=== PATIENT | male | born 1980 | race Caucasian/White ===

== ENCOUNTER 2017-07-03 22:23 | Emergency (ER) | payer MEDICAID ==
--- NOTE | 2017-07-03 22:47 | EDM.PDOC ---
ED HPI GENERAL MEDICAL PROBLEM - General Chief Complaint: Upper Extremity Injury/Pain Stated Complaint: LT SHOULDER POPPED OUT Time Seen by Provider: 07/03/17 22:46 Source of Information: Reports: Patient - History of Present Illness INITIAL COMMENTS - FREE TEXT/NARRATIVE: HISTORY AND PHYSICAL: History of present illness: []Patient presents with complaint of a left shoulder dislocation after falling from a however board although he has range of motion of the shoulder is tender along the clavicle 4 out of 10 pain better at rest no fever nausea vomiting chills sweats no chest pain or shortness of breath Review of systems: As per history of present illness and below otherwise all systems reviewed and negative. Past medical history: As per history of present illness and as reviewed below otherwise noncontributory. Surgical history: As per history of present illness and as reviewed below otherwise noncontributory. Social history: No reported history of drug or alcohol abuse. Family history: As per history of present illness and as reviewed below otherwise noncontributory. Physical exam: HEENT: Atraumatic, normocephalic, pupils reactive, negative for conjunctival pallor or scleral icterus, mucous membranes moist, throat clear, neck supple, nontender, trachea midline. Lungs: Clear to auscultation, breath sounds equal bilaterally, chest nontender. Heart: S1S2, regular, negative for clicks, rubs, or JVD. Abdomen: Soft, nondistended, nontender. Negative for masses or hepatosplenomegaly. Negative for costovertebral tenderness. Pelvis: Stable nontender. Genitourinary: Deferred. Rectal: Deferred. Extremities: Atraumatic, negative for cords or calf pain. Neurovascular unremarkable. Neuro: Awake, alert, oriented. Cranial nerves II through XII unremarkable. Cerebellum unremarkable. Motor and sensory unremarkable throughout. Exam nonfocal. Diagnostics: [Left shoulder complete ] Therapeutics: [] sling [place] No heavy equipment operation with narcotic pain medicine Impression: [Left shoulder injury] Clavicle fracture Definitive disposition and diagnosis as appropriate pending reevaluation and review of above. Left Shoulder Pain Score (Numeric/FACES): 6 - Related Data Allergies Allergy/AdvReac Type Severity Reaction Status Date / Time No Known Allergies Allergy Verified 07/03/17 22:43 Home Meds: Home Meds . [Unable to Verify Home Med List] 07/03/17 [History] Past Medical History - Past Health History Medical/Surgical History: Denies Medical/Surgical History Cardiovascular History: Reports: Hypertension Psychiatric History: Reports: Addiction Other Psychiatric History: alcohol abuse Social & Family History - Tobacco Use Smoking Status *Q: Current Every Day Smoker Years of Tobacco use: 25 Packs/Tins Daily: 0.7 - Caffeine Use Caffeine Use: Reports: None - Alcohol Use Days Per Week of Alcohol Use: 7 Number of Drinks Per Day: 10 Total Drinks Per Week: 70 - Recreational Drug Use Recreational Drug Use: No Review of Systems - Review of Systems Review Of Systems: ROS reveals no pertinent complaints other than HPI. ED EXAM, GENERAL - Physical Exam Exam: See Below Course - Vital Signs Last Recorded V/S: Last Vital Signs Temp 99.1 F 07/03/17 22:41 Pulse 99 07/03/17 22:41 Resp 12 07/03/17 22:41 BP 131/82 07/03/17 22:41 Pulse Ox 94 L 07/03/17 22:41 - Orders/Labs/Meds Orders: Active Orders 24 hr Category Date Time Status Shoulder Comp Lt [CR] Stat Exams 07/03/17 22:46 Taken Departure - Departure Time of Disposition: 23:49 Disposition: Home, Self-Care 01 Condition: Good Clinical Impression: Clavicle fracture - Discharge Information Referrals: PCP,None [Primary Care Provider] - Forms: ED Department Discharge Additional Instructions: Medication as prescribed Sling for comfort No heavy equipment operation or driving with pain medication Return if symptoms persist or worsen Follow-up with orthopedist, call phone number below to schedule appropriate appointment follow-up [facility] [address], [address] [place] [address] my orthopedic The following information is given to patients seen in the emergency department who are being discharged to home. This information is to outline your options for follow-up care. We provide all patients seen in our emergency department with a follow-up referral. The need for follow-up, as well as the timing and circumstances, are variable depending upon the specifics of your emergency department visit. If you don't have a primary care physician on staff, we will provide you with a referral. We always advise you to contact your personal physician following an emergency department visit to inform them of the circumstance of the visit and for follow-up with them and/or the need for any referrals to a consulting specialist. The emergency department will also refer you to a specialist when appropriate. This referral assures that you have the opportunity for follow-up care with a specialist. All of these measure are taken in an effort to provide you with optimal care, which includes your follow-up. Under all circumstances we always encourage you to contact your private physician who remains a resource for coordinating your care. When calling for follow-up care, please make the office aware that this follow-up is from your recent emergency room visit. If for any reason you are refused follow-up, please contact the [facility] emergency department at and asked to speak to the emergency department charge nurse. - My Orders Last 24 Hours: My Active Orders 07/03/17 22:46 Shoulder Comp Lt [CR] Stat - Assessment/Plan Last 24 Hours: My Active Orders 07/03/17 22:46 Shoulder Comp Lt [CR] Stat
[2017-07-04 00:20] VITALS: BP 127/81
--- NOTE | 2017-07-04 15:36 | CR ---
EXAM DATE: 07/03/17 PATIENT'S AGE: 36 Patient: VICKI MADRID Facility: [place], [place] Site . Site : 1980 Study: XRay Shoulder Left [id number]/22/2018 11:24:19 PM Ordering Physician: Doctor Lopez Final Report: INDICATION: Trauma TECHNIQUE: Three views left shoulder COMPARISON: None FINDINGS: Bones: Multipart displaced fracture distal left clavicle. Joint spaces: Unremarkable. Soft tissues: Unremarkable. IMPRESSION: Multipart displaced fracture distal left clavicle. The AC joint is intact. Dictated by Bob Richardson MD @ 07/03/2017 11:34:56 PM Dictated by: Bob Richardson MD @ 07/03/2017 23:35:03 (Electronic Signature) Report Signed by Proxy. MELA
== END 2017-07-04 00:08 | disposition home or self-care (01) ==
LOC: MW.ED 22:23
DX: S42.032A Displaced fracture of lateral end of left clavicle, initial encounter for closed fracture (principal); I10 Essential (primary) hypertension; F17.210 Nicotine dependence, cigarettes, uncomplicated; W17.89XA Other fall from one level to another, initial encounter
CPT/HCPCS: 73030; 99283; A4566

== ENCOUNTER 2020-04-03 00:11 | Inpatient (IN) | payer BC, MEDICAID ==
[2020-04-03] MEDS ORDERED: Sodium Chloride 0.9% 10 ML Syringe FLUSH PRN (00:42)
[2020-04-03] MEDS ORDERED: Sodium Chloride 0.9% 2.5 ML Syringe FLUSH PRN (00:42)
[2020-04-03] MEDS ORDERED: Folic Acid 1 MG Tab PO ONE (00:44)
[2020-04-03] MEDS ORDERED: MVI, Adult with Vitamin K 10 ML, Thiamine 200 MG, Chromium/Copper/Mang/Selen/Zn 1 ML in... IV SCH ×4 (00:45)
--- NOTE | 2020-04-03 00:46 | EDM.PDOC ---
ED HPI GENERAL MEDICAL PROBLEM - General Chief Complaint: Drug or Alcohol Abuse Stated Complaint: ALCOHOL DETOX Time Seen by Provider: 04/03/20 00:25 - History of Present Illness INITIAL COMMENTS - FREE TEXT/NARRATIVE: History of present illness: [] The patient is intoxicated and admits it. He says he drinks every day. He never gets sober. He gets shaky and sick if he stops drinking. He is depressed. His father of cirrhosis. His mother is 20 years sober but was an alcoholic. He does not have any specific complaints. He does hallucinate and hears voices but he is tearful about the fact and the same that he does had for some reason. The voices are not self-deprecating and do not tell him to do any harm to anyone. He does not recognize the identity of the voices. The patient is not suicidal and wants help. Review of systems: As per history of present illness and below otherwise all systems reviewed and negative. Past medical history: As per history of present illness and as reviewed below otherwise noncontributory. Surgical history: As per history of present illness and as reviewed below otherwise noncontributory. Social history: No reported history of drug or alcohol abuse. Family history: As per history of present illness and as reviewed below otherwise noncontributory. Physical exam: Constitutional - well developed, well-nourished and in no acute distress HEENT - normocephalic, no evidence of trauma - external nose and mouth normal - no mass in neck and no JVD - mucosae moist EYES - full EOM, PERRL, no icterus - no evidence of inflammation, injection, or drainage Respiratory - no respiratory distress, equal bilateral expansion, lungs clear to auscultation and no abnormal lung sounds Cardiovascular - Regular Rhythm with S1 and S2 appreciated and no murmur, gallop or rub. GI - abdomen normally distended- normal bowel sounds - no guard or rebound Musculoskeletal no gross deformity of long bones or joints - no tenderness, swelling or edema Neurologic - Alert and oriented times four - CN II-XII grossly intact - motor sensory and coordination symmetrically normal Psychiatric - appropriate mood and affect with normal thought content Hematologic - No petechiae or purpura - mucosa appropriate color and sclera not pale - normal nail bed color and refill Integument - no rash or evidence of trauma - normal turgor Diagnostics: [] Therapeutics: [] Impression: [] Plan: [] Definitive disposition and diagnosis as appropriate pending reevaluation and review of above. - Related Data Allergies Allergy/AdvReac Type Severity Reaction Status Date / Time No Known Allergies Allergy Verified 04/03/20 00:19 Home Meds: Home Meds Escitalopram [Lexapro] 20 mg PO DAILY 04/03/20 [History] Folic Acid 1 mg PO DAILY 04/03/20 [History] Labetalol [Normodyne] 200 mg PO DAILY 04/03/20 [History] Lacosamide [Vimpat] 150 mg PO BID 04/03/20 [History] Naltrexone 50 mg PO DAILY 04/03/20 [History] Venlafaxine [Effexor] 75 mg PO BID 04/03/20 [History] amLODIPine [Norvasc] 10 mg PO DAILY 04/03/20 [History] chlordiazePOXIDE [Librium] 25 mg PO ASDIRECTED 04/03/20 [History] hydrALAZINE [Apresoline] 50 mg PO DAILY 04/03/20 [History] Past Medical History - Past Health History Medical/Surgical History: Denies Medical/Surgical History HEENT History: Reports: None Cardiovascular History: Reports: Hypertension Respiratory History: Reports: None Gastrointestinal History: Reports: None Genitourinary History: Reports: None Musculoskeletal History: Reports: None Neurological History: Reports: None Psychiatric History: Reports: Addiction Other Psychiatric History: alcohol abuse Endocrine/Metabolic History: Reports: None Dermatologic History: Reports: None - Infectious Disease History Infectious Disease History: Reports: Chicken Pox Social & Family History - Tobacco Use Tobacco Use Status *Q: Current Every Day Tobacco User Years of Tobacco use: 20 Packs/Tins Daily: 1 - Caffeine Use Caffeine Use: Reports: None - Recreational Drug Use Recreational Drug Use: No ED ROS GENERAL - Review of Systems Review Of Systems: Comprehensive ROS is negative, except as noted in HPI. ED EXAM, GENERAL - Physical Exam Exam: See Below Free Text/Narrative:: My physical exam is in the HPI #1 Interpretation EKG Interpretation Comments: EKG done at 12:43 AM normal sinus rhythm heart rate 96 UT 172 QT 468 [place] [address] and T segments and QRS. Impression normal EKG Course - Vital Signs Text/Narrative:: 2:19 AM. The patient has elevated lipase over 2500. He still is hungry. The patient has alcohol over 400. Discussed with our hospitalist and she said if there is no significant abnormality on CT that would require transfer she would admit the patient for alcohol poisoning and pancreatitis. That if he is hungry would be okay to give a trial of p.o. intake here but make him n.p.o. after that. Want to CT report before we tried that. 06 03 the patient is eating and hungry. The CT does not show any need for surgery. The patient will be placed in observation status and then will try to make arrangements for detox are supervised abstinence. Dr. Arriaga most graciously admitted to place the patient on observation status in the hospital. Last Recorded V/S: Last Vital Signs Temp 36.1 C 04/03/20 00:19 Pulse 86 04/03/20 01:45 Resp 18 04/03/20 01:45 BP 113/65 04/03/20 01:45 Pulse Ox 95 04/03/20 01:45 - Orders/Labs/Meds Orders: Active Orders 24 hr Category Date Time Status Admission Status [Patient Status] [ADT] Stat ADT 04/03/20 03:16 Ordered EKG Documentation Completion [RC] AM Care 04/03/20 00:42 Active COVID-19/FLU A+B [MOLEC] Stat Lab 04/03/20 02:14 Ordered MVI, Adult with Vitamin K [Infuvite Adult] 10 ml Med 04/03/20 01:11 Active Thiamine [Vitamin B-1] 100 mg Folic Acid 1 mg Sodium Chloride 0.9% [Normal Saline] 1,000 ml IV ONETIME Sodium Chloride 0.9% [Saline Flush] Med 04/03/20 00:42 Active 10 ml FLUSH ASDIRECTED PRN Sodium Chloride 0.9% [Saline Flush] Med 04/03/20 00:42 Active 2.5 ml FLUSH ASDIRECTED PRN Saline Lock Insert [OM.PC] Stat Oth 04/03/20 00:42 Ordered Medication Orders Multivitamins/Minerals 10 ml/Thiamine HCl 100 mg/ Folic Acid 1 mg/ Sodium Chloride 1,011.2 mls @ 150 mls/hr IV ONETIME ONE Stop: 04/03/20 07:55 Last Admin: 04/03/20 01:12 Dose: 150 mls/hr Documented by: MANSRUF Sodium Chloride (Saline Flush) 10 ml FLUSH ASDIRECTED PRN PRN Reason: Keep Vein Open Sodium Chloride (Saline Flush) 2.5 ml FLUSH ASDIRECTED PRN PRN Reason: Keep Vein Open Labs: Laboratory Tests 04/03/20 04/03/20 04/03/20 Range/Units 00:34 00:34 00:34 WBC 7.59 (4.0-11.0) K/uL RBC 3.93 L (4.50-5.90) M/uL Hgb 13.5 (13.0-17.0) g/dL Hct 38.4 (38.0-50.0) % MCV 97.7 (80.0-98.0) fL MCH 34.4 H (27.0-32.0) pg MCHC 35.2 (31.0-37.0) g/dL RDW Std Deviation 45.2 (28.0-62.0) fl RDW Coeff of [place] 13 (11.0-15.0) % Plt Count 178 (150-400) K/uL MPV 9.80 (7.40-12.00) fL Neut % (Auto) 28.6 L (48.0-80.0) % Lymph % (Auto) 53.6 H (16.0-40.0) % [place] % (Auto) 12.9 (0.0-15.0) % Eos % (Auto) 2.8 (0.0-7.0) % Baso % (Auto) 2.1 H (0.0-1.5) % Neut # (Auto) 2.2 (1.4-5.7) K/uL Lymph # (Auto) 4.1 H (0.6-2.4) K/uL [place] # (Auto) 1.0 H (0.0-0.8) K/uL Eos # (Auto) 0.2 (0.0-0.7) K/uL Baso # (Auto) 0.2 H (0.0-0.1) K/uL Sodium 144 (136-148) mmol/L Potassium 3.6 (3.5-5.1) mmol/L Chloride 105 (98-107) mmol/L Carbon Dioxide 26.7 (21.0-32.0) mmol/L BUN 8 (7.0-18.0) mg/dL Creatinine 0.9 (0.8-1.3) mg/dL Est Cr Clr Drug Dosing 111.53 mL/min Estimated GFR (MDRD) > 60.0 ml/min Glucose 100 (74-106) mg/dL Calcium 8.5 (8.5-10.1) mg/dL Magnesium 1.9 (1.8-2.4) mg/dL Total Bilirubin 0.4 (0.2-1.0) mg/dL AST 150 H (15-37) IU/L ALT 98 H (14-63) IU/L Alkaline Phosphatase 118 H (46-116) U/L Troponin I < 0.050 (0.000-0.056) ng/mL Total Protein 7.5 (6.4-8.2) g/dL Albumin 3.9 (3.4-5.0) g/dL Globulin 3.6 (2.6-4.0) g/dL Albumin/Globulin Ratio 1.1 (0.9-1.6) Lipase 2582 H (73-393) U/L Urine Color Urine Appearance Urine pH (5.0-8.0) Ur Specific [place] (1.001-1.035) Urine Protein (NEGATIVE) mg/dL Urine Glucose (UA) (NEGATIVE) mg/dL Urine Ketones (NEGATIVE) mg/dL Urine Occult Blood (NEGATIVE) Urine Nitrite (NEGATIVE) Urine Bilirubin (NEGATIVE) Urine Urobilinogen (<2.0) EU/dL Ur Leukocyte Esterase (NEGATIVE) Urine RBC (0-2/HPF) Urine WBC (0-5/HPF) Ur Epithelial Cells (NONE-FEW) Urine Bacteria (NEGATIVE) Urine Mucus (NONE-MOD) Urine Opiates Screen (NEGATIVE) Ur Oxycodone Screen (NEGATIVE) Urine Methadone Screen (NEGATIVE) Ur Barbiturates Screen (NEGATIVE) Ur Phencyclidine Scrn (NEGATIVE) Ur Amphetamine Screen (NEGATIVE) U Methamphetamines Scrn (NEGATIVE) U Benzodiazepines Scrn (NEGATIVE) U Cocaine Metab Screen (NEGATIVE) U Marijuana (THC) Screen (NEGATIVE) Ethyl Alcohol 436 mg/dL 04/03/20 04/03/20 Range/Units 00:50 00:50 WBC (4.0-11.0) K/uL RBC (4.50-5.90) M/uL Hgb (13.0-17.0) g/dL Hct (38.0-50.0) % MCV (80.0-98.0) fL MCH (27.0-32.0) pg MCHC (31.0-37.0) g/dL RDW Std Deviation (28.0-62.0) fl RDW Coeff of [place] (11.0-15.0) % Plt Count (150-400) K/uL MPV (7.40-12.00) fL Neut % (Auto) (48.0-80.0) % Lymph % (Auto) (16.0-40.0) % [place] % (Auto) (0.0-15.0) % Eos % (Auto) (0.0-7.0) % Baso % (Auto) (0.0-1.5) % Neut # (Auto) (1.4-5.7) K/uL Lymph # (Auto) (0.6-2.4) K/uL [place] # (Auto) (0.0-0.8) K/uL Eos # (Auto) (0.0-0.7) K/uL Baso # (Auto) (0.0-0.1) K/uL Sodium (136-148) mmol/L Potassium (3.5-5.1) mmol/L Chloride (98-107) mmol/L Carbon Dioxide (21.0-32.0) mmol/L BUN (7.0-18.0) mg/dL Creatinine (0.8-1.3) mg/dL Est Cr Clr Drug Dosing mL/min Estimated GFR (MDRD) ml/min Glucose (74-106) mg/dL Calcium (8.5-10.1) mg/dL Magnesium (1.8-2.4) mg/dL Total Bilirubin (0.2-1.0) mg/dL AST (15-37) IU/L ALT (14-63) IU/L Alkaline Phosphatase (46-116) U/L Troponin I (0.000-0.056) ng/mL Total Protein (6.4-8.2) g/dL Albumin (3.4-5.0) g/dL Globulin (2.6-4.0) g/dL Albumin/Globulin Ratio (0.9-1.6) Lipase (73-393) U/L Urine Color YELLOW Urine Appearance CLEAR Urine pH 6.5 (5.0-8.0) Ur Specific [place] 1.015 (1.001-1.035) Urine Protein 30 H (NEGATIVE) mg/dL Urine Glucose (UA) NEGATIVE (NEGATIVE) mg/dL Urine Ketones NEGATIVE (NEGATIVE) mg/dL Urine Occult Blood NEGATIVE (NEGATIVE) Urine Nitrite NEGATIVE (NEGATIVE) Urine Bilirubin NEGATIVE (NEGATIVE) Urine Urobilinogen 0.2 (<2.0) EU/dL Ur Leukocyte Esterase NEGATIVE (NEGATIVE) Urine RBC NONE SEEN (0-2/HPF) Urine WBC 0-1 (0-5/HPF) Ur Epithelial Cells RARE (NONE-FEW) Urine Bacteria RARE (NEGATIVE) Urine Mucus LIGHT (NONE-MOD) Urine Opiates Screen NEGATIVE (NEGATIVE) Ur Oxycodone Screen NEGATIVE (NEGATIVE) Urine Methadone Screen NEGATIVE (NEGATIVE) Ur Barbiturates Screen NEGATIVE (NEGATIVE) Ur Phencyclidine Scrn NEGATIVE (NEGATIVE) Ur Amphetamine Screen NEGATIVE (NEGATIVE) U Methamphetamines Scrn NEGATIVE (NEGATIVE) U Benzodiazepines Scrn POSITIVE (NEGATIVE) U Cocaine Metab Screen NEGATIVE (NEGATIVE) U Marijuana (THC) Screen NEGATIVE (NEGATIVE) Ethyl Alcohol mg/dL Meds: Medications Generic Name Dose Route Start Last Admin Trade Name Freq PRN Reason Stop Dose Admin Multivitamins/Minerals 10 ml/ 1,011.2 mls @ 150 mls/hr 04/03/20 01:11 04/03/20 01:12 Thiamine HCl 100 mg/ Folic IV 04/03/20 07:55 150 mls/hr Acid 1 mg/ Sodium Chloride ONETIME ONE Administration Sodium Chloride 10 ml 04/03/20 00:42 Saline Flush FLUSH ASDIRECTED PRN Keep Vein Open Sodium Chloride 2.5 ml 04/03/20 00:42 Saline Flush FLUSH ASDIRECTED PRN Keep Vein Open Discontinued Medications Generic Name Dose Route Start Last Admin Trade Name Freq PRN Reason Stop Dose Admin Folic Acid 1 mg 04/03/20 00:44 04/03/20 01:17 Folic Acid PO 04/03/20 00:45 Not Given ONETIME ONE Multivitamins/Minerals 10 ml/ 1,013 mls @ 150 mls/hr 04/03/20 00:45 Thiamine HCl 200 mg/ Chromium/ IV Copper/Manganese/Seleni/Zn 1 ASDIRECTED ML ml/ Dextrose/Lactated Ringer's Iopamidol 100 ml 04/03/20 02:31 04/03/20 02:33 Isovue Multipack-370 (76%) IVPUSH 04/03/20 02:32 100 ml ONETIME STA Administration Departure - Departure Time of Disposition: 03:24 Disposition: Refer to Observation Condition: Fair Clinical Impression: Alcohol poisoning, Acute pancreatitis, Elevated LFTs - Discharge Information Referrals: Stanton Shultz MD [Primary Care Provider] - Forms: ED Department Discharge Sepsis Event Note (ED) - Evaluation Sepsis Screening Result: No Definite Risk - Focused Exam Vital Signs: Vital Signs Temp Pulse Resp BP Pulse Ox 04/03/20 01:45 86 18 113/65 95 04/03/20 01:17 89 18 139/96 H 94 L 04/03/20 00:19 36.1 C 110 H 16 147/106 H 95 - My Orders Last 24 Hours: My Active Orders 04/03/20 00:42 EKG Documentation Completion [RC] AM Sodium Chloride 0.9% [Saline Flush] 10 ml FLUSH ASDIRECTED PRN Sodium Chloride 0.9% [Saline Flush] 2.5 ml FLUSH ASDIRECTED PRN Saline Lock Insert [OM.PC] Stat 04/03/20 01:11 MVI, Adult with Vitamin K [Infuvite Adult] 10 ml Thiamine [Vitamin B-1] 100 mg Folic Acid 1 mg Sodium Chloride 0.9% [Normal Saline] 1,000 ml IV ONETIME 04/03/20 02:14 COVID-19/FLU A+B [MOLEC] Stat 04/03/20 03:16 Admission Status [Patient Status] [ADT] Stat - Assessment/Plan Last 24 Hours: My Active Orders 04/03/20 00:42 EKG Documentation Completion [RC] AM Sodium Chloride 0.9% [Saline Flush] 10 ml FLUSH ASDIRECTED PRN Sodium Chloride 0.9% [Saline Flush] 2.5 ml FLUSH ASDIRECTED PRN Saline Lock Insert [OM.PC] Stat 04/03/20 01:11 MVI, Adult with Vitamin K [Infuvite Adult] 10 ml Thiamine [Vitamin B-1] 100 mg Folic Acid 1 mg Sodium Chloride 0.9% [Normal Saline] 1,000 ml IV ONETIME 04/03/20 02:14 COVID-19/FLU A+B [MOLEC] Stat 04/03/20 03:16 Admission Status [Patient Status] [ADT] Stat
[2020-04-03] MEDS ORDERED: MVI, Adult with Vitamin K 10 ML, Thiamine 100 MG, Folic Acid 1 MG in Sodium Chloride 0.... IV ONE ×4 (01:11)
[2020-04-03 01:16] LABS: BLOOD UREA NITROGEN,BUN 8 mg/dL (7.0-18.0); CARBON DIOXIDE,CO2 26.7 mmol/L (21.0-32.0); CHLORIDE,CL 105 mmol/L (98-107); GLUCOSE RANDOM 100 mg/dL (74-106); POTASSIUM,K 3.6 mmol/L (3.5-5.1); SODIUM,NA 144 mmol/L (136-148)
[2020-04-03 01:34] LABS: LIPASE 2582 U/L (73-393)
[2020-04-03] MEDS ORDERED: Iopamidol 755 MG/ML 500 ML Multipack Bottle IVPUSH STA (02:31)
--- NOTE | 2020-04-03 03:11 | CT ---
INDICATION: Distended abdomen. Elevated lipase TECHNIQUE: CT abdomen and pelvis acquired with IV contrast. 100 mL of Isovue 370 administered. COMPARISON: None available FINDINGS: Lower chest: Unremarkable. Liver: Hepatomegaly measuring 23 cm craniocaudally. Hepatic steatosis. A 1.9 x 1.4 cm enhancing anterior right hepatic lesion on image 67, and a subcentimeter inferior right hepatic enhancing lesion on image 93. Spleen: Unremarkable. Pancreas: Small focal edema and trace stranding adjacent to the proximal pancreatic body. Gallbladder and bile ducts: A moderately distended gallbladder. A dilated proximal extrahepatic duct measuring up to 1.2 cm. Adrenal glands: Unremarkable. Kidneys: Unremarkable. GI tract: No high-grade mechanical bowel obstruction. Some non dilated fluid and gas-filled small bowel segments are nonspecific. A normal appendix. No significant pericolonic changes. Vascular structures: Unremarkable. Lymph nodes: Unremarkable. Miscellaneous: No significant free fluid or free air. A small fat containing umbilical hernia and tiny fat containing inguinal hernias. Pelvic Organs: Unremarkable. Bones: A transitional lumbosacral anatomy. 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 A mild anterior L2 compression deformity. A chronic posterior right 9th rib deformity. IMPRESSION: A small focus of edema and trace stranding adjacent to the proximal pancreatic body. Correlate for pancreatitis. Hepatomegaly and hepatic steatosis. Enhancing right hepatic lesions. Recommend follow-up evaluation with contrast MRI. A distended gallbladder and dilated proximal extrahepatic duct. Consider sonographic evaluation. No evidence of appendicitis, diverticulitis or mechanical bowel obstruction. Some fluid and gas-filled small bowel segments are nonspecific. Correlate clinically to exclude enteritis. Dictated by Aayush Gaxiola MD @ 04/03/2020 3:08:52 AM Please note that all CT scans at this facility use dose modulation, iterative reconstruction, and/or weight-based dosing when appropriate to reduce radiation dose to as low as reasonably achievable. Dictated by: Aayush Gaxiola MD @ 04/03/2020 03:08:56 (Electronically Signed)
[2020-04-03 03:35] LABS: CORONAVIRUS COVID-19 NAA NEGATIVE (NEGATIVE); INFLUENZA A NAA NEGATIVE (NEGATIVE); INFLUENZA B NAA NEGATIVE (NEGATIVE)
[2020-04-03] MEDS ORDERED: Morphine 2 MG/ML SYRINGE IVPUSH PRN (05:00)
[2020-04-03] MEDS: Ondansetron 4 MG/2 ML SDV IVPUSH PRN ×2 (05:35→14:17)
[2020-04-03] MEDS ORDERED: LORazepam 2 MG/ML SDV IVPUSH PRN (06:00)
[2020-04-03 06:46] LABS: BLOOD UREA NITROGEN,BUN 7 mg/dL (7.0-18.0); CARBON DIOXIDE,CO2 29.1 mmol/L (21.0-32.0); CHLORIDE,CL 107 mmol/L (98-107); GLUCOSE RANDOM 75 mg/dL (74-106); LIPASE 1022 U/L (73-393); POTASSIUM,K 3.4 mmol/L (3.5-5.1); SODIUM,NA 146 mmol/L (136-148)
[2020-04-03] MEDS ORDERED: Potassium Chloride 20 MEQ Tab.ER PO ONE (08:15)
[2020-04-03] MEDS ORDERED: Magnesium Sulfate/Water 2 GM/50 ML BAG IV SCH (08:15)
--- NOTE | 2020-04-03 08:43 | PCM.HP.2 ---
H&P History of Present Illness - General Date of Service: 04/03/20 Admit Problem/Dx: Admission Diagnosis/Problem Admission Diagnosis/Problem Pancreatitis Source of Information: Patient History Limitations: Reports: Intoxication - History of Present Illness Initial Comments - Free Text/Narative: Patient is a 39-year-old male with a significant past medical history of alcohol use disorder x20 years with a history of alcohol withdrawal seizures and hallucinations, hypertension, depression; presenting to the ED with a significant level of intoxication. Patient can with concerns of repeat hallucinations/seizures as he was in the recent past seen under similar circumstances requiring intubation and transfer to a larger facility. Endorses drinking more than 1 pint of vodka daily for a couple of weeks now; admits drinking more secondary to having lost his job. ED course: CT abdomen pelvis: Small focus of edema and trace stranding adjacent to the proximal pancreatic body correlate for pancreatitis. Hepatomegaly with hepatic steatosis. Enhancing right hepatic lesions. Distended gallbladder and dilated proximal extrahepatic duct. EtOH level: 436 Bedside: Patient endorses similar story as above. Denies any nausea and vomiting currently. Denies any hallucinations as of this time. Actively slurring words. Patient is a poor historian. - Related Data Allergies/Adverse Reactions: Allergies Allergy/AdvReac Type Severity Reaction Status Date / Time No Known Allergies Allergy Verified 04/03/20 04:20 Home Medications: Home Meds Escitalopram [Lexapro] 20 mg PO DAILY 04/03/20 [History] Folic Acid 1 mg PO DAILY 04/03/20 [History] Labetalol [Normodyne] 200 mg PO DAILY 04/03/20 [History] Lacosamide [Vimpat] 150 mg PO DAILY 04/03/20 [History] Naltrexone 50 mg PO DAILY 04/03/20 [History] Venlafaxine [Effexor] 75 mg PO DAILY 04/03/20 [History] amLODIPine [Norvasc] 10 mg PO DAILY 04/03/20 [History] chlordiazePOXIDE [Librium] 100 mg PO BEDTIME 04/03/20 [History] hydrALAZINE [Apresoline] 50 mg PO DAILY 04/03/20 [History] Past Medical History - Past Health History Medical/Surgical History: Denies Medical/Surgical History HEENT History: Reports: None Cardiovascular History: Reports: Hypertension Respiratory History: Reports: None Gastrointestinal History: Reports: None Genitourinary History: Reports: None Musculoskeletal History: Reports: None Neurological History: Reports: None Psychiatric History: Reports: Addiction, Anxiety Other Psychiatric History: alcohol abuse Endocrine/Metabolic History: Reports: None Dermatologic History: Reports: None - Infectious Disease History Infectious Disease History: Reports: Chicken Pox Social & Family History - Tobacco Use Tobacco Use Status *Q: Current Every Day Tobacco User Years of Tobacco use: 25 Packs/Tins Daily: 0.5 - Caffeine Use Caffeine Use: Reports: None - Alcohol Use Days Per Week of Alcohol Use: 7 Number of Drinks Per Day: 8 Total Drinks Per Week: 56 Date of Last Drink: 04/02/20 Time of Last Drink: 13:00 - Recreational Drug Use Recreational Drug Use: No H&P Review of Systems - Review of Systems: Review Of Systems: See Below General: Reports: Decreased Appetite HEENT: Reports: No Symptoms Pulmonary: Reports: No Symptoms Cardiovascular: Reports: No Symptoms Gastrointestinal: Reports: Decreased Appetite, Nausea. Denies: Abdominal Pain, Constipation, Diarrhea Genitourinary: Reports: No Symptoms Musculoskeletal: Reports: No Symptoms Skin: Reports: No Symptoms Psychiatric: Reports: Mood Lability, Anxiety. Denies: Hallucinations, Hallucinations (Auditory), Hallucinations (Visual) Neurological: Denies: Confusion, Dizziness, Headache Exam - Exam Exam: See Below - Vital Signs Vital Signs: Last Vital Signs Temp 98.2 F 04/03/20 07:23 Pulse 96 04/03/20 07:23 Resp 19 04/03/20 07:23 BP 124/84 04/03/20 07:23 Pulse Ox 92 L 04/03/20 07:56 Weight: 90.2 kg - Exam Quality Assessment: No: Supplemental Oxygen General: Alert, Oriented HEENT: Other (Horizontal nystagmus noted ) Neck: Supple, Trachea Midline Lungs: Clear to Auscultation, Normal Respiratory Effort Cardiovascular: Regular Rate, Regular Rhythm GI/Abdominal Exam: Other (RUQ/LUQ tenderness. no fluid wave noted. no rebound tenderness ) Back Exam: Full Range of Motion Extremities: Normal Inspection Neuro Extensive - Mental Status: Alert, Oriented x3 Psychiatric: Alert, Anxious - Patient Data Lab Results Last 24 hrs: Laboratory Results - last 24 hr 04/03/20 04/03/20 04/03/20 Range/Units 00:34 00:34 00:34 WBC 7.59 (4.0-11.0) K/uL RBC 3.93 L (4.50-5.90) M/uL Hgb 13.5 (13.0-17.0) g/dL Hct 38.4 (38.0-50.0) % MCV 97.7 (80.0-98.0) fL MCH 34.4 H (27.0-32.0) pg MCHC 35.2 (31.0-37.0) g/dL RDW Std Deviation 45.2 (28.0-62.0) fl RDW Coeff of [place] 13 (11.0-15.0) % Plt Count 178 (150-400) K/uL MPV 9.80 (7.40-12.00) fL Neut % (Auto) 28.6 L (48.0-80.0) % Lymph % (Auto) 53.6 H (16.0-40.0) % [place] % (Auto) 12.9 (0.0-15.0) % Eos % (Auto) 2.8 (0.0-7.0) % Baso % (Auto) 2.1 H (0.0-1.5) % Neut # (Auto) 2.2 (1.4-5.7) K/uL Lymph # (Auto) 4.1 H (0.6-2.4) K/uL [place] # (Auto) 1.0 H (0.0-0.8) K/uL Eos # (Auto) 0.2 (0.0-0.7) K/uL Baso # (Auto) 0.2 H (0.0-0.1) K/uL Nucleated RBC % /100WBC Nucleated RBCs # K/uL Sodium 144 (136-148) mmol/L Potassium 3.6 (3.5-5.1) mmol/L Chloride 105 (98-107) mmol/L Carbon Dioxide 26.7 (21.0-32.0) mmol/L BUN 8 (7.0-18.0) mg/dL Creatinine 0.9 (0.8-1.3) mg/dL Est Cr Clr Drug Dosing 111.53 mL/min Estimated GFR (MDRD) > 60.0 ml/min Glucose 100 (74-106) mg/dL Calcium 8.5 (8.5-10.1) mg/dL Phosphorus (2.6-4.7) mg/dL Magnesium 1.9 (1.8-2.4) mg/dL Total Bilirubin 0.4 (0.2-1.0) mg/dL AST 150 H (15-37) IU/L ALT 98 H (14-63) IU/L Alkaline Phosphatase 118 H (46-116) U/L Troponin I < 0.050 (0.000-0.056) ng/mL Total Protein 7.5 (6.4-8.2) g/dL Albumin 3.9 (3.4-5.0) g/dL Globulin 3.6 (2.6-4.0) g/dL Albumin/Globulin Ratio 1.1 (0.9-1.6) Lipase 2582 H (73-393) U/L Urine Color Urine Appearance Urine pH (5.0-8.0) Ur Specific [place] (1.001-1.035) Urine Protein (NEGATIVE) mg/dL Urine Glucose (UA) (NEGATIVE) mg/dL Urine Ketones (NEGATIVE) mg/dL Urine Occult Blood (NEGATIVE) Urine Nitrite (NEGATIVE) Urine Bilirubin (NEGATIVE) Urine Urobilinogen (<2.0) EU/dL Ur Leukocyte Esterase (NEGATIVE) Urine RBC (0-2/HPF) Urine WBC (0-5/HPF) Ur Epithelial Cells (NONE-FEW) Urine Bacteria (NEGATIVE) Urine Mucus (NONE-MOD) Urine Opiates Screen (NEGATIVE) Ur Oxycodone Screen (NEGATIVE) Urine Methadone Screen (NEGATIVE) Ur Barbiturates Screen (NEGATIVE) Ur Phencyclidine Scrn (NEGATIVE) Ur Amphetamine Screen (NEGATIVE) U Methamphetamines Scrn (NEGATIVE) U Benzodiazepines Scrn (NEGATIVE) U Cocaine Metab Screen (NEGATIVE) U Marijuana (THC) Screen (NEGATIVE) Ethyl Alcohol 436 mg/dL Influenza Type A RNA (NEGATIVE) Influenza Type B RNA (NEGATIVE) SARS-CoV-2 RNA (PEMA) (NEGATIVE) 04/03/20 04/03/20 04/03/20 Range/Units 00:50 00:50 02:45 WBC (4.0-11.0) K/uL RBC (4.50-5.90) M/uL Hgb (13.0-17.0) g/dL Hct (38.0-50.0) % MCV (80.0-98.0) fL MCH (27.0-32.0) pg MCHC (31.0-37.0) g/dL RDW Std Deviation (28.0-62.0) fl RDW Coeff of [place] (11.0-15.0) % Plt Count (150-400) K/uL MPV (7.40-12.00) fL Neut % (Auto) (48.0-80.0) % Lymph % (Auto) (16.0-40.0) % [place] % (Auto) (0.0-15.0) % Eos % (Auto) (0.0-7.0) % Baso % (Auto) (0.0-1.5) % Neut # (Auto) (1.4-5.7) K/uL Lymph # (Auto) (0.6-2.4) K/uL [place] # (Auto) (0.0-0.8) K/uL Eos # (Auto) (0.0-0.7) K/uL Baso # (Auto) (0.0-0.1) K/uL Nucleated RBC % /100WBC Nucleated RBCs # K/uL Sodium (136-148) mmol/L Potassium (3.5-5.1) mmol/L Chloride (98-107) mmol/L Carbon Dioxide (21.0-32.0) mmol/L BUN (7.0-18.0) mg/dL Creatinine (0.8-1.3) mg/dL Est Cr Clr Drug Dosing mL/min Estimated GFR (MDRD) ml/min Glucose (74-106) mg/dL Calcium (8.5-10.1) mg/dL Phosphorus (2.6-4.7) mg/dL Magnesium (1.8-2.4) mg/dL Total Bilirubin (0.2-1.0) mg/dL AST (15-37) IU/L ALT (14-63) IU/L Alkaline Phosphatase (46-116) U/L Troponin I (0.000-0.056) ng/mL Total Protein (6.4-8.2) g/dL Albumin (3.4-5.0) g/dL Globulin (2.6-4.0) g/dL Albumin/Globulin Ratio (0.9-1.6) Lipase (73-393) U/L Urine Color YELLOW Urine Appearance CLEAR Urine pH 6.5 (5.0-8.0) Ur Specific [place] 1.015 (1.001-1.035) Urine Protein 30 H (NEGATIVE) mg/dL Urine Glucose (UA) NEGATIVE (NEGATIVE) mg/dL Urine Ketones NEGATIVE (NEGATIVE) mg/dL Urine Occult Blood NEGATIVE (NEGATIVE) Urine Nitrite NEGATIVE (NEGATIVE) Urine Bilirubin NEGATIVE (NEGATIVE) Urine Urobilinogen 0.2 (<2.0) EU/dL Ur Leukocyte Esterase NEGATIVE (NEGATIVE) Urine RBC NONE SEEN (0-2/HPF) Urine WBC 0-1 (0-5/HPF) Ur Epithelial Cells RARE (NONE-FEW) Urine Bacteria RARE (NEGATIVE) Urine Mucus LIGHT (NONE-MOD) Urine Opiates Screen NEGATIVE (NEGATIVE) Ur Oxycodone Screen NEGATIVE (NEGATIVE) Urine Methadone Screen NEGATIVE (NEGATIVE) Ur Barbiturates Screen NEGATIVE (NEGATIVE) Ur Phencyclidine Scrn NEGATIVE (NEGATIVE) Ur Amphetamine Screen NEGATIVE (NEGATIVE) U Methamphetamines Scrn NEGATIVE (NEGATIVE) U Benzodiazepines Scrn POSITIVE (NEGATIVE) U Cocaine Metab Screen NEGATIVE (NEGATIVE) U Marijuana (THC) Screen NEGATIVE (NEGATIVE) Ethyl Alcohol mg/dL Influenza Type A RNA NEGATIVE (NEGATIVE) Influenza Type B RNA NEGATIVE (NEGATIVE) SARS-CoV-2 RNA (PEMA) NEGATIVE (NEGATIVE) 04/03/20 04/03/20 Range/Units 06:15 06:15 WBC 4.28 (4.0-11.0) K/uL RBC 3.39 L (4.50-5.90) M/uL Hgb 11.4 L (13.0-17.0) g/dL Hct 34.1 L (38.0-50.0) % MCV 100.6 H (80.0-98.0) fL MCH 33.6 H (27.0-32.0) pg MCHC 33.4 (31.0-37.0) g/dL RDW Std Deviation 50.9 (28.0-62.0) fl RDW Coeff of [place] 14 (11.0-15.0) % Plt Count 127 L (150-400) K/uL MPV 9.60 (7.40-12.00) fL Neut % (Auto) 28.5 L (48.0-80.0) % Lymph % (Auto) 52.3 H (16.0-40.0) % [place] % (Auto) 12.9 (0.0-15.0) % Eos % (Auto) 3.3 (0.0-7.0) % Baso % (Auto) 3.0 H (0.0-1.5) % Neut # (Auto) 1.2 L (1.4-5.7) K/uL Lymph # (Auto) 2.2 (0.6-2.4) K/uL [place] # (Auto) 0.6 (0.0-0.8) K/uL Eos # (Auto) 0.1 (0.0-0.7) K/uL Baso # (Auto) 0.1 (0.0-0.1) K/uL Nucleated RBC % 0.0 /100WBC Nucleated RBCs # 0 K/uL Sodium 146 (136-148) mmol/L Potassium 3.4 L (3.5-5.1) mmol/L Chloride 107 (98-107) mmol/L Carbon Dioxide 29.1 (21.0-32.0) mmol/L BUN 7 (7.0-18.0) mg/dL Creatinine 0.8 (0.8-1.3) mg/dL Est Cr Clr Drug Dosing 125.47 mL/min Estimated GFR (MDRD) > 60.0 ml/min Glucose 75 (74-106) mg/dL Calcium 7.8 L (8.5-10.1) mg/dL Phosphorus 3.8 (2.6-4.7) mg/dL Magnesium 1.7 L (1.8-2.4) mg/dL Total Bilirubin 0.2 (0.2-1.0) mg/dL AST 109 H (15-37) IU/L ALT 82 H (14-63) IU/L Alkaline Phosphatase 93 (46-116) U/L Troponin I (0.000-0.056) ng/mL Total Protein 6.1 L (6.4-8.2) g/dL Albumin 3.1 L (3.4-5.0) g/dL Globulin 3.0 (2.6-4.0) g/dL Albumin/Globulin Ratio 1.0 (0.9-1.6) Lipase 1022 H (73-393) U/L Urine Color Urine Appearance Urine pH (5.0-8.0) Ur Specific [place] (1.001-1.035) Urine Protein (NEGATIVE) mg/dL Urine Glucose (UA) (NEGATIVE) mg/dL Urine Ketones (NEGATIVE) mg/dL Urine Occult Blood (NEGATIVE) Urine Nitrite (NEGATIVE) Urine Bilirubin (NEGATIVE) Urine Urobilinogen (<2.0) EU/dL Ur Leukocyte Esterase (NEGATIVE) Urine RBC (0-2/HPF) Urine WBC (0-5/HPF) Ur Epithelial Cells (NONE-FEW) Urine Bacteria (NEGATIVE) Urine Mucus (NONE-MOD) Urine Opiates Screen (NEGATIVE) Ur Oxycodone Screen (NEGATIVE) Urine Methadone Screen (NEGATIVE) Ur Barbiturates Screen (NEGATIVE) Ur Phencyclidine Scrn (NEGATIVE) Ur Amphetamine Screen (NEGATIVE) U Methamphetamines Scrn (NEGATIVE) U Benzodiazepines Scrn (NEGATIVE) U Cocaine Metab Screen (NEGATIVE) U Marijuana (THC) Screen (NEGATIVE) Ethyl Alcohol mg/dL Influenza Type A RNA (NEGATIVE) Influenza Type B RNA (NEGATIVE) SARS-CoV-2 RNA (PEMA) (NEGATIVE) Result Diagrams: 04/03/20 06:15 04/03/20 06:15 Sepsis Event Note - Evaluation Sepsis Screening Result: No Definite Risk - Focused Exam Vital Signs: Vital Signs Temp Pulse Resp BP Pulse Ox Pulse Ox 04/03/20 07:56 92 L 04/03/20 07:23 98.2 F 96 19 124/84 96 04/03/20 04:37 98.2 F 90 18 125/81 98 04/03/20 03:56 90 18 124/89 04/03/20 03:35 98.1 F 90 18 155/107 H 95 04/03/20 01:45 86 18 113/65 95 04/03/20 01:17 89 18 139/96 H 94 L 04/03/20 00:19 97 F 110 H 16 147/106 H 95 Problem List Initiated/Reviewed/Updated: Yes Orders Last 24hrs: Active Orders 24 hr Category Date Time Status Admission Status [Patient Status] [ADT] Stat ADT 04/03/20 03:16 Active CIWAA Assessment [RC] Q4H Care 04/03/20 06:00 Active Oxygen Therapy [RC] ASDIRECTED Care 04/03/20 04:58 Active Vital Signs [RC] Q4H Care 04/03/20 08:00 Active NPO Now [Nothing per Oral Now Diet] [DIET] Diet 04/03/20 Breakfast Active Art Duplex Portal Hepatic [US] Routine Exams 04/03/20 09:00 Ordered HEPATITIS PANEL (4) [REF] Routine Lab 04/03/20 07:58 Received Escitalopram Med 04/03/20 09:00 Ordered 20 mg PO DAILY LORazepam [Ativan] Med 04/03/20 06:00 Active See Protocol IVPUSH Q4H PRN Lacosamide [Vimpat] Med 04/03/20 09:00 Ordered 150 mg PO DAILY Lactated Ringers [Ringers, Lactated] 1,000 ml Med 04/03/20 07:00 Active IV ASDIRECTED MVI, Adult with Vitamin K [Infuvite Adult] Med 04/03/20 09:00 Ordered 10 ml IV DAILY Magnesium Sulfate/Water [Magnesium Sulfate in Water Med 04/03/20 08:15 Active Premix] 2 gm in 50 ml IV ONETIME Morphine Med 04/03/20 05:00 Active 1 mg IVPUSH Q4H PRN Ondansetron [Zofran] Med 04/03/20 05:00 Active 4 mg IVPUSH Q4H PRN Pantoprazole [ProTONIX IV] 40 mg Med 04/03/20 09:00 Active Sodium Chloride 0.9% [Normal Saline] 10 ml IV DAILY Sodium Chloride 0.9% [Saline Flush] Med 04/03/20 00:42 Active 10 ml FLUSH ASDIRECTED PRN Sodium Chloride 0.9% [Saline Flush] Med 04/03/20 00:42 Active 2.5 ml FLUSH ASDIRECTED PRN Venlafaxine Med 04/04/20 09:00 Ordered 75 mg PO DAILY amLODIPine [Norvasc] Med 04/03/20 09:00 Ordered 10 mg PO DAILY Saline Lock Insert [OM.PC] Stat Oth 04/03/20 00:42 Ordered Seizure Precautions [OM.PC] Routine Oth 04/03/20 08:04 Ordered Medication Orders Amlodipine Besylate (Norvasc) 10 mg PO DAILY ML Pantoprazole Sodium 40 mg/ (Sodium Chloride) 10 mls @ 300 mls/hr IV DAILY ML Lactated Ringer's (Ringers, Lactated) 1,000 mls @ 200 mls/hr IV ASDIRECTED ML Magnesium Sulfate (Magnesium Sulfate In Water Premix) 2 gm in 50 mls @ 50 mls/hr IV ONETIME ML Lorazepam (Ativan) 0 mg IVPUSH Q4H PRN; Protocol PRN Reason: CIWAA score Morphine Sulfate (Morphine) 1 mg IVPUSH Q4H PRN PRN Reason: Pain (severe 7-10) Multivitamins/Minerals (Infuvite Adult) 10 ml IV DAILY ML Non-Formulary Medication (Escitalopram) 20 mg PO DAILY ML Non-Formulary Medication (Lacosamide [Vimpat]) 150 mg PO DAILY ML Non-Formulary Medication (Venlafaxine) 75 mg PO DAILY ML Ondansetron HCl (Zofran) 4 mg IVPUSH Q4H PRN PRN Reason: Nausea/Vomiting Last Admin: 04/03/20 05:35 Dose: 4 mg Documented by: FRASHEIDI Sodium Chloride (Saline Flush) 10 ml FLUSH ASDIRECTED PRN PRN Reason: Keep Vein Open Sodium Chloride (Saline Flush) 2.5 ml FLUSH ASDIRECTED PRN PRN Reason: Keep Vein Open Assessment/Plan Comment:: Assessment: 1. Severe alcohol abuse with impending withdrawal 2. Previous history of alcohol abuse with seizures and hallucinations. 3. Moderate pancreatitis 4. Hepatomegaly 5. Hypokalemia 6. Hypomagnesemia 7. Transaminitis 8. Hypoalbuminemia 9. Past medical history hypertension, severe alcohol use disorder with seizures, Plan Admit to inpatient. Full code. I/o per routine, vitals per routine. CIWAA/ativan protocol. Seizure precautions Telemetry. 1. Severe alcohol use disorder w. impending withdrawal:Extensive history of alcohol use with previous history of seizures with hallucinations. unable to quantify exact amount of alcohol ingested: Continue CIWA Ativan protocol, will also start Valium 5 mg TID daily and adjust accordingly. Thiamine and folate daily due to concerns for Wernicke's encephalopathy Start VAlium 5 mg TID secondary to hx of significant ETOH withdrawal + prolonged hospitalization (spoke to Mother of patient regarding pt.s previous hospitalization; mentions pt was intubated for at least 10 days and was in admitted for >40 days previously on under similar circumstances; mentions ETOH ingested is in the "gallons") Pancreatitis; continue fluids at [address] abdomen pelvis did not show any signs/need for surgical intervention at this time. However hepatomegaly was also noted; right upper quadrant ultrasound plus hepatitis panel ordered. UDS negative for any illicit substances (chronic at home use of Benzodiazepines); denies history of needle use or hepatitis. Hypokalemia: Replete with 40 mEq now, recheck in a.m. Hypomagnesemia: Replete with 2 g now; recheck in a.m. History of alcohol use disorder with seizures; continue home medication of Vimpat; CIWAA/Ativan protocol in place
[2020-04-03] MEDS ORDERED: Ondansetron 4 MG/2 ML SDV IVPUSH PRN (08:52)
[2020-04-03] MEDS ORDERED: LACOSAMIDE 150 MG PO SCH (09:00)
[2020-04-03] MEDS ORDERED: MVI, Adult with Vitamin K 10 ML SDV IV SCH (09:00)
[2020-04-03] MEDS: Lactated Ringers 1,000 ML IV SCH ×3 (09:06→20:06)
[2020-04-03] MEDS: Pantoprazole 40 MG in Sodium Chloride 0.9% 10 ML IV SCH (09:12)
[2020-04-03] MEDS: amLODIPine 5 MG Tab PO SCH (10:26)
[2020-04-03] MEDS: Escitalopram 10 MG Tab PO SCH (10:27)
[2020-04-03] MEDS: Venlafaxine 37.5 MG Tab PO SCH ×2 (10:41→20:21)
[2020-04-03] MEDS: Heparin Sodium 5,000 Units/ML Vial SUBCUT SCH ×2 (11:43→22:55)
--- NOTE | 2020-04-03 12:00 | US ---
INDICATION: Pancreatitis. TECHNIQUE: Ultrasound abdomen limited. Sonographic images of the right upper quadrant were obtained using aaron-scale and color Doppler images. COMPARISON: CT abdomen pelvis April 03, 2020. FINDINGS: Liver: Liver is echogenic consistent with fatty infiltration. There is a hypoechoic lesion measuring up to 1.9 cm which likely correlates with enhancing lesions seen on the accompanying CT exam. Gallbladder: There is a small amount of sludge and possible small stones. Normal wall thickness. No pericholecystic fluid. Common bile duct: 10 mm. Pancreas: Not well visualized secondary to bowel gas. Right kidney: Normal in size. Normal echotexture and cortex. No suspicious masses, stones, or hydronephrosis. Vasculature: Proximal abdominal aorta and IVC are normal. IMPRESSION: 1. Minimal gallbladder sludge and possible tiny stones. No other specific signs of cholecystitis. 2. Mild nonspecific common bile duct dilatation. 3. Pancreas not well visualized. 4. Nonspecific liver lesion which was described with recommendations on the accompanying CT abdomen pelvis report. Dictated by Abdullahi Johnson MD @ Apr 03 2020 11:47AM Signed by Dr. Abdullahi Johnson @ Apr 03 2020 11:59AM
[2020-04-03] MEDS: Diazepam 2 MG Tab PO SCH ×2 (14:39→22:55)
[2020-04-03] MEDS: LORazepam 2 MG/ML SDV IVPUSH PRN ×2 (16:39→19:56)
[2020-04-03] MEDS: LACOSAMIDE 150 MG PO SCH (20:09)
[2020-04-04] MEDS: Lactated Ringers 1,000 ML IV SCH ×5 (01:13→23:10)
[2020-04-04] MEDS: LORazepam 2 MG/ML SDV IVPUSH PRN (03:14)
[2020-04-04] MEDS: Diazepam 2 MG Tab PO SCH (06:15)
[2020-04-04] MEDS ORDERED: Potassium Chloride 20 MEQ Tab.ER PO ONE (08:02)
[2020-04-04] MEDS ORDERED: Magnesium Sulfate/Water 2 GM/50 ML BAG IV SCH (08:15)
[2020-04-04] MEDS ORDERED: Thiamine 100 MG in Sodium Chloride 0.9% 100 ML IV ONE (08:30)
--- NOTE | 2020-04-04 09:02 | PCM.PN ---
<Asim Smith - Last Filed: 04/04/20 12:13> - General Info Date of Service: 04/04/20 Subjective Update: Bedside: endorsing shakes but no hallucinations. no acute distress or pain - Review of Systems General: Reports: Fatigue HEENT: Reports: No Symptoms Pulmonary: Reports: No Symptoms Cardiovascular: Reports: No Symptoms Gastrointestinal: Reports: Decreased Appetite, Nausea. Denies: Vomiting Genitourinary: Reports: No Symptoms Musculoskeletal: Reports: No Symptoms Skin: Reports: No Symptoms Neurological: Reports: Dizziness, Tremors. Denies: Seizure, Syncope Psychiatric: Reports: No Symptoms - Patient Data Vitals - Most Recent: Last Vital Signs Temp 97.8 F 04/04/20 07:00 Pulse 95 04/04/20 07:00 Resp 18 04/04/20 07:00 BP 164/112 H 04/04/20 07:00 Pulse Ox 96 04/04/20 07:00 Weight - Most Recent: 90.2 kg I&O - Last 24 Hours: Intake & Output 04/03/20 04/04/20 04/04/20 22:59 06:59 14:59 Intake Total 1700 2657 Output Total 1150 2050 700 Balance 550 607 -700 Med Orders - Current: Current Medications Amlodipine Besylate (Norvasc) 10 mg PO DAILY [facility] Last Admin: 04/03/20 10:26 Dose: 10 mg Documented by: Diazepam (Valium.) 10 mg PO TID [facility] Escitalopram Oxalate (Lexapro) 20 mg PO DAILY [facility] Last Admin: 04/03/20 10:27 Dose: 20 mg Documented by: Heparin Sodium (Porcine) (Heparin Sodium) 5,000 units SUBCUT Q12H [facility] Last Admin: 04/03/20 22:55 Dose: 5,000 units Documented by: Pantoprazole Sodium 40 mg/ (Sodium Chloride) 10 mls @ 300 mls/hr IV DAILY [facility] Last Admin: 04/03/20 09:12 Dose: 300 mls/hr Documented by: Lactated Ringer's (Ringers, Lactated) 1,000 mls @ 200 mls/hr IV ASDIRECTED [facility] Last Admin: 04/04/20 06:13 Dose: 200 mls/hr Documented by: Magnesium Sulfate (Magnesium Sulfate In Water Premix) 2 gm in 50 mls @ 50 mls/hr IV ONETIME [facility] Last Admin: 04/03/20 09:30 Dose: 50 mls/hr Documented by: Thiamine HCl 100 mg/ Sodium (Chloride) 101 mls @ 202 mls/hr IV DAILY ONE Stop: 04/04/20 08:59 Magnesium Sulfate (Magnesium Sulfate In Water 2 Gm/50 Ml) 2 gm in 50 mls @ 50 mls/hr IV ONETIME [facility] Labetalol HCl (Normodyne) 200 mg PO BID [facility] Lorazepam (Ativan) 0 mg IVPUSH Q2H PRN; Protocol PRN Reason: CIWAA score Last Admin: 04/04/20 03:14 Dose: 1 mg Documented by: Morphine Sulfate (Morphine) 1 mg IVPUSH Q4H PRN PRN Reason: Pain (severe 7-10) Ondansetron HCl (Zofran) 4 mg IVPUSH Q4H PRN PRN Reason: Nausea/Vomiting Last Admin: 04/03/20 14:17 Dose: 4 mg Documented by: Ondansetron HCl (Zofran) 4 mg IVPUSH Q4H PRN PRN Reason: Nausea Lacosamide [Vimpat] (150 Mg) 1 each PO BID [facility] Last Admin: 04/03/20 20:09 Dose: 1 each Documented by: Sodium Chloride (Saline Flush) 10 ml FLUSH ASDIRECTED PRN PRN Reason: Keep Vein Open Sodium Chloride (Saline Flush) 2.5 ml FLUSH ASDIRECTED PRN PRN Reason: Keep Vein Open Venlafaxine HCl (Effexor) 75 mg PO BID [facility] Last Admin: 04/03/20 20:21 Dose: 75 mg Documented by: Discontinued Medications Diazepam (Valium) 5 mg IVPUSH Q8H [facility] Last Admin: 04/03/20 10:28 Dose: 5 mg Documented by: Diazepam (Valium) 10 mg PO TID [facility] Last Admin: 04/04/20 06:15 Dose: 10 mg Documented by: Folic Acid (Folic Acid) 1 mg PO ONETIME ONE Stop: 04/03/20 00:45 Last Admin: 04/03/20 01:17 Dose: Not Given Documented by: Multivitamins/Minerals 10 ml/Thiamine HCl 200 mg/ Chromium/Copper/Manganese/Seleni/Zn 1 ml/ Dextrose/Lactated Ringer's 1,013 mls @ 150 mls/hr IV ASDIRECTED [facility] Multivitamins/Minerals 10 ml/Thiamine HCl 100 mg/ Folic Acid 1 mg/ Sodium Chlori de 1,011.2 mls @ 150 mls/hr IV ONETIME ONE Stop: 04/03/20 07:55 Last Admin: 04/03/20 01:12 Dose: 150 mls/hr Documented by: Iopamidol (Isovue Multipack-370 (76%)) 100 ml IVPUSH ONETIME STA Stop: 04/03/20 02:32 Last Admin: 04/03/20 02:33 Dose: 100 ml Documented by: Lorazepam (Ativan) 0 mg IVPUSH Q4H PRN; Protocol PRN Reason: CIWAA score Last Admin: 04/03/20 14:17 Dose: 2 mg Documented by: Multivitamins/Minerals (Infuvite Adult) 10 ml IV DAILY [facility] Lacosamide [Vimpat] (150 Mg) 1 each PO DAILY [facility] Last Admin: 04/03/20 10:42 Dose: 1 each Documented by: Potassium Chloride (Klor-Con M20) 40 meq PO ONETIME ONE Stop: 04/03/20 08:16 Last Admin: 04/03/20 09:12 Dose: 40 meq Documented by: Potassium Chloride (Klor-Con M20) 40 meq PO ONETIME ONE Stop: 04/04/20 08:03 - Exam Quality Assessment: No: Supplemental Oxygen General: Alert, Oriented, Cooperative, No Acute Distress HEENT: EOMI Neck: Supple Lungs: Clear to Auscultation, Normal Respiratory Effort Cardiovascular: Regular Rate, Regular Rhythm GI/Abdominal Exam: Other (RUQ tenderness but mild overall abd.tenderness ; minimal interval improvement from yesterday ) Extremities: Normal Inspection Neurological: No New Focal Deficit. No: Normal Speech Psy/Mental Status: Alert Sepsis Event Note - Evaluation Sepsis Screening Result: No Definite Risk - Focused Exam Vital Signs: Vital Signs Temp Pulse Resp BP Pulse Ox 04/04/20 07:00 97.8 F 95 18 164/112 H 96 04/04/20 03:07 98.1 F 105 H 17 156/105 H 96 04/03/20 23:34 99.3 F 100 17 153/100 H 96 - Problem List & Annotations (1) Acute pancreatitis SNOMED Code(s): 570985992 Code(s): K85.90 - ACUTE PANCREATITIS WITHOUT NECROSIS OR INFECTION, UNSP Status: Acute Current Visit: Yes (2) Alcohol poisoning SNOMED Code(s): 00531624 Code(s): T51.91XA - TOXIC EFFECT OF UNSP ALCOHOL, ACCIDENTAL, INIT Status: Acute Current Visit: Yes (3) Elevated LFTs SNOMED Code(s): 785179997 Code(s): R79.89 - OTHER SPECIFIED ABNORMAL FINDINGS OF BLOOD CHEMISTRY Status: Acute Current Visit: Yes (4) Alcohol withdrawal syndrome SNOMED Code(s): 386941601 Code(s): F10.239 - ALCOHOL DEPENDENCE WITH WITHDRAWAL, UNSPECIFIED Status: Acute Current Visit: No - Problem List Review Problem List Initiated/Reviewed/Updated: Yes - My Orders Last 24 Hours: My Active Orders 04/03/20 07:58 HEPATITIS PANEL (4) [REF] Routine 04/03/20 08:04 Seizure Precautions [OM.PC] Routine 04/03/20 08:15 Magnesium Sulfate/Water [Magnesium Sulfate in Water 2 GM/50 ML] 2 gm in 50 ml IV ONETIME 04/03/20 08:51 Code Status [Resuscitation Status] Routine 04/03/20 08:52 Ondansetron [Zofran] 4 mg IVPUSH Q4H PRN 04/03/20 09:00 amLODIPine [Norvasc] 10 mg PO DAILY 04/03/20 10:00 Escitalopram [Lexapro] 20 mg PO DAILY Venlafaxine [Effexor] 75 mg PO BID 04/03/20 21:00 Patient's Own Medication [Ptom] 1 each PO BID 04/04/20 08:15 Magnesium Sulfate/Water [Magnesium Sulfate in Water 2 GM/50 ML] 2 gm in 50 ml IV ONETIME 04/04/20 08:30 Thiamine [Vitamin B-1] 100 mg Sodium Chloride 0.9% [Normal Saline] 100 ml IV DAILY 04/04/20 09:00 Labetalol [Normodyne] 200 mg PO BID - Plan Plan:: Assessment: 1. Severe alcohol abuse with impending withdrawal 2. Previous history of alcohol abuse with seizures and hallucinations. 3. Moderate pancreatitis 4. Hepatomegaly 5. Hypokalemia 6. Hypomagnesemia 7. Transaminitis 8. Hypoalbuminemia 9. Past medical history hypertension, severe alcohol use disorder with seizures, Plan 1. Severe alcohol use disorder w. impending withdrawal: Continue CIWA Ativan protocol, continue Valium 10 mg TID daily since pt .was moderately agitated yesterday PM Thiamine and folate daily due to concerns for Wernicke's encephalopathy Significant HTN: restart Labetalol this AM Pancreatitis; continue fluids at [address] abdomen pelvis did not show any signs/need for surgical intervention at this time. U/S : bile sludge w. non-specific extrahepatic dilatation; lesion in liver similar to one seen on CT abdomen/pelvis Hypokalemia: Replete with 40 mEq now, recheck in a.m. Hypomagnesemia: Replete with 2 g now; recheck in a.m. History of alcohol use disorder with seizures; continue home medication of Vimpat; CIWAA/Ativan protocol in place <Kacey Arriaga - Last Filed: 04/05/20 16:58> - Patient Data Vitals - Most Recent: Last Vital Signs Temp 36.5 C 04/05/20 16:29 Pulse 112 H 04/05/20 16:29 Resp 17 04/05/20 16:29 BP 137/96 H 04/05/20 16:29 Pulse Ox 98 04/05/20 16:29 I&O - Last 24 Hours: Intake & Output 04/05/20 04/05/20 04/05/20 06:59 14:59 22:59 Intake Total 3306 Output Total 2050 Balance 1256 Lab Results Last 24 Hours: Laboratory Results - last 24 hr 04/03/20 04/05/20 04/05/20 Range/Units 07:58 05:40 05:40 WBC 5.11 (4.0-11.0) K/uL RBC 3.54 L (4.50-5.90) M/uL Hgb 12.1 L (13.0-17.0) g/dL Hct 35.3 L (38.0-50.0) % MCV 99.7 H (80.0-98.0) fL MCH 34.2 H (27.0-32.0) pg MCHC 34.3 (31.0-37.0) g/dL RDW Std Deviation 46.6 (28.0-62.0) fl RDW Coeff of [place] 13 (11.0-15.0) % Plt Count 137 L (150-400) K/uL MPV 10.40 (7.40-12.00) fL Neut % (Auto) 61.4 (48.0-80.0) % Lymph % (Auto) 23.3 (16.0-40.0) % [place] % (Auto) 12.9 (0.0-15.0) % Eos % (Auto) 1.8 (0.0-7.0) % Baso % (Auto) 0.6 (0.0-1.5) % Neut # (Auto) 3.1 (1.4-5.7) K/uL Lymph # (Auto) 1.2 (0.6-2.4) K/uL [place] # (Auto) 0.7 (0.0-0.8) K/uL Eos # (Auto) 0.1 (0.0-0.7) K/uL Baso # (Auto) 0.0 (0.0-0.1) K/uL Nucleated RBC % 0.0 /100WBC Nucleated RBCs # 0 K/uL Sodium 138 (136-148) mmol/L Potassium 3.4 L (3.5-5.1) mmol/L Chloride 101 (98-107) mmol/L Carbon Dioxide 21.5 (21.0-32.0) mmol/L BUN 3 L (7.0-18.0) mg/dL Creatinine 0.6 L (0.8-1.3) mg/dL Est Cr Clr Drug Dosing 167.29 mL/min Estimated GFR (MDRD) > 60.0 ml/min Glucose 89 (74-106) mg/dL Calcium 9.1 (8.5-10.1) mg/dL Phosphorus 2.9 (2.6-4.7) mg/dL Magnesium (1.8-2.4) mg/dL Total Bilirubin 0.9 (0.2-1.0) mg/dL AST 70 H (15-37) IU/L ALT 73 H (14-63) IU/L Alkaline Phosphatase 108 (46-116) U/L Total Protein 6.8 (6.4-8.2) g/dL Albumin 3.4 (3.4-5.0) g/dL Globulin 3.4 (2.6-4.0) g/dL Albumin/Globulin Ratio 1.0 (0.9-1.6) Hepatitis A IgM Ab Negative (Negative) Hep Bs Antigen Negative (Negative) Hep B Core IgM Ab Negative (Negative) Hepatitis C Antibody <0.1 (0.0-0.9) s/co ratio 04/05/20 Range/Units 14:00 WBC (4.0-11.0) K/uL RBC (4.50-5.90) M/uL Hgb (13.0-17.0) g/dL Hct (38.0-50.0) % MCV (80.0-98.0) fL MCH (27.0-32.0) pg MCHC (31.0-37.0) g/dL RDW Std Deviation (28.0-62.0) fl RDW Coeff of [place] (11.0-15.0) % Plt Count (150-400) K/uL MPV (7.40-12.00) fL Neut % (Auto) (48.0-80.0) % Lymph % (Auto) (16.0-40.0) % [place] % (Auto) (0.0-15.0) % Eos % (Auto) (0.0-7.0) % Baso % (Auto) (0.0-1.5) % Neut # (Auto) (1.4-5.7) K/uL Lymph # (Auto) (0.6-2.4) K/uL [place] # (Auto) (0.0-0.8) K/uL Eos # (Auto) (0.0-0.7) K/uL Baso # (Auto) (0.0-0.1) K/uL Nucleated RBC % /100WBC Nucleated RBCs # K/uL Sodium (136-148) mmol/L Potassium (3.5-5.1) mmol/L Chloride (98-107) mmol/L Carbon Dioxide (21.0-32.0) mmol/L BUN (7.0-18.0) mg/dL Creatinine (0.8-1.3) mg/dL Est Cr Clr Drug Dosing mL/min Estimated GFR (MDRD) ml/min Glucose (74-106) mg/dL Calcium (8.5-10.1) mg/dL Phosphorus (2.6-4.7) mg/dL Magnesium 1.5 L (1.8-2.4) mg/dL Total Bilirubin (0.2-1.0) mg/dL AST (15-37) IU/L ALT (14-63) IU/L Alkaline Phosphatase (46-116) U/L Total Protein (6.4-8.2) g/dL Albumin (3.4-5.0) g/dL Globulin (2.6-4.0) g/dL Albumin/Globulin Ratio (0.9-1.6) Hepatitis A IgM Ab (Negative) Hep Bs Antigen (Negative) Hep B Core IgM Ab (Negative) Hepatitis C Antibody (0.0-0.9) s/co ratio Med Orders - Current: Current Medications Amlodipine Besylate (Norvasc) 10 mg PO DAILY [facility] Last Admin: 04/05/20 08:43 Dose: 10 mg Documented by: Diazepam (Valium.) 5 mg PO TID [facility] Last Admin: 04/05/20 13:52 Dose: 5 mg Documented by: Escitalopram Oxalate (Lexapro) 20 mg PO DAILY [facility] Last Admin: 04/05/20 08:41 Dose: 20 mg Documented by: Folic Acid (Folic Acid) 1 mg PO DAILY [facility] Last Admin: 04/05/20 08:43 Dose: 1 mg Documented by: Heparin Sodium (Porcine) (Heparin Sodium) 5,000 units SUBCUT Q12H [facility] Last Admin: 04/05/20 10:31 Dose: 5,000 units Documented by: Pantoprazole Sodium 40 mg/ (Sodium Chloride) 10 mls @ 300 mls/hr IV DAILY [facility] Last Admin: 04/05/20 08:49 Dose: 300 mls/hr Documented by: Lactated Ringer's (Ringers, Lactated) 1,000 mls @ 200 mls/hr IV ASDIRECTED [facility] Last Admin: 04/05/20 13:52 Dose: 200 mls/hr Documented by: Magnesium Sulfate (Magnesium Sulfate In Water Premix) 2 gm in 50 mls @ 50 mls /hr IV ONETIME [facility] Last Admin: 04/03/20 09:30 Dose: 50 mls/hr Documented by: Magnesium Sulfate (Magnesium Sulfate In Water 2 Gm/50 Ml) 2 gm in 50 mls @ 50 mls/hr IV ONETIME [facility] Last Admin: 04/04/20 11:37 Dose: 50 mls/hr Documented by: Labetalol HCl (Normodyne) 200 mg PO BID [facility] Last Admin: 04/05/20 08:41 Dose: 200 mg Documented by: Lorazepam (Ativan) 0 mg IVPUSH Q2H PRN; Protocol PRN Reason: CIWAA score Last Admin: 04/05/20 16:24 Dose: 1 mg Documented by: Morphine Sulfate (Morphine) 1 mg IVPUSH Q4H PRN PRN Reason: Pain (severe 7-10) Ondansetron HCl (Zofran) 4 mg IVPUSH Q4H PRN PRN Reason: Nausea/Vomiting Last Admin: 04/03/20 14:17 Dose: 4 mg Documented by: Ondansetron HCl (Zofran) 4 mg IVPUSH Q4H PRN PRN Reason: Nausea Lacosamide [Vimpat] (150 Mg) 1 each PO BID [facility] Last Admin: 04/05/20 08:43 Dose: 1 each Documented by: Sodium Chloride (Saline Flush) 10 ml FLUSH ASDIRECTED PRN PRN Reason: Keep Vein Open Sodium Chloride (Saline Flush) 2.5 ml FLUSH ASDIRECTED PRN PRN Reason: Keep Vein Open Venlafaxine HCl (Effexor) 75 mg PO BID [facility] Last Admin: 04/05/20 08:42 Dose: 75 mg Documented by: Discontinued Medications Diazepam (Valium) 5 mg IVPUSH Q8H [facility] Last Admin: 04/03/20 10:28 Dose: 5 mg Documented by: Diazepam (Valium) 10 mg PO TID [facility] Last Admin: 04/04/20 06:15 Dose: 10 mg Documented by: Diazepam (Valium.) 10 mg PO TID [facility] Last Admin: 04/05/20 05:16 Dose: 10 mg Documented by: Folic Acid (Folic Acid) 1 mg PO ONETIME ONE Stop: 04/03/20 00:45 Last Admin: 04/03/20 01:17 Dose: Not Given Documented by: Multivitamins/Minerals 10 ml/Thiamine HCl 200 mg/ Chromium/Copper/Manganese/Seleni/Zn 1 ml/ Dextrose/Lactated Ringer's 1,013 mls @ 150 mls/hr IV ASDIRECTED [facility] Multivitamins/Minerals 10 ml/Thiamine HCl 100 mg/ Folic Acid 1 mg/ Sodium Chloride 1,011.2 mls @ 150 mls/hr IV ONETIME ONE Stop: 04/03/20 07:55 Last Admin: 04/03/20 01:12 Dose: 150 mls/hr Documented by: Thiamine HCl 100 mg/ Sodium (Chloride) 101 mls @ 202 mls/hr IV DAILY ONE Stop: 04/04/20 08:59 Last Admin: 04/04/20 09:48 Dose: 202 mls/hr Documented by: Iopamidol (Isovue Multipack-370 (76%)) 100 ml IVPUSH ONETIME STA Stop: 04/03/20 02:32 Last Admin: 04/03/20 02:33 Dose: 100 ml Documented by: Lorazepam (Ativan) 0 mg IVPUSH Q4H PRN; Protocol PRN Reason: CIWAA score Last Admin: 04/03/20 14:17 Dose: 2 mg Documented by: Multivitamins/Minerals (Infuvite Adult) 10 ml IV DAILY [facility] Lacosamide [Vimpat] (150 Mg) 1 each PO DAILY [facility] Last Admin: 04/03/20 10:42 Dose: 1 each Documented by: Potassium Chloride (Klor-Con M20) 40 meq PO ONETIME ONE Stop: 04/03/20 08:16 Last Admin: 04/03/20 09:12 Dose: 40 meq Documented by: Potassium Chloride (Klor-Con M20) 40 meq PO ONETIME ONE Stop: 04/04/20 08:03 Last Admin: 04/04/20 09:40 Dose: 40 meq Documented by: Potassium Chloride (Potassium Chloride) 40 meq PO ONETIME ONE Stop: 04/05/20 07:53 Last Admin: 04/05/20 08:43 Dose: 40 meq Documented by: Sepsis Event Note - Focused Exam Vital Signs: Vital Signs Temp Pulse Pulse Resp BP BP Pulse Ox 04/05/20 16:29 36.5 C 112 H 17 137/96 H 98 04/05/20 11:15 36.8 C 86 17 135/65 97 04/05/20 08:43 139/90 04/05/20 08:41 75 139/90 04/05/20 08:09 36.6 C 77 17 139/90 97 - Plan Plan:: I have seen and evaluated the patient and agree with the residents note unless specified in my note
[2020-04-04] MEDS: Escitalopram 10 MG Tab PO SCH (09:43)
[2020-04-04] MEDS: Labetalol 100 MG Tab PO SCH ×2 (09:43→21:58)
[2020-04-04] MEDS: Pantoprazole 40 MG in Sodium Chloride 0.9% 10 ML IV SCH (09:44)
[2020-04-04] MEDS: amLODIPine 5 MG Tab PO SCH (09:44)
[2020-04-04] MEDS: Venlafaxine 37.5 MG Tab PO SCH ×2 (09:50→22:00)
[2020-04-04] MEDS: LACOSAMIDE 150 MG PO SCH ×2 (09:53→21:59)
[2020-04-04 10:51] LABS: BLOOD UREA NITROGEN,BUN 3 mg/dL (7.0-18.0); CHLORIDE,CL 101 mmol/L (98-107); GLUCOSE RANDOM 71 mg/dL (74-106); SODIUM,NA 137 mmol/L (136-148)
[2020-04-04] MEDS: Heparin Sodium 5,000 Units/ML Vial SUBCUT SCH ×2 (11:03→23:07)
[2020-04-04] MEDS: Diazepam 5 MG Tab PO SCH ×2 (15:05→21:58)
[2020-04-05] MEDS: Lactated Ringers 1,000 ML IV SCH ×4 (04:31→19:47)
[2020-04-05] MEDS: Diazepam 5 MG Tab PO SCH ×3 (05:16→22:14)
[2020-04-05 06:33] LABS: BLOOD UREA NITROGEN,BUN 3 mg/dL (7.0-18.0); CARBON DIOXIDE,CO2 21.5 mmol/L (21.0-32.0); CHLORIDE,CL 101 mmol/L (98-107); GLUCOSE RANDOM 89 mg/dL (74-106); POTASSIUM,K 3.4 mmol/L (3.5-5.1); SODIUM,NA 138 mmol/L (136-148)
[2020-04-05] MEDS ORDERED: Potassium Chloride 10% 20 MEQ/15 ML Soln 30 ML UD Cup PO ONE (07:52)
[2020-04-05] MEDS: Labetalol 100 MG Tab PO SCH ×2 (08:41→20:07)
[2020-04-05] MEDS: Escitalopram 10 MG Tab PO SCH (08:41)
[2020-04-05] MEDS: Venlafaxine 37.5 MG Tab PO SCH ×2 (08:42→20:07)
[2020-04-05] MEDS: LACOSAMIDE 150 MG PO SCH ×2 (08:43→20:08)
[2020-04-05] MEDS: Folic Acid 1 MG Tab PO SCH (08:43)
[2020-04-05] MEDS: amLODIPine 5 MG Tab PO SCH (08:43)
[2020-04-05] MEDS: Pantoprazole 40 MG in Sodium Chloride 0.9% 10 ML IV SCH (08:49)
--- NOTE | 2020-04-05 10:12 | PCM.PN ---
<Asim Smith - Last Filed: 04/05/20 11:50> - General Info Date of Service: 04/05/20 Subjective Update: Bedside: pt endorses feeling better than yesterday; still jittery and anxious w. shakes but no hallucinations/seizures reported. Feeling hungry Functional Status: Reports: Pain Controlled - Review of Systems General: Reports: Weakness, Fatigue HEENT: Reports: No Symptoms Pulmonary: Reports: No Symptoms Cardiovascular: Reports: No Symptoms Gastrointestinal: Reports: Abdominal Pain, Nausea Genitourinary: Reports: No Symptoms Musculoskeletal: Reports: No Symptoms Skin: Reports: No Symptoms Neurological: Reports: Headache, Tremors, Weakness Psychiatric: Reports: Anxiety - Patient Data Vitals - Most Recent: Last Vital Signs Temp 98 F 04/05/20 08:09 Pulse 75 04/05/20 08:41 Resp 17 04/05/20 08:09 BP 139/90 04/05/20 08:43 Pulse Ox 97 04/05/20 08:09 Weight - Most Recent: 90.2 kg I&O - Last 24 Hours: Intake & Output 04/04/20 04/05/20 04/05/20 22:59 06:59 14:59 Intake Total 3555 3306 Output Total 1975 2050 Balance 1580 1256 Lab Results Last 24 Hours: Laboratory Results - last 24 hr 04/03/20 04/04/20 04/04/20 Range/Units 07:58 10:12 10:12 WBC 5.13 (4.0-11.0) K/uL RBC 3.75 L (4.50-5.90) M/uL Hgb 12.8 L (13.0-17.0) g/dL Hct 37.5 L (38.0-50.0) % MCV 100.0 H (80.0-98.0) fL MCH 34.1 H (27.0-32.0) pg MCHC 34.1 (31.0-37.0) g/dL RDW Std Deviation 46.7 (28.0-62.0) fl RDW Coeff of [place] 13 (11.0-15.0) % Plt Count 140 L (150-400) K/uL MPV 10.00 (7.40-12.00) fL Neut % (Auto) 62.1 (48.0-80.0) % Lymph % (Auto) 21.1 (16.0-40.0) % [place] % (Auto) 14.0 (0.0-15.0) % Eos % (Auto) 1.8 (0.0-7.0) % Baso % (Auto) 1.0 (0.0-1.5) % Neut # (Auto) 3.2 (1.4-5.7) K/uL Lymph # (Auto) 1.1 (0.6-2.4) K/uL [place] # (Auto) 0.7 (0.0-0.8) K/uL Eos # (Auto) 0.1 (0.0-0.7) K/uL Baso # (Auto) 0.1 (0.0-0.1) K/uL Nucleated RBC % 0.0 /100WBC Nucleated RBCs # 0 K/uL Sodium 137 (136-148) mmol/L Potassium 4.0 (3.5-5.1) mmol/L Chloride 101 (98-107) mmol/L Carbon Dioxide 18.0 L (21.0-32.0) mmol/L BUN 3 L (7.0-18.0) mg/dL Creatinine 0.6 L (0.8-1.3) mg/dL Est Cr Clr Drug Dosing 167.29 mL/min Estimated GFR (MDRD) > 60.0 ml/min Glucose 71 L (74-106) mg/dL Calcium 8.8 (8.5-10.1) mg/dL Phosphorus (2.6-4.7) mg/dL Magnesium 1.6 L (1.8-2.4) mg/dL Total Bilirubin 1.0 (0.2-1.0) mg/dL AST 96 H (15-37) IU/L ALT 81 H (14-63) IU/L Alkaline Phosphatase 118 H (46-116) U/L Total Protein 6.8 (6.4-8.2) g/dL Albumin 3.4 (3.4-5.0) g/dL Globulin 3.4 (2.6-4.0) g/dL Albumin/Globulin Ratio 1.0 (0.9-1.6) Hepatitis A IgM Ab Negative (Negative) Hep Bs Antigen Negative (Negative) Hep B Core IgM Ab Negative (Negative) Hepatitis C Antibody <0.1 (0.0-0.9) s/co ratio 04/04/20 04/05/20 04/05/20 Range/Units 14:17 05:40 05:40 WBC 5.11 (4.0-11.0) K/uL RBC 3.54 L (4.50-5.90) M/uL Hgb 12.1 L (13.0-17.0) g/dL Hct 35.3 L (38.0-50.0) % MCV 99.7 H (80.0-98.0) fL MCH 34.2 H (27.0-32.0) pg MCHC 34.3 (31.0-37.0) g/dL RDW Std Deviation 46.6 (28.0-62.0) fl RDW Coeff of [place] 13 (11.0-15.0) % Plt Count 137 L (150-400) K/uL MPV 10.40 (7.40-12.00) fL Neut % (Auto) 61.4 (48.0-80.0) % Lymph % (Auto) 23.3 (16.0-40.0) % [place] % (Auto) 12.9 (0.0-15.0) % Eos % (Auto) 1.8 (0.0-7.0) % Baso % (Auto) 0.6 (0.0-1.5) % Neut # (Auto) 3.1 (1.4-5.7) K/uL Lymph # (Auto) 1.2 (0.6-2.4) K/uL [place] # (Auto) 0.7 (0.0-0.8) K/uL Eos # (Auto) 0.1 (0.0-0.7) K/uL Baso # (Auto) 0.0 (0.0-0.1) K/uL Nucleated RBC % 0.0 /100WBC Nucleated RBCs # 0 K/uL Sodium 138 (136-148) mmol/L Potassium 3.4 L (3.5-5.1) mmol/L Chloride 101 (98-107) mmol/L Carbon Dioxide 21.5 (21.0-32.0) mmol/L BUN 3 L (7.0-18.0) mg/dL Creatinine 0.6 L (0.8-1.3) mg/dL Est Cr Clr Drug Dosing 167.29 mL/min Estimated GFR (MDRD) > 60.0 ml/min Glucose 89 (74-106) mg/dL Calcium 9.1 (8.5-10.1) mg/dL Phosphorus 2.9 (2.6-4.7) mg/dL Magnesium 2.3 (1.8-2.4) mg/dL Total Bilirubin 0.9 (0.2-1.0) mg/dL AST 70 H (15-37) IU/L ALT 73 H (14-63) IU/L Alkaline Phosphatase 108 (46-116) U/L Total Protein 6.8 (6.4-8.2) g/dL Albumin 3.4 (3.4-5.0) g/dL Globulin 3.4 (2.6-4.0) g/dL Albumin/Globulin Ratio 1.0 (0.9-1.6) Hepatitis A IgM Ab (Negative) Hep Bs Antigen (Negative) Hep B Core IgM Ab (Negative) Hepatitis C Antibody (0.0-0.9) s/co ratio Med Orders - Current: Current Medications Amlodipine Besylate (Norvasc) 10 mg PO DAILY [facility] Last Admin: 04/05/20 08:43 Dose: 10 mg Documented by: Diazepam (Valium.) 5 mg PO TID [facility] Escitalopram Oxalate (Lexapro) 20 mg PO DAILY [facility] Last Admin: 04/05/20 08:41 Dose: 20 mg Documented by: Folic Acid (Folic Acid) 1 mg PO DAILY [facility] Last Admin: 04/05/20 08:43 Dose: 1 mg Documented by: Heparin Sodium (Porcine) (Heparin Sodium) 5,000 units SUBCUT Q12H [facility] Last Admin: 04/04/20 23:07 Dose: 5,000 units Documented by: Pantoprazole Sodium 40 mg/ (Sodium Chloride) 10 mls @ 300 mls/hr IV DAILY [facility] Last Admin: 04/05/20 08:49 Dose: 300 mls/hr Documented by: Lactated Ringer's (Ringers, Lactated) 1,000 mls @ 200 mls/hr IV ASDIRECTED [facility] Last Admin: 04/05/20 09:00 Dose: 200 mls/hr Documented by: Magnesium Sulfate (Magnesium Sulfate In Water Premix) 2 gm in 50 mls @ 50 mls/hr IV ONETIME [facility] Last Admin: 04/03/20 09:30 Dose: 50 mls/hr Documented by: Magnesium Sulfate (Magnesium Sulfate In Water 2 Gm/50 Ml) 2 gm in 50 mls @ 50 mls/hr IV ONETIME [facility] Last Admin: 04/04/20 11:37 Dose: 50 mls/hr Documented by: Labetalol HCl (Normodyne) 200 mg PO BID [facility] Last Admin: 04/05/20 08:41 Dose: 200 mg Documented by: Lorazepam (Ativan) 0 mg IVPUSH Q2H PRN; Protocol PRN Reason: CIWAA score Last Admin: 04/04/20 03:14 Dose: 1 mg Documented by: Morphine Sulfate (Morphine) 1 mg IVPUSH Q4H PRN PRN Reason: Pain (severe 7-10) Ondansetron HCl (Zofran) 4 mg IVPUSH Q4H PRN PRN Reason: Nausea/Vomiting Last Admin: 04/03/20 14:17 Dose: 4 mg Documented by: Ondansetron HCl (Zofran) 4 mg IVPUSH Q4H PRN PRN Reason: Nausea Lacosamide [Vimpat] (150 Mg) 1 each PO BID [facility] Last Admin: 04/05/20 08:43 Dose: 1 each Documented by: Sodium Chloride (Saline Flush) 10 ml FLUSH ASDIRECTED PRN PRN Reason: Keep Vein Open Sodium Chloride (Saline Flush) 2.5 ml FLUSH ASDIRECTED PRN PRN Reason: Keep Vein Open Venlafaxine HCl (Effexor) 75 mg PO BID [facility] Last Admin: 04/05/20 08:42 Dose: 75 mg Documented by: Discontinued Medications Diazepam (Valium) 5 mg IVPUSH Q8H [facility] Last Admin: 04/03/20 10:28 Dose: 5 mg Documented by: Diazepam (Valium) 10 mg PO TID [facility] Last Admin: 04/04/20 06:15 Dose: 10 mg Documented by: Diazepam (Valium.) 10 mg PO TID [facility] Last Admin: 04/05/20 05:16 Dose: 10 mg Documented by: Folic Acid (Folic Acid) 1 mg PO ONETIME ONE Stop: 04/03/20 00:45 Last Admin: 04/03/20 01:17 Dose: Not Given Documented by: Multivitamins/Minerals 10 ml/Thiamine HCl 200 mg/ Chromium/Copper/Manganese/Seleni/Zn 1 ml/ Dextrose/Lactated Ringer's 1,013 mls @ 150 mls/hr IV ASDIRECTED ML Multivitamins/Minerals 10 ml/Thiamine HCl 100 mg/ Folic Acid 1 mg/ Sodium Chloride 1,011.2 mls @ 150 mls/hr IV ONETIME ONE Stop: 04/03/20 07:55 Last Admin: 04/03/20 01:12 Dose: 150 mls/hr Documented by: Thiamine HCl 100 mg/ Sodium (Chloride) 101 mls @ 202 mls/hr IV DAILY ONE Stop: 04/04/20 08:59 Last Admin: 04/04/20 09:48 Dose: 202 mls/hr Documented by: Iopamidol (Isovue Multipack-370 (76%)) 100 ml IVPUSH ONETIME STA Stop: 04/03/20 02:32 Last Admin: 04/03/20 02:33 Dose: 100 ml Documented by: Lorazepam (Ativan) 0 mg IVPUSH Q4H PRN; Protocol PRN Reason: CIWAA score Last Admin: 04/03/20 14:17 Dose: 2 mg Documented by: Multivitamins/Minerals (Infuvite Adult) 10 ml IV DAILY [facility] Lacosamide [Vimpat] (150 Mg) 1 each PO DAILY [facility] Last Admin: 04/03/20 10:42 Dose: 1 each Documented by: Potassium Chloride (Klor-Con M20) 40 meq PO ONETIME ONE Stop: 04/03/20 08:16 Last Admin: 04/03/20 09:12 Dose: 40 meq Documented by: Potassium Chloride (Klor-Con M20) 40 meq PO ONETIME ONE Stop: 04/04/20 08:03 Last Admin: 04/04/20 09:40 Dose: 40 meq Documented by: Potassium Chloride (Potassium Chloride) 40 meq PO ONETIME ONE Stop: 04/05/20 07:53 Last Admin: 04/05/20 08:43 Dose: 40 meq Documented by: - Exam Quality Assessment: Supplemental Oxygen General: Alert, Oriented HEENT: EOMI Neck: Supple Lungs: Clear to Auscultation, Normal Respiratory Effort Cardiovascular: Regular Rate, Regular Rhythm GI/Abdominal Exam: Soft, Non-Tender (RUQ tenderness w. deep palpation ) Extremities: Normal Inspection Neurological: No New Focal Deficit Psy/Mental Status: Alert, Anxious Sepsis Event Note - Evaluation Sepsis Screening Result: No Definite Risk - Focused Exam Vital Signs: Vital Signs Temp Pulse Pulse Resp BP BP Pulse Ox 04/05/20 08:43 139/90 04/05/20 08:41 75 139/90 04/05/20 08:09 98 F 77 17 139/90 97 04/05/20 04:00 98.6 F 80 16 138/89 95 04/05/20 00:00 98.7 F 87 16 129/77 97 - Problem List & Annotations (1) Acute pancreatitis SNOMED Code(s): 352050438 Code(s): K85.90 - ACUTE PANCREATITIS WITHOUT NECROSIS OR INFECTION, UNSP Status: Acute Current Visit: Yes (2) Alcohol poisoning SNOMED Code(s): 52556680 Code(s): T51.91XA - TOXIC EFFECT OF UNSP ALCOHOL, ACCIDENTAL, INIT Status: Acute Current Visit: Yes (3) Elevated LFTs SNOMED Code(s): 310102657 Code(s): R79.89 - OTHER SPECIFIED ABNORMAL FINDINGS OF BLOOD CHEMISTRY Status: Acute Current Visit: Yes (4) Alcohol withdrawal syndrome SNOMED Code(s): 229732702 Code(s): F10.239 - ALCOHOL DEPENDENCE WITH WITHDRAWAL, UNSPECIFIED Status: Acute Current Visit: No - Problem List Review Problem List Initiated/Reviewed/Updated: Yes - My Orders Last 24 Hours: My Active Orders 04/05/20 09:00 Folic Acid 1 mg PO DAILY 04/05/20 13:56 MAGNESIUM [CHEM] DAILY 04/05/20 14:00 diazePAM [Valium.] 5 mg PO TID 04/06/20 05:11 CBC WITH AUTO DIFF [HEME] AM COMPREHENSIVE METABOLIC PN,CMP [CHEM] AM PHOSPHORUS [CHEM] AM 04/06/20 13:56 MAGNESIUM [CHEM] DAILY 04/07/20 05:11 CBC WITH AUTO DIFF [HEME] AM COMPREHENSIVE METABOLIC PN,CMP [CHEM] AM PHOSPHORUS [CHEM] AM - Plan Plan:: Assessment: 1. Severe alcohol abuse with impending withdrawal 2. Previous history of alcohol abuse with seizures and hallucinations. 3. Moderate pancreatitis 4. Hepatomegaly 5. Hypokalemia 6. Past medical history hypertension, severe alcohol use disorder with seizures, Plan 1. Severe alcohol use disorder w. impending withdrawal: Continue CIWA Ativan protocol, Valium 5 mg TID daily since pt .is improving Thiamine and folate daily due to concerns for Wernicke's encephalopathy Significant HTN: continue Labetalol Pancreatitis; continue fluids at [address] abdomen pelvis did not show any signs/need for surgical intervention at this time. U/S : bile sludge w. non-specific extrahepatic dilatation; lesion in liver similar to one seen on CT abdomen/pelvis Hypokalemia: Replete with 40 mEq now, recheck in a.m. History of alcohol use disorder with seizures; continue home medication of Vimpat; CIWAA/Ativan protocol in place <Kacey Arriaga - Last Filed: 04/05/20 16:42> - Patient Data Vitals - Most Recent: Last Vital Signs Temp 36.5 C 04/05/20 16:29 Pulse 112 H 04/05/20 16:29 Resp 17 04/05/20 16:29 BP 137/96 H 04/05/20 16:29 Pulse Ox 98 04/05/20 16:29 I&O - Last 24 Hours: Intake & Output 04/05/20 04/05/20 04/05/20 06:59 14:59 22:59 Intake Total 3306 Output Total 2050 Balance 1256 Lab Results Last 24 Hours: Laboratory Results - last 24 hr 04/03/20 04/05/20 04/05/20 Range/Units 07:58 05:40 05:40 WBC 5.11 (4.0-11.0) K/uL RBC 3.54 L (4.50-5.90) M/uL Hgb 12.1 L (13.0-17.0) g/dL Hct 35.3 L (38.0-50.0) % MCV 99.7 H (80.0-98.0) fL MCH 34.2 H (27.0-32.0) pg MCHC 34.3 (31.0-37.0) g/dL RDW Std Deviation 46.6 (28.0-62.0) fl RDW Coeff of [place] 13 (11.0-15.0) % Plt Count 137 L (150-400) K/uL MPV 10.40 (7.40-12.00) fL Neut % (Auto) 61.4 (48.0-80.0) % Lymph % (Auto) 23.3 (16.0-40.0) % [place] % (Auto) 12.9 (0.0-15.0) % Eos % (Auto) 1.8 (0.0-7.0) % Baso % (Auto) 0.6 (0.0-1.5) % Neut # (Auto) 3.1 (1.4-5.7) K/uL Lymph # (Auto) 1.2 (0.6-2.4) K/uL [place] # (Auto) 0.7 (0.0-0.8) K/uL Eos # (Auto) 0.1 (0.0-0.7) K/uL Baso # (Auto) 0.0 (0.0-0.1) K/uL Nucleated RBC % 0.0 /100WBC Nucleated RBCs # 0 K/uL Sodium 138 (136-148) mmol/L Potassium 3.4 L (3.5-5.1) mmol/L Chloride 101 (98-107) mmol/L Carbon Dioxide 21.5 (21.0-32.0) mmol/L BUN 3 L (7.0-18.0) mg/dL Creatinine 0.6 L (0.8-1.3) mg/dL Est Cr Clr Drug Dosing 167.29 mL/min Estimated GFR (MDRD) > 60.0 ml/min Glucose 89 (74-106) mg/dL Calcium 9.1 (8.5-10.1) mg/dL Phosphorus 2.9 (2.6-4.7) mg/dL Magnesium (1.8-2.4) mg/dL Total Bilirubin 0.9 (0.2-1.0) mg/dL AST 70 H (15-37) IU/L ALT 73 H (14-63) IU/L Alkaline Phosphatase 108 (46-116) U/L Total Protein 6.8 (6.4-8.2) g/dL Albumin 3.4 (3.4-5.0) g/dL Globulin 3.4 (2.6-4.0) g/dL Albumin/Globulin Ratio 1.0 (0.9-1.6) Hepatitis A IgM Ab Negative (Negative) Hep Bs Antigen Negative (Negative) Hep B Core IgM Ab Negative (Negative) Hepatitis C Antibody <0.1 (0.0-0.9) s/co ratio 04/05/20 Range/Units 14:00 WBC (4.0-11.0) K/uL RBC (4.50-5.90) M/uL Hgb (13.0-17.0) g/dL Hct (38.0-50.0) % MCV (80.0-98.0) fL MCH (27.0-32.0) pg MCHC (31.0-37.0) g/dL RDW Std Deviation (28.0-62.0) fl RDW Coeff of [place] (11.0-15.0) % Plt Count (150-400) K/uL MPV (7.40-12.00) fL Neut % (Auto) (48.0-80.0) % Lymph % (Auto) (16.0-40.0) % [place] % (Auto) (0.0-15.0) % Eos % (Auto) (0.0-7.0) % Baso % (Auto) (0.0-1.5) % Neut # (Auto) (1.4-5.7) K/uL Lymph # (Auto) (0.6-2.4) K/uL [place] # (Auto) (0.0-0.8) K/uL Eos # (Auto) (0.0-0.7) K/uL Baso # (Auto) (0.0-0.1) K/uL Nucleated RBC % /100WBC Nucleated RBCs # K/uL Sodium (136-148) mmol/L Potassium (3.5-5.1) mmol/L Chloride (98-107) mmol/L Carbon Dioxide (21.0-32.0) mmol/L BUN (7.0-18.0) mg/dL Creatinine (0.8-1.3) mg/dL Est Cr Clr Drug Dosing mL/min Estimated GFR (MDRD) ml/min Glucose (74-106) mg/dL Calcium (8.5-10.1) mg/dL Phosphorus (2.6-4.7) mg/dL Magnesium 1.5 L (1.8-2.4) mg/dL Total Bilirubin (0.2-1.0) mg/dL AST (15-37) IU/L ALT (14-63) IU/L Alkaline Phosphatase (46-116) U/L Total Protein (6.4-8.2) g/dL Albumin (3.4-5.0) g/dL Globulin (2.6-4.0) g/dL Albumin/Globulin Ratio (0.9-1.6) Hepatitis A IgM Ab (Negative) Hep Bs Antigen (Negative) Hep B Core IgM Ab (Negative) Hepatitis C Antibody (0.0-0.9) s/co ratio Med Orders - Current: Current Medications Amlodipine Besylate (Norvasc) 10 mg PO DAILY [facility] Last Admin: 04/05/20 08:43 Dose: 10 mg Documented by: Diazepam (Valium.) 5 mg PO TID [facility] Last Admin: 04/05/20 13:52 Dose: 5 mg Documented by: Escitalopram Oxalate (Lexapro) 20 mg PO DAILY [facility] Last Admin: 04/05/20 08:41 Dose: 20 mg Documented by: Folic Acid (Folic Acid) 1 mg PO DAILY [facility] Last Admin: 04/05/20 08:43 Dose: 1 mg Documented by: Heparin Sodium (Porcine) (Heparin Sodium) 5,000 units SUBCUT Q12H [facility] Last Admin: 04/05/20 10:31 Dose: 5,000 units Documented by: Pantoprazole Sodium 40 mg/ (Sodium Chloride) 10 mls @ 300 mls/hr IV DAILY [facility] Last Admin: 04/05/20 08:49 Dose: 300 mls/hr Documented by: Lactated Ringer's (Ringers, Lactated) 1,000 mls @ 200 mls/hr IV ASDIRECTED [facility] Last Admin: 04/05/20 13:52 Dose: 200 mls/hr Documented by: Magnesium Sulfate (Magnesium Sulfate In Water Premix) 2 gm in 50 mls @ 50 mls/hr IV ONETIME [facility] Last Admin: 04/03/20 09:30 Dose: 50 mls/hr Documented by: Magnesium Sulfate (Magnesium Sulfate In Water 2 Gm/50 Ml) 2 gm in 50 mls @ 50 mls/hr IV ONETIME [facility] Last Admin: 04/04/20 11:37 Dose: 50 mls/hr Documented by: Labetalol HCl (Normodyne) 200 mg PO BID [facility] Last Admin: 04/05/20 08:41 Dose: 200 mg Documented by: Lorazepam (Ativan) 0 mg IVPUSH Q2H PRN; Protocol PRN Reason: CIWAA score Last Admin: 04/05/20 16:24 Dose: 1 mg Documented by: Morphine Sulfate (Morphine) 1 mg IVPUSH Q4H PRN PRN Reason: Pain (severe 7-10) Ondansetron HCl (Zofran) 4 mg IVPUSH Q4H PRN PRN Reason: Nausea/Vomiting Last Admin: 04/03/20 14:17 Dose: 4 mg Documented by: Ondansetron HCl (Zofran) 4 mg IVPUSH Q4H PRN PRN Reason: Nausea Lacosamide [Vimpat] (150 Mg) 1 each PO BID [facility] Last Admin: 04/05/20 08:43 Dose: 1 each Documented by: Sodium Chloride (Saline Flush) 10 ml FLUSH ASDIRECTED PRN PRN Reason: Keep Vein Open Sodium Chloride (Saline Flush) 2.5 ml FLUSH ASDIRECTED PRN PRN Reason: Keep Vein Open Venlafaxine HCl (Effexor) 75 mg PO BID [facility] Last Admin: 04/05/20 08:42 Dose: 75 mg Documented by: Discontinued Medications Diazepam (Valium) 5 mg IVPUSH Q8H [facility] Last Admin: 04/03/20 10:28 Dose: 5 mg Documented by: Diazepam (Valium) 10 mg PO TID [facility] Last Admin: 04/04/20 06:15 Dose: 10 mg Documented by: Diazepam (Valium.) 10 mg PO TID [facility] Last Admin: 04/05/20 05:16 Dose: 10 mg Documented by: Folic Acid (Folic Acid) 1 mg PO ONETIME ONE Stop: 04/03/20 00:45 Last Admin: 04/03/20 01:17 Dose: Not Given Documented by: Multivitamins/Minerals 10 ml/Thiamine HCl 200 mg/ Chromium/Copper/Manganese/Seleni/Zn 1 ml/ Dextrose/Lactated Ringer's 1,013 mls @ 150 mls/hr IV ASDIRECTED [facility] Multivitamins/Minerals 10 ml/Thiamine HCl 100 mg/ Folic Acid 1 mg/ Sodium Chloride 1,011.2 mls @ 150 mls/hr IV ONETIME ONE Stop: 04/03/20 07:55 Last Admin: 04/03/20 01:12 Dose: 150 mls/hr Documented by: Thiamine HCl 100 mg/ Sodium (Chloride) 101 mls @ 202 mls/hr IV DAILY ONE Stop: 04/04/20 08:59 Last Admin: 04/04/20 09:48 Dose: 202 mls/hr Documented by: Iopamidol (Isovue Multipack-370 (76%)) 100 ml IVPUSH ONETIME STA Stop: 04/03/20 02:32 Last Admin: 04/03/20 02:33 Dose: 100 ml Documented by: Lorazepam (Ativan) 0 mg IVPUSH Q4H PRN; Protocol PRN Reason: CIWAA score Last Admin: 04/03/20 14:17 Dose: 2 mg Documented by: Multivitamins/Minerals (Infuvite Adult) 10 ml IV DAILY [facility] Lacosamide [Vimpat] (150 Mg) 1 each PO DAILY ML Last Admin: 04/03/20 10:42 Dose: 1 each Documented by: Potassium Chloride (Klor-Con M20) 40 meq PO ONETIME ONE Stop: 04/03/20 08:16 Last Admin: 04/03/20 09:12 Dose: 40 meq Documented by: Potassium Chloride (Klor-Con M20) 40 meq PO ONETIME ONE Stop: 04/04/20 08:03 Last Admin: 04/04/20 09:40 Dose: 40 meq Documented by: Potassium Chloride (Potassium Chloride) 40 meq PO ONETIME ONE Stop: 04/05/20 07:53 Last Admin: 04/05/20 08:43 Dose: 40 meq Documented by: Sepsis Event Note - Focused Exam Vital Signs: Vital Signs Temp Pulse Pulse Resp BP BP Pulse Ox 04/05/20 16:29 36.5 C 112 H 17 137/96 H 98 04/05/20 11:15 36.8 C 86 17 135/65 97 04/05/20 08:43 139/90 04/05/20 08:41 75 139/90 04/05/20 08:09 36.6 C 77 17 139/90 97 - Plan Plan:: I have seen and evaluated the patient and agree with the residents note unless specified in my note
[2020-04-05] MEDS: Heparin Sodium 5,000 Units/ML Vial SUBCUT SCH ×2 (10:31→22:15)
[2020-04-05] MEDS: LORazepam 2 MG/ML SDV IVPUSH PRN ×3 (10:37→20:10)
[2020-04-05] MEDS ORDERED: Magnesium Sulfate/Water 2 GM/50 ML BAG IV ONE (18:45)
[2020-04-06] MEDS: Lactated Ringers 1,000 ML IV SCH ×3 (01:08→11:11)
[2020-04-06] MEDS: Diazepam 5 MG Tab PO SCH ×2 (06:03→20:12)
[2020-04-06 06:29] LABS: BLOOD UREA NITROGEN,BUN 4 mg/dL (7.0-18.0); CARBON DIOXIDE,CO2 26.6 mmol/L (21.0-32.0); CHLORIDE,CL 102 mmol/L (98-107); GLUCOSE RANDOM 103 mg/dL (74-106); POTASSIUM,K 3.3 mmol/L (3.5-5.1); SODIUM,NA 137 mmol/L (136-148)
[2020-04-06] MEDS: amLODIPine 5 MG Tab PO SCH (09:33)
[2020-04-06] MEDS: Labetalol 100 MG Tab PO SCH ×2 (09:33→20:12)
[2020-04-06] MEDS: Pantoprazole 40 MG in Sodium Chloride 0.9% 10 ML IV SCH (09:33)
[2020-04-06] MEDS: Venlafaxine 37.5 MG Tab PO SCH ×2 (09:33→20:14)
[2020-04-06] MEDS: Escitalopram 10 MG Tab PO SCH (09:33)
[2020-04-06] MEDS: Folic Acid 1 MG Tab PO SCH (09:33)
[2020-04-06] MEDS: LACOSAMIDE 150 MG PO SCH ×2 (09:34→20:16)
[2020-04-06] MEDS: Heparin Sodium 5,000 Units/ML Vial SUBCUT SCH (11:11)
[2020-04-06] MEDS: Thiamine 100 MG in Sodium Chloride 0.9% 100 ML IV SCH (11:41)
--- NOTE | 2020-04-06 13:01 | PCM.PN ---
- General Info Date of Service: 04/06/20 - Review of Systems Systems Review Comment:: reports abdominal pain resolved, tremors improving - Patient Data Vitals - Most Recent: Last Vital Signs Temp 36.6 C 04/06/20 12:00 Pulse 89 04/06/20 12:00 Resp 18 04/06/20 12:00 BP 155/108 H 04/06/20 12:00 Pulse Ox 99 04/06/20 12:00 Weight - Most Recent: 90.2 kg I&O - Last 24 Hours: Intake & Output 04/05/20 04/06/20 04/06/20 22:59 06:59 14:59 Intake Total 1200 1100 Output Total 1800 2600 Balance -600 -1500 Lab Results Last 24 Hours: Laboratory Results - last 24 hr 04/05/20 04/06/20 04/06/20 Range/Units 14:00 05:45 05:45 WBC 5.35 (4.0-11.0) K/uL RBC 3.69 L (4.50-5.90) M/uL Hgb 12.4 L (13.0-17.0) g/dL Hct 36.9 L (38.0-50.0) % MCV 100.0 H (80.0-98.0) fL MCH 33.6 H (27.0-32.0) pg MCHC 33.6 (31.0-37.0) g/dL RDW Std Deviation 47.1 (28.0-62.0) fl RDW Coeff of [place] 13 (11.0-15.0) % Plt Count 141 L (150-400) K/uL MPV 10.60 (7.40-12.00) fL Neut % (Auto) 56.8 (48.0-80.0) % Lymph % (Auto) 27.3 (16.0-40.0) % [place] % (Auto) 13.1 (0.0-15.0) % Eos % (Auto) 2.2 (0.0-7.0) % Baso % (Auto) 0.6 (0.0-1.5) % Neut # (Auto) 3.0 (1.4-5.7) K/uL Lymph # (Auto) 1.5 (0.6-2.4) K/uL [place] # (Auto) 0.7 (0.0-0.8) K/uL Eos # (Auto) 0.1 (0.0-0.7) K/uL Baso # (Auto) 0.0 (0.0-0.1) K/uL Nucleated RBC % 0.0 /100WBC Nucleated RBCs # 0 K/uL Sodium 137 (136-148) mmol/L Potassium 3.3 L (3.5-5.1) mmol/L Chloride 102 (98-107) mmol/L Carbon Dioxide 26.6 (21.0-32.0) mmol/L BUN 4 L (7.0-18.0) mg/dL Creatinine 0.7 L (0.8-1.3) mg/dL Est Cr Clr Drug Dosing 143.39 mL/min Estimated GFR (MDRD) > 60.0 ml/min Glucose 103 (74-106) mg/dL Calcium 8.9 (8.5-10.1) mg/dL Phosphorus 3.2 (2.6-4.7) mg/dL Magnesium 1.5 L (1.8-2.4) mg/dL Total Bilirubin 0.6 (0.2-1.0) mg/dL AST 53 H (15-37) IU/L ALT 64 H (14-63) IU/L Alkaline Phosphatase 99 (46-116) U/L Total Protein 6.8 (6.4-8.2) g/dL Albumin 3.5 (3.4-5.0) g/dL Globulin 3.3 (2.6-4.0) g/dL Albumin/Globulin Ratio 1.1 (0.9-1.6) Med Orders - Current: Current Medications Amlodipine Besylate (Norvasc) 10 mg PO DAILY [facility] Last Admin: 04/06/20 09:33 Dose: 10 mg Documented by: Diazepam (Valium.) 5 mg PO BID [facility] Escitalopram Oxalate (Lexapro) 20 mg PO DAILY [facility] Last Admin: 04/06/20 09:33 Dose: 20 mg Documented by: Folic Acid (Folic Acid) 1 mg PO DAILY [facility] Last Admin: 04/06/20 09:33 Dose: 1 mg Documented by: Heparin Sodium (Porcine) (Heparin Sodium) 5,000 units SUBCUT Q12H [facility] Last Admin: 04/06/20 11:11 Dose: 5,000 units Documented by: Pantoprazole Sodium 40 mg/ (Sodium Chloride) 10 mls @ 300 mls/hr IV DAILY [facility] Last Admin: 04/06/20 09:33 Dose: 300 mls/hr Documented by: Magnesium Sulfate (Magnesium Sulfate In Water Premix) 2 gm in 50 mls @ 50 mls/hr IV ONETIME [facility] Last Admin: 04/03/20 09:30 Dose: 50 mls/hr Documented by: Magnesium Sulfate (Magnesium Sulfate In Water 2 Gm/50 Ml) 2 gm in 50 mls @ 50 mls/hr IV ONETIME [facility] Last Admin: 04/04/20 11:37 Dose: 50 mls/hr Documented by: Thiamine HCl 100 mg/ Sodium (Chloride) 101 mls @ 202 mls/hr IV DAILY [facility] Last Admin: 04/06/20 11:41 Dose: 202 mls/hr Documented by: Labetalol HCl (Normodyne) 200 mg PO BID [facility] Last Admin: 04/06/20 09:33 Dose: 200 mg Documented by: Lorazepam (Ativan) 0 mg IVPUSH Q2H PRN; Protocol PRN Reason: CIWAA score Last Admin: 04/05/20 20:10 Dose: 1 mg Documented by: Ondansetron HCl (Zofran) 4 mg IVPUSH Q4H PRN PRN Reason: Nausea/Vomiting Last Admin: 04/03/20 14:17 Dose: 4 mg Documented by: Ondansetron HCl (Zofran) 4 mg IVPUSH Q4H PRN PRN Reason: Nausea Lacosamide [Vimpat] (150 Mg) 1 each PO BID [facility] Last Admin: 04/06/20 09:34 Dose: 1 each Documented by: Sodium Chloride (Saline Flush) 10 ml FLUSH ASDIRECTED PRN PRN Reason: Keep Vein Open Sodium Chloride (Saline Flush) 2.5 ml FLUSH ASDIRECTED PRN PRN Reason: Keep Vein Open Venlafaxine HCl (Effexor) 75 mg PO BID [facility] Last Admin: 04/06/20 09:33 Dose: 75 mg Documented by: Discontinued Medications Diazepam (Valium) 5 mg IVPUSH Q8H [facility] Last Admin: 04/03/20 10:28 Dose: 5 mg Documented by: Diazepam (Valium) 10 mg PO TID [facility] Last Admin: 04/04/20 06:15 Dose: 10 mg Documented by: Diazepam (Valium.) 10 mg PO TID [facility] Last Admin: 04/05/20 05:16 Dose: 10 mg Documented by: Diazepam (Valium.) 5 mg PO TID [facility] Last Admin: 04/06/20 06:03 Dose: 5 mg Documented by: Folic Acid (Folic Acid) 1 mg PO ONETIME ONE Stop: 04/03/20 00:45 Last Admin: 04/03/20 01:17 Dose: Not Given Documented by: Multivitamins/Minerals 10 ml/Thiamine HCl 200 mg/ Chromium/Copper/Manganese/Seleni/Zn 1 ml/ Dextrose/Lactated Ringer's 1,013 mls @ 150 mls/hr IV ASDIRECTED [facility] Multivitamins/Minerals 10 ml/Thiamine HCl 100 mg/ Folic Acid 1 mg/ Sodium Chloride 1,011.2 mls @ 150 mls/hr IV ONETIME ONE Stop: 04/03/20 07:55 Last Admin: 04/03/20 01:12 Dose: 150 mls/hr Documented by: Lactated Ringer's (Ringers, Lactated) 1,000 mls @ 150 mls/hr IV ASDIRECTED [facility] Last Admin: 04/06/20 11:11 Dose: 200 mls/hr Documented by: Thiamine HCl 100 mg/ Sodium (Chloride) 101 mls @ 202 mls/hr IV DAILY ONE Stop: 04/04/20 08:59 Last Admin: 04/04/20 09:48 Dose: 202 mls/hr Documented by: Magnesium Sulfate (Magnesium Sulfate In Water 2 Gm/50 Ml) 2 gm in 50 mls @ 50 mls/hr IV ONETIME ONE Stop: 04/05/20 19:44 Last Admin: 04/05/20 19:48 Dose: 50 mls/hr Documented by: Iopamidol (Isovue Multipack-370 (76%)) 100 ml IVPUSH ONETIME STA Stop: 04/03/20 02:32 Last Admin: 04/03/20 02:33 Dose: 100 ml Documented by: Lorazepam (Ativan) 0 mg IVPUSH Q4H PRN; Protocol PRN Reason: CIWAA score Last Admin: 04/03/20 14:17 Dose: 2 mg Documented by: Morphine Sulfate (Morphine) 1 mg IVPUSH Q4H PRN PRN Reason: Pain (severe 7-10) Multivitamins/Minerals (Infuvite Adult) 10 ml IV DAILY [facility] Lacosamide [Vimpat] (150 Mg) 1 each PO DAILY [facility] Last Admin: 04/03/20 10:42 Dose: 1 each Documented by: Potassium Chloride (Klor-Con M20) 40 meq PO ONETIME ONE Stop: 04/03/20 08:16 Last Admin: 04/03/20 09:12 Dose: 40 meq Documented by: Potassium Chloride (Klor-Con M20) 40 meq PO ONETIME ONE Stop: 04/04/20 08:03 Last Admin: 04/04/20 09:40 Dose: 40 meq Documented by: Potassium Chloride (Potassium Chloride) 40 meq PO ONETIME ONE Stop: 04/05/20 07:53 Last Admin: 04/05/20 08:43 Dose: 40 meq Documented by: - Exam General: Alert, Oriented Neck: Supple Lungs: Clear to Auscultation, Normal Respiratory Effort Cardiovascular: Regular Rate, Regular Rhythm GI/Abdominal Exam: Normal Bowel Sounds, Soft, Non-Tender Extremities: Non-Tender, No Pedal Edema Skin: Warm, Dry, Intact Neurological: No New Focal Deficit Sepsis Event Note - Evaluation Sepsis Screening Result: No Definite Risk - Focused Exam Vital Signs: Vital Signs Temp Pulse Pulse Resp BP BP Pulse Ox 04/06/20 12:00 36.6 C 89 18 155/108 H 99 04/06/20 09:33 87 150/112 H 04/06/20 07:59 36.2 C 92 17 144/113 H 98 04/06/20 04:00 36.3 C 72 16 139/67 98 - Problem List Review Problem List Initiated/Reviewed/Updated: Yes - My Orders Last 24 Hours: My Active Orders 04/06/20 11:30 Thiamine [Vitamin B-1] 100 mg Sodium Chloride 0.9% [Normal Saline] 100 ml IV DAILY 04/06/20 21:00 diazePAM [Valium.] 5 mg PO BID - Plan Plan:: 39 yo male admitted for ETOH pancreatitis and ETOH withdrawal. Pancreatitis: resolving, will continue soft diet ETOH withdrawal: continue ciwa protocol, will decrease valium to 5mg BID, continue thiamine and folic acid.
[2020-04-06] MEDS ORDERED: Potassium Chloride 20 MEQ Tab.ER PO ONE (13:02)
[2020-04-06] MEDS ORDERED: Magnesium Sulfate/Water 2 GM/50 ML BAG IV ONE (18:30)
[2020-04-07] MEDS: Heparin Sodium 5,000 Units/ML Vial SUBCUT SCH ×3 (02:36→22:59)
[2020-04-07 06:35] LABS: BLOOD UREA NITROGEN,BUN 5 mg/dL (7.0-18.0); CARBON DIOXIDE,CO2 27.8 mmol/L (21.0-32.0); CHLORIDE,CL 103 mmol/L (98-107); GLUCOSE RANDOM 103 mg/dL (74-106); POTASSIUM,K 4.3 mmol/L (3.5-5.1); SODIUM,NA 141 mmol/L (136-148)
[2020-04-07] MEDS: amLODIPine 5 MG Tab PO SCH (10:13)
[2020-04-07] MEDS: Folic Acid 1 MG Tab PO SCH (10:14)
[2020-04-07] MEDS: Venlafaxine 37.5 MG Tab PO SCH ×2 (10:14→22:56)
[2020-04-07] MEDS: Labetalol 100 MG Tab PO SCH ×2 (10:14→22:55)
[2020-04-07] MEDS: Escitalopram 10 MG Tab PO SCH (10:15)
[2020-04-07] MEDS: Thiamine 100 MG in Sodium Chloride 0.9% 100 ML IV SCH (10:15)
[2020-04-07] MEDS: Pantoprazole 40 MG in Sodium Chloride 0.9% 10 ML IV SCH (10:15)
[2020-04-07] MEDS: LACOSAMIDE 150 MG PO SCH ×2 (10:17→22:58)
[2020-04-07] MEDS: Diazepam 5 MG Tab PO SCH (10:33)
--- NOTE | 2020-04-07 11:48 | PCM.PN ---
- General Info Date of Service: 04/07/20 Subjective Update: Bedside: feeling better comapred to admission date. Denies any hallucinations/seizures. Mentions appetite is almost full back. Denies pain Functional Status: Reports: Pain Controlled - Review of Systems General: Reports: Fatigue HEENT: Reports: No Symptoms Pulmonary: Reports: No Symptoms Cardiovascular: Reports: No Symptoms Gastrointestinal: Reports: No Symptoms. Denies: Abdominal Pain, Nausea, Vomiting Genitourinary: Reports: No Symptoms Neurological: Reports: Headache, Tremors Psychiatric: Reports: No Symptoms - Patient Data Vitals - Most Recent: Last Vital Signs Temp 98.1 F 04/07/20 07:31 Pulse 85 04/07/20 10:14 Resp 16 04/07/20 07:31 BP 156/110 H 04/07/20 10:14 Pulse Ox 96 04/07/20 07:31 Weight - Most Recent: 90.2 kg I&O - Last 24 Hours: Intake & Output 04/06/20 04/07/20 04/07/20 22:59 06:59 14:59 Intake Total 800 1000 Output Total 1350 Balance -550 1000 Lab Results Last 24 Hours: Laboratory Results - last 24 hr 04/06/20 04/07/20 04/07/20 Range/Units 14:02 06:00 06:00 WBC 6.02 (4.0-11.0) K/uL RBC 3.76 L (4.50-5.90) M/uL Hgb 12.7 L (13.0-17.0) g/dL Hct 38.0 (38.0-50.0) % MCV 101.1 H (80.0-98.0) fL MCH 33.8 H (27.0-32.0) pg MCHC 33.4 (31.0-37.0) g/dL RDW Std Deviation 48.6 (28.0-62.0) fl RDW Coeff of [place] 13 (11.0-15.0) % Plt Count 168 (150-400) K/uL MPV 10.70 (7.40-12.00) fL Neut % (Auto) 57.1 (48.0-80.0) % Lymph % (Auto) 26.6 (16.0-40.0) % [place] % (Auto) 13.1 (0.0-15.0) % Eos % (Auto) 2.0 (0.0-7.0) % Baso % (Auto) 1.2 (0.0-1.5) % Neut # (Auto) 3.4 (1.4-5.7) K/uL Lymph # (Auto) 1.6 (0.6-2.4) K/uL [place] # (Auto) 0.8 (0.0-0.8) K/uL Eos # (Auto) 0.1 (0.0-0.7) K/uL Baso # (Auto) 0.1 (0.0-0.1) K/uL Nucleated RBC % 0.0 /100WBC Nucleated RBCs # 0 K/uL Sodium 141 (136-148) mmol/L Potassium 4.3 (3.5-5.1) mmol/L Chloride 103 (98-107) mmol/L Carbon Dioxide 27.8 (21.0-32.0) mmol/L BUN 5 L (7.0-18.0) mg/dL Creatinine 0.7 L (0.8-1.3) mg/dL Est Cr Clr Drug Dosing 143.39 mL/min Estimated GFR (MDRD) > 60.0 ml/min Glucose 103 (74-106) mg/dL Calcium 9.1 (8.5-10.1) mg/dL Phosphorus 4.2 (2.6-4.7) mg/dL Magnesium 1.6 L (1.8-2.4) mg/dL Total Bilirubin 0.4 (0.2-1.0) mg/dL AST 66 H (15-37) IU/L ALT 72 H (14-63) IU/L Alkaline Phosphatase 95 (46-116) U/L Total Protein 7.1 (6.4-8.2) g/dL Albumin 3.6 (3.4-5.0) g/dL Globulin 3.5 (2.6-4.0) g/dL Albumin/Globulin Ratio 1.0 (0.9-1.6) Med Orders - Current: Current Medications Amlodipine Besylate (Norvasc) 10 mg PO DAILY [facility] Last Admin: 04/07/20 10:13 Dose: 10 mg Documented by: Diazepam (Valium.) 5 mg PO DAILY [facility] Escitalopram Oxalate (Lexapro) 20 mg PO DAILY [facility] Last Admin: 04/07/20 10:15 Dose: 20 mg Documented by: Folic Acid (Folic Acid) 1 mg PO DAILY [facility] Last Admin: 04/07/20 10:14 Dose: 1 mg Documented by: Heparin Sodium (Porcine) (Heparin Sodium) 5,000 units SUBCUT Q12H [facility] Last Admin: 04/07/20 10:15 Dose: 5,000 units Documented by: Pantoprazole Sodium 40 mg/ (Sodium Chloride) 10 mls @ 300 mls/hr IV DAILY [facility] Last Admin: 04/07/20 10:15 Dose: 300 mls/hr Documented by: Thiamine HCl 100 mg/ Sodium (Chloride) 101 mls @ 202 mls/hr IV DAILY [facility] Last Admin: 04/07/20 10:15 Dose: 202 mls/hr Documented by: Labetalol HCl (Normodyne) 200 mg PO BID [facility] Last Admin: 04/07/20 10:14 Dose: 200 mg Documented by: Lorazepam (Ativan) 0 mg IVPUSH Q2H PRN; Protocol PRN Reason: CIWAA score Last Admin: 04/05/20 20:10 Dose: 1 mg Documented by: Ondansetron HCl (Zofran) 4 mg IVPUSH Q4H PRN PRN Reason: Nausea/Vomiting Last Admin: 04/03/20 14:17 Dose: 4 mg Documented by: Ondansetron HCl (Zofran) 4 mg IVPUSH Q4H PRN PRN Reason: Nausea Lacosamide [Vimpat] (150 Mg) 1 each PO BID [facility] Last Admin: 04/07/20 10:17 Dose: 1 each Documented by: Sodium Chloride (Saline Flush) 10 ml FLUSH ASDIRECTED PRN PRN Reason: Keep Vein Open Sodium Chloride (Saline Flush) 2.5 ml FLUSH ASDIRECTED PRN PRN Reason: Keep Vein Open Venlafaxine HCl (Effexor) 75 mg PO BID [facility] Last Admin: 04/07/20 10:14 Dose: 75 mg Documented by: Discontinued Medications Diazepam (Valium) 5 mg IVPUSH Q8H [facility] Last Admin: 04/03/20 10:28 Dose: 5 mg Documented by: Diazepam (Valium) 10 mg PO TID [facility] Last Admin: 04/04/20 06:15 Dose: 10 mg Documented by: Diazepam (Valium.) 10 mg PO TID [facility] Last Admin: 04/05/20 05:16 Dose: 10 mg Documented by: Diazepam (Valium.) 5 mg PO TID [facility] Last Admin: 04/06/20 06:03 Dose: 5 mg Documented by: Diazepam (Valium.) 5 mg PO BID [facility] Last Admin: 04/07/20 10:33 Dose: Not Given Documented by: Folic Acid (Folic Acid) 1 mg PO ONETIME ONE Stop: 04/03/20 00:45 Last Admin: 04/03/20 01:17 Dose: Not Given Documented by: Multivitamins/Minerals 10 ml/Thiamine HCl 200 mg/ Chromium/Copper/Manganese/Seleni/Zn 1 ml/ Dextrose/Lactated Ringer's 1,013 mls @ 150 mls/hr IV ASDIRECTED [facility] Multivitamins/Minerals 10 ml/Thiamine HCl 100 mg/ Folic Acid 1 mg/ Sodium Chloride 1,011.2 mls @ 150 mls/hr IV ONETIME ONE Stop: 04/03/20 07:55 Last Admin: 04/03/20 01:12 Dose: 150 mls/hr Documented by: Lactated Ringer's (Ringers, Lactated) 1,000 mls @ 150 mls/hr IV ASDIRECTED [facility] Last Admin: 04/06/20 11:11 Dose: 200 mls/hr Documented by: Magnesium Sulfate (Magnesium Sulfate In Water 2 Gm/50 Ml) 2 gm in 50 mls @ 50 mls/hr IV ONETIME [facility] Last Admin: 04/03/20 09:30 Dose: 50 mls/hr Documented by: Thiamine HCl 100 mg/ Sodium (Chloride) 101 mls @ 202 mls/hr IV DAILY ONE Stop: 04/04/20 08:59 Last Admin: 04/04/20 09:48 Dose: 202 mls/hr Documented by: Magnesium Sulfate (Magnesium Sulfate In Water 2 Gm/50 Ml) 2 gm in 50 mls @ 50 mls/hr IV ONETIME [facility] Last Admin: 04/04/20 11:37 Dose: 50 mls/hr Documented by: Magnesium Sulfate (Magnesium Sulfate In Water 2 Gm/50 Ml) 2 gm in 50 mls @ 50 mls/hr IV ONETIME ONE Stop: 04/05/20 19:44 Last Admin: 04/05/20 19:48 Dose: 50 mls/hr Documented by: Magnesium Sulfate (Magnesium Sulfate In Water 2 Gm/50 Ml) 2 gm in 50 mls @ 50 mls/hr IV ONETIME ONE Stop: 04/06/20 19:29 Last Admin: 04/06/20 18:46 Dose: 50 mls/hr Documented by: Iopamidol (Isovue Multipack-370 (76%)) 100 ml IVPUSH ONETIME STA Stop: 04/03/20 02:32 Last Admin: 04/03/20 02:33 Dose: 100 ml Documented by: Lorazepam (Ativan) 0 mg IVPUSH Q4H PRN; Protocol PRN Reason: CIWAA score Last Admin: 04/03/20 14:17 Dose: 2 mg Documented by: Morphine Sulfate (Morphine) 1 mg IVPUSH Q4H PRN PRN Reason: Pain (severe 7-10) Multivitamins/Minerals (Infuvite Adult) 10 ml IV DAILY [facility] Lacosamide [Vimpat] (150 Mg) 1 each PO DAILY [facility] Last Admin: 04/03/20 10:42 Dose: 1 each Documented by: Potassium Chloride (Klor-Con M20) 40 meq PO ONETIME ONE Stop: 04/03/20 08:16 Last Admin: 04/03/20 09:12 Dose: 40 meq Documented by: Potassium Chloride (Klor-Con M20) 40 meq PO ONETIME ONE Stop: 04/04/20 08:03 Last Admin: 04/04/20 09:40 Dose: 40 meq Documented by: Potassium Chloride (Potassium Chloride) 40 meq PO ONETIME ONE Stop: 04/05/20 07:53 Last Admin: 04/05/20 08:43 Dose: 40 meq Documented by: Potassium Chloride (Klor-Con M20) 40 meq PO ONETIME ONE Stop: 04/06/20 13:03 Last Admin: 04/06/20 13:22 Dose: 40 meq Documented by: - Exam Quality Assessment: No: Supplemental Oxygen General: Alert, Oriented, Cooperative, No Acute Distress HEENT: EOMI, Mucous Membr. Moist/[place] Neck: Supple Lungs: Clear to Auscultation, Normal Respiratory Effort Cardiovascular: Regular Rate, Regular Rhythm GI/Abdominal Exam: Soft, Non-Tender Extremities: Normal Inspection Neurological: Other (Axo x 3 ; + tremors ) Psy/Mental Status: Alert, Normal Mood Sepsis Event Note - Evaluation Sepsis Screening Result: No Definite Risk - Focused Exam Vital Signs: Vital Signs Temp Pulse Pulse Resp BP BP Pulse Ox 04/07/20 10:14 85 156/110 H 04/07/20 10:13 156/110 H 04/07/20 07:31 98.1 F 87 16 156/110 H 96 04/07/20 04:00 97.9 F 87 18 143/98 H 98 04/07/20 00:00 98.9 F 81 16 147/98 H 98 - Problem List & Annotations (1) Acute pancreatitis SNOMED Code(s): 769108752 Code(s): K85.90 - ACUTE PANCREATITIS WITHOUT NECROSIS OR INFECTION, UNSP Status: Acute Current Visit: Yes (2) Alcohol poisoning SNOMED Code(s): 60031350 Code(s): T51.91XA - TOXIC EFFECT OF UNSP ALCOHOL, ACCIDENTAL, INIT Status: Acute Current Visit: Yes (3) Elevated LFTs SNOMED Code(s): 304062256 Code(s): R79.89 - OTHER SPECIFIED ABNORMAL FINDINGS OF BLOOD CHEMISTRY Status: Acute Current Visit: Yes (4) Alcohol withdrawal syndrome SNOMED Code(s): 342308251 Code(s): F10.239 - ALCOHOL DEPENDENCE WITH WITHDRAWAL, UNSPECIFIED Status: Acute Current Visit: No - Problem List Review Problem List Initiated/Reviewed/Updated: Yes - Plan Plan:: 39 yo male admitted for ETOH pancreatitis and ETOH withdrawal. Pancreatitis: resolving, will continue soft diet ETOH withdrawal: continue ciwa protocol, received 1 dose of Valium this AM; will receive 1 more dose in AM and decide to continue based off clinical response. Continue labetalol and amlodipine PT/OT to evaluate for balance/gait prior to discharge
[2020-04-07] MEDS ORDERED: Magnesium Sulfate/Water 2 GM/50 ML BAG IV SCH (12:45)
[2020-04-08] MEDS: Pantoprazole 40 MG in Sodium Chloride 0.9% 10 ML IV SCH (08:27)
[2020-04-08] MEDS: Escitalopram 10 MG Tab PO SCH (08:28)
[2020-04-08] MEDS: Venlafaxine 37.5 MG Tab PO SCH ×2 (08:28→20:44)
[2020-04-08] MEDS: amLODIPine 5 MG Tab PO SCH (08:28)
[2020-04-08] MEDS: Folic Acid 1 MG Tab PO SCH (08:28)
[2020-04-08] MEDS: Labetalol 100 MG Tab PO SCH ×2 (08:28→20:44)
[2020-04-08 08:47] LABS: BLOOD UREA NITROGEN,BUN 6 mg/dL (7.0-18.0); CHLORIDE,CL 106 mmol/L (98-107); GLUCOSE RANDOM 90 mg/dL (74-106); POTASSIUM,K 3.9 mmol/L (3.5-5.1); SODIUM,NA 142 mmol/L (136-148)
[2020-04-08] MEDS ORDERED: Diazepam 5 MG Tab PO SCH (09:00)
[2020-04-08] MEDS: LACOSAMIDE 150 MG PO SCH ×2 (09:48→20:44)
--- NOTE | 2020-04-08 09:54 | PCM.PN ---
- General Info Date of Service: 04/08/20 Admission Dx/Problem (Free Text): Admission Diagnosis/Problem Admission Diagnosis/Problem Pancreatitis Subjective Update: Reports he is feeling much better today. Continues to have mild tremors was given diazepam 5 mg scheduled this morning. Denies any chest pain shortness of breath no abdominal pain he is tolerating diet well. He is eager be discharged home but agrees to stay 1 more night to monitor without any benzodiazepines. Plans on going to a center in [place] for possible inpatient/outpatient treatment for alcohol abuse he is motivated to remain sober. Functional Status: Reports: Pain Controlled, Tolerating Diet, Ambulating, Urinating - Review of Systems General: Reports: No Symptoms. Denies: Fatigue, Malaise HEENT: Reports: No Symptoms. Denies: Headaches, Sore Throat, Visual Changes Pulmonary: Reports: No Symptoms. Denies: Shortness of Breath Cardiovascular: Reports: No Symptoms. Denies: Chest Pain Gastrointestinal: Reports: No Symptoms. Denies: Abdominal Pain, Nausea, Vomiting Genitourinary: Reports: No Symptoms. Denies: Dysuria, Frequency Musculoskeletal: Reports: No Symptoms. Denies: Shoulder Pain, Back Pain Skin: Reports: No Symptoms Neurological: Reports: Tremors Psychiatric: Reports: No Symptoms - Patient Data Vitals - Most Recent: Last Vital Signs Temp 97.5 F 04/08/20 07:27 Pulse 69 04/08/20 08:28 Resp 22 H 04/08/20 07:27 BP 131/91 H 04/08/20 08:28 Pulse Ox 95 04/08/20 07:27 Weight - Most Recent: 90.2 kg I&O - Last 24 Hours: Intake & Output 04/07/20 04/08/20 04/08/20 22:59 06:59 14:59 Intake Total 540 1000 Output Total 400 750 Balance 140 250 Lab Results Last 24 Hours: Laboratory Results - last 24 hr 04/08/20 04/08/20 Range/Units 06:41 06:41 WBC 6.42 (4.0-11.0) K/uL RBC 3.67 L (4.50-5.90) M/uL Hgb 12.4 L (13.0-17.0) g/dL Hct 37.6 L (38.0-50.0) % MCV 102.5 H (80.0-98.0) fL MCH 33.8 H (27.0-32.0) pg MCHC 33.0 (31.0-37.0) g/dL RDW Std Deviation 49.1 (28.0-62.0) fl RDW Coeff of [place] 13 (11.0-15.0) % Plt Count 177 (150-400) K/uL MPV 11.20 (7.40-12.00) fL Neut % (Auto) 54.6 (48.0-80.0) % Lymph % (Auto) 27.6 (16.0-40.0) % [place] % (Auto) 15.0 (0.0-15.0) % Eos % (Auto) 1.9 (0.0-7.0) % Baso % (Auto) 0.9 (0.0-1.5) % Neut # (Auto) 3.5 (1.4-5.7) K/uL Lymph # (Auto) 1.8 (0.6-2.4) K/uL [place] # (Auto) 1.0 H (0.0-0.8) K/uL Eos # (Auto) 0.1 (0.0-0.7) K/uL Baso # (Auto) 0.1 (0.0-0.1) K/uL Nucleated RBC % 0.0 /100WBC Nucleated RBCs # 0 K/uL Sodium 142 (136-148) mmol/L Potassium 3.9 (3.5-5.1) mmol/L Chloride 106 (98-107) mmol/L Carbon Dioxide 25.0 (21.0-32.0) mmol/L BUN 6 L (7.0-18.0) mg/dL Creatinine 0.8 (0.8-1.3) mg/dL Est Cr Clr Drug Dosing 125.47 mL/min Estimated GFR (MDRD) > 60.0 ml/min Glucose 90 (74-106) mg/dL Calcium 9.4 (8.5-10.1) mg/dL Magnesium 2.7 H (1.8-2.4) mg/dL Total Bilirubin 0.3 (0.2-1.0) mg/dL AST 59 H (15-37) IU/L ALT 77 H (14-63) IU/L Alkaline Phosphatase 91 (46-116) U/L Total Protein 7.2 (6.4-8.2) g/dL Albumin 3.6 (3.4-5.0) g/dL Globulin 3.6 (2.6-4.0) g/dL Albumin/Globulin Ratio 1.0 (0.9-1.6) Med Orders - Current: Current Medications Amlodipine Besylate (Norvasc) 10 mg PO DAILY [facility] Last Admin: 04/08/20 08:28 Dose: 10 mg Documented by: Diazepam (Valium.) 5 mg PO DAILY [facility] Last Admin: 04/08/20 08:28 Dose: 5 mg Documented by: Escitalopram Oxalate (Lexapro) 20 mg PO DAILY [facility] Last Admin: 04/08/20 08:28 Dose: 20 mg Documented by: Folic Acid (Folic Acid) 1 mg PO DAILY [facility] Last Admin: 04/08/20 08:28 Dose: 1 mg Documented by: Heparin Sodium (Porcine) (Heparin Sodium) 5,000 units SUBCUT Q12H [facility] Last Admin: 04/07/20 22:59 Dose: 5,000 units Documented by: Pantoprazole Sodium 40 mg/ (Sodium Chloride) 10 mls @ 300 mls/hr IV DAILY [facility] Last Admin: 04/08/20 08:27 Dose: 300 mls/hr Documented by: Thiamine HCl 100 mg/ Sodium (Chloride) 101 mls @ 202 mls/hr IV DAILY [facility] Last Admin: 04/07/20 10:15 Dose: 202 mls/hr Documented by: Labetalol HCl (Normodyne) 200 mg PO BID [facility] Last Admin: 04/08/20 08:28 Dose: 200 mg Documented by: Lorazepam (Ativan) 0 mg IVPUSH Q2H PRN; Protocol PRN Reason: CIWAA score Last Admin: 04/05/20 20:10 Dose: 1 mg Documented by: Ondansetron HCl (Zofran) 4 mg IVPUSH Q4H PRN PRN Reason: Nausea/Vomiting Last Admin: 04/03/20 14:17 Dose: 4 mg Documented by: Ondansetron HCl (Zofran) 4 mg IVPUSH Q4H PRN PRN Reason: Nausea Lacosamide [Vimpat] (150 Mg) 1 each PO BID [facility] Last Admin: 04/08/20 09:48 Dose: 1 each Documented by: Sodium Chloride (Saline Flush) 10 ml FLUSH ASDIRECTED PRN PRN Reason: Keep Vein Open Sodium Chloride (Saline Flush) 2.5 ml FLUSH ASDIRECTED PRN PRN Reason: Keep Vein Open Venlafaxine HCl (Effexor) 75 mg PO BID [facility] Last Admin: 04/08/20 08:28 Dose: 75 mg Documented by: Discontinued Medications Diazepam (Valium) 5 mg IVPUSH Q8H [facility] Last Admin: 04/03/20 10:28 Dose: 5 mg Documented by: Diazepam (Valium) 10 mg PO TID [facility] Last Admin: 04/04/20 06:15 Dose: 10 mg Documented by: Diazepam (Valium.) 10 mg PO TID [facility] Last Admin: 04/05/20 05:16 Dose: 10 mg Documented by: Diazepam (Valium.) 5 mg PO TID [facility] Last Admin: 04/06/20 06:03 Dose: 5 mg Documented by: Diazepam (Valium.) 5 mg PO BID [facility] Last Admin: 04/07/20 10:33 Dose: Not Given Documented by: Folic Acid (Folic Acid) 1 mg PO ONETIME ONE Stop: 04/03/20 00:45 Last Admin: 04/03/20 01:17 Dose: Not Given Documented by: Multivitamins/Minerals 10 ml/Thiamine HCl 200 mg/ Chromium/Copper/Manganese/Seleni/Zn 1 ml/ Dextrose/Lactated Ringer's 1,013 mls @ 150 [facility]ls[facility]iv[facility]amins/Minerals 10 ml/Thiamine HCl 100 mg/ Folic Acid 1 mg/ Sodium Chloride 1,011.2 mls @ 150 mls/hr IV ONETIME ONE Stop: 04/03/20 07:55 Last Admin: 04/03/20 01:12 Dose: 150 mls/hr Documented by: Lactated Ringer's (Ringers, Lactated) 1,000 mls @ 150 mls/hr IV ASDIRECTED [facility] Last Admin: 04/06/20 11:11 Dose: 200 mls/hr Documented by: Magnesium Sulfate (Magnesium Sulfate In Water 2 Gm/50 Ml) 2 gm in 50 mls @ 50 m ls/hr IV ONETIME [facility] Last Admin: 04/03/20 09:30 Dose: 50 mls/hr Documented by: Thiamine HCl 100 mg/ Sodium (Chloride) 101 mls @ 202 mls/hr IV DAILY ONE Stop: 04/04/20 08:59 Last Admin: 04/04/20 09:48 Dose: 202 mls/hr Documented by: Magnesium Sulfate (Magnesium Sulfate In Water 2 Gm/50 Ml) 2 gm in 50 mls @ 50 mls/hr IV ONETIME [facility] Last Admin: 04/04/20 11:37 Dose: 50 mls/hr Documented by: Magnesium Sulfate (Magnesium Sulfate In Water 2 Gm/50 Ml) 2 gm in 50 mls @ 50 mls/hr IV ONETIME ONE Stop: 04/05/20 19:44 Last Admin: 04/05/20 19:48 Dose: 50 mls/hr Documented by: Magnesium Sulfate (Magnesium Sulfate In Water 2 Gm/50 Ml) 2 gm in 50 mls @ 50 mls/hr IV ONETIME ONE Stop: 04/06/20 19:29 Last Admin: 04/06/20 18:46 Dose: 50 mls/hr Documented by: Magnesium Sulfate (Magnesium Sulfate In Water 2 Gm/50 Ml) 2 gm in 50 mls @ 50 mls/hr IV ONETIME [facility] Last Admin: 04/08/20 05:53 Dose: 50 mls/hr Documented by: Iopamidol (Isovue Multipack-370 (76%)) 100 ml IVPUSH ONETIME STA Stop: 04/03/20 02:32 Last Admin: 04/03/20 02:33 Dose: 100 ml Documented by: Lorazepam (Ativan) 0 mg IVPUSH Q4H PRN; Protocol PRN Reason: CIWAA score Last Admin: 04/03/20 14:17 Dose: 2 mg Documented by: Morphine Sulfate (Morphine) 1 mg IVPUSH Q4H PRN PRN Reason: Pain (severe 7-10) Multivitamins/Minerals (Infuvite Adult) 10 ml IV DAILY [facility] Lacosamide [Vimpat] (150 Mg) 1 each PO DAILY [facility] Last Admin: 04/03/20 10:42 Dose: 1 each Documented by: Potassium Chloride (Klor-Con M20) 40 meq PO ONETIME ONE Stop: 04/03/20 08:16 Last Admin: 04/03/20 09:12 Dose: 40 meq Documented by: Potassium Chloride (Klor-Con M20) 40 meq PO ONETIME ONE Stop: 04/04/20 08:03 Last Admin: 04/04/20 09:40 Dose: 40 meq Documented by: Potassium Chloride (Potassium Chloride) 40 meq PO ONETIME ONE Stop: 04/05/20 07:53 Last Admin: 04/05/20 08:43 Dose: 40 meq Documented by: Potassium Chloride (Klor-Con M20) 40 meq PO ONETIME ONE Stop: 04/06/20 13:03 Last Admin: 04/06/20 13:22 Dose: 40 meq Documented by: - Exam General: Alert, Oriented, Cooperative, No Acute Distress Lungs: Clear to Auscultation, Normal Respiratory Effort Cardiovascular: Regular Rate, Regular Rhythm GI/Abdominal Exam: Normal Bowel Sounds, Soft, Non-Tender Extremities: Normal Inspection, Normal Range of Motion, Non-Tender, No Pedal Edema Neurological: No New Focal Deficit, Other (Mild tremors noted but improved) Psy/Mental Status: Alert, Normal Affect, Normal Mood, Withdrawal Symptoms Sepsis Event Note - Evaluation Sepsis Screening Result: No Definite Risk - Focused Exam Vital Signs: Vital Signs Temp Pulse Pulse Resp BP BP Pulse Ox 04/08/20 08:28 69 131/91 H 04/08/20 07:27 97.5 F 82 22 H 148/100 H 95 04/08/20 04:00 98.2 F 95 18 133/84 98 04/08/20 00:00 98.3 F 82 18 157/109 H 97 04/07/20 22:55 72 157/50 H 04/07/20 22:49 98 F 72 18 157/105 H 95 - Problem List & Annotations (1) Acute pancreatitis SNOMED Code(s): 924584823 Code(s): K85.90 - ACUTE PANCREATITIS WITHOUT NECROSIS OR INFECTION, UNSP Status: Acute Current Visit: Yes (2) Alcohol poisoning SNOMED Code(s): 01950680 Code(s): T51.91XA - TOXIC EFFECT OF UNSP ALCOHOL, ACCIDENTAL, INIT Status: Resolved Current Visit: Yes (3) Alcohol abuse SNOMED Code(s): 08559145 Code(s): F10.10 - ALCOHOL ABUSE, UNCOMPLICATED Status: Acute Current Visit: No (4) Alcohol withdrawal syndrome SNOMED Code(s): 847843276 Code(s): F10.239 - ALCOHOL DEPENDENCE WITH WITHDRAWAL, UNSPECIFIED Status: Acute Current Visit: No - Problem List Review Problem List Initiated/Reviewed/Updated: Yes - My Orders Last 24 Hours: My Active Orders 04/08/20 09:00 diazePAM [Valium.] 5 mg PO DAILY - Plan Plan:: 39 yo male admitted for ETOH pancreatitis and ETOH withdrawal. 1. Pancreatitis: -Tolerating soft diet well will increase to regular 2. ETOH withdrawal: -Continue CIWA protocol with as needed Ativan -Discontinue diazepam today monitor overnight -Thiamine and folic acid supplementation - PT/OT to evaluate for balance/gait prior to discharge -Plans for inpatient/outpatient rehab for alcohol abuse in [place]. 3. Hypertension - Continue labetalol and amlodipine VTE prophylaxis; heparin CODE STATUS: Full code Dispo: Likely in a.m.
[2020-04-08] MEDS: Thiamine 100 MG in Sodium Chloride 0.9% 100 ML IV SCH (10:14)
[2020-04-08] MEDS: Heparin Sodium 5,000 Units/ML Vial SUBCUT SCH (11:30)
[2020-04-09] MEDS: Heparin Sodium 5,000 Units/ML Vial SUBCUT SCH (00:14)
[2020-04-09 06:17] LABS: BLOOD UREA NITROGEN,BUN 11 mg/dL (7.0-18.0); CARBON DIOXIDE,CO2 27.2 mmol/L (21.0-32.0); CHLORIDE,CL 105 mmol/L (98-107); GLUCOSE RANDOM 109 mg/dL (74-106); POTASSIUM,K 3.8 mmol/L (3.5-5.1); SODIUM,NA 141 mmol/L (136-148)
[2020-04-09 07:44] VITALS: BP 158/114; PULSE 72
[2020-04-09] MEDS: Venlafaxine 37.5 MG Tab PO SCH (08:35)
[2020-04-09] MEDS: Labetalol 100 MG Tab PO SCH (08:35)
[2020-04-09] MEDS: Folic Acid 1 MG Tab PO SCH (08:35)
[2020-04-09] MEDS: amLODIPine 5 MG Tab PO SCH (08:35)
[2020-04-09] MEDS: Escitalopram 10 MG Tab PO SCH (08:36)
[2020-04-09] MEDS: Pantoprazole 40 MG in Sodium Chloride 0.9% 10 ML IV SCH (08:36)
[2020-04-09] MEDS: LACOSAMIDE 150 MG PO SCH (08:43)
[2020-04-09] MEDS: Thiamine 100 MG in Sodium Chloride 0.9% 100 ML IV SCH (08:48)
--- NOTE | 2020-04-09 11:33 | PCM.DCSUM1 ---
Discharge Summary - Hospital Course Diagnosis: Stroke: No - Discharge Data Discharge Date: 04/09/20 Discharge Disposition: Home, Self-Care 01 Condition: Stable - Referral to Home Health Primary Care Physician: Stanton Shultz MD - Discharge Diagnosis/Problem(s) (1) Acute pancreatitis SNOMED Code(s): 113901898 ICD Code: K85.90 - ACUTE PANCREATITIS WITHOUT NECROSIS OR INFECTION, UNSP Status: Acute (2) Alcohol poisoning SNOMED Code(s): 94222464 ICD Code: T51.91XA - TOXIC EFFECT OF UNSP ALCOHOL, ACCIDENTAL, INIT Status: Resolved (3) Alcohol abuse SNOMED Code(s): 32660960 ICD Code: F10.10 - ALCOHOL ABUSE, UNCOMPLICATED Status: Acute (4) Alcohol withdrawal syndrome SNOMED Code(s): 599120733 ICD Code: F10.239 - ALCOHOL DEPENDENCE WITH WITHDRAWAL, UNSPECIFIED Status: Acute - Patient Summary/Data Consults: Consultations 04/07/20 12:32 PT Evaluation and Treatment [CONS] Routine Hospital Course: Admission diagnoses: Acute alcohol intoxication/poisoning Alcohol withdrawal Acute alcoholic pancreatitis Discharge diagnoses: Acute alcohol intoxication resolved Alcohol withdrawal Acute alcoholic pancreatitis resolved Other PMH: Alcohol abuse seizures Hypertension Depression Reynold was admitted secondary to acute alcohol intoxication and abdominal pain. He was found to have pancreatitis on CT. He was placed on bowel rest along with pain management. He started withdrawing significantly approximately 12 hours after last. He was given Ativan along was started on Valium taper 10 mg 3 times daily. He was well maintained on this during his stay. And then slowly tapered off and has been off benzodiazepines for over 24 hours. Regarding his pancreatitis he was kept n.p.o. and then slowly advanced as pain improved. Right upper quadrant ultrasound revealed small amount of sludge and possible small stones in the gallbladder. Normal wall thickness no signs of cholecystitis. Nonspecific common bile duct dilation. Liver enzymes mildly elevated during stay no significant elevation noted. Pancreatitis resolved and today he is very eager to be discharged. He is tolerating diet well he is up ambulating and cares for himself in the room. He reports he is going to try stay sober by going to AA meetings and to stay away from alcohol. He reports he is attempting to get a sponsor and looking into possible outpatient rehab in [facility]. He will have follow-up set up with PCP in 1 week he is to return to the ER or clinic sooner if concerns should arise. - Patient Instructions Diet: Regular Diet as Tolerated Activity: No Strenuous Activities Driving: Do Not Drive Showering/Bathing: May Shower Notify Provider of: Fever, Increased Pain, Swelling and Redness, Drainage, Nausea and/or Vomiting Other/Special Instructions: provide AA meeting list and Human Services numbers - Discharge Plan *PRESCRIPTION DRUG MONITORING PROGRAM REVIEWED*: Not Applicable *COPY OF PRESCRIPTION DRUG MONITORING REPORT IN PATIENT MARJORIE: Not Applicable Prescriptions/Med Rec: Thiamine [Vitamin B-1] 100 mg PO BEDTIME #30 tab Home Medications: Home Meds Escitalopram [Lexapro] 20 mg PO DAILY 04/03/20 [History] Folic Acid 1 mg PO DAILY 04/03/20 [History] Labetalol [Normodyne] 200 mg PO BID 04/03/20 [History] Lacosamide [Vimpat] 150 mg PO BID 04/03/20 [History] Naltrexone 50 mg PO DAILY 04/03/20 [History] Venlafaxine [Effexor] 75 mg PO BID 04/03/20 [History] amLODIPine [Norvasc] 10 mg PO DAILY 04/03/20 [History] chlordiazePOXIDE [Librium] 100 mg PO BEDTIME 04/03/20 [History] hydrALAZINE [Apresoline] 50 mg PO BID 04/03/20 [History] Thiamine [Vitamin B-1] 100 mg PO BEDTIME #30 tab 04/09/20 [Rx] Oxygen Therapy Mode: Room Air Patient Handouts: Alcohol Use Disorder, Alcoholic Liver Disease, Binge-Drinking Information, Adult, Thiamine, Vitamin B1 tablets Referrals: Stanton Shultz MD [Primary Care Provider] - 04/21/20 10:00 am - Discharge Summary/Plan Comment DC Time >30 min.: No - Patient Data Vitals - Most Recent: Last Vital Signs Temp 97.4 F 04/09/20 07:43 Pulse 72 04/09/20 08:35 Resp 16 04/09/20 07:43 BP 158/114 H 04/09/20 08:35 Pulse Ox 96 04/09/20 07:43 Weight - Most Recent: 90.2 kg I&O - Last 24 hours: Intake & Output 04/08/20 04/09/20 04/09/20 22:59 06:59 14:59 Intake Total 1400 700 Output Total 300 Balance 1400 400 Lab Results - Last 24 hrs: Laboratory Results - last 24 hr 04/09/20 04/09/20 Range/Units 04:50 04:50 WBC 6.54 (4.0-11.0) K/uL RBC 3.69 L (4.50-5.90) M/uL Hgb 12.5 L (13.0-17.0) g/dL Hct 37.8 L (38.0-50.0) % MCV 102.4 H (80.0-98.0) fL MCH 33.9 H (27.0-32.0) pg MCHC 33.1 (31.0-37.0) g/dL RDW Std Deviation 49.9 (28.0-62.0) fl RDW Coeff of [place] 13 (11.0-15.0) % Plt Count 211 (150-400) K/uL MPV 11.00 (7.40-12.00) fL Neut % (Auto) 55.3 (48.0-80.0) % Lymph % (Auto) 24.8 (16.0-40.0) % [place] % (Auto) 16.1 H (0.0-15.0) % Eos % (Auto) 2.0 (0.0-7.0) % Baso % (Auto) 1.8 H (0.0-1.5) % Neut # (Auto) 3.6 (1.4-5.7) K/uL Lymph # (Auto) 1.6 (0.6-2.4) K/uL [place] # (Auto) 1.1 H (0.0-0.8) K/uL Eos # (Auto) 0.1 (0.0-0.7) K/uL Baso # (Auto) 0.1 (0.0-0.1) K/uL Nucleated RBC % 0.0 /100WBC Nucleated RBCs # 0 K/uL Sodium 141 (136-148) mmol/L Potassium 3.8 (3.5-5.1) mmol/L Chloride 105 (98-107) mmol/L Carbon Dioxide 27.2 (21.0-32.0) mmol/L BUN 11 (7.0-18.0) mg/dL Creatinine 0.8 (0.8-1.3) mg/dL Est Cr Clr Drug Dosing 125.47 mL/min Estimated GFR (MDRD) > 60.0 ml/min Glucose 109 H (74-106) mg/dL Calcium 9.6 (8.5-10.1) mg/dL Magnesium 2.2 (1.8-2.4) mg/dL Total Bilirubin 0.2 (0.2-1.0) mg/dL AST 40 H (15-37) IU/L ALT 75 H (14-63) IU/L Alkaline Phosphatase 91 (46-116) U/L Total Protein 7.3 (6.4-8.2) g/dL Albumin 3.7 (3.4-5.0) g/dL Globulin 3.6 (2.6-4.0) g/dL Albumin/Globulin Ratio 1.0 (0.9-1.6) Med Orders - Current: Current Medications Discontinued Medications Amlodipine Besylate (Norvasc) 10 mg PO DAILY [facility] Last Admin: 04/09/20 08:35 Dose: 10 mg Documented by: Diazepam (Valium) 5 mg IVPUSH Q8H [facility] Last Admin: 04/03/20 10:28 Dose: 5 mg Documented by: Diazepam (Valium) 10 mg PO TID [facility] Last Admin: 04/04/20 06:15 Dose: 10 mg Documented by: Diazepam (Valium.) 10 mg PO TID [facility] Last Admin: 04/05/20 05:16 Dose: 10 mg Documented by: Diazepam (Valium.) 5 mg PO TID [facility] Last Admin: 04/06/20 06:03 Dose: 5 mg Documented by: Diazepam (Valium.) 5 mg PO BID [facility] Last Admin: 04/07/20 10:33 Dose: Not Given Documented by: Diazepam (Valium.) 5 mg PO DAILY [facility] Last Admin: 04/08/20 08:28 Dose: 5 mg Documented by: Escitalopram Oxalate (Lexapro) 20 mg PO DAILY [facility] Last Admin: 04/09/20 08:36 Dose: 20 mg Documented by: Folic Acid (Folic Acid) 1 mg PO ONETIME ONE Stop: 04/03/20 00:45 Last Admin: 04/03/20 01:17 Dose: Not Given Documented by: Folic Acid (Folic Acid) 1 mg PO DAILY [facility] Last Admin: 04/09/20 08:35 Dose: 1 mg Documented by: Heparin Sodium (Porcine) (Heparin Sodium) 5,000 units SUBCUT Q12H [facility] Last Admin: 04/09/20 00:14 Dose: 5,000 units Documented by: Multivitamins/Minerals 10 ml/Thiamine HCl 200 mg/ Chromium/Copper/Manganese/Seleni/Zn 1 ml/ Dextrose/Lactated Ringer's 1,013 mls @ 150 mls/hr IV ASDIRECTED [facility] Multivitamins/Minerals 10 ml/Thiamine HCl 100 mg/ Folic Acid 1 mg/ Sodium Chloride 1,011.2 mls @ 150 mls/hr IV ONETIME ONE Stop: 04/03/20 07:55 Last Admin: 04/03/20 01:12 Dose: 150 mls/hr Documented by: Pantoprazole Sodium 40 mg/ (Sodium Chloride) 10 mls @ 300 mls/hr IV DAILY [facility] Last Admin: 04/09/20 08:36 Dose: 300 mls/hr Documented by: Lactated Ringer's (Ringers, Lactated) 1,000 mls @ 150 mls/hr IV ASDIRECTED [facility] Last Admin: 04/06/20 11:11 Dose: 200 mls/hr Documented by: Magnesium Sulfate (Magnesium Sulfate In Water 2 Gm/50 Ml) 2 gm in 50 mls @ 50 mls/hr IV ONETIME [facility] Last Admin: 04/03/20 09:30 Dose: 50 mls/hr Documented by: Thiamine HCl 100 mg/ Sodium (Chloride) 101 mls @ 202 mls/hr IV DAILY ONE Stop: 04/04/20 08:59 Last Admin: 04/04/20 09:48 Dose: 202 mls/hr Documented by: Magnesium Sulfate (Magnesium Sulfate In Water 2 Gm/50 Ml) 2 gm in 50 mls @ 50 mls/hr IV ONETIME [facility] Last Admin: 04/04/20 11:37 Dose: 50 mls/hr Documented by: Magnesium Sulfate (Magnesium Sulfate In Water 2 Gm/50 Ml) 2 gm in 50 mls @ 50 mls/hr IV ONETIME ONE Stop: 04/05/20 19:44 Last Admin: 04/05/20 19:48 Dose: 50 mls/hr Documented by: Thiamine HCl 100 mg/ Sodium (Chloride) 101 mls @ 202 mls/hr IV DAILY [facility] Last Admin: 04/09/20 08:48 Dose: 202 mls/hr Documented by: Magnesium Sulfate (Magnesium Sulfate In Water 2 Gm/50 Ml) 2 gm in 50 mls @ 50 mls/hr IV ONETIME ONE Stop: 04/06/20 19:29 Last Admin: 04/06/20 18:46 Dose: 50 mls/hr Documented by: Magnesium Sulfate (Magnesium Sulfate In Water 2 Gm/50 Ml) 2 gm in 50 mls @ 50 mls/hr IV ONETIME [facility] Last Admin: 04/08/20 05:53 Dose: 50 mls/hr Documented by: Iopamidol (Isovue Multipack-370 (76%)) 100 ml IVPUSH ONETIME STA Stop: 04/03/20 02:32 Last Admin: 04/03/20 02:33 Dose: 100 ml Documented by: Labetalol HCl (Normodyne) 200 mg PO BID [facility] Last Admin: 04/09/20 08:35 Dose: 200 mg Documented by: Lorazepam (Ativan) 0 mg IVPUSH Q4H PRN; Protocol PRN Reason: CIWAA score Last Admin: 04/03/20 14:17 Dose: 2 mg Documented by: Lorazepam (Ativan) 0 mg IVPUSH Q2H PRN; Protocol PRN Reason: CIWAA score Last Admin: 04/05/20 20:10 Dose: 1 mg Documented by: Morphine Sulfate (Morphine) 1 mg IVPUSH Q4H PRN PRN Reason: Pain (severe 7-10) Multivitamins/Minerals (Infuvite Adult) 10 ml IV DAILY [facility] Ondansetron HCl (Zofran) 4 mg IVPUSH Q4H PRN PRN Reason: Nausea/Vomiting Last Admin: 04/03/20 14:17 Dose: 4 mg Documented by: Ondansetron HCl (Zofran) 4 mg IVPUSH Q4H PRN PRN Reason: Nausea Lacosamide [Vimpat] (150 Mg) 1 each PO DAILY [facility] Last Admin: 04/03/20 10:42 Dose: 1 each Documented by: Lacosamide [Vimpat] (150 Mg) 1 each PO BID [facility] Last Admin: 04/09/20 08:43 Dose: 1 each Documented by: Potassium Chloride (Klor-Con M20) 40 meq PO ONETIME ONE Stop: 04/03/20 08:16 Last Admin: 04/03/20 09:12 Dose: 40 meq Documented by: Potassium Chloride (Klor-Con M20) 40 meq PO ONETIME ONE Stop: 04/04/20 08:03 Last Admin: 04/04/20 09:40 Dose: 40 meq Documented by: Potassium Chloride (Potassium Chloride) 40 meq PO ONETIME ONE Stop: 04/05/20 07:53 Last Admin: 04/05/20 08:43 Dose: 40 meq Documented by: Potassium Chloride (Klor-Con M20) 40 meq PO ONETIME ONE Stop: 04/06/20 13:03 Last Admin: 04/06/20 13:22 Dose: 40 meq Documented by: Sodium Chloride (Saline Flush) 10 ml FLUSH ASDIRECTED PRN PRN Reason: Keep Vein Open Sodium Chloride (Saline Flush) 2.5 ml FLUSH ASDIRECTED PRN PRN Reason: Keep Vein Open Venlafaxine HCl (Effexor) 75 mg PO BID [facility] Last Admin: 04/09/20 08:35 Dose: 75 mg Documented by:
== END 2020-04-09 09:50 | disposition home or self-care (01) | DRG 896 ==
LOC: MW.ED 00:11 → MW.MS 03:16 → OBSVTOIN 10:42 → MW.MS 11:19
PROVIDERS: ADMIT Student in an Organized Health Care Education/Training Program; ATTEND Student in an Organized Health Care Education/Training Program
DX: F10.129 Alcohol abuse with intoxication, unspecified (principal); K85.20 Alcohol induced acute pancreatitis without necrosis or infection; F32.9 Major depressive disorder, single episode, unspecified; I10 Essential (primary) hypertension; R56.9 Unspecified convulsions; R16.0 Hepatomegaly, not elsewhere classified; E87.6 Hypokalemia; E83.42 Hypomagnesemia; Z20.822 Contact with and (suspected) exposure to COVID-19; F41.9 Anxiety disorder, unspecified
CPT/HCPCS: 0240U; 36415; 74177; 74177-26; 76705; 76705-26; 80053; 80074; 80179; 80305-QW; 81001; 83690; 83735; 84100; 84484; 85025; 93005; 93010; 96365; 96366; 97161-GP; 97802; 99284; 99285-25; A9270-GY; C9113; J1644; J2060; J2405; J3360; J3411; J3475; J7030; J7120; Q9967

== ENCOUNTER 2020-05-06 16:09 | Emergency (ER) | payer MEDICAID ==
--- NOTE | 2020-05-06 16:49 | EDM.PDOC ---
ED HPI GENERAL MEDICAL PROBLEM - General Chief Complaint: General Stated Complaint: intoxication Time Seen by Provider: 05/06/20 16:11 Source of Information: Reports: Patient History Limitations: Reports: No Limitations - History of Present Illness INITIAL COMMENTS - FREE TEXT/NARRATIVE: 39-year-old patient who was brought in by EMS after his mom called the ambulance. His mom came in earlier asking for detox for her son. Apparently, he declined to come in so she called EMS. Patient states that after drinking today he laid down on the floor and his mom could not get him up so she called the ambulance. Now, he denies any problems and just wants to go home. He states that he has drank daily for many years. He also smokes cigarettes. He is recreational drug use. He states that he has hypertension but sees Dr. Shultz on a regular basis. He denies falling today or recently. - Related Data Allergies Allergy/AdvReac Type Severity Reaction Status Date / Time No Known Allergies Allergy Verified 05/06/20 16:14 Home Meds: Home Meds Escitalopram [Lexapro] 20 mg PO DAILY 04/03/20 [History] Folic Acid 1 mg PO DAILY 04/03/20 [History] Labetalol [Normodyne] 200 mg PO BID 04/03/20 [History] Lacosamide [Vimpat] 150 mg PO BID 04/03/20 [History] Naltrexone 50 mg PO DAILY 04/03/20 [History] Venlafaxine [Effexor] 75 mg PO BID 04/03/20 [History] amLODIPine [Norvasc] 10 mg PO DAILY 04/03/20 [History] chlordiazePOXIDE [Librium] 100 mg PO BEDTIME 04/03/20 [History] hydrALAZINE [Apresoline] 50 mg PO BID 04/03/20 [History] Thiamine [Vitamin B-1] 100 mg PO BEDTIME #30 tab 04/09/20 [Rx] Past Medical History - Past Health History Medical/Surgical History: Denies Medical/Surgical History HEENT History: Reports: None Cardiovascular History: Reports: Hypertension Respiratory History: Reports: None Gastrointestinal History: Reports: None, Other (See Below) Other Gastrointestinal History: Liver Problem Genitourinary History: Reports: None Musculoskeletal History: Reports: None Neurological History: Reports: None Psychiatric History: Reports: Addiction, Anxiety Other Psychiatric History: alcohol abuse Endocrine/Metabolic History: Reports: None Dermatologic History: Reports: None - Infectious Disease History Infectious Disease History: Reports: Chicken Pox Social & Family History - Tobacco Use Tobacco Use Status *Q: Current Every Day Tobacco User Years of Tobacco use: 30 Packs/Tins Daily: 0.7 - Caffeine Use Caffeine Use: Reports: None - Alcohol Use Days Per Week of Alcohol Use: 7 Number of Drinks Per Day: 10 Total Drinks Per Week: 70 - Recreational Drug Use Recreational Drug Use: No ED ROS GENERAL - Review of Systems Review Of Systems: Comprehensive ROS is negative, except as noted in HPI. ED EXAM, GENERAL - Physical Exam Exam: See Below Exam Limited By: No Limitations General Appearance: Alert, No Apparent Distress Ears: Normal External Exam Nose: Normal Inspection Throat/Mouth: Normal Inspection Head: Atraumatic, Normocephalic Neck: Normal Inspection Respiratory/Chest: No Respiratory Distress, Lungs Clear, Normal Breath Sounds Cardiovascular: Normal Peripheral Pulses, Regular Rate, Rhythm, No Murmur GI/Abdominal: Soft, Non-Tender, No Distention Back Exam: Normal Inspection Extremities: Normal Inspection Neurological: Alert, Oriented, Normal Cognition Psychiatric: Normal Affect, Normal Mood Skin Exam: Warm, Dry, Intact, Normal Color, No Rash Lymphatic: No Adenopathy Course - Vital Signs Last Recorded V/S: Last Vital Signs Temp 36.2 C 05/06/20 16:10 Pulse 89 05/06/20 16:10 Resp 18 05/06/20 16:10 BP 93/67 05/06/20 16:10 Pulse Ox 96 05/06/20 16:10 Departure - Departure Time of Disposition: 16:49 Disposition: Home, Self-Care 01 Condition: Good Clinical Impression: Alcohol abuse - Discharge Information Instructions: Alcohol Abuse and Dependence Information, Adult Referrals: [facility] [Outside] Additional Instructions: The following information is given to patients seen in the emergency department who are being discharged to home. This information is to outline your options for follow-up care. We provide all patients seen in our emergency department with a follow-up referral. The need for follow-up, as well as the timing and circumstances, are variable depending upon the specifics of your emergency department visit. If you don't have a primary care physician on staff, we will provide you with a referral. We always advise you to contact your personal physician following an emergency department visit to inform them of the circumstance of the visit and for follow-up with them and/or the need for any referrals to a consulting specialist. The emergency department will also refer you to a specialist when appropriate. This referral assures that you have the opportunity for follow-up care with a specialist. All of these measure are taken in an effort to provide you with optimal care, which includes your follow-up. Under all circumstances we always encourage you to contact your private physician who remains a resource for coordinating your care. When calling for follow-up care, please make the office aware that this follow-up is from your recent emergency room visit. If for any reason you are refused follow-up, please contact the [facility] Emergency Department at and asked to speak to the emergency department charge nurse. 1. [facility] takes open appointments every day starting at 8 AM. Please present there to get treatment for your alcohol abuse disorder. Sepsis Event Note (ED) - Evaluation Sepsis Screening Result: No Definite Risk - Focused Exam Vital Signs: Vital Signs Temp Pulse Resp BP Pulse Ox 05/06/20 16:10 36.2 C 89 18 93/67 96
[2020-05-06 17:03] VITALS: BP 127/80; PULSE 71
== END 2020-05-06 17:01 | disposition home or self-care (01) ==
LOC: MW.ED 16:09
DX: F10.10 Alcohol abuse, uncomplicated (principal); I10 Essential (primary) hypertension; Z72.0 Tobacco use; Z79.899 Other long term (current) drug therapy
CPT/HCPCS: 99282; 99284

== ENCOUNTER 2020-05-12 13:49 | Emergency (ER) | payer MEDICAID ==
--- NOTE | 2020-05-12 13:55 | EDM.PDOC ---
ED HPI GENERAL MEDICAL PROBLEM - General Stated Complaint: DETOX Time Seen by Provider: 05/12/20 13:55 Source of Information: Reports: Patient History Limitations: Reports: No Limitations - History of Present Illness INITIAL COMMENTS - FREE TEXT/NARRATIVE: HISTORY AND PHYSICAL: History of present illness: Patient is a 39-year-old male who presents to the emergency room requesting inpatient alcohol treatment program. Patient states he is a chronic alcohol user, drinks approximately 10 mixed drinks daily. He came to our emergency room today as he was hoping we would drive him to [employer] and "get someone to take me over there". States his last drink was 30 minutes. Patient denies injury, trauma or falls. Denies any fever, chills, headache, change in vision, syncope or near syncope. Denies any chest pain, back pain, shortness of breath or cough. Denies any abdominal pain, nausea, vomiting, diarrhea, constipation or dysuria. Has not noted any blood in urine or stool. Patient has been eating and drinking appropriately. Review of systems: As per history of present illness and below otherwise all systems reviewed and negative. Past medical history: As per history of present illness and as reviewed below otherwise noncontributory. Surgical history: As per history of present illness and as reviewed below otherwise noncontributory. Social history: See social history for further information Family history: As per history of present illness and as reviewed below otherwise noncontributory. Physical exam: General: Well developed and well nourished 39-year-old male. Alert and tamara entated x 3. Nontoxic in appearance and in no acute distress. Vital signs are stable and have been reviewed by me. Nursing notes were reviewed. HEENT: Atraumatic, normocephalic, pupils equal and reactive bilaterally, negative for conjunctival pallor or scleral icterus, mucous membranes moist, TMs normal bilaterally, throat clear, neck supple, nontender, trachea midline. No drooling or trismus noted. No meningeal signs. No hot potato voice noted. Lungs: Clear to auscultation bilaterally. No wheezes, rales, or rhonchi. Chest nontender. Normal work of breathing, no accessory muscles used. Heart: S1S2, regular rate and rhythm without overt murmur, gallops, or rubs. No JVD. No peripheral edema Abdomen: Soft, nondistended, nontender. Normoactive bowel sounds. Negative for masses or costovertebral tenderness. Skin: Intact, warm, dry. No lesions or rashes noted. Hematologic: No petechiae or purpra. Mucosa appropriate color and normal nail bed color and refill. Extremities: Atraumatic, moves all extremities per self without difficulty or deficits, negative for cords or calf pain. Neurovascular unremarkable. Neuro: Awake, alert, oriented. Cranial nerves II through XII unremarkable. Cereb ellum unremarkable. Motor and sensory unremarkable throughout. Exam nonfocal. Psychiatric: Mood and affect are appropriate. Normal thought process. Answering questions appropriately. Notes: *This patient was seen and evaluated during the 2019 SARS-CoV-2 novel coronavirus pandemic period. Community viral transmission is ongoing at time of this encounter and the emergency department is operating under pandemic response procedures. Patient's physical exam is within normal limits. We did discuss doing lab work which he declines. He states he was hoping we would be able to facilitate getting him to [place]. After discussing that we would need to do basic labs in order to talk with any other facility, he is agreeable. Patient was admitted about a month ago for pancreatitis and alcohol abuse. He states he doesn't have any abdominal pain and he is asymptomatic today. 1530: Spoke with Dr Cadet about inpatient alcohol treatment; he is agreeable to accepting this patient for further care. Reassessment at the time of disposition demonstrates that the patient is in no acute distress. The patient is stable for transfer to [facility]. 1600: Patient is aware of [facility] excepting him for further care and management. He states he does feel restless and anxious and is requesting something for this during the EMS trip. His vital signs have improved. He is alert, oriented and answering questions appropriately. He offers no other concerns or complaints and will be leaving within the next 30 minutes Diagnostics: CBC, CMP, Lipase, UA, Drug Screen, ETOH Therapeutics: Banana [employer] Impression: Acute alcohol intoxication Hypokalemia Plan: Transfer to [facility] via EMS Definitive disposition and diagnosis as appropriate pending reevaluation and review of above. Duration: Chronic - Related Data Allergies Allergy/AdvReac Type Severity Reaction Status Date / Time No Known Allergies Allergy Verified 05/12/20 14:08 Home Meds: Home Meds Escitalopram [Lexapro] 20 mg PO DAILY 04/03/20 [History] Folic Acid 1 mg PO DAILY 04/03/20 [History] Labetalol [Normodyne] 200 mg PO BID 04/03/20 [History] Lacosamide [Vimpat] 150 mg PO BID 04/03/20 [History] Naltrexone 50 mg PO DAILY 04/03/20 [History] Venlafaxine [Effexor] 75 mg PO BID 04/03/20 [History] amLODIPine [Norvasc] 10 mg PO DAILY 04/03/20 [History] chlordiazePOXIDE [Librium] 100 mg PO BEDTIME 04/03/20 [History] hydrALAZINE [Apresoline] 50 mg PO BID 04/03/20 [History] Thiamine [Vitamin B-1] 100 mg PO BEDTIME #30 tab 04/09/20 [Rx] Past Medical History - Past Health History Medical/Surgical History: Denies Medical/Surgical History HEENT History: Reports: None Cardiovascular History: Reports: Hypertension Respiratory History: Reports: None Gastrointestinal History: Reports: None, Other (See Below) Other Gastrointestinal History: Liver Problem Genitourinary History: Reports: None Musculoskeletal History: Reports: None Neurological History: Reports: None Psychiatric History: Reports: Addiction, Anxiety Other Psychiatric History: alcohol abuse Endocrine/Metabolic History: Reports: None Dermatologic History: Reports: None - Infectious Disease History Infectious Disease History: Reports: Chicken Pox Social & Family History - Caffeine Use Caffeine Use: Reports: None ED ROS GENERAL - Review of Systems Review Of Systems: Comprehensive ROS is negative, except as noted in HPI. ED EXAM, GENERAL - Physical Exam Exam: See Below (See dictation) Course - Vital Signs Last Recorded V/S: Last Vital Signs Temp 98.5 F 05/12/20 14:08 Pulse 117 H 05/12/20 14:08 Resp 16 05/12/20 14:08 BP 158/122 H 05/12/20 14:08 Pulse Ox 96 05/12/20 14:08 - Orders/Labs/Meds Orders: Active Orders 24 hr Category Date Time Status Sodium Chloride 0.9% [Saline Flush] Med 05/12/20 14:18 Active 10 ml FLUSH ASDIRECTED PRN Sodium Chloride 0.9% [Saline Flush] Med 05/12/20 14:18 Active 2.5 ml FLUSH ASDIRECTED PRN Saline Lock Insert [OM.PC] Stat Oth 05/12/20 14:18 Ordered Medication Orders Sodium Chloride (Saline Flush) 10 ml FLUSH ASDIRECTED PRN PRN Reason: Keep Vein Open Last Admin: 05/12/20 15:07 Dose: 10 ml Documented by: YASMINE Sodium Chloride (Saline Flush) 2.5 ml FLUSH ASDIRECTED PRN PRN Reason: Keep Vein Open Last Admin: 05/12/20 15:07 Dose: 2.5 ml Documented by: YASMINE Labs: Laboratory Tests 05/12/20 05/12/20 05/12/20 Range/Units 14:42 14:42 15:25 WBC 6.06 (4.0-11.0) K/uL RBC 4.22 L (4.50-5.90) M/uL Hgb 14.2 (13.0-17.0) g/dL Hct 41.3 (38.0-50.0) % MCV 97.9 (80.0-98.0) fL MCH 33.6 H (27.0-32.0) pg MCHC 34.4 (31.0-37.0) g/dL RDW Std Deviation 46.7 (28.0-62.0) fl RDW Coeff of [place] 13 (11.0-15.0) % Plt Count 104 L (150-400) K/uL MPV 10.70 (7.40-12.00) fL Neut % (Auto) 69.1 (48.0-80.0) % Lymph % (Auto) 19.6 (16.0-40.0) % Evangeline % (Auto) 8.4 (0.0-15.0) % Eos % (Auto) 2.1 (0.0-7.0) % Baso % (Auto) 0.8 (0.0-1.5) % Neut # (Auto) 4.2 (1.4-5.7) K/uL Lymph # (Auto) 1.2 (0.6-2.4) K/uL [place]eline # (Auto) 0.5 (0.0-0.8) K/uL Eos # (Auto) 0.1 (0.0-0.7) K/uL Baso # (Auto) 0.1 (0.0-0.1) K/uL Nucleated RBC % 0.0 /100WBC Nucleated RBCs # 0 K/uL Sodium 141 (136-148) mmol/L Potassium 3.1 L (3.5-5.1) mmol/L Chloride 102 (98-107) mmol/L Carbon Dioxide 25.4 (21.0-32.0) mmol/L BUN 8 (7.0-18.0) mg/dL Creatinine 0.8 (0.8-1.3) mg/dL Est Cr Clr Drug Dosing 125.47 mL/min Estimated GFR (MDRD) > 60.0 ml/min Glucose 125 H (74-106) mg/dL Calcium 8.3 L (8.5-10.1) mg/dL Magnesium 1.8 (1.8-2.4) mg/dL Total Bilirubin 0.3 (0.2-1.0) mg/dL AST 200 H (15-37) IU/L ALT 100 H (14-63) IU/L Alkaline Phosphatase 119 H (46-116) U/L Total Protein 7.9 (6.4-8.2) g/dL Albumin 3.8 (3.4-5.0) g/dL Globulin 4.1 H (2.6-4.0) g/dL Albumin/Globulin Ratio 0.9 (0.9-1.6) Lipase 533 H (73-393) U/L Urine Color YELLOW Urine Appearance CLEAR Urine pH 6.0 (5.0-8.0) Ur Specific [place] <= 1.005 (1.001-1.035) Urine Protein NEGATIVE (NEGATIVE) mg/dL Urine Glucose (UA) NEGATIVE (NEGATIVE) mg/dL Urine Ketones NEGATIVE (NEGATIVE) mg/dL Urine Occult Blood NEGATIVE (NEGATIVE) Urine Nitrite NEGATIVE (NEGATIVE) Urine Bilirubin NEGATIVE (NEGATIVE) Urine Urobilinogen 0.2 (<2.0) EU/dL Ur Leukocyte Esterase NEGATIVE (NEGATIVE) Urine Opiates Screen (NEGATIVE) Ur Oxycodone Screen (NEGATIVE) Urine Methadone Screen (NEGATIVE) Ur Barbiturates Screen (NEGATIVE) Ur Phencyclidine Scrn (NEGATIVE) Ur Amphetamine Screen (NEGATIVE) U Methamphetamines Scrn (NEGATIVE) U Benzodiazepines Scrn (NEGATIVE) U Cocaine Metab Screen (NEGATIVE) U Marijuana (THC) Screen (NEGATIVE) Ethyl Alcohol 431 mg/dL 05/12/20 Range/Units 15:25 WBC (4.0-11.0) K/uL RBC (4.50-5.90) M/uL Hgb (13.0-17.0) g/dL Hct (38.0-50.0) % MCV (80.0-98.0) fL MCH (27.0-32.0) pg MCHC (31.0-37.0) g/dL RDW Std Deviation (28.0-62.0) fl RDW Coeff of [place] (11.0-15.0) % Plt Count (150-400) K/uL MPV (7.40-12.00) fL Neut % (Auto) (48.0-80.0) % Lymph % (Auto) (16.0-40.0) % Ev[place]eline % (Auto) (0.0-15.0) % Eos % (Auto) (0.0-7.0) % Baso % (Auto) (0.0-1.5) % Neut # (Auto) (1.4-5.7) K/uL Lymph # (Auto) (0.6-2.4) K/uL [place] # (Auto) (0.0-0.8) K/uL Eos # (Auto) (0.0-0.7) K/uL Baso # (Auto) (0.0-0.1) K/uL Nucleated RBC % /100WBC Nucleated RBCs # K/uL Sodium (136-148) mmol/L Potassium (3.5-5.1) mmol/L Chloride (98-107) mmol/L Carbon Dioxide (21.0-32.0) mmol/L BUN (7.0-18.0) mg/dL Creatinine (0.8-1.3) mg/dL Est Cr Clr Drug Dosing mL/min Estimated GFR (MDRD) ml/min Glucose (74-106) mg/dL Calcium (8.5-10.1) mg/dL Magnesium (1.8-2.4) mg/dL Total Bilirubin (0.2-1.0) mg/dL AST (15-37) IU/L ALT (14-63) IU/L Alkaline Phosphatase (46-116) U/L Total Protein (6.4-8.2) g/dL Albumin (3.4-5.0) g/dL Globulin (2.6-4.0) g/dL Albumin/Globulin Ratio (0.9-1.6) Lipase (73-393) U/L Urine Color Urine Appearance Urine pH (5.0-8.0) Ur Specific [place] (1.001-1.035) Urine Protein (NEGATIVE) mg/dL Urine Glucose (UA) (NEGATIVE) mg/dL Urine Ketones (NEGATIVE) mg/dL Urine Occult Blood (NEGATIVE) Urine Nitrite (NEGATIVE) Urine Bilirubin (NEGATIVE) Urine Urobilinogen (<2.0) EU/dL Ur Leukocyte Esterase (NEGATIVE) Urine Opiates Screen NEGATIVE (NEGATIVE) Ur Oxycodone Screen NEGATIVE (NEGATIVE) Urine Methadone Screen NEGATIVE (NEGATIVE) Ur Barbiturates Screen NEGATIVE (NEGATIVE) Ur Phencyclidine Scrn NEGATIVE (NEGATIVE) Ur Amphetamine Screen NEGATIVE (NEGATIVE) U Methamphetamines Scrn NEGATIVE (NEGATIVE) U Benzodiazepines Scrn NEGATIVE (NEGATIVE) U Cocaine Metab Screen NEGATIVE (NEGATIVE) U Marijuana (THC) Screen NEGATIVE (NEGATIVE) Ethyl Alcohol mg/dL Meds: Medications Generic Name Dose Route Start Last Admin Trade Name Freq PRN Reason Stop Dose Admin Sodium Chloride 10 ml 05/12/20 14:18 05/12/20 15:07 Saline Flush FLUSH 10 ml ASDIRECTED PRN Administration Keep Vein Open Sodium Chloride 2.5 ml 05/12/20 14:18 05/12/20 15:07 Saline Flush FLUSH 2.5 ml ASDIRECTED PRN Administration Keep Vein Open Discontinued Medications Generic Name Dose Route Start Last Admin Trade Name Freq PRN Reason Stop Dose Admin Multivitamins/Minerals 10 ml/ 1,011.2 mls @ 999 mls/hr 05/12/20 14:22 05/12/20 15:07 Thiamine HCl 100 mg/ Folic IV 05/12/20 15:22 999 mls/hr Acid 1 mg/ Sodium Chloride ONETIME ONE Administration Lorazepam 1 mg 05/12/20 15:42 05/12/20 16:03 Ativan IVPUSH 05/12/20 15:43 1 mg ONETIME ONE Administration Departure - Departure Time of Disposition: 16:22 Disposition: DC/Tfer to [facility] 02 Clinical Impression: Hypokalemia Acute alcohol intoxication Qualifiers: Complication of substance-induced condition: uncomplicated Qualified Code(s): F10.920 - Alcohol use, unspecified with intoxication, uncomplicated - Discharge Information Referrals: Stanton Shultz MD [Primary Care Provider] - Sepsis Event Note (ED) - Focused Exam Vital Signs: Vital Signs Temp Pulse Resp BP Pulse Ox 05/12/20 14:08 98.5 F 117 H 16 158/122 H 96 - My Orders Last 24 Hours: My Active Orders 05/12/20 14:18 Sodium Chloride 0.9% [Saline Flush] 10 ml FLUSH ASDIRECTED PRN Sodium Chloride 0.9% [Saline Flush] 2.5 ml FLUSH ASDIRECTED PRN Saline Lock Insert [OM.PC] Stat - Assessment/Plan Last 24 Hours: My Active Orders 05/12/20 14:18 Sodium Chloride 0.9% [Saline Flush] 10 ml FLUSH ASDIRECTED PRN Sodium Chloride 0.9% [Saline Flush] 2.5 ml FLUSH ASDIRECTED PRN Saline Lock Insert [OM.PC] Stat
[2020-05-12] MEDS ORDERED: Sodium Chloride 0.9% 2.5 ML Syringe FLUSH PRN (14:18)
[2020-05-12] MEDS ORDERED: Sodium Chloride 0.9% 10 ML Syringe FLUSH PRN (14:18)
[2020-05-12] MEDS ORDERED: MVI, Adult with Vitamin K 10 ML, Thiamine 100 MG, Folic Acid 1 MG in Sodium Chloride 0.... IV ONE ×4 (14:22)
[2020-05-12 15:18] LABS: BLOOD UREA NITROGEN,BUN 8 mg/dL (7.0-18.0); CARBON DIOXIDE,CO2 25.4 mmol/L (21.0-32.0); CHLORIDE,CL 102 mmol/L (98-107); GLUCOSE RANDOM 125 mg/dL (74-106); LIPASE 533 U/L (73-393); POTASSIUM,K 3.1 mmol/L (3.5-5.1); SODIUM,NA 141 mmol/L (136-148)
[2020-05-12] MEDS ORDERED: LORazepam 2 MG/ML SDV IVPUSH ONE (15:42)
[2020-05-12] MEDS ORDERED: Ondansetron 4 MG/2 ML SDV IVPUSH ONE (16:23)
[2020-05-12] MEDS ORDERED: Ondansetron 4 MG/2 ML SDV ONE (16:26)
[2020-05-12 17:04] VITALS: BP 106/81; PULSE 86
== END 2020-05-12 16:35 ==
LOC: MW.ED 13:49
DX: F10.120 Alcohol abuse with intoxication, uncomplicated (principal); E87.6 Hypokalemia; I10 Essential (primary) hypertension; Y90.8 Blood alcohol level of 240 mg/100 ml or more; Z79.899 Other long term (current) drug therapy
CPT/HCPCS: 36415; 80053; 80179; 80305; 81003; 83690; 83735; 85025; 96365; 96375; 99285; J2060; J2405; J3411; J7030; 99284

== ENCOUNTER 2020-08-03 14:11 | Inpatient (IN) | payer MEDICAID ==
--- NOTE | 2020-08-03 14:40 | EDM.PDOC ---
ED HPI GENERAL MEDICAL PROBLEM - General Chief Complaint: Drug or Alcohol Abuse Stated Complaint: alcohol Time Seen by Provider: 08/03/20 14:22 - History of Present Illness INITIAL COMMENTS - FREE TEXT/NARRATIVE: History of present illness: [] The patient is vomiting everything for 10 hours. He is unable to keep anything down and feels weak. He says urine is really dark. He has had 2 stools in 1 week and its been liquid. The patient was in for 5 nights in March when I admitted him for alcohol poisoning and pancreatitis. Subsequently he has had 2 visits because he was drinking but then when he got into rehab he went to a 28-day program and says he did well he had a counselor got along with and he was feeling good about himself. When he was discharged he was bored, did not have work, did not have sober friends, and began to drink again. Denies vomiting everything sick and remorseful. He does not really have belly pain this time. He had a few drinks a day to get up the nerve to come to the hospital. Review of systems: As per history of present illness and below otherwise all systems reviewed and negative. Past medical history: As per history of present illness and as reviewed below otherwise noncont ributory. Surgical history: As per history of present illness and as reviewed below otherwise noncontributory. Social history: No reported history of drug or alcohol abuse. Family history: As per history of present illness and as reviewed below otherwise noncontributory. Physical exam: Constitutional - well developed, well-nourished and in no acute distress HEENT - normocephalic, no evidence of trauma - external nose and mouth normal - no mass in neck and no JVD - mucosae moist EYES - full EOM, PERRL, no icterus - no evidence of inflammation, injection, or drainage Respiratory - no respiratory distress, equal bilateral expansion, lungs clear to auscultation and no abnormal lung sounds Cardiovascular - Regular Rhythm with S1 and S2 appreciated and no murmur, gallop or rub. GI - abdomen soft without distension or organomegaly - normal bowel sounds - no guard or rebound Musculoskeletal no gross deformity of long bones or joints - no tenderness, swelling or edema Neurologic - Alert and oriented times four - CN II-XII grossly intact - motor sensory and coordination symmetrically normal Psychiatric - appropriate mood and affect with normal thought content Hematologic - No petechiae or purpura - mucosa appropriate color and sclera not pale - normal nail bed color and refill Integument - no rash or evidence of trauma - normal turgor Diagnostics: [] Therapeutics: [] Impression: [] Plan: [] Definitive disposition and diagnosis as appropriate pending reevaluation and review of above. - Related Data Allergies Allergy/AdvReac Type Severity Reaction Status Date / Time No Known Allergies Allergy Verified 08/03/20 14:27 Home Meds: Home Meds Escitalopram [Lexapro] 20 mg PO DAILY 04/03/20 [History] Folic Acid 1 mg PO DAILY 04/03/20 [History] Labetalol [Normodyne] 200 mg PO BID 04/03/20 [History] Lacosamide [Vimpat] 150 mg PO BID 04/03/20 [History] Naltrexone 50 mg PO DAILY 04/03/20 [History] Venlafaxine [Effexor] 75 mg PO BID 04/03/20 [History] amLODIPine [Norvasc] 10 mg PO DAILY 04/03/20 [History] chlordiazePOXIDE [Librium] 100 mg PO BEDTIME 04/03/20 [History] hydrALAZINE [Apresoline] 50 mg PO BID 04/03/20 [History] Thiamine [Vitamin B-1] 100 mg PO BEDTIME #30 tab 04/09/20 [Rx] Ondansetron [Zofran ODT] 4 mg PO Q6H PRN #10 tab.dis 08/03/20 [Rx] Past Medical History - Past Health History Medical/Surgical History: Denies Medical/Surgical History HEENT History: Reports: None Cardiovascular History: Reports: Hypertension Respiratory History: Reports: None Gastrointestinal History: Reports: None, Other (See Below) Other Gastrointestinal History: Liver Problem Genitourinary History: Reports: None Musculoskeletal History: Reports: None Neurological History: Reports: None Psychiatric History: Reports: Addiction, Anxiety Other Psychiatric History: alcohol abuse Endocrine/Metabolic History: Reports: None Dermatologic History: Reports: None - Infectious Disease History Infectious Disease History: Reports: Chicken Pox Social & Family History - Caffeine Use Caffeine Use: Reports: None ED ROS GENERAL - Review of Systems Review Of Systems: Comprehensive ROS is negative, except as noted in HPI. ED EXAM, GENERAL - Physical Exam Exam: See Below Free Text/Narrative:: My physical exam is in the HPI #1 Interpretation EKG Interpretation Comments: EKG was done at 1429 hrs. it is a sinus tachycardia with a heart rate of 120 the WI interval is 138 and QT duration is 482 the axis is 58 the patient has borderline repolarization abnormality and a prolonged QT interval. Compared to 04/03/2020 and there is no significant change impression this EKG does not show any acute ischemia Course - Vital Signs Text/Narrative:: 1737 hrs. the patient is able to tolerate p.o. potassium we will try p.o. meal. If he tolerates that we will going to send him home with a prescription for Zofran. He will be advised to follow-up with [facility]. [facility] Address: [address] [place], [place] [address] [place] [address] Hours: walk in 9 AM M-F The following information is given to patients seen in the emergency department who are being discharged to home. This information is to outline your options for follow-up care. We provide all patients seen in our emergency department with a follow-up referral. The need for follow-up, as well as the timing and circumstances, are variable depending upon the specifics of your emergency department visit. If you don't have a primary care physician on staff, we will provide you with a referral. We always advise you to contact your personal physician following an emergency department visit to inform them of the circumstance of the visit and for follow-up with them and/or the need for any referrals to a consulting specialist. The emergency department will also refer you to a specialist when appropriate. This referral assures that you have the opportunity for follow-up care with a specialist. All of these measure are taken in an effort to provide you with optimal care, which includes your follow-up. Under all circumstances we always encourage you to contact your private physician who remains a resource for coordinating your care. When calling for follow-up care, please make the office aware that this follow-up is from your recent emergency room visit. If for any reason you are refused follow-up, please contact the [facility] Emergency Department at and asked to speak to the emergency department charge nurse. 1751 hrs. patient tried to eat a sandwich really fast and it caused indigestion. See orders. I will try Protonix and will try again. If he can eat with a lipase as high as it is we will put him in observation overnight. 1832 hrs. the patient was unable to tolerate p.o. Pancreas enzymes elevated li pase 467. Discussed with Dr. Burger and placed in observation status and will try again tomorrow Last Recorded V/S: Last Vital Signs Temp 36.1 C 08/03/20 14:18 Pulse 106 H 08/03/20 17:15 Resp 17 08/03/20 17:15 BP 143/98 H 08/03/20 17:15 Pulse Ox 96 08/03/20 17:15 - Orders/Labs/Meds Orders: Active Orders 24 hr Category Date Time Status Dextrose 5%-Lactated Ringers 1,000 ml Med 08/03/20 18:30 Active IV ASDIRECTED Sodium Chloride 0.9% [Saline Flush] Med 08/03/20 14:52 Active 10 ml FLUSH ASDIRECTED PRN Sodium Chloride 0.9% [Saline Flush] Med 08/03/20 14:52 Active 2.5 ml FLUSH ASDIRECTED PRN Saline Lock Insert [OM.PC] Stat Oth 08/03/20 14:52 Ordered Medication Orders Dextrose/Lactated Ringer's (Dextrose 5%-Lactated Ringers) 1,000 mls @ 125 mls/hr IV ASDIRECTED ML Sodium Chloride (Sodium Chloride 0.9% 10 Ml Syringe) 10 ml FLUSH ASDIRECTED PRN PRN Reason: Keep Vein Open Sodium Chloride (Sodium Chloride 0.9% 2.5 Ml Syringe) 2.5 ml FLUSH ASDIRECTED PRN PRN Reason: Keep Vein Open Labs: Laboratory Tests 08/03/20 08/03/20 Range/Units 14:30 14:30 WBC 10.34 (4.0-11.0) K/uL RBC 4.02 L (4.50-5.90) M/uL Hgb 13.3 (13.0-17.0) g/dL Hct 37.0 L (38.0-50.0) % MCV 92.0 (80.0-98.0) fL MCH 33.1 H (27.0-32.0) pg MCHC 35.9 (31.0-37.0) g/dL RDW Std Deviation 45.7 (28.0-62.0) fl RDW Coeff of [place] 14 (11.0-15.0) % Plt Count 84 L (150-400) K/uL MPV 11.20 (7.40-12.00) fL Neut % (Auto) 73.9 (48.0-80.0) % Lymph % (Auto) 17.5 (16.0-40.0) % [place] % (Auto) 8.3 (0.0-15.0) % Eos % (Auto) 0.0 (0.0-7.0) % Baso % (Auto) 0.3 (0.0-1.5) % Neut # (Auto) 7.6 H (1.4-5.7) K/uL Lymph # (Auto) 1.8 (0.6-2.4) K/uL [place] # (Auto) 0.9 H (0.0-0.8) K/uL Eos # (Auto) 0.0 (0.0-0.7) K/uL Baso # (Auto) 0.0 (0.0-0.1) K/uL Nucleated RBC % 0.0 /100WBC Nucleated RBCs # 0 K/uL Sodium 137 (136-148) mmol/L Potassium 2.8 L (3.5-5.1) mmol/L Chloride 95 L (98-107) mmol/L Carbon Dioxide 21.3 (21.0-32.0) mmol/L BUN 19 H (7.0-18.0) mg/dL Creatinine 1.7 H (0.8-1.3) mg/dL Est Cr Clr Drug Dosing 59.04 mL/min Estimated GFR (MDRD) 44.6 ml/min Glucose 150 H (74-106) mg/dL Calcium 8.3 L (8.5-10.1) mg/dL Magnesium 1.3 L (1.8-2.4) mg/dL Total Bilirubin 0.8 (0.2-1.0) mg/dL AST 59 H (15-37) IU/L ALT 45 (14-63) IU/L Alkaline Phosphatase 112 (46-116) U/L Total Protein 7.9 (6.4-8.2) g/dL Albumin 4.1 (3.4-5.0) g/dL Globulin 3.8 (2.6-4.0) g/dL Albumin/Globulin Ratio 1.1 (0.9-1.6) Lipase 467 H (73-393) U/L Meds: Medications Generic Name Dose Route Start Last Admin Trade Name Freq PRN Reason Stop Dose Admin Dextrose/Lactated Ringer's 1,000 mls @ 125 mls/hr 08/03/20 18:30 Dextrose 5%-Lactated Ringers IV ASDIRECTED ML Sodium Chloride 10 ml 08/03/20 14:52 Sodium Chloride 0.9% 10 Ml Syringe FLUSH ASDIRECTED PRN Keep Vein Open Sodium Chloride 2.5 ml 08/03/20 14:52 Sodium Chloride 0.9% 2.5 Ml Syringe FLUSH ASDIRECTED PRN Keep Vein Open Discontinued Medications Generic Name Dose Route Start Last Admin Trade Name Freq PRN Reason Stop Dose Admin Multivitamins/Minerals 10 ml/ 1,011.2 mls @ 1,000 mls/hr 08/03/20 14:52 08/03/20 16:08 Thiamine HCl 100 mg/ Folic IV 08/03/20 15:52 1,000 mls/hr Acid 1 mg/ Sodium Chloride ONETIME ONE Administration Potassium Chloride 20 meq/ 50 mls @ 25 mls/hr 08/03/20 15:23 08/03/20 16:12 Premix IV 08/03/20 17:22 25 mls/hr ONETIME ONE Administration Pantoprazole Sodium 80 mg/ 20 mls @ 420 mls/hr 08/03/20 17:51 08/03/20 18:03 Sodium Chloride IVPUSH 08/03/20 17:53 420 mls/hr ONETIME ONE Administration Ondansetron HCl 4 mg 08/03/20 14:52 08/03/20 16:08 Ondansetron 4 Mg/2 Ml Sdv IVPUSH 08/03/20 14:53 4 mg ONETIME ONE Administration Potassium Chloride 40 meq 08/03/20 15:30 08/03/20 16:08 Potassium Chloride 20 Meq Tab.Er PO 08/03/20 15:31 40 meq ONETIME ONE Administration Departure - Departure Time of Disposition: 18:33 Disposition: Refer to Observation Condition: Good Clinical Impression: Alcohol abuse, Gastritis, Hypokalemia - Discharge Information Prescriptions: Ondansetron [Zofran ODT] 4 mg PO Q6H PRN #10 tab.dis PRN Reason: Nausea Instructions: Alcohol Use Disorder, Gastritis, Adult, Hypokalemia Referrals: Stanton Shultz MD [Primary Care Provider] - Forms: ED Department Discharge Additional Instructions: Stop drinking and contact the AA or get in touch with the people from the rehab facility from when she was just recently released. [facility] Address: [address] [place] [id number] Hours: walk in 9 AM M-F [facility] [address], [place] [address] [facility] [address] [place] [id number] The following information is given to patients seen in the emergency department who are being discharged to home. This information is to outline your options for follow-up care. We provide all patients seen in our emergency department with a follow-up referral. The need for follow-up, as well as the timing and circumstances, are variable depending upon the specifics of your emergency department visit. If you don't have a primary care physician on staff, we will provide you with a referral. We always advise you to contact your personal physician following an emergency department visit to inform them of the circumstance of the visit and for follow-up with them and/or the need for any referrals to a consulting specialist. The emergency department will also refer you to a specialist when appropriate. This referral assures that you have the opportunity for follow-up care with a specialist. All of these measure are taken in an effort to provide you with optimal care, which includes your follow-up. Under all circumstances we always encourage you to contact your private physician who remains a resource for coordinating your care. When calling for follow-up care, please make the office aware that this follow-up is from your recent emergency room visit. If for any reason you are refused follow-up, please contact the [facility] Emergency Department at and asked to speak to the emergency department charge nurse. Sepsis Event Note (ED) - Evaluation Sepsis Screening Result: No Definite Risk - Focused Exam Vital Signs: Vital Signs Temp Pulse Resp BP Pulse Ox 08/03/20 17:15 106 H 17 143/98 H 96 08/03/20 16:15 96 17 143/98 H 98 08/03/20 15:45 79 17 107/67 97 08/03/20 14:18 36.1 C 127 H 19 143/98 H 98 - My Orders Last 24 Hours: My Active Orders 08/03/20 14:52 Sodium Chloride 0.9% [Saline Flush] 10 ml FLUSH ASDIRECTED PRN Sodium Chloride 0.9% [Saline Flush] 2.5 ml FLUSH ASDIRECTED PRN Saline Lock Insert [OM.PC] Stat 08/03/20 18:30 Dextrose 5%-Lactated Ringers 1,000 ml IV ASDIRECTED - Assessment/Plan Last 24 Hours: My Active Orders 08/03/20 14:52 Sodium Chloride 0.9% [Saline Flush] 10 ml FLUSH ASDIRECTED PRN Sodium Chloride 0.9% [Saline Flush] 2.5 ml FLUSH ASDIRECTED PRN Saline Lock Insert [OM.PC] Stat 08/03/20 18:30 Dextrose 5%-Lactated Ringers 1,000 ml IV ASDIRECTED
[2020-08-03] MEDS ORDERED: Ondansetron 4 MG/2 ML SDV IVPUSH ONE (14:52)
[2020-08-03] MEDS ORDERED: Sodium Chloride 0.9% 2.5 ML Syringe FLUSH PRN (14:52)
[2020-08-03] MEDS ORDERED: Sodium Chloride 0.9% 10 ML Syringe FLUSH PRN (14:52)
[2020-08-03] MEDS ORDERED: MVI, Adult with Vitamin K 10 ML, Thiamine 100 MG, Folic Acid 1 MG in Sodium Chloride 0.... IV ONE ×4 (14:52)
[2020-08-03 15:09] LABS: CARBON DIOXIDE,CO2 21.3 mmol/L (21.0-32.0); POTASSIUM,K 2.8 mmol/L (3.5-5.1)
[2020-08-03] MEDS ORDERED: Potassium Chloride Riders 20 MEQ in Premix Bag 1 BAG IV ONE (15:23)
[2020-08-03] MEDS ORDERED: Potassium Chloride 20 MEQ Tab.ER PO ONE (15:30)
[2020-08-03] MEDS ORDERED: Pantoprazole 80 MG in Sodium Chloride 0.9% 20 ML IVPUSH ONE (17:51)
[2020-08-03] MEDS ORDERED: Dextrose 5%-Lactated Ringers 1,000 ML IV SCH (18:30)
[2020-08-03] MEDS ORDERED: Magnesium Sulfate (4.06 MEQ/ML) 5 GM/10 ML SDV IV ONE (19:24)
[2020-08-03] MEDS ORDERED: Sodium Chloride 0.9% 1,000 ML IV ONE (19:26)
--- NOTE | 2020-08-03 20:12 | PCM.HP.2 ---
H&P History of Present Illness - General Date of Service: 08/03/20 Admit Problem/Dx: Admission Diagnosis/Problem Admission Diagnosis/Problem Pancreatitis - History of Present Illness Initial Comments - Free Text/Narative: 39 yo male with pmh of HTN and ETOH abuse who presents to the ED with request for detox. Patient was admitted for ETOH withdrawal in March. He went to [place] for inpatient rehab. He was sober for several months but the past few weeks went on a binder. Reports drinking 1/2 gallon of wiskey a day. He has been trying to cut back but has been having tremors and nausea. Patient denies any abdominal pain. - Related Data Allergies/Adverse Reactions: Allergies Allergy/AdvReac Type Severity Reaction Status Date / Time No Known Allergies Allergy Verified 08/03/20 14:27 Home Medications: Home Meds Escitalopram [Lexapro] 20 mg PO DAILY 04/03/20 [History] Folic Acid 1 mg PO DAILY 04/03/20 [History] Labetalol [Normodyne] 200 mg PO BID 04/03/20 [History] Lacosamide [Vimpat] 150 mg PO BID 04/03/20 [History] Naltrexone 50 mg PO DAILY 04/03/20 [History] Venlafaxine [Effexor] 75 mg PO BID 04/03/20 [History] amLODIPine [Norvasc] 10 mg PO DAILY 04/03/20 [History] chlordiazePOXIDE [Librium] 100 mg PO BEDTIME 04/03/20 [History] hydrALAZINE [Apresoline] 50 mg PO BID 04/03/20 [History] Thiamine [Vitamin B-1] 100 mg PO BEDTIME #30 tab 04/09/20 [Rx] Ondansetron [Zofran ODT] 4 mg PO Q6H PRN #10 tab.dis 08/03/20 [Rx] Past Medical History - Past Health History Medical/Surgical History: Denies Medical/Surgical History HEENT History: Reports: None Cardiovascular History: Reports: Hypertension Respiratory History: Reports: None Gastrointestinal History: Reports: Pancreatitis, Other (See Below) Other Gastrointestinal History: Liver Problem Genitourinary History: Reports: None Musculoskeletal History: Reports: None Neurological History: Reports: None Psychiatric History: Reports: Addiction, Anxiety Other Psychiatric History: alcohol abuse Endocrine/Metabolic History: Reports: None Dermatologic History: Reports: None - Infectious Disease History Infectious Disease History: Reports: Chicken Pox - Past Surgical History Cardiovascular Surgical History: Reports: None Social & Family History - Family History Family Medical History: No Pertinent Family History - Tobacco Use Tobacco Use Status *Q: Current Every Day Tobacco User Years of Tobacco use: 10 Packs/Tins Daily: 0.5 - Caffeine Use Caffeine Use: Reports: Coffee - Alcohol Use Days Per Week of Alcohol Use: 7 Number of Drinks Per Day: 10 Total Drinks Per Week: 70 - Recreational Drug Use Recreational Drug Use: No H&P Review of Systems - Review of Systems: Review Of Systems: Comprehensive ROS is negative, except as noted in HPI. Exam - Exam Exam: See Below - Vital Signs Vital Signs: Last Vital Signs Temp 36.1 C 08/03/20 14:18 Pulse 106 H 08/03/20 17:15 Resp 17 08/03/20 17:15 BP 143/98 H 08/03/20 17:15 Pulse Ox 96 08/03/20 17:15 Weight: 81.647 kg - Exam General: Alert, Oriented HEENT: Mucosa Moist & [place] Neck: Supple Lungs: Clear to Auscultation, Normal Respiratory Effort Cardiovascular: Regular Rate, Regular Rhythm GI/Abdominal Exam: Soft, Non-Tender Extremities: Non-Tender, No Pedal Edema Skin: Warm, Dry, Intact Neurological: Cranial Nerves Intact. No: Focal Deficit - Patient Data Lab Results Last 24 hrs: Laboratory Results - last 24 hr 08/03/20 08/03/20 08/03/20 Range/Units 14:30 14:30 18:35 WBC 10.34 (4.0-11.0) K/uL RBC 4.02 L (4.50-5.90) M/uL Hgb 13.3 (13.0-17.0) g/dL Hct 37.0 L (38.0-50.0) % MCV 92.0 (80.0-98.0) fL MCH 33.1 H (27.0-32.0) pg MCHC 35.9 (31.0-37.0) g/dL RDW Std Deviation 45.7 (28.0-62.0) fl RDW Coeff of [place] 14 (11.0-15.0) % Plt Count 84 L (150-400) K/uL MPV 11.20 (7.40-12.00) fL Neut % (Auto) 73.9 (48.0-80.0) % Lymph % (Auto) 17.5 (16.0-40.0) % [place] % (Auto) 8.3 (0.0-15.0) % Eos % (Auto) 0.0 (0.0-7.0) % Baso % (Auto) 0.3 (0.0-1.5) % Neut # (Auto) 7.6 H (1.4-5.7) K/uL Lymph # (Auto) 1.8 (0.6-2.4) K/uL [place] # (Auto) 0.9 H (0.0-0.8) K/uL Eos # (Auto) 0.0 (0.0-0.7) K/uL Baso # (Auto) 0.0 (0.0-0.1) K/uL Nucleated RBC % 0.0 /100WBC Nucleated RBCs # 0 K/uL Sodium 137 (136-148) mmol/L Potassium 2.8 L (3.5-5.1) mmol/L Chloride 95 L (98-107) mmol/L Carbon Dioxide 21.3 (21.0-32.0) mmol/L BUN 19 H (7.0-18.0) mg/dL Creatinine 1.7 H (0.8-1.3) mg/dL Est Cr Clr Drug Dosing 59.04 mL/min Estimated GFR (MDRD) 44.6 ml/min Glucose 150 H (74-106) mg/dL Calcium 8.3 L (8.5-10.1) mg/dL Magnesium 1.3 L (1.8-2.4) mg/dL Total Bilirubin 0.8 (0.2-1.0) mg/dL AST 59 H (15-37) IU/L ALT 45 (14-63) IU/L Alkaline Phosphatase 112 (46-116) U/L Total Protein 7.9 (6.4-8.2) g/dL Albumin 4.1 (3.4-5.0) g/dL Globulin 3.8 (2.6-4.0) g/dL Albumin/Globulin Ratio 1.1 (0.9-1.6) Lipase 467 H (73-393) U/L SARS-CoV-2 RNA (PEMA) NEGATIVE (NEGATIVE) Result Diagrams: 08/03/20 14:30 08/03/20 14:30 Sepsis Event Note - Evaluation Sepsis Screening Result: No Definite Risk - Focused Exam Vital Signs: Vital Signs Temp Pulse Resp BP Pulse Ox 08/03/20 17:15 106 H 17 143/98 H 96 08/03/20 16:15 96 17 143/98 H 98 08/03/20 15:45 79 17 107/67 97 08/03/20 14:18 36.1 C 127 H 19 143/98 H 98 Problem List Initiated/Reviewed/Updated: Yes Orders Last 24hrs: Active Orders 24 hr Category Date Time Status Admission Status [Patient Status] [ADT] Stat ADT 08/03/20 18:33 Active Antiembolic Devices [RC] PER UNIT ROUTINE Care 08/03/20 19:39 Active EKG 12 Lead [EKG Documentation Completion] [RC] STAT Care 08/03/20 18:42 Active Oxygen Therapy [RC] PRN Care 08/03/20 19:38 Active [employer] [RC] ASDIRECTED Care 08/03/20 19:38 Active VTE/DVT Education [RC] PER UNIT ROUTINE Care 08/03/20 19:38 Active Vital Signs [RC] Q4H Care 08/03/20 19:38 Active Nothing per Oral Now Diet [DIET] Diet 08/03/20 Breakfast Active Regular Diet [DIET] Diet 08/04/20 Breakfast Ordered BASIC METABOLIC PANEL,BMP [CHEM] Routine Lab 08/03/20 22:00 Ordered CBC WITH AUTO DIFF [HEME] AM Lab 08/04/20 05:11 Ordered COMPREHENSIVE METABOLIC PN,CMP [CHEM] AM Lab 08/04/20 05:11 Ordered LIPASE [CHEM] AM Lab 08/04/20 05:11 Ordered MAGNESIUM [CHEM] AM Lab 08/04/20 05:11 Ordered MAGNESIUM [CHEM] Routine Lab 08/03/20 22:00 Ordered PHOSPHORUS [CHEM] AM Lab 08/04/20 05:11 Ordered Folic Acid Med 08/04/20 09:00 Active 1 mg SUBCUT DAILY LORazepam [Ativan] Med 08/03/20 19:39 Active See Protocol IVPUSH Q4H PRN Magnesium Sulfate [Magnesium Sulfate 50%] 1 gm Med 08/03/20 20:00 Active Sodium Chloride 0.9% [Normal Saline] 50 ml IV NOW Ondansetron [Zofran] Med 08/03/20 19:38 Active 4 mg IVPUSH Q4H PRN Pantoprazole [ProTONIX IV] Med 08/04/20 09:00 Active 40 mg IV DAILY Sodium Chloride 0.9% @ 150 MLS/HR (1,000ml) Med 08/03/20 20:15 Ordered Sodium Chloride 0.9% [Normal Saline] 1,000 ml IV ASDIRECTED Sodium Chloride 0.9% [Normal Saline] 1,000 ml Med 08/03/20 19:26 Active IV .Bolus Sodium Chloride 0.9% [Saline Flush] Med 08/03/20 14:52 Active 10 ml FLUSH ASDIRECTED PRN Sodium Chloride 0.9% [Saline Flush] Med 08/03/20 14:52 Active 2.5 ml FLUSH ASDIRECTED PRN Thiamine [Vitamin B-1] 100 mg Med 08/04/20 09:00 Active Sodium Chloride 0.9% [Normal Saline] 100 ml IV DAILY Saline Lock Insert [OM.PC] Stat Oth 08/03/20 14:52 Ordered Sequential Compression Device [OM.PC] Per Unit Routine Oth 08/03/20 19:38 Ordered Resuscitation Status Routine Resus Stat 08/03/20 19:38 Ordered Medication Orders Folic Acid (Folic Acid 50 Mg/10 Ml Mdv) 1 mg SUBCUT DAILY ML Sodium Chloride (Normal Saline) 1,000 mls @ 999 mls/hr IV .Bolus ONE Stop: 08/03/20 20:26 Thiamine HCl 100 mg/ Sodium (Chloride) 101 mls @ 202 mls/hr IV DAILY ML Magnesium Sulfate 1 gm/ Sodium (Chloride) 52 mls @ 52 mls/hr IV NOW ONE Stop: 08/03/20 20:59 Sodium Chloride (Normal Saline) 1,000 mls @ 150 mls/hr IV ASDIRECTED ML Lorazepam (Lorazepam 2 Mg/Ml Sdv) 0 mg IVPUSH Q4H PRN; Protocol PRN Reason: CIWAA Ondansetron HCl (Ondansetron 4 Mg/2 Ml Sdv) 4 mg IVPUSH Q4H PRN PRN Reason: Nausea Pantoprazole Sodium (Pantoprazole 40 Mg Vial) 40 mg IV DAILY ML Sodium Chloride (Sodium Chloride 0.9% 10 Ml Syringe) 10 ml FLUSH ASDIRECTED PRN PRN Reason: Keep Vein Open Sodium Chloride (Sodium Chloride 0.9% 2.5 Ml Syringe) 2.5 ml FLUSH ASDIRECTED PRN PRN Reason: Keep Vein Open Assessment/Plan Comment:: 39 yo male admitted for ETOH withdrawal. ETOH withdrawal: valium 5mg TID, ativan prn CIWAA, thiamin and folic acid Acute kidney injury/hypokalemia/hypmagensia: IV fluids, will replace electrolytes as needed.
[2020-08-03] MEDS: Ondansetron 4 MG/2 ML SDV IVPUSH PRN (20:30)
[2020-08-03] MEDS: Diazepam 2 MG Tab PO SCH (22:00)
[2020-08-03] MEDS: Sodium Chloride 0.9% 1,000 ML IV SCH (22:00)
[2020-08-03] MEDS: Nicotine 7 MG/24 Hr Patch TRDERM SCH (22:30)
[2020-08-03 22:40] LABS: BLOOD UREA NITROGEN,BUN 16 mg/dL (7.0-18.0); CARBON DIOXIDE,CO2 26.1 mmol/L (21.0-32.0); CHLORIDE,CL 102 mmol/L (98-107); GLUCOSE RANDOM 88 mg/dL (74-106); POTASSIUM,K 3.3 mmol/L (3.5-5.1); SODIUM,NA 140 mmol/L (136-148)
[2020-08-03] MEDS ORDERED: Magnesium Sulfate/Water 2 GM in Premix Bag 1 BAG IV ONE (23:30)
[2020-08-04] MEDS: LORazepam 2 MG/ML SDV IVPUSH PRN ×3 (01:16→15:07)
[2020-08-04] MEDS: Ondansetron 4 MG/2 ML SDV IVPUSH PRN ×4 (01:16→15:08)
[2020-08-04] MEDS: Diazepam 2 MG Tab PO SCH ×2 (05:11→15:05)
[2020-08-04 06:01] LABS: BLOOD UREA NITROGEN,BUN 15 mg/dL (7.0-18.0); CARBON DIOXIDE,CO2 26.3 mmol/L (21.0-32.0); CHLORIDE,CL 102 mmol/L (98-107); GLUCOSE RANDOM 84 mg/dL (74-106); LIPASE 618 U/L (73-393); POTASSIUM,K 3.4 mmol/L (3.5-5.1); SODIUM,NA 139 mmol/L (136-148)
[2020-08-04] MEDS ORDERED: Potassium Chloride 20 MEQ Tab.ER PO ONE (07:54)
--- NOTE | 2020-08-04 07:54 | PCM.PN ---
- General Info Date of Service: 08/04/20 Admission Dx/Problem (Free Text): Admission Diagnosis/Problem Admission Diagnosis/Problem Pancreatitis/alcohol withdrawal Subjective Update: Reports feeling anxious with possible auditory hallucinations and tremors this morning. Reports nausea intermittent dry heaving. Tolerating clear liquid diet still. Reports mild epigastric pain. No chest pain or palpitations. Functional Status: Reports: Pain Controlled, Tolerating Diet, Ambulating, Urinating - Review of Systems General: Reports: Malaise HEENT: Reports: Sore Throat (From throwing up at home.). Denies: Headaches Pulmonary: Denies: Shortness of Breath Cardiovascular: Denies: Chest Pain Gastrointestinal: Reports: Abdominal Pain (Epigastric), Nausea, Vomiting (Intermittent dry heaving) Genitourinary: Reports: No Symptoms. Denies: Dysuria, Frequency Musculoskeletal: Reports: No Symptoms Skin: Reports: No Symptoms Neurological: Reports: Tremors Psychiatric: Reports: No Symptoms, Hallucinations (Auditory) - Patient Data Vitals - Most Recent: Last Vital Signs Temp 98.5 F 08/04/20 04:42 Pulse 85 08/04/20 04:42 Resp 18 08/04/20 04:42 BP 152/92 H 08/04/20 04:42 Pulse Ox 94 L 08/04/20 04:42 Weight - Most Recent: 87.997 kg I&O - Last 24 Hours: Intake & Output 08/03/20 08/04/20 08/04/20 22:59 06:59 14:59 Intake Total 2102 Balance 2102 Lab Results Last 24 Hours: Laboratory Results - last 24 hr 08/03/20 08/03/20 08/03/20 Range/Units 14:30 14:30 18:35 WBC 10.34 (4.0-11.0) K/uL RBC 4.02 L (4.50-5.90) M/uL Hgb 13.3 (13.0-17.0) g/dL Hct 37.0 L (38.0-50.0) % MCV 92.0 (80.0-98.0) fL MCH 33.1 H (27.0-32.0) pg MCHC 35.9 (31.0-37.0) g/dL RDW Std Deviation 45.7 (28.0-62.0) fl RDW Coeff of Frederick 14 (11.0-15.0) % Plt Count 84 L (150-400) K/uL MPV 11.20 (7.40-12.00) fL Neut % (Auto) 73.9 (48.0-80.0) % Lymph % (Auto) 17.5 (16.0-40.0) % Ramsey % (Auto) 8.3 (0.0-15.0) % Eos % (Auto) 0.0 (0.0-7.0) % Baso % (Auto) 0.3 (0.0-1.5) % Neut # (Auto) 7.6 H (1.4-5.7) K/uL Lymph # (Auto) 1.8 (0.6-2.4) K/uL Ramsey # (Auto) 0.9 H (0.0-0.8) K/uL Eos # (Auto) 0.0 (0.0-0.7) K/uL Baso # (Auto) 0.0 (0.0-0.1) K/uL Nucleated RBC % 0.0 /100WBC Nucleated RBCs # 0 K/uL Sodium 137 (136-148) mmol/L Potassium 2.8 L (3.5-5.1) mmol/L Chloride 95 L (98-107) mmol/L Carbon Dioxide 21.3 (21.0-32.0) mmol/L BUN 19 H (7.0-18.0) mg/dL Creatinine 1.7 H (0.8-1.3) mg/dL Est Cr Clr Drug Dosing 59.04 mL/min Estimated GFR (MDRD) 44.6 ml/min Glucose 150 H (74-106) mg/dL Calcium 8.3 L (8.5-10.1) mg/dL Phosphorus (2.6-4.7) mg/dL Magnesium 1.3 L (1.8-2.4) mg/dL Total Bilirubin 0.8 (0.2-1.0) mg/dL AST 59 H (15-37) IU/L ALT 45 (14-63) IU/L Alkaline Phosphatase 112 (46-116) U/L Total Protein 7.9 (6.4-8.2) g/dL Albumin 4.1 (3.4-5.0) g/dL Globulin 3.8 (2.6-4.0) g/dL Albumin/Globulin Ratio 1.1 (0.9-1.6) Lipase 467 H (73-393) U/L SARS-CoV-2 RNA (PEMA) NEGATIVE (NEGATIVE) 08/03/20 08/04/20 08/04/20 Range/Units 22:07 05:27 05:50 WBC 4.41 (4.0-11.0) K/uL RBC 3.31 L (4.50-5.90) M/uL Hgb 10.9 L (13.0-17.0) g/dL Hct 30.6 L (38.0-50.0) % MCV 92.4 (80.0-98.0) fL MCH 32.9 H (27.0-32.0) pg MCHC 35.6 (31.0-37.0) g/dL RDW Std Deviation 46.1 (28.0-62.0) fl RDW Coeff of Frederick 14 (11.0-15.0) % Plt Count 50 L (150-400) K/uL MPV 11.50 (7.40-12.00) fL Neut % (Auto) 63.4 (48.0-80.0) % Lymph % (Auto) 23.8 (16.0-40.0) % Ramsey % (Auto) 11.8 (0.0-15.0) % Eos % (Auto) 0.5 (0.0-7.0) % Baso % (Auto) 0.5 (0.0-1.5) % Neut # (Auto) 2.8 (1.4-5.7) K/uL Lymph # (Auto) 1.1 (0.6-2.4) K/uL Ramsey # (Auto) 0.5 (0.0-0.8) K/uL Eos # (Auto) 0.0 (0.0-0.7) K/uL Baso # (Auto) 0.0 (0.0-0.1) K/uL Nucleated RBC % 0.0 /100WBC Nucleated RBCs # 0 K/uL Sodium 140 139 (136-148) mmol/L Potassium 3.3 L 3.4 L (3.5-5.1) mmol/L Chloride 102 102 (98-107) mmol/L Carbon Dioxide 26.1 26.3 (21.0-32.0) mmol/L BUN 16 15 (7.0-18.0) mg/dL Creatinine 1.1 0.9 (0.8-1.3) mg/dL Est Cr Clr Drug Dosing 91.25 111.53 mL/min Estimated GFR (MDRD) > 60.0 > 60.0 ml/min Glucose 88 84 (74-106) mg/dL Calcium 7.7 L 7.6 L (8.5-10.1) mg/dL Phosphorus 3.1 (2.6-4.7) mg/dL Magnesium 1.2 L 1.9 (1.8-2.4) mg/dL Total Bilirubin 1.5 H (0.2-1.0) mg/dL AST 59 H (15-37) IU/L ALT 42 (14-63) IU/L Alkaline Phosphatase 86 (46-116) U/L Total Protein 6.0 L (6.4-8.2) g/dL Albumin 3.2 L (3.4-5.0) g/dL Globulin 2.8 (2.6-4.0) g/dL Albumin/Globulin Ratio 1.1 (0.9-1.6) Lipase 618 H (73-393) U/L SARS-CoV-2 RNA (PEMA) (NEGATIVE) Med Orders - Current: Current Medications Diazepam (Diazepam 2 Mg Tab) 5 mg PO TID [facility] Last Admin: 08/04/20 05:11 Dose: 5 mg Documented by: Folic Acid (Folic Acid 50 Mg/10 Ml Mdv) 1 mg SUBCUT DAILY [facility] Thiamine HCl 100 mg/ Sodium (Chloride) 101 mls @ 202 mls/hr IV DAILY [facility] Sodium Chloride (Normal Saline) 1,000 mls @ 150 mls/hr IV ASDIRECTED [facility] Last Admin: 08/03/20 22:00 Dose: 150 mls/hr Documented by: Lorazepam (Lorazepam 2 Mg/Ml Sdv) 0 mg IVPUSH Q4H PRN; Protocol PRN Reason: CIWAA Last Admin: 08/04/20 01:16 Dose: 2 mg Documented by: Nicotine (Nicotine 7 Mg/24 Hr Patch) 7 mg TRDERM DAILY [facility] Last Admin: 08/03/20 22:30 Dose: 7 mg Documented by: Ondansetron HCl (Ondansetron 4 Mg/2 Ml Sdv) 4 mg IVPUSH Q4H PRN PRN Reason: Nausea Last Admin: 08/04/20 05:16 Dose: 4 mg Documented by: Pantoprazole Sodium (Pantoprazole 40 Mg Vial) 40 mg IV DAILY [facility] Sodium Chloride (Sodium Chloride 0.9% 10 Ml Syringe) 10 ml FLUSH ASDIRECTED PRN PRN Reason: Keep Vein Open Sodium Chloride (Sodium Chloride 0.9% 2.5 Ml Syringe) 2.5 ml FLUSH ASDIRECTED PRN PRN Reason: Keep Vein Open Discontinued Medications Multivitamins/Minerals 10 ml/Thiamine HCl 100 mg/ Folic Acid 1 mg/ Sodium Chloride 1,011.2 mls @ 1,000 mls/hr IV ONETIME ONE Stop: 08/03/20 15:52 Last Admin: 08/03/20 16:08 Dose: 1,000 mls/hr Documented by: Potassium Chloride 20 meq/ (Premix) 50 mls @ 25 mls/hr IV ONETIME ONE Stop: 08/03/20 17:22 Last Admin: 08/03/20 16:12 Dose: 25 mls/hr Documented by: Pantoprazole Sodium 80 mg/ (Sodium Chloride) 20 mls @ 420 mls/hr IVPUSH ONETIME ONE Stop: 08/03/20 17:53 Last Admin: 08/03/20 18:03 Dose: 420 mls/hr Documented by: Dextrose/Lactated Ringer's (Dextrose 5%-Lactated Ringers) 1,000 mls @ 125 mls/hr IV ASDIRECTED [facility] Last Admin: 08/03/20 18:33 Dose: 125 mls/hr Documented by: Sodium Chloride (Normal Saline) 1,000 mls @ 999 mls/hr IV .Bolus ONE Stop: 08/03/20 20:26 Last Admin: 08/03/20 20:31 Dose: 999 mls/hr Documented by: Magnesium Sulfate 1 gm/ Sodium (Chloride) 52 mls @ 52 mls/hr IV NOW ONE Stop: 08/03/20 20:59 Last Admin: 08/03/20 22:26 Dose: 52 mls/hr Documented by: Magnesium Sulfate 2 gm/ Premix 50 mls @ 12.5 mls/hr IV ONETIME ONE Stop: 08/04/20 03:29 Last Admin: 08/03/20 23:30 Dose: 12.5 mls/hr Documented by: Magnesium Sulfate (Magnesium Sulfate (4.06 Meq/Ml) 5 Gm/10 Ml Sdv) 1 gm IV ONETIME ONE Stop: 08/03/20 19:25 Ondansetron HCl (Ondansetron 4 Mg/2 Ml Sdv) 4 mg IVPUSH ONETIME ONE Stop: 08/03/20 14:53 Last Admin: 08/03/20 16:08 Dose: 4 mg Documented by: Potassium Chloride (Potassium Chloride 20 Meq Tab.Er) 40 meq PO ONETIME ONE Stop: 08/03/20 15:31 Last Admin: 08/03/20 16:08 Dose: 40 meq Documented by: - Exam Quality Assessment: DVT Prophylaxis. No: Supplemental Oxygen General: Alert, Oriented, Cooperative, Mild Distress (Tremors and anxiety noted) Lungs: Clear to Auscultation, Normal Respiratory Effort Cardiovascular: Regular Rate, Regular Rhythm GI/Abdominal Exam: Normal Bowel Sounds, Soft, Tender Extremities: Normal Inspection, Normal Range of Motion, Non-Tender, No Pedal Edema Neurological: No New Focal Deficit Psy/Mental Status: Alert, Normal Affect, Anxious, Hallucinations, Withdrawal S ymptoms - Patient Data Lab Results Last 24 hrs: Laboratory Results - last 24 hr 08/03/20 08/03/20 08/03/20 Range/Units 14:30 14:30 18:35 WBC 10.34 (4.0-11.0) K/uL RBC 4.02 L (4.50-5.90) M/uL Hgb 13.3 (13.0-17.0) g/dL Hct 37.0 L (38.0-50.0) % MCV 92.0 (80.0-98.0) fL MCH 33.1 H (27.0-32.0) pg MCHC 35.9 (31.0-37.0) g/dL RDW Std Deviation 45.7 (28.0-62.0) fl RDW Coeff of Frederick 14 (11.0-15.0) % Plt Count 84 L (150-400) K/uL MPV 11.20 (7.40-12.00) fL Neut % (Auto) 73.9 (48.0-80.0) % Lymph % (Auto) 17.5 (16.0-40.0) % Ramsey % (Auto) 8.3 (0.0-15.0) % Eos % (Auto) 0.0 (0.0-7.0) % Baso % (Auto) 0.3 (0.0-1.5) % Neut # (Auto) 7.6 H (1.4-5.7) K/uL Lymph # (Auto) 1.8 (0.6-2.4) K/uL Ramsey # (Auto) 0.9 H (0.0-0.8) K/uL Eos # (Auto) 0.0 (0.0-0.7) K/uL Baso # (Auto) 0.0 (0.0-0.1) K/uL Nucleated RBC % 0.0 /100WBC Nucleated RBCs # 0 K/uL Sodium 137 (136-148) mmol/L Potassium 2.8 L (3.5-5.1) mmol/L Chloride 95 L (98-107) mmol/L Carbon Dioxide 21.3 (21.0-32.0) mmol/L BUN 19 H (7.0-18.0) mg/dL Creatinine 1.7 H (0.8-1.3) mg/dL Est Cr Clr Drug Dosing 59.04 mL/min Estimated GFR (MDRD) 44.6 ml/min Glucose 150 H (74-106) mg/dL Calcium 8.3 L (8.5-10.1) mg/dL Phosphorus (2.6-4.7) mg/dL Magnesium 1.3 L (1.8-2.4) mg/dL Total Bilirubin 0.8 (0.2-1.0) mg/dL AST 59 H (15-37) IU/L ALT 45 (14-63) IU/L Alkaline Phosphatase 112 (46-116) U/L Total Protein 7.9 (6.4-8.2) g/dL Albumin 4.1 (3.4-5.0) g/dL Globulin 3.8 (2.6-4.0) g/dL Albumin/Globulin Ratio 1.1 (0.9-1.6) Lipase 467 H (73-393) U/L SARS-CoV-2 RNA (PEMA) NEGATIVE (NEGATIVE) 08/03/20 08/04/20 08/04/20 Range/Units 22:07 05:27 05:50 WBC 4.41 (4.0-11.0) K/uL RBC 3.31 L (4.50-5.90) M/uL Hgb 10.9 L (13.0-17.0) g/dL Hct 30.6 L (38.0-50.0) % MCV 92.4 (80.0-98.0) fL MCH 32.9 H (27.0-32.0) pg MCHC 35.6 (31.0-37.0) g/dL RDW Std Deviation 46.1 (28.0-62.0) fl RDW Coeff of Frederick 14 (11.0-15.0) % Plt Count 50 L (150-400) K/uL MPV 11.50 (7.40-12.00) fL Neut % (Auto) 63.4 (48.0-80.0) % Lymph % (Auto) 23.8 (16.0-40.0) % Ramsey % (Auto) 11.8 (0.0-15.0) % Eos % (Auto) 0.5 (0.0-7.0) % Baso % (Auto) 0.5 (0.0-1.5) % Neut # (Auto) 2.8 (1.4-5.7) K/uL Lymph # (Auto) 1.1 (0.6-2.4) K/uL Ramsey # (Auto) 0.5 (0.0-0.8) K/uL Eos # (Auto) 0.0 (0.0-0.7) K/uL Baso # (Auto) 0.0 (0.0-0.1) K/uL Nucleated RBC % 0.0 /100WBC Nucleated RBCs # 0 K/uL Sodium 140 139 (136-148) mmol/L Potassium 3.3 L 3.4 L (3.5-5.1) mmol/L Chloride 102 102 (98-107) mmol/L Carbon Dioxide 26.1 26.3 (21.0-32.0) mmol/L BUN 16 15 (7.0-18.0) mg/dL Creatinine 1.1 0.9 (0.8-1.3) mg/dL Est Cr Clr Drug Dosing 91.25 111.53 mL/min Estimated GFR (MDRD) > 60.0 > 60.0 ml/min Glucose 88 84 (74-106) mg/dL Calcium 7.7 L 7.6 L (8.5-10.1) mg/dL Phosphorus 3.1 (2.6-4.7) mg/dL Magnesium 1.2 L 1.9 (1.8-2.4) mg/dL Total Bilirubin 1.5 H (0.2-1.0) mg/dL AST 59 H (15-37) IU/L ALT 42 (14-63) IU/L Alkaline Phosphatase 86 (46-116) U/L Total Protein 6.0 L (6.4-8.2) g/dL Albumin 3.2 L (3.4-5.0) g/dL Globulin 2.8 (2.6-4.0) g/dL Albumin/Globulin Ratio 1.1 (0.9-1.6) Lipase 618 H (73-393) U/L SARS-CoV-2 RNA (PEMA) (NEGATIVE) Result Diagrams: 08/04/20 05:50 08/04/20 05:27 Sepsis Event Note - Evaluation Sepsis Screening Result: No Definite Risk - Focused Exam Vital Signs: Vital Signs Temp Pulse Resp BP Pulse Ox 08/04/20 04:42 98.5 F 85 18 152/92 H 94 L 08/04/20 00:00 99.0 F 102 H 18 139/88 97 - Problem List & Annotations (1) Alcohol abuse SNOMED Code(s): 39379654 Code(s): F10.10 - ALCOHOL ABUSE, UNCOMPLICATED Status: Acute Current Visit: Yes (2) Gastritis SNOMED Code(s): 7975123 Code(s): K29.70 - GASTRITIS, UNSPECIFIED, WITHOUT BLEEDING Status: Acute Current Visit: Yes (3) Hypokalemia SNOMED Code(s): 70102597 Code(s): E87.6 - HYPOKALEMIA Status: Acute Current Visit: Yes (4) Abnormal LFTs SNOMED Code(s): 979917410 Code(s): R94.5 - ABNORMAL RESULTS OF LIVER FUNCTION STUDIES Status: Acute Current Visit: No (5) Acute alcohol intoxication SNOMED Code(s): 56236248, 33238602 Code(s): F10.929 - ALCOHOL USE, UNSPECIFIED WITH INTOXICATION, UNSPECIFIED Status: Acute Current Visit: No Qualifiers: Complication of substance-induced condition: uncomplicated Qualified Code(s): F10.920 - Alcohol use, unspecified with intoxication, uncomplicated (6) Acute pancreatitis SNOMED Code(s): 649714751 Code(s): K85.90 - ACUTE PANCREATITIS WITHOUT NECROSIS OR INFECTION, UNSP Status: Acute Current Visit: No (7) Alcohol withdrawal seizure SNOMED Code(s): 429031304 Code(s): F10.239 - ALCOHOL DEPENDENCE WITH WITHDRAWAL, UNSPECIFIED; R56.9 - UNSPECIFIED CONVULSIONS Status: Chronic Current Visit: No Qualifiers: Complication of substance-induced condition: uncomplicated Qualified Code(s): F10.230 - Alcohol dependence with withdrawal, uncomplicated; R56.9 - Unspecified convulsions (8) Alcohol withdrawal syndrome SNOMED Code(s): 362314600 Code(s): F10.239 - ALCOHOL DEPENDENCE WITH WITHDRAWAL, UNSPECIFIED Status: Acute Current Visit: No - Problem List Review Problem List Initiated/Reviewed/Updated: Yes - Plan Plan:: 39 yo male admitted for ETOH withdrawal. 1. ETOH withdrawal: -Continue valium 5mg TID -Continue ativan prn CIWAA -Continue thiamine and folic acid -Seizure precautions patient has history of alcohol trial significant seizures. 2. Acute pancreatitis -Lipase elevated -Likely secondary to alcohol intake -Pain control as needed narcotics -Clear liquid diet for now -Right upper quadrant ultrasound completed in March 2020 shows possible sludge and small gallstones. If bilirubin continues to elevate consider repeat right upper quadrant ultrasound. 3. Acute kidney injury -Continue IV fluids -Avoid nephrotoxic medications 4. hypokalemia/hypomagnesemia: - replace electrolytes as needed. VTE prophylaxis: SCDs GI prophylaxis: Protonix CODE STATUS: Full code Dispo: We will make inpatient as he will likely need greater than 2 midnight stay due to significant history of complicated alcohol withdrawal.
[2020-08-04] MEDS: Nicotine 7 MG/24 Hr Patch TRDERM SCH (08:20)
[2020-08-04] MEDS ORDERED: Folic Acid 50 MG/10 ML MDV SUBCUT SCH (09:00)
[2020-08-04] MEDS ORDERED: Thiamine 200 MG/2 ML MDV IVPUSH SCH (09:00)
[2020-08-04] MEDS ORDERED: Pantoprazole 40 MG Vial IV SCH (09:00)
[2020-08-04] MEDS ORDERED: Thiamine 100 MG in Sodium Chloride 0.9% 100 ML IV SCH (09:00)
[2020-08-04] MEDS: Sodium Chloride 0.9% 1,000 ML IV SCH (10:21)
[2020-08-04] MEDS ORDERED: Benzonatate 100 MG Cap PO PRN (10:34)
--- NOTE | 2020-08-04 11:34 | CR ---
INDICATION: Cough TECHNIQUE: Chest 1 view COMPARISON: None FINDINGS: Cardiovascular and mediastinum: Heart size and vasculature are normal in caliber and appearance. Lungs and pleural spaces: Lungs are clear. No sign of infiltrate or mass. No sign of pleural effusion. No pneumothorax. Bones and soft tissues: No significant findings. IMPRESSION: Negative chest. Lungs are clear. Dictated by Abdullahi Johnson MD @ 08/04/2020 11:33:[address] Abdullahi Johnson @ Aug 04 2020 11:33AM
[2020-08-04 11:39] VITALS: BP 124/93; PULSE 101
[2020-08-04] MEDS ORDERED: Sodium Chloride 0.9% 2.5 ML Syringe FLUSH PRN (13:08)
--- NOTE | 2020-08-04 16:56 | PCM.DCSUM1 ---
Discharge Summary - Hospital Course Brief History: 39 yo male with pmh of HTN and ETOH abuse who presents to the ED with request for detox. Patient was admitted for ETOH withdrawal in March. He went to [facility] for inpatient rehab. He was sober for several months but the past few weeks went on a binder. Reports drinking 1/2 gallon of wiskey a day. He has been trying to cut back but has been having tremors and nausea. Patient denies any abdominal pain. - Discharge Data Discharge Date: 08/04/20 Discharge Disposition: Against Medical Advice 07 Condition: Fair - Referral to Home Health Primary Care Physician: Stanton Shultz MD - Discharge Diagnosis/Problem(s) (1) Alcohol abuse SNOMED Code(s): 90917334 ICD Code: F10.10 - ALCOHOL ABUSE, UNCOMPLICATED Status: Acute Current Visit: Yes (2) Gastritis SNOMED Code(s): 5542652 ICD Code: K29.70 - GASTRITIS, UNSPECIFIED, WITHOUT BLEEDING Status: Acute Current Visit: Yes (3) Hypokalemia SNOMED Code(s): 64904952 ICD Code: E87.6 - HYPOKALEMIA Status: Acute Current Visit: Yes (4) Abnormal LFTs SNOMED Code(s): 107821356 ICD Code: R94.5 - ABNORMAL RESULTS OF LIVER FUNCTION STUDIES Status: Acute Current Visit: No (5) Acute alcohol intoxication SNOMED Code(s): 46857190, 88853313 ICD Code: F10.929 - ALCOHOL USE, UNSPECIFIED WITH INTOXICATION, UNSPECIFIED Status: Acute Current Visit: No Qualifiers: Complication of substance-induced condition: uncomplicated Qualified Code(s): F10.920 - Alcohol use, unspecified with intoxication, uncomplicated (6) Acute pancreatitis SNOMED Code(s): 125592650 ICD Code: K85.90 - ACUTE PANCREATITIS WITHOUT NECROSIS OR INFECTION, UNSP Status: Acute Current Visit: No (7) Alcohol withdrawal seizure SNOMED Code(s): 650257533 ICD Code: F10.239 - ALCOHOL DEPENDENCE WITH WITHDRAWAL, UNSPECIFIED; R56.9 - UNSPECIFIED CONVULSIONS Status: Chronic Current Visit: No Qualifiers: Complication of substance-induced condition: uncomplicated Qualified Code(s): F10.230 - Alcohol dependence with withdrawal, uncomplicated; R56.9 - Unspecified convulsions (8) Alcohol withdrawal syndrome SNOMED Code(s): 914977383 ICD Code: F10.239 - ALCOHOL DEPENDENCE WITH WITHDRAWAL, UNSPECIFIED Status: Acute Current Visit: No - Patient Summary/Data Hospital Course: Admission diagnoses Acute pancreatitis Alcohol intoxication Alcohol withdrawal Discharge diagnoses Alcohol withdrawal Acute pancreatitis Fredrick was admitted secondary to the need for alcohol detox per his wishes. He was noted to have elevated lipase and treated for acute pancreatitis. He was started on Valium 5 mg 3 times daily as he has significant history of alcohol withdrawal and seizures. Today patient noted to be very anxious he was treated with Valium and Ativan doing well. Around 1645 patient was noted to be getting dressed and removed IV and telemetry. Nursing staff attempted to have patient stay but patient unwilling reporting he had family issues and needed to leave he had called himself a cab. He was instructed not to drive per nursing as he recently received Valium and Ativan. Patient left AGAINST MEDICAL ADVICE prior to being seen by provider. - Discharge Plan Prescriptions/Med Rec: Ondansetron [Zofran ODT] 4 mg PO Q6H PRN #10 tab.dis PRN Reason: Nausea Home Medications: Home Meds Escitalopram [Lexapro] 20 mg PO DAILY 04/03/20 [History] Folic Acid 1 mg PO DAILY 04/03/20 [History] Labetalol [Normodyne] 200 mg PO BID 04/03/20 [History] Lacosamide [Vimpat] 150 mg PO BID 04/03/20 [History] Naltrexone 50 mg PO DAILY 04/03/20 [History] Venlafaxine [Effexor] 75 mg PO BID 04/03/20 [History] amLODIPine [Norvasc] 10 mg PO DAILY 04/03/20 [History] chlordiazePOXIDE [Librium] 100 mg PO BEDTIME 04/03/20 [History] hydrALAZINE [Apresoline] 50 mg PO BID 04/03/20 [History] Thiamine [Vitamin B-1] 100 mg PO BEDTIME #30 tab 04/09/20 [Rx] Ondansetron [Zofran ODT] 4 mg PO Q6H PRN #10 tab.dis 08/03/20 [Rx] Patient Handouts: Alcohol Use Disorder, Gastritis, Adult, Hypokalemia Forms: ED Department Discharge Referrals: Stanton Shultz MD [Primary Care Provider] - - Discharge Summary/Plan Comment DC Time >30 min.: No - Patient Data Vitals - Most Recent: Last Vital Signs Temp 98 F 08/04/20 11:39 Pulse 101 H 08/04/20 11:39 Resp 18 08/04/20 11:39 BP 124/93 H 08/04/20 11:39 Pulse Ox 95 08/04/20 11:39 Weight - Most Recent: 87.997 kg I&O - Last 24 hours: Intake & Output 08/04/20 08/04/20 08/04/20 06:59 14:59 22:59 Intake Total 210 Balance 210 Lab Results - Last 24 hrs: Laboratory Results - last 24 hr 08/03/20 08/03/20 08/04/20 Range/Units 18:35 22:07 05:27 WBC (4.0-11.0) K/uL RBC (4.50-5.90) M/uL Hgb (13.0-17.0) g/dL Hct (38.0-50.0) % MCV (80.0-98.0) fL MCH (27.0-32.0) pg MCHC (31.0-37.0) g/dL RDW Std Deviation (28.0-62.0) fl RDW Coeff of [place] (11.0-15.0) % Plt Count (150-400) K/uL MPV (7.40-12.00) fL Neut % (Auto) (48.0-80.0) % Lymph % (Auto) (16.0-40.0) % [place] % (Auto) (0.0-15.0) % Eos % (Auto) (0.0-7.0) % Baso % (Auto) (0.0-1.5) % Neut # (Auto) (1.4-5.7) K/uL Lymph # (Auto) (0.6-2.4) K/uL [place] # (Auto) (0.0-0.8) K/uL Eos # (Auto) (0.0-0.7) K/uL Baso # (Auto) (0.0-0.1) K/uL Nucleated RBC % /100WBC Nucleated RBCs # K/uL Sodium 140 139 (136-148) mmol/L Potassium 3.3 L 3.4 L (3.5-5.1) mmol/L Chloride 102 102 (98-107) mmol/L Carbon Dioxide 26.1 26.3 (21.0-32.0) mmol/L BUN 16 15 (7.0-18.0) mg/dL Creatinine 1.1 0.9 (0.8-1.3) mg/dL Est Cr Clr Drug Dosing 91.25 111.53 mL/min Estimated GFR (MDRD) > 60.0 > 60.0 ml/min Glucose 88 84 (74-106) mg/dL Calcium 7.7 L 7.6 L (8.5-10.1) mg/dL Phosphorus 3.1 (2.6-4.7) mg/dL Magnesium 1.2 L 1.9 (1.8-2.4) mg/dL Total Bilirubin 1.5 H (0.2-1.0) mg/dL AST 59 H (15-37) IU/L ALT 42 (14-63) IU/L Alkaline Phosphatase 86 (46-116) U/L Total Protein 6.0 L (6.4-8.2) g/dL Albumin 3.2 L (3.4-5.0) g/dL Globulin 2.8 (2.6-4.0) g/dL Albumin/Globulin Ratio 1.1 (0.9-1.6) Lipase 618 H (73-393) U/L SARS-CoV-2 RNA (PEMA) NEGATIVE (NEGATIVE) 08/04/20 Range/Units 05:50 WBC 4.41 (4.0-11.0) K/uL RBC 3.31 L (4.50-5.90) M/uL Hgb 10.9 L (13.0-17.0) g/dL Hct 30.6 L (38.0-50.0) % MCV 92.4 (80.0-98.0) fL MCH 32.9 H (27.0-32.0) pg MCHC 35.6 (31.0-37.0) g/dL RDW Std Deviation 46.1 (28.0-62.0) fl RDW Coeff of [place] 14 (11.0-15.0) % Plt Count 50 L (150-400) K/uL MPV 11.50 (7.40-12.00) fL Neut % (Auto) 63.4 (48.0-80.0) % Lymph % (Auto) 23.8 (16.0-40.0) % [place] % (Auto) 11.8 (0.0-15.0) % Eos % (Auto) 0.5 (0.0-7.0) % Baso % (Auto) 0.5 (0.0-1.5) % Neut # (Auto) 2.8 (1.4-5.7) K/uL Lymph # (Auto) 1.1 (0.6-2.4) K/uL [place] # (Auto) 0.5 (0.0-0.8) K/uL Eos # (Auto) 0.0 (0.0-0.7) K/uL Baso # (Auto) 0.0 (0.0-0.1) K/uL Nucleated RBC % 0.0 /100WBC Nucleated RBCs # 0 K/uL Sodium (136-148) mmol/L Potassium (3.5-5.1) mmol/L Chloride (98-107) mmol/L Carbon Dioxide (21.0-32.0) mmol/L BUN (7.0-18.0) mg/dL Creatinine (0.8-1.3) mg/dL Est Cr Clr Drug Dosing mL/min Estimated GFR (MDRD) ml/min Glucose (74-106) mg/dL Calcium (8.5-10.1) mg/dL Phosphorus (2.6-4.7) mg/dL Magnesium (1.8-2.4) mg/dL Total Bilirubin (0.2-1.0) mg/dL AST (15-37) IU/L ALT (14-63) IU/L Alkaline Phosphatase (46-116) U/L Total Protein (6.4-8.2) g/dL Albumin (3.4-5.0) g/dL Globulin (2.6-4.0) g/dL Albumin/Globulin Ratio (0.9-1.6) Lipase (73-393) U/L SARS-CoV-2 RNA (PEMA) (NEGATIVE) Med Orders - Current: Current Medications Benzonatate (Benzonatate 100 Mg Cap) 100 mg PO TID PRN PRN Reason: Cough Last Admin: 08/04/20 11:40 Dose: 100 mg Documented by: Diazepam (Diazepam 2 Mg Tab) 5 mg PO TID [facility] Last Admin: 08/04/20 15:05 Dose: 5 mg Documented by: Folic Acid (Folic Acid 50 Mg/10 Ml Mdv) 1 mg SUBCUT DAILY [facility] Last Admin: 08/04/20 08:20 Dose: 1 mg Documented by: Sodium Chloride (Normal Saline) 1,000 mls @ 150 mls/hr IV ASDIRECTED [facility] Last Admin: 08/04/20 10:21 Dose: 150 mls/hr Documented by: Lorazepam (Lorazepam 2 Mg/Ml Sdv) 0 mg IVPUSH Q4H PRN; Protocol PRN Reason: CIWAA Last Admin: 08/04/20 15:07 Dose: 1 mg Documented by: Nicotine (Nicotine 7 Mg/24 Hr Patch) 7 mg TRDERM DAILY [facility] Last Admin: 08/04/20 08:20 Dose: 7 mg Documented by: Ondansetron HCl (Ondansetron 4 Mg/2 Ml Sdv) 4 mg IVPUSH Q4H PRN PRN Reason: Nausea Last Admin: 08/04/20 15:08 Dose: 4 mg Documented by: Pantoprazole Sodium (Pantoprazole 40 Mg Vial) 40 mg IV DAILY [facility] Last Admin: 08/04/20 08:20 Dose: 40 mg Documented by: Sodium Chloride (Sodium Chloride 0.9% 2.5 Ml Syringe) 2.5 ml FLUSH ASDIRECTED PRN PRN Reason: Keep Vein Open Thiamine HCl (Thiamine 200 Mg/2 Ml Mdv) 100 mg IVPUSH DAILY [facility] Last Admin: 08/04/20 09:25 Dose: 100 mg Documented by: Discontinued Medications Multivitamins/Minerals 10 ml/Thiamine HCl 100 mg/ Folic Acid 1 mg/ Sodium Chloride 1,011.2 mls @ 1,000 mls/hr IV ONETIME ONE Stop: 08/03/20 15:52 Last Admin: 08/03/20 16:08 Dose: 1,000 mls/hr Documented by: Potassium Chloride 20 meq/ (Premix) 50 mls @ 25 mls/hr IV ONETIME ONE Stop: 08/03/20 17:22 Last Admin: 08/03/20 16:12 Dose: 25 mls/hr Documented by: Pantoprazole Sodium 80 mg/ (Sodium Chloride) 20 mls @ 420 mls/hr IVPUSH ONETIME ONE Stop: 08/03/20 17:53 Last Admin: 08/03/20 18:03 Dose: 420 mls/hr Documented by: Dextrose/Lactated Ringer's (Dextrose 5%-Lactated Ringers) 1,000 mls @ 125 mls/hr IV ASDIRECTED ML Last Admin: 08/03/20 18:33 Dose: 125 mls/hr Documented by: Sodium Chloride (Normal Saline) 1,000 mls @ 999 mls/hr IV .Bolus ONE Stop: 08/03/20 20:26 Last Admin: 08/03/20 20:31 Dose: 999 mls/hr Documented by: Magnesium Sulfate 1 gm/ Sodium (Chloride) 52 mls @ 52 mls/hr IV NOW ONE Stop: 08/03/20 20:59 Last Admin: 08/03/20 22:26 Dose: 52 mls/hr Documented by: Magnesium Sulfate 2 gm/ Premix 50 mls @ 12.5 mls/hr IV ONETIME ONE Stop: 08/04/20 03:29 Last Admin: 08/03/20 23:30 Dose: 12.5 mls/hr Documented by: Magnesium Sulfate (Magnesium Sulfate (4.06 Meq/Ml) 5 Gm/10 Ml Sdv) 1 gm IV ONETIME ONE Stop: 08/03/20 19:25 Ondansetron HCl (Ondansetron 4 Mg/2 Ml Sdv) 4 mg IVPUSH ONETIME ONE Stop: 08/03/20 14:53 Last Admin: 08/03/20 16:08 Dose: 4 mg Documented by: Potassium Chloride (Potassium Chloride 20 Meq Tab.Er) 40 meq PO ONETIME ONE Stop: 08/03/20 15:31 Last Admin: 08/03/20 16:08 Dose: 40 meq Documented by: Potassium Chloride (Potassium Chloride 20 Meq Tab.Er) 40 meq PO ONETIME ONE Stop: 08/04/20 07:55 Last Admin: 08/04/20 08:19 Dose: 40 meq Documented by: Sodium Chloride (Sodium Chloride 0.9% 10 Ml Syringe) 10 ml FLUSH ASDIRECTED PRN PRN Reason: Keep Vein Open Sodium Chloride (Sodium Chloride 0.9% 2.5 Ml Syringe) 2.5 ml FLUSH ASDIRECTED PRN PRN Reason: Keep Vein Open
== END 2020-08-04 16:50 | disposition left against medical advice (07) | DRG 894 ==
LOC: MW.ED 14:11 → MW.MS 18:33 → OBSVTOIN 08-04 10:27 → MW.MS 08-04 10:28
PROVIDERS: ADMIT Internal Medicine; ATTEND Internal Medicine
DX: F10.239 Alcohol dependence with withdrawal, unspecified (principal); K85.20 Alcohol induced acute pancreatitis without necrosis or infection; N17.9 Acute kidney failure, unspecified; E87.6 Hypokalemia; R56.9 Unspecified convulsions; K29.70 Gastritis, unspecified, without bleeding; F10.229 Alcohol dependence with intoxication, unspecified; Z20.822 Contact with and (suspected) exposure to COVID-19; R94.5 Abnormal results of liver function studies; F17.200 Nicotine dependence, unspecified, uncomplicated; I10 Essential (primary) hypertension; F41.9 Anxiety disorder, unspecified; E83.42 Hypomagnesemia; Z79.899 Other long term (current) drug therapy
CPT/HCPCS: 36415; 71045; 71045-26; 80048; 80053; 83690; 83735; 84100; 85025; 93005; 93010; 96361; 96365; 96366; 96367; 96372; 96375; 96376; 99284; 99285-25; A9270-GY; C9113; G0378; J2060; J2405; J3411; J3475; J3480; J7030; J7121; U0002

== ENCOUNTER 2020-08-18 19:27 | Observation (INO) | payer MEDICAID ==
[2020-08-18] MEDS ORDERED: Sodium Chloride 0.9% 10 ML Syringe FLUSH PRN (19:41)
[2020-08-18] MEDS ORDERED: Sodium Chloride 0.9% 2.5 ML Syringe FLUSH PRN (19:41)
[2020-08-18] MEDS ORDERED: MVI, Adult with Vitamin K 10 ML, Thiamine 100 MG, Folic Acid 1 MG in Sodium Chloride 0.... IV ONE ×4 (19:43)
--- NOTE | 2020-08-18 19:46 | EDM.PDOC ---
ED HPI GENERAL MEDICAL PROBLEM - General Chief Complaint: General Stated Complaint: FALL Time Seen by Provider: 08/18/20 19:36 - History of Present Illness INITIAL COMMENTS - FREE TEXT/NARRATIVE: History of present illness: [] The family called 911 and told EMS they did not want this patient to come back. He has been in the hospital several times recently while intoxicated. Last time I had him admitted for withdrawal symptoms that were too severe to go home went to check on him 2 days later and he had signed AMA. When I called him he was drunk again. Apparently he has been drinking since. Just prior to that admission had been in an inpatient rehab program and done well for about 2 days afterwards. He is remorseful and not suicidal and not harmful to himself or anyone else. He got drunk enough he fell and injured his left ribs a day or 2 ago. He is oriented x4 but he does not remember exactly when he fell or why. He has bruising over his left ribs. He has no other physical complaint at this time. EMS said he was unresponsive when they first got there but he awakened is a prepared him for transport. Review of systems: As per history of present illness and below otherwise all systems reviewed and negative. Past medical history: As per history of present illness and as reviewed below otherwise noncontributory. Surgical history: As per history of present illness and as reviewed below otherwise n oncontributory. Social history: No reported history of drug or alcohol abuse. Family history: As per history of present illness and as reviewed below otherwise noncontributory. Physical exam: Constitutional - well developed, well-nourished and in no acute distress HEENT - normocephalic, no evidence of trauma - external nose and mouth normal - no mass in neck and no JVD - mucosae moist EYES - full EOM, PERRL, no icterus - no evidence of inflammation, injection, or drainage Respiratory -tenderness and ecchymosis in the anterior axillary line in the lower ribs and in the anterior axillary line bit higher. No obvious crepitation. No respiratory distress, equal bilateral expansion, lungs clear to auscultation and no abnormal lung sounds Cardiovascular - Regular Rhythm with S1 and S2 appreciated and no murmur, gallop or rub. GI - abdomen soft without distension or organomegaly - normal bowel sounds - no guard or rebound Musculoskeletal no gross deformity of long bones or joints - no tenderness, swelling or edema Neurologic -slurred speech. Alert and oriented times four - CN II-XII grossly intact - motor sensory and coordination symmetrically normal Psychiatric -depressed mood mood and normal affect with normal thought content extremely apologetic. Not suicidal. Not intending harm. Says he wants help. Hematologic - No petechiae or purpura except the ecchymosis as above described in the chest exam- mucosa appropriate color and sclera not pale - normal nail bed color and refill Integument - no rash or evidence of trauma other than that examined above.- normal turgor Diagnostics: [] Therapeutics: [] Impression: [] Plan: [] Definitive disposition and diagnosis as appropriate pending reevaluation and review of above. Treatments TAR ROOFER: Reports: IV/IO left rib/abdominal area Pain Score (Numeric/FACES): 10 - Related Data Allergies Allergy/AdvReac Type Severity Reaction Status Date / Time No Known Allergies Allergy Verified 08/03/20 14:27 Home Meds: Home Meds Escitalopram [Lexapro] 20 mg PO DAILY 04/03/20 [History] Folic Acid 1 mg PO DAILY 04/03/20 [History] Labetalol [Normodyne] 200 mg PO BID 04/03/20 [History] Lacosamide [Vimpat] 150 mg PO BID 04/03/20 [History] Naltrexone 50 mg PO DAILY 04/03/20 [History] Venlafaxine [Effexor] 75 mg PO BID 04/03/20 [History] amLODIPine [Norvasc] 10 mg PO DAILY 04/03/20 [History] chlordiazePOXIDE [Librium] 100 mg PO BEDTIME 04/03/20 [History] hydrALAZINE [Apresoline] 50 mg PO BID 04/03/20 [History] Thiamine [Vitamin B-1] 100 mg PO BEDTIME #30 tab 04/09/20 [Rx] Ondansetron [Zofran ODT] 4 mg PO Q6H PRN #10 tab.dis 08/03/20 [Rx] Past Medical History - Past Health History Medical/Surgical History: Denies Medical/Surgical History HEENT History: Reports: None Cardiovascular History: Reports: Hypertension Respiratory History: Reports: None Gastrointestinal History: Reports: None Other Gastrointestinal History: Liver Problem Genitourinary History: Reports: None Musculoskeletal History: Reports: None Neurological History: Reports: None Psychiatric History: Reports: Addiction, Anxiety Other Psychiatric History: Alcohol Addiction Endocrine/Metabolic History: Reports: None Insulin Pump Model and Floriculturist: None Hematologic History: Reports: None Immunologic History: Reports: None Oncologic (Cancer) History: Reports: None Dermatologic History: Reports: None - Infectious Disease History Infectious Disease History: Reports: Chicken Pox - Past Surgical History Head Surgeries/Procedures: Reports: None Cardiovascular Surgical History: Reports: None Social & Family History - Family History Family Medical History: No Pertinent Family History - Caffeine Use Caffeine Use: Reports: None - Recreational Drug Use Recreational Drug Use: No ED ROS GENERAL - Review of Systems Review Of Systems: Comprehensive ROS is negative, except as noted in HPI. ED EXAM, GENERAL - Physical Exam Exam: See Below Free Text/Narrative:: My physical exam is in the HPI Course - Vital Signs Text/Narrative:: 2013 hrs. the patient is talking to people that are not there. He admits he is hallucinating. The x-ray tech said he was starting to pick 5 with the patient in the next cubicle. See orders 2104 hrs. patient too tremulous to open his sandwich but he is hungry and not vomiting. I helped him up with a sandwich and I discussed the case with the hospitalist on-call Dr. Arriaga who agreed that we should reassess him as he progresses a little bit. He is no longer hallucinating. He might be a candidate for admission to the regular floor. 2221 the patient is docile. He ate. He is not hallucinating. Discussed with Dr. Simon and admitted to observation status. Last Recorded V/S: Last Vital Signs Temp 36.7 C 08/18/20 21:22 Pulse 72 08/18/20 22:11 Resp 20 08/18/20 22:11 BP 148/72 H 08/18/20 22:11 Pulse Ox 98 08/18/20 22:11 - Orders/Labs/Meds Orders: Active Orders 24 hr Category Date Time Status Sodium Chloride 0.9% [Saline Flush] Med 08/18/20 19:41 Active 10 ml FLUSH ASDIRECTED PRN Sodium Chloride 0.9% [Saline Flush] Med 08/18/20 19:41 Active 2.5 ml FLUSH ASDIRECTED PRN Saline Lock Insert [OM.PC] Stat Oth 08/18/20 19:41 Ordered Medication Orders Sodium Chloride (Sodium Chloride 0.9% 10 Ml Syringe) 10 ml FLUSH ASDIRECTED PRN PRN Reason: Keep Vein Open Last Admin: 08/18/20 20:27 Dose: 10 ml Documented by: NIRMALA Sodium Chloride (Sodium Chloride 0.9% 2.5 Ml Syringe) 2.5 ml FLUSH ASDIRECTED PRN PRN Reason: Keep Vein Open Last Admin: 08/18/20 20:27 Dose: 2.5 ml Documented by: NIRMALA Labs: Laboratory Tests 08/18/20 08/18/20 08/18/20 Range/Units 19:57 19:57 19:57 WBC 4.86 (4.0-11.0) K/uL RBC 3.87 L (4.50-5.90) M/uL Hgb 13.1 (13.0-17.0) g/dL Hct 36.9 L (38.0-50.0) % MCV 95.3 (80.0-98.0) fL MCH 33.9 H (27.0-32.0) pg MCHC 35.5 (31.0-37.0) g/dL RDW Std Deviation 54.0 (28.0-62.0) fl RDW Coeff of [place] 16 H (11.0-15.0) % Plt Count 80 L (150-400) K/uL MPV 10.20 (7.40-12.00) fL Neut % (Auto) 61.8 (48.0-80.0) % Lymph % (Auto) 28.0 (16.0-40.0) % [place] % (Auto) 8.4 (0.0-15.0) % Eos % (Auto) 0.4 (0.0-7.0) % Baso % (Auto) 1.4 (0.0-1.5) % Neut # (Auto) 3.0 (1.4-5.7) K/uL Lymph # (Auto) 1.4 (0.6-2.4) K/uL [place] # (Auto) 0.4 (0.0-0.8) K/uL Eos # (Auto) 0.0 (0.0-0.7) K/uL Baso # (Auto) 0.1 (0.0-0.1) K/uL Nucleated RBC % 0.0 /100WBC Nucleated RBCs # 0 K/uL INR 1.03 APTT 22.4 (18.6-31.3) SEC Sodium 149 H (136-148) mmol/L Potassium 3.6 (3.5-5.1) mmol/L Chloride 110 H (98-107) mmol/L Carbon Dioxide 25.3 (21.0-32.0) mmol/L BUN 7 (7.0-18.0) mg/dL Creatinine 0.8 (0.8-1.3) mg/dL Est Cr Clr Drug Dosing TNP Estimated GFR (MDRD) > 60.0 ml/min Glucose 104 (74-106) mg/dL Calcium 7.7 L (8.5-10.1) mg/dL Magnesium 1.5 L (1.8-2.4) mg/dL Total Bilirubin 0.4 (0.2-1.0) mg/dL AST 178 H (15-37) IU/L ALT 150 H (14-63) IU/L Alkaline Phosphatase 105 (46-116) U/L Total Protein 6.7 (6.4-8.2) g/dL Albumin 3.4 (3.4-5.0) g/dL Globulin 3.3 (2.6-4.0) g/dL Albumin/Globulin Ratio 1.0 (0.9-1.6) Lipase 1070 H (73-393) U/L Ethyl Alcohol 541 mg/dL SARS-CoV-2 RNA (PEMA) (NEGATIVE) 08/18/20 Range/Units 21:11 WBC (4.0-11.0) K/uL RBC (4.50-5.90) M/uL Hgb (13.0-17.0) g/dL Hct (38.0-50.0) % MCV (80.0-98.0) fL MCH (27.0-32.0) pg MCHC (31.0-37.0) g/dL RDW Std Deviation (28.0-62.0) fl RDW Coeff of [place] (11.0-15.0) % Plt Count (150-400) K/uL MPV (7.40-12.00) fL Neut % (Auto) (48.0-80.0) % Lymph % (Auto) (16.0-40.0) % [place] % (Auto) (0.0-15.0) % Eos % (Auto) (0.0-7.0) % Baso % (Auto) (0.0-1.5) % Neut # (Auto) (1.4-5.7) K/uL Lymph # (Auto) (0.6-2.4) K/uL [place] # (Auto) (0.0-0.8) K/uL Eos # (Auto) (0.0-0.7) K/uL Baso # (Auto) (0.0-0.1) K/uL Nucleated RBC % /100WBC Nucleated RBCs # K/uL INR APTT (18.6-31.3) SEC Sodium (136-148) mmol/L Potassium (3.5-5.1) mmol/L Chloride (98-107) mmol/L Carbon Dioxide (21.0-32.0) mmol/L BUN (7.0-18.0) mg/dL Creatinine (0.8-1.3) mg/dL Est Cr Clr Drug Dosing Estimated GFR (MDRD) ml/min Glucose (74-106) mg/dL Calcium (8.5-10.1) mg/dL Magnesium (1.8-2.4) mg/dL Total Bilirubin (0.2-1.0) mg/dL AST (15-37) IU/L ALT (14-63) IU/L Alkaline Phosphatase (46-116) U/L Total Protein (6.4-8.2) g/dL Albumin (3.4-5.0) g/dL Globulin (2.6-4.0) g/dL Albumin/Globulin Ratio (0.9-1.6) Lipase (73-393) U/L Ethyl Alcohol mg/dL SARS-CoV-2 RNA (PEMA) NEGATIVE (NEGATIVE) Meds: Medications Generic Name Dose Route Start Last Admin Trade Name Freq PRN Reason Stop Dose Admin Sodium Chloride 10 ml 08/18/20 19:41 08/18/20 20:27 Sodium Chloride 0.9% 10 Ml Syringe FLUSH 10 ml ASDIRECTED PRN Administration Keep Vein Open Sodium Chloride 2.5 ml 08/18/20 19:41 08/18/20 20:27 Sodium Chloride 0.9% 2.5 Ml Syringe FLUSH 2.5 ml ASDIRECTED PRN Administration Keep Vein Open Discontinued Medications Generic Name Dose Route Start Last Admin Trade Name Freq PRN Reason Stop Dose Admin Chlordiazepoxide HCl 25 mg 08/18/20 20:13 08/18/20 20:27 Chlordiazepoxide 25 Mg Cap PO 08/18/20 20:14 25 mg ONETIME ONE Administration Multivitamins/Minerals 10 ml/ 1,011.2 mls @ 1,000 mls/hr 08/18/20 19:43 08/18/20 20:27 Thiamine HCl 100 mg/ Folic IV 08/18/20 20:43 1,000 mls/hr Acid 1 mg/ Sodium Chloride ONETIME ONE Administration Lorazepam 2 mg 08/18/20 20:13 08/18/20 20:23 Lorazepam 2 Mg/Ml Sdv IVPUSH 08/18/20 20:14 2 mg ONETIME ONE Administration Departure - Departure Time of Disposition: 22:25 Disposition: Home, Self-Care 01 Condition: Good Clinical Impression: Alcohol intoxication, Alcohol hallucinosis - Discharge Information Referrals: PCP,None [Primary Care Provider] - Forms: ED Department Discharge Sepsis Event Note (ED) - Evaluation Sepsis Screening Result: No Definite Risk - Focused Exam Vital Signs: Vital Signs Temp Pulse Resp BP Pulse Ox 08/18/20 22:11 72 20 148/72 H 98 08/18/20 21:22 36.7 C 92 18 137/68 98 08/18/20 20:33 36.7 C 78 20 144/99 H 98 08/18/20 19:30 37.1 C 102 H 18 144/112 H 97 - My Orders Last 24 Hours: My Active Orders 08/18/20 19:41 Sodium Chloride 0.9% [Saline Flush] 10 ml FLUSH ASDIRECTED PRN Sodium Chloride 0.9% [Saline Flush] 2.5 ml FLUSH ASDIRECTED PRN Saline Lock Insert [OM.PC] Stat - Assessment/Plan Last 24 Hours: My Active Orders 08/18/20 19:41 Sodium Chloride 0.9% [Saline Flush] 10 ml FLUSH ASDIRECTED PRN Sodium Chloride 0.9% [Saline Flush] 2.5 ml FLUSH ASDIRECTED PRN Saline Lock Insert [OM.PC] Stat
[2020-08-18] MEDS ORDERED: chlordiazePOXIDE 25 MG Cap PO ONE (20:13)
[2020-08-18] MEDS ORDERED: LORazepam 2 MG/ML SDV IVPUSH ONE (20:13)
[2020-08-18 20:33] LABS: BLOOD UREA NITROGEN,BUN 7 mg/dL (7.0-18.0); CARBON DIOXIDE,CO2 25.3 mmol/L (21.0-32.0); CHLORIDE,CL 110 mmol/L (98-107); GLUCOSE RANDOM 104 mg/dL (74-106); LIPASE 1070 U/L (73-393); POTASSIUM,K 3.6 mmol/L (3.5-5.1); SODIUM,NA 149 mmol/L (136-148)
--- NOTE | 2020-08-18 20:53 | CR ---
INDICATION: Possible left rib fracture. COMPARISON: 08/04/2020 chest radiograph. FINDINGS/IMPRESSION: There is a questionable nondisplaced fracture of the posterolateral left 9th rib. Clinical correlation for point tenderness here is suggested. No other fractures noted. Lungs are clear. No pleural effusions or pneumothorax. Normal heart size. Dictated by Greg Cary MD @ 08/18/2020 8:51:39 PM Dictated by: Greg Cary MD @ 08/18/2020 20:51:56 (Electronically Signed)
[2020-08-18] MEDS ORDERED: Dextrose 5%-Lactated Ringers 1,000 ML IV SCH (22:45)
[2020-08-18] MEDS ORDERED: Ondansetron 4 MG/2 ML SDV IVPUSH PRN (22:49)
[2020-08-18] MEDS ORDERED: Albuterol/Ipratropium 3.0-0.5 MG/3 ML Neb Soln NEB PRN (22:49)
[2020-08-18] MEDS ORDERED: LORazepam 2 MG/ML SDV IVPUSH PRN (22:52)
[2020-08-18] MEDS ORDERED: Magnesium Sulfate/Water 2 GM in Premix Bag 1 BAG IV ONE (22:53)
[2020-08-18] MEDS ORDERED: Lactated Ringers 1,000 ML IV SCH (23:00)
--- NOTE | 2020-08-18 23:16 | PCM.SN.2 ---
- Free Text/Narrative Note: Supplemental instructions because he decided to leave before he was transferred to the floor. I plan to admit. He will be given the following. [facility] - Primary Care [address] [place] [address] [facility] [address] [place] [address] [facility] Address: [address] [place] [id number] Hours: walk in 9 AM M-F The following information is given to patients seen in the emergency department who are being discharged to home. This information is to outline your options for follow-up care. We provide all patients seen in our emergency department with a follow-up referral. The need for follow-up, as well as the timing and circumstances, are variable depending upon the specifics of your emergency department visit. If you don't have a primary care physician on staff, we will provide you with a referral. We always advise you to contact your personal physician following an emergency department visit to inform them of the circumstance of the visit and for follow-up with them and/or the need for any referrals to a consulting specialist. The emergency department will also refer you to a specialist when appropriate. This referral assures that you have the opportunity for follow-up care with a specialist. All of these measure are taken in an effort to provide you with optimal care, which includes your follow-up. Under all circumstances we always encourage you to contact your private physician who remains a resource for coordinating your care. When calling for follow-up care, please make the office aware that this follow-up is from your recent emergency room visit. If for any reason you are refused follow-up, please contact the [facility] Emergency Department at and asked to speak to the emergency department charge nurse.
[2020-08-18 23:45] VITALS: BP 120/73; PULSE 78
[2020-08-19] MEDS ORDERED: Folic Acid 50 MG/10 ML MDV IV SCH (09:00)
[2020-08-19] MEDS ORDERED: Thiamine 100 MG in Sodium Chloride 0.9% 100 ML IV SCH (09:00)
== END 2020-08-18 23:41 | disposition left against medical advice (07) ==
LOC: MW.ED 19:27 → MW.ICU 22:23
PROVIDERS: ADMIT Student in an Organized Health Care Education/Training Program; ATTEND Student in an Organized Health Care Education/Training Program
DX: S22.32XA Fracture of one rib, left side, initial encounter for closed fracture (principal); F10.129 Alcohol abuse with intoxication, unspecified; I10 Essential (primary) hypertension; Z79.899 Other long term (current) drug therapy; W19.XXXA Unspecified fall, initial encounter
CPT/HCPCS: 36415; 71045; 71045-26; 80053; 80307; 83690; 83735; 85025; 85610; 85730; 96365; 96366; 96375; 99284; 99284-25; A9270-GY; J2060; J3411; J7030; J7121; U0002

== ENCOUNTER 2020-08-27 12:09 | Emergency (ER) | payer MEDICAID ==
[2020-08-27 12:34] VITALS: BP 134/84; PULSE 112
--- NOTE | 2020-08-27 13:26 | EDM.PDOC ---
ED HPI GENERAL MEDICAL PROBLEM - General Chief Complaint: Drug or Alcohol Abuse Stated Complaint: LEFT SIDE RIB PAIN Time Seen by Provider: 08/27/20 12:31 - History of Present Illness INITIAL COMMENTS - FREE TEXT/NARRATIVE: CHIEF COMPLAINT(S): "I would like to go into alcohol detox." HISTORY OF PRESENT ILLNESS: This is a 39-year-old man with a past medical history of alcohol use disorder and prior history of alcohol withdraw and multiple admissions for alcohol detox who comes to the emergency department with a chief complaint of "I would like to go into alcohol detox." The patient was brought in by police as there was a welfare call for the patient. Upon arrival the patient was with his mother and they were concerned because of his continued alcohol abuse. He is currently requesting to go into alcohol detox. He denies any headache, nausea, vomiting, chest pain, shortness of breath, abdominal pain. He denies any numbness, tingling, weakness. He states that his last drink was this morning and was a whole cup of wine. He states that he normally drinks half a gallon of hard liquor. He denies any other symptoms. REVIEW OF SYSTEMS: Constitutional: Denies fever, chills. Eyes: Denies eye pain Ears, Nose, Mouth, & Throat: Denies earache Cardiovascular: Denies chest pain Respiratory: Denies shortness of breath Gastrointestinal: Denies Nausea, vomiting, diarrhea, hematochezia. Genitourinary: Denies hematuria Skin:Denies a rash MSK: Denies joint pain Neurological: Denies blurred vision Psychiatric: Denies depression PAST MEDICAL HISTORY: As per history of present illness and as reviewed below otherwise noncontributory. SURGICAL HISTORY: As per history of present illness and as reviewed below otherwise noncontributory. SOCIAL HISTORY: As per history of present illness and as reviewed below ot erwise noncontributory. FAMILY HISTORY: As per history of present illness and as reviewed below otherwise noncontributory. EXAMINATION OF ORGAN SYSTEMS/BODY AREAS: Constitutional: Blood pressure is 134/84, heart rate 112, respiratory rate 18 with an oxygen saturation 95% on room air. Temperature 36.8 General: Overall well-appearing man who is in no acute distress. Patient does smell of alcohol. Psychiatric: Appropriate mood and affect. Eyes: No scleral icterus or conjunctival erythema horizontal nystagmus which is fatigable. ENMT: Moist mucous membranes. No pharyngeal erythema no tongue fasciculations. Cardiovascular: Tachycardic but regular no gallops, murmurs, or rubs. Bilateral upper extremity pulses symmetric and intact. No peripheral edema. No JVD. Respiratory: Lungs clear to auscultation bilaterally. No wheezes, rales, or rhonchi. Gastrointestinal: Soft, non-tender, non-distended. Normoactive bowel sounds Genitourinary: No suprapubic tenderness Musculoskeletal: Normal range of motion. Mild hand tremors with hands extended. Skin: No lesions or abrasions. Neurological: Alert, GCS 15 MEDICAL DECISION MAKING AND COURSE IN THE ED WITH INTERPRETATION/REVIEW OF DI AGNOSTIC STUDIES: This is a 39-year-old man with a past medical history of alcohol use disorder who comes to the emergency department with request for alcohol detox program at [facility] at the chemical dependency unit. At this time the patient is mildly tachycardic however has no other signs of alcohol withdrawal. His last drink was this morning therefore I do feel that alcohol withdrawal at this time is unlikely. At this time I did contact [facility] in [place] and spoke with Dr. Craig and the CDU as they do have available beds. They did accept the transfer. Patient will be transferred via ambulance. I do not believe any further work-up is indicated. DISPOSITION: Patient was transferred to [facility] in stable condition CONDITION: Fair PROCEDURES: None FINAL IMPRESSION(S)/DIAGNOSES: 1. Acute alcohol intoxication 2. Request for alcohol detox Meng Sam M.D. left ribs Pain Score (Numeric/FACES): 9 - Related Data Allergies Allergy/AdvReac Type Severity Reaction Status Date / Time No Known Allergies Allergy Verified 08/27/20 12:31 Home Meds: Home Meds Escitalopram [Lexapro] 20 mg PO DAILY 04/03/20 [History] Folic Acid 1 mg PO DAILY 04/03/20 [History] Labetalol [Normodyne] 200 mg PO BID 04/03/20 [History] Lacosamide [Vimpat] 150 mg PO BID 04/03/20 [History] Naltrexone 50 mg PO DAILY 04/03/20 [History] Venlafaxine [Effexor] 75 mg PO BID 04/03/20 [History] amLODIPine [Norvasc] 10 mg PO DAILY 04/03/20 [History] chlordiazePOXIDE [Librium] 100 mg PO BEDTIME 04/03/20 [History] hydrALAZINE [Apresoline] 50 mg PO BID 04/03/20 [History] Thiamine [Vitamin B-1] 100 mg PO BEDTIME #30 tab 04/09/20 [Rx] Ondansetron [Zofran ODT] 4 mg PO Q6H PRN #10 tab.dis 08/03/20 [Rx] Past Medical History - Past Health History Medical/Surgical History: Denies Medical/Surgical History HEENT History: Reports: None Cardiovascular History: Reports: Hypertension Respiratory History: Reports: None Gastrointestinal History: Reports: None Other Gastrointestinal History: Liver Problem Genitourinary History: Reports: None Musculoskeletal History: Reports: None Neurological History: Reports: None Psychiatric History: Reports: Addiction, Anxiety Other Psychiatric History: Alcohol Addiction Endocrine/Metabolic History: Reports: None Insulin Pump Model and Urology Physician: None Hematologic History: Reports: None Immunologic History: Reports: None Oncologic (Cancer) History: Reports: None Dermatologic History: Reports: None - Infectious Disease History Infectious Disease History: Reports: Chicken Pox - Past Surgical History Head Surgeries/Procedures: Reports: None Cardiovascular Surgical History: Reports: None Social & Family History - Family History Family Medical History: No Pertinent Family History - Caffeine Use Caffeine Use: Reports: None - Recreational Drug Use Recreational Drug Use: No ED ROS GENERAL - Review of Systems Review Of Systems: See Below ED EXAM, GENERAL - Physical Exam Exam: See Below Course - Vital Signs Last Recorded V/S: Last Vital Signs Temp 36.8 C 08/27/20 12:31 Pulse 112 H 08/27/20 12:31 Resp BP 134/84 08/27/20 12:31 Pulse Ox 95 08/27/20 12:31 Departure - Departure Time of Disposition: 13:25 Disposition: DC/Tfer to Acute Hospital 02 Condition: Fair Clinical Impression: Alcohol abuse - Discharge Information Instructions: Alcohol Use Disorder Referrals: Stanton Shultz MD [Primary Care Provider] - Sepsis Event Note (ED) - Evaluation Sepsis Screening Result: No Definite Risk - Focused Exam Vital Signs: Vital Signs Temp Pulse BP Pulse Ox 08/27/20 12:31 36.8 C 112 H 134/84 95
== END 2020-08-27 15:00 ==
LOC: MW.ED 12:09
DX: F10.129 Alcohol abuse with intoxication, unspecified (principal); I10 Essential (primary) hypertension
CPT/HCPCS: 99284

== ENCOUNTER 2020-10-23 15:43 | Emergency (ER) | payer MEDICAID ==
--- NOTE | 2020-10-23 17:08 | EDM.PDOC ---
ED HPI GENERAL MEDICAL PROBLEM - General Chief Complaint: Drug or Alcohol Abuse Stated Complaint: THROWING UP/ALCOHOL Time Seen by Provider: 10/23/20 16:00 Source of Information: Reports: Patient History Limitations: Reports: No Limitations - History of Present Illness INITIAL COMMENTS - FREE TEXT/NARRATIVE: HISTORY AND PHYSICAL: History of present illness: Patient is a 40-year-old male who presents emergency room today with concern for desire for alcohol detox. Patient does have a history of alcohol use disorder and states he has had alcohol withdrawal and has been admitted for alcohol detox in the past. Patient states he has no chief complaints other than "I would like to go into alcohol detox ". Patient states that his alcohol of choice is vodka and states that he drinks about half a gallon of vodka daily. Patient states his last drink was just before coming to the emergency room. Patient does state that he does rely heavily on alcohol and states that when he goes to bed at night and wakes up in the morning, he typically wakes up in withdrawal and does have episodes of nausea and vomiting and shaking until he begins to drink again. Patient denies fever, chills, chest pain, shortness of breath, or cough. Denies headache, neck stiff ness, change in vision, syncope, or near syncope. Denies nausea, vomiting, abdominal pain, diarrhea, constipation, or dysuria. Has not noted any blood in urine or stool. Patient has been eating and drinking appropriately. Review of systems: As per history of present illness and below otherwise all systems reviewed and negative. Past medical history: As per history of present illness and as reviewed below otherwise noncontributory. Surgical history: As per history of present illness and as reviewed below otherwise noncontributory. Social history: See social history for further information Family history: As per history of present illness and as reviewed below otherwise noncontributory. Physical exam: General: Patient is alert, oriented, and in no acute distress. Patient sitting comfortably on exam table. Vitals stable and reviewed by me HEENT: Atraumatic, normocephalic, pupils equal and reactive bilaterally, negative for conjunctival pallor or scleral icterus, mucous membranes moist, TMs normal bilaterally, throat clear, neck supple, nontender, trachea midline. No drooling or trismus noted. No meningeal signs. No hot potato voice noted. Lungs: Clear to auscultation, breath sounds equal bilaterally, chest nontender. Heart: S1S2, regular rate and rhythm without overt murmur Abdomen: Soft, nondistended, nontender. Negative for masses or hepatosplenomegaly. Negative for costovertebral tenderness. Pelvis: Stable nontender. Genitourinary: Deferred. Rectal: Deferred. Skin: Intact, warm, dry. No lesions or rashes noted. Extremities: Atraumatic, negative for cords or calf pain. Neurovascular unremarkable. Neuro: Awake, alert, oriented. Cranial nerves II through XII unremarkable. Cerebellum unremarkable. Motor and sensory unremarkable throughout. Exam nonfocal. Notes: I did call and speak to [facility] in [place] and spoke to the ER provider, Dr. Dumont, and thoroughly discussed patient's case. Due to status of their beds, they do not have any availability for medical detox for patient. I did discuss this with patient and he does not desire to go any further for detox centers requesting to discharge to home. Strict return precautions thoroughly discussed with patient. Discussed importance for follow-up with a primary care provider and patient provided with multiple outpatient addiction program resources. Voices understanding and is agreeable to plan of care. Denies any further questions or concerns at this time. Diagnostics: None Therapeutics: None Prescription: None Impression: Desire/Request for alcohol detox Plan: 1. I encourage you to call one of the above addiction centers to seek treatment as discussed. 2. Follow-up with a primary care provider as discussed. Return to the ED as needed and as discussed. Definitive disposition and diagnosis as appropriate pending reevaluation and review of above. - Related Data Allergies Allergy/AdvReac Type Severity Reaction Status Date / Time No Known Allergies Allergy Verified 10/23/20 16:18 Home Meds: Home Meds Escitalopram [Lexapro] 20 mg PO DAILY 04/03/20 [History] Folic Acid 1 mg PO DAILY 04/03/20 [History] Labetalol [Normodyne] 200 mg PO BID 04/03/20 [History] Lacosamide [Vimpat] 150 mg PO BID 04/03/20 [History] Naltrexone 50 mg PO DAILY 04/03/20 [History] Venlafaxine [Effexor] 75 mg PO BID 04/03/20 [History] amLODIPine [Norvasc] 10 mg PO DAILY 04/03/20 [History] chlordiazePOXIDE [Librium] 100 mg PO BEDTIME 04/03/20 [History] hydrALAZINE [Apresoline] 50 mg PO BID 04/03/20 [History] Thiamine [Vitamin B-1] 100 mg PO BEDTIME #30 tab 04/09/20 [Rx] Ondansetron [Zofran ODT] 4 mg PO Q6H PRN #10 tab.dis 08/03/20 [Rx] Past Medical History - Past Health History Medical/Surgical History: Denies Medical/Surgical History HEENT History: Reports: None Cardiovascular History: Reports: Hypertension Respiratory History: Reports: None Gastrointestinal History: Reports: None Other Gastrointestinal History: Liver Problem Genitourinary History: Reports: None Musculoskeletal History: Reports: None Neurological History: Reports: None Psychiatric History: Reports: Addiction, Anxiety Other Psychiatric History: Alcohol Addiction Endocrine/Metabolic History: Reports: None Insulin Pump Model and Print Producer: None Hematologic History: Reports: None Immunologic History: Reports: None Oncologic (Cancer) History: Reports: None Dermatologic History: Reports: None - Infectious Disease History Infectious Disease History: Reports: Chicken Pox - Past Surgical History Head Surgeries/Procedures: Reports: None Cardiovascular Surgical History: Reports: None Social & Family History - Family History Family Medical History: No Pertinent Family History - Caffeine Use Caffeine Use: Reports: None - Recreational Drug Use Recreational Drug Use: No ED ROS GENERAL - Review of Systems Review Of Systems: Comprehensive ROS is negative, except as noted in HPI. ED EXAM, GENERAL - Physical Exam Exam: See Below (see dictation) Course - Vital Signs Last Recorded V/S: Last Vital Signs Temp 97 F 10/23/20 16:18 Pulse 92 10/23/20 18:37 Resp 20 10/23/20 18:37 BP 151/111 H 10/23/20 18:37 Pulse Ox 97 10/23/20 18:37 Departure - Departure Time of Disposition: 17:07 Disposition: Home, Self-Care 01 Clinical Impression: Desire for detoxification - Discharge Information Instructions: Alcohol Use Disorder Referrals: Stanton Shultz MD [Primary Care Provider] - Forms: ED Department Discharge Additional Instructions: The following information is given to patients seen in the emergency department who are being discharged to home. This information is to outline your options for follow-up care. We provide all patients seen in our emergency department with a follow-up referral. The need for follow-up, as well as the timing and circumstances, are variable depending upon the specifics of your emergency department visit. If you don't have a primary care physician on staff, we will provide you with a referral. We always advise you to contact your personal physician following an emergency department visit to inform them of the circumstance of the visit and for follow-up with them and/or the need for any referrals to a consulting specialist. The emergency department will also refer you to a specialist when appropriate. This referral assures that you have the opportunity for follow-up care with a specialist. All of these measure are taken in an effort to provide you with optimal care, which includes your follow-up. Under all circumstances we always encourage you to contact your private physician who remains a resource for coordinating your care. When calling for follow-up care, please make the office aware that this follow-up is from your recent emergency room visit. If for any reason you are refused follow-up, please contact the [facility] Emergency Department at and asked to speak to the emergency department charge nurse. [facility] Primary [facility] [address] [place] [id number] [facility] [address] [place] [id number] [facility] [address], [place] [facility] [place] [address] [place], [place] [facility] [place] [address] [place] [address] [facility] Partial Hospitalization Program [address] [address] [facility] [address] [facility] [address] 1. I encourage you to call one of the above addiction centers to seek treatment as discussed. 2. Follow-up with a primary care provider as discussed. Return to the ED as needed and as discussed. Sepsis Event Note (ED) - Focused Exam Vital Signs: Vital Signs Temp Pulse Resp BP Pulse Ox 10/23/20 18:37 92 20 151/111 H 97 10/23/20 17:41 82 18 145/108 H 97 10/23/20 16:18 97 F 100 20 176/138 H 97
[2020-10-23 18:38] VITALS: BP 151/111; PULSE 92
== END 2020-10-23 18:50 | disposition home or self-care (01) ==
LOC: MW.ED 15:43
DX: F10.239 Alcohol dependence with withdrawal, unspecified (principal); I10 Essential (primary) hypertension; Z79.899 Other long term (current) drug therapy
CPT/HCPCS: 99284

== ENCOUNTER 2020-10-24 11:36 | Inpatient (IN) | payer MEDICAID ==
[2020-10-24] MEDS ORDERED: MVI, Adult with Vitamin K 10 ML, Thiamine 100 MG, Folic Acid 1 MG in Sodium Chloride 0.... IV ONE ×4 (11:50)
[2020-10-24] MEDS ORDERED: Sodium Chloride 0.9% 1,000 ML IV ONE ×2 (11:52→13:34)
--- NOTE | 2020-10-24 11:53 | EDM.PDOCBH ---
ED HPI GENERAL MEDICAL PROBLEM - General Chief Complaint: Drug or Alcohol Abuse Stated Complaint: ALCOHOL WITHDRAWL Time Seen by Provider: 10/24/20 11:40 Source of Information: Reports: Patient History Limitations: Reports: No Limitations - History of Present Illness INITIAL COMMENTS - FREE TEXT/NARRATIVE: HISTORY AND PHYSICAL: History of present illness: Patient is a 40-year-old male who presents to the emergency room requesting alcohol detox treatment. Patient has a longstanding history of alcohol abuse and has attended multiple in and outpatient alcohol treatment programs. He typically drinks a half a gallon of vodka per day. Patient was seen in our emergency room yesterday, was intoxicated at the time, requesting placement for treatment. The provider had called multiple facilities, all were at capacity. Patient was discharged to home with the instruction to abstain from alcohol and return if he started to have any withdrawal symptoms. He states his last al coholic drink was yesterday afternoon. He currently feels tremulous, nauseated and having "dry heaves but nothing comes up". States he has not ate or drank anything other than alcohol in the past 1 week. Patient denies any fever, chills, headache, change in vision, syncope or near syncope. Denies any chest pain, back pain, shortness of breath or cough. Denies any abdominal pain, diarrhea, constipation or dysuria. Has not noted any blood in urine or stool. Denies any recent falls, injury or trauma. Review of systems: As per history of present illness and below otherwise all systems reviewed and negative. Past medical history: As per history of present illness and as reviewed below otherwise noncontributory. Surgical history: As per history of present illness and as reviewed below otherwise noncontributory. Social history: See social history for further information Family history: As per history of present illness and as reviewed below otherwise noncontributory. Physical exam: General: Well developed and well nourished 40-year-old male. Alert and orientated x 3. Nontoxic in appearance and in no acute distress. Vital signs are stable and have been reviewed by me. Nursing notes were reviewed. HEENT: Atraumatic, normocephalic, pupils equal and reactive bilaterally, negative for conjunctival pallor or scleral icterus, mucous membranes moist, trachea midline. No drooling or trismus noted. No meningeal signs. No hot potato voice noted. Lungs: Clear to auscultation bilaterally. No wheezes, rales, or rhonchi. Chest nontender. Normal work of breathing, no accessory muscles used. Heart: S1S2, regular rate and rhythm without overt murmur, gallops, or rubs. No JVD. No peripheral edema Abdomen: Soft, nondistended, nontender. Normoactive bowel sounds. Negative for masses or costovertebral tenderness. Pelvis: Stable nontender. Skin: Intact, warm, dry. No lesions or rashes noted. Hematologic: No petechiae or purpra. Mucosa appropriate color and normal nail bed color and refill. Extremities: Atraumatic, moves all extremities per self without difficulty or deficits, negative for cords or calf pain. SEE CIWA (tremors noted with extending arms out). Neurovascular unremarkable. Neuro: Awake, alert, oriented. Cranial nerves II through XII unremarkable. Cerebellum unremarkable. Motor and sensory unremarkable throughout. Exam nonfocal. Psychiatric: Mood and affect are appropriate. Normal thought process. Answering questions appropriately. Notes: *This patient was seen and evaluated during the 2019 SARS-CoV-2 novel coronavirus pandemic period. Community viral transmission is ongoing at time of this encounter and the emergency department is operating under pandemic response procedures. After reviewing the patient's previous admissions and talking with the patient himself, it appears he has been admitted several times to our facility, [facility] for alcohol treatment program/detox. Patient is aware of the limitations of our facility and due to bed capacity at other facilities he may not get "full alcohol treatment" if he is admitted here. His initial CIWA is 15, will give him some Ativan to help with his symptoms. EKG shows sinus rhythm with rate of 98, no ST concerns. Patient's potassium is 3.1, lipase is elevated at 3192, ETOH is 19. Patient states he does feel somewhat improved after the fluids and medication although he does appear slightly tremulous at this time. I spoke with Dr. Arriaga, hospitalist on-call, about this patient who recommends we perform a CT of the abdomen and pelvis to rule out any further concerns regarding his elevated lipase. CT abd/pelvis shows a few mild distended small bowel loops without discrete transition point. Mild scattered small-bowel wall thickening suggesting nonspecific enteritis. No CT findings of acute pancreatitis. Incidental 2 x 1 cm hyperattenuating focus in the right hepatic lobe. Nonemergent follow-up contrast enhanced MRI is recommended for characterization. Advanced hepatic steatosis. Dr Arriaga was notified of CT results, will admit inpatient with telemetry. I have talked with the patient about today's findings, in addition to providing specific details for plan of care. Reassessment at the time of disposition demonstrates that the patient is in no acute distress. Diagnostics: CBC, CMP, Lipase, UA, Drug Screen, COVID-19, Mag, ETOH Therapeutics: Iv fluids, Ativan Impression: Hypokalemia Pancreatitis Alcohol withdrawal Leukopenia Plan: Inpatient admission with telemetry to Med/Surg Definitive disposition and diagnosis as appropriate pending reevaluation and review of above. Bilateral Leg Pain Score (Numeric/FACES): 5 - Related Data Allergies Allergy/AdvReac Type Severity Reaction Status Date / Time No Known Allergies Allergy Verified 10/23/20 16:18 Home Meds: Home Meds Escitalopram [Lexapro] 20 mg PO DAILY 04/03/20 [History] Folic Acid 1 mg PO DAILY 04/03/20 [History] Labetalol [Normodyne] 200 mg PO BID 04/03/20 [History] Lacosamide [Vimpat] 150 mg PO BID 04/03/20 [History] Naltrexone 50 mg PO DAILY 04/03/20 [History] Venlafaxine [Effexor] 75 mg PO BID 04/03/20 [History] amLODIPine [Norvasc] 10 mg PO DAILY 04/03/20 [History] chlordiazePOXIDE [Librium] 100 mg PO BEDTIME 04/03/20 [History] hydrALAZINE [Apresoline] 50 mg PO BID 04/03/20 [History] Thiamine [Vitamin B-1] 100 mg PO BEDTIME #30 tab 04/09/20 [Rx] Ondansetron [Zofran ODT] 4 mg PO Q6H PRN #10 tab.dis 08/03/20 [Rx] Past Medical History - Past Health History Medical/Surgical History: Denies Medical/Surgical History HEENT History: Reports: None Cardiovascular History: Reports: Hypertension Respiratory History: Reports: None Gastrointestinal History: Reports: None Other Gastrointestinal History: Liver Problem Genitourinary History: Reports: None Musculoskeletal History: Reports: None Neurological History: Reports: None Psychiatric History: Reports: Addiction, Anxiety Other Psychiatric History: Alcohol Addiction Endocrine/Metabolic History: Reports: None Insulin Pump Model and Entry Clerk: None Hematologic History: Reports: None Immunologic History: Reports: None Oncologic (Cancer) History: Reports: None Dermatologic History: Reports: None - Infectious Disease History Infectious Disease History: Reports: Chicken Pox - Past Surgical History Head Surgeries/Procedures: Reports: None Cardiovascular Surgical History: Reports: None Social & Family History - Family History Family Medical History: No Pertinent Family History - Caffeine Use Caffeine Use: Reports: None ED ROS GENERAL - Review of Systems Review Of Systems: Comprehensive ROS is negative, except as noted in HPI. ED EXAM, BEHAVIORAL HEALTH - Physical Exam Exam: See Below (See dictation) COURSE, BEHAVIORAL HEALTH COMP - Course Vital Signs: Last Vital Signs Temp 97.8 F 10/24/20 11:53 Pulse 102 H 10/24/20 15:39 Resp 18 10/24/20 15:39 BP 146/92 H 10/24/20 15:39 Pulse Ox 96 10/24/20 15:39 Orders, Labs, Meds: Active Orders 24 hr Category Date Time Status Admission Status [Patient Status] [ADT] Stat ADT 10/24/20 16:14 Ordered EKG Documentation Completion [RC] STAT Care 10/24/20 11:50 Active Abdomen Pelvis w Cont [CT] Stat Exams 10/24/20 13:29 Taken DRUG SCREEN, URINE [URCHEM] Stat Lab 10/24/20 15:21 Received Laboratory Tests 10/24/20 10/24/20 10/24/20 Range/Units 12:10 12:10 12:42 WBC 3.00 L (4.0-11.0) K/uL RBC 4.21 L (4.50-5.90) M/uL Hgb 14.3 (13.0-17.0) g/dL Hct 39.0 (38.0-50.0) % MCV 92.6 (80.0-98.0) fL MCH 34.0 H (27.0-32.0) pg MCHC 36.7 (31.0-37.0) g/dL RDW Std Deviation 48.0 (28.0-62.0) fl RDW Coeff of Frederick 14 (11.0-15.0) % Plt Count 77 L (150-400) K/uL MPV 10.30 (7.40-12.00) fL Neut % (Auto) 66.4 (48.0-80.0) % Lymph % (Auto) 17.3 (16.0-40.0) % Anson % (Auto) 15.3 H (0.0-15.0) % Eos % (Auto) 0.3 (0.0-7.0) % Baso % (Auto) 0.7 (0.0-1.5) % Neut # (Auto) 2.0 (1.4-5.7) K/uL Lymph # (Auto) 0.5 L (0.6-2.4) K/uL Anson # (Auto) 0.5 (0.0-0.8) K/uL Eos # (Auto) 0.0 (0.0-0.7) K/uL Baso # (Auto) 0.0 (0.0-0.1) K/uL Nucleated RBC % 0.0 /100WBC Nucleated RBCs # 0 K/uL Sodium 138 (136-148) mmol/L Potassium 3.1 L (3.5-5.1) mmol/L Chloride 97 L (98-107) mmol/L Carbon Dioxide 23.4 (21.0-32.0) mmol/L BUN 10 (7.0-18.0) mg/dL Creatinine 0.8 (0.8-1.3) mg/dL Est Cr Clr Drug Dosing 124.20 mL/min Estimated GFR (MDRD) > 60.0 ml/min Glucose 100 (74-106) mg/dL Calcium 8.7 (8.5-10.1) mg/dL Magnesium 1.0 L (1.8-2.4) mg/dL Total Bilirubin 1.1 H (0.2-1.0) mg/dL AST 64 H (15-37) IU/L ALT 52 (14-63) IU/L Alkaline Phosphatase 132 H (46-116) U/L Total Protein 7.3 (6.4-8.2) g/dL Albumin 3.7 (3.4-5.0) g/dL Globulin 3.6 (2.6-4.0) g/dL Albumin/Globulin Ratio 1.0 (0.9-1.6) Lipase 3192 H (73-393) U/L Urine Color Urine Appearance Urine pH (5.0-8.0) Ur Specific [place] (1.001-1.035) Urine Protein (NEGATIVE) mg/dL Urine Glucose (UA) (NEGATIVE) mg/dL Urine Ketones (NEGATIVE) mg/dL Urine Occult Blood (NEGATIVE) Urine Nitrite (NEGATIVE) Urine Bilirubin (NEGATIVE) Urine Ictotest Urine Urobilinogen (<2.0) EU/dL Ur Leukocyte Esterase (NEGATIVE) Urine RBC (0-2/HPF) Urine WBC (0-5/HPF) Ur Epithelial Cells (NONE-FEW) Urine Bacteria (NEGATIVE) Ethyl Alcohol 19 mg/dL SARS-CoV-2 RNA (PEMA) NEGATIVE (NEGATIVE) 10/24/20 Range/Units 15:21 WBC (4.0-11.0) K/uL RBC (4.50-5.90) M/uL Hgb (13.0-17.0) g/dL Hct (38.0-50.0) % MCV (80.0-98.0) fL MCH (27.0-32.0) pg MCHC (31.0-37.0) g/dL RDW Std Deviation (28.0-62.0) fl RDW Coeff of Frederick (11.0-15.0) % Plt Count (150-400) K/uL MPV (7.40-12.00) fL Neut % (Auto) (48.0-80.0) % Lymph % (Auto) (16.0-40.0) % Anson % (Auto) (0.0-15.0) % Eos % (Auto) (0.0-7.0) % Baso % (Auto) (0.0-1.5) % Neut # (Auto) (1.4-5.7) K/uL Lymph # (Auto) (0.6-2.4) K/uL Anson # (Auto) (0.0-0.8) K/uL Eos # (Auto) (0.0-0.7) K/uL Baso # (Auto) (0.0-0.1) K/uL Nucleated RBC % /100WBC Nucleated RBCs # K/uL Sodium (136-148) mmol/L Potassium (3.5-5.1) mmol/L Chloride (98-107) mmol/L Carbon Dioxide (21.0-32.0) mmol/L BUN (7.0-18.0) mg/dL Creatinine (0.8-1.3) mg/dL Est Cr Clr Drug Dosing mL/min Estimated GFR (MDRD) ml/min Glucose (74-106) mg/dL Calcium (8.5-10.1) mg/dL Magnesium (1.8-2.4) mg/dL Total Bilirubin (0.2-1.0) mg/dL AST (15-37) IU/L ALT (14-63) IU/L Alkaline Phosphatase (46-116) U/L Total Protein (6.4-8.2) g/dL Albumin (3.4-5.0) g/dL Globulin (2.6-4.0) g/dL Albumin/Globulin Ratio (0.9-1.6) Lipase (73-393) U/L Urine Color YELLOW Urine Appearance CLEAR Urine pH 7.5 (5.0-8.0) Ur Specific [place] 1.010 (1.001-1.035) Urine Protein 100 H (NEGATIVE) mg/dL Urine Glucose (UA) NEGATIVE (NEGATIVE) mg/dL Urine Ketones 15 H (NEGATIVE) mg/dL Urine Occult Blood NEGATIVE (NEGATIVE) Urine Nitrite NEGATIVE (NEGATIVE) Urine Bilirubin MODERATE H (NEGATIVE) Urine Ictotest NEGATIVE Urine Urobilinogen 1.0 (<2.0) EU/dL Ur Leukocyte Esterase NEGATIVE (NEGATIVE) Urine RBC 0-2 (0-2/HPF) Urine WBC 0-1 (0-5/HPF) Ur Epithelial Cells RARE (NONE-FEW) Urine Bacteria FEW (NEGATIVE) Ethyl Alcohol mg/dL SARS-CoV-2 RNA (PEMA) (NEGATIVE) Medications Discontinued Medications Generic Name Dose Route Start Last Admin Trade Name Freq PRN Reason Stop Dose Admin Diazepam 10 mg 10/24/20 15:40 10/24/20 15:55 Diazepam 10 Mg/2 Ml Syringe IVPUSH 10/24/20 15:41 10 mg ONETIME ONE Administration Multivitamins/Minerals 10 ml/ 1,011.2 mls @ 999 mls/hr 10/24/20 11:50 10/24/20 12:05 Thiamine HCl 100 mg/ Folic IV 10/24/20 12:50 Not Given Acid 1 mg/ Sodium Chloride ONETIME ONE Sodium Chloride 1,000 mls @ 999 mls/hr 10/24/20 11:52 10/24/20 12:29 Normal Saline IV 10/24/20 12:52 999 mls/hr STAT ONE Administration Sodium Chloride 1,000 mls @ 999 mls/hr 10/24/20 13:34 10/24/20 13:50 Normal Saline IV 10/24/20 14:34 999 mls/hr STAT ONE Administration Iopamidol 100 ml 10/24/20 15:13 10/24/20 15:13 Iopamidol 755 Mg/Ml 500 Ml Multipack Bottle IVPUSH 10/24/20 15:14 100 ml ONETIME ONE Administration Lorazepam 1 mg 10/24/20 12:12 10/24/20 12:28 Lorazepam 2 Mg/Ml Sdv IVPUSH 10/24/20 12:13 1 mg ONETIME ONE Administration Lorazepam 1 mg 10/24/20 13:29 10/24/20 13:58 Lorazepam 2 Mg/Ml Sdv IVPUSH 10/24/20 13:30 1 mg ONETIME ONE Administration Lorazepam 1 mg 10/24/20 15:29 10/24/20 15:36 Lorazepam 2 Mg/Ml Sdv IVPUSH 10/24/20 15:30 1 mg ONETIME ONE Administration Ondansetron HCl 4 mg 10/24/20 15:41 10/24/20 15:47 Ondansetron 4 Mg/2 Ml Sdv IVPUSH 10/24/20 15:42 4 mg ONETIME ONE Administration Potassium Chloride 40 meq 10/24/20 13:07 10/24/20 13:50 Potassium Chloride 20 Meq Tab.Er PO 10/24/20 13:08 40 meq ONETIME ONE Administration Departure - Departure Time of Disposition: 16:17 Disposition: Admitted As Inpatient 64 Clinical Impression: Hypokalemia Leukopenia Qualifiers: Leukopenia type: unspecified Qualified Code(s): D72.819 - Decreased white blood cell count, unspecified Alcohol withdrawal Qualifiers: Complication of substance-induced condition: with unspecified complication Qualified Code(s): F10.239 - Alcohol dependence with withdrawal, unspecified Pancreatitis Qualifiers: Chronicity: acute Pancreatitis type: alcohol induced Acute pancreatitis complication: no infection or necrosis Qualified Code(s): K85.20 - Alcohol induced acute pancreatitis without necrosis or infection - Discharge Information Referrals: Stanton Shultz MD [Primary Care Provider] - Forms: ED Department Discharge Sepsis Event Note (ED) - Focused Exam Vital Signs: Vital Signs Temp Pulse Resp BP Pulse Ox 10/24/20 15:39 102 H 18 146/92 H 96 10/24/20 14:58 116 H 19 157/114 H 98 10/24/20 13:57 93 18 145/87 H 95 10/24/20 12:28 97 18 143/99 H 91 L 10/24/20 11:57 120 H 19 152/120 H 99 10/24/20 11:53 97.8 F 126 H 19 152/120 H 99 - My Orders Last 24 Hours: My Active Orders 10/24/20 11:50 EKG Documentation Completion [RC] STAT 10/24/20 13:29 Abdomen Pelvis w Cont [CT] Stat 10/24/20 15:21 DRUG SCREEN, URINE [URCHEM] Stat 10/24/20 16:14 Admission Status [Patient Status] [ADT] Stat - Assessment/Plan Last 24 Hours: My Active Orders 10/24/20 11:50 EKG Documentation Completion [RC] STAT 10/24/20 13:29 Abdomen Pelvis w Cont [CT] Stat 10/24/20 15:21 DRUG SCREEN, URINE [URCHEM] Stat 10/24/20 16:14 Admission Status [Patient Status] [ADT] Stat
[2020-10-24] MEDS ORDERED: LORazepam 2 MG/ML SDV IVPUSH ONE ×3 (12:12→15:29)
[2020-10-24 12:51] LABS: BLOOD UREA NITROGEN,BUN 10 mg/dL (7.0-18.0); CARBON DIOXIDE,CO2 23.4 mmol/L (21.0-32.0); CHLORIDE,CL 97 mmol/L (98-107); GLUCOSE RANDOM 100 mg/dL (74-106); POTASSIUM,K 3.1 mmol/L (3.5-5.1); SODIUM,NA 138 mmol/L (136-148)
[2020-10-24 13:07] LABS: LIPASE 3192 U/L (73-393)
[2020-10-24] MEDS ORDERED: Potassium Chloride 20 MEQ Tab.ER PO ONE (13:07)
[2020-10-24] MEDS ORDERED: Iopamidol 755 MG/ML 500 ML Multipack Bottle IVPUSH ONE (15:13)
[2020-10-24] MEDS ORDERED: Ondansetron 4 MG/2 ML SDV IVPUSH ONE (15:41)
--- NOTE | 2020-10-24 16:13 | PCM.EKG ---
#1 Interpretation EKG Interpretation Comments: EKG date October 24 1:22 PM EKG: As interpreted by ER physician: Mariza: Nonspecific ST-T wave abnormalities Normal axis No evidence of ST elevation AL Normal sinus rhythm heart rate of 98
--- NOTE | 2020-10-24 16:15 | CT ---
Indication: Pancreatitis, alcohol withdrawals, bilateral lower abdominal pain Technique: Contrast enhanced axial CT imaging through the abdomen and pelvis. 100 mL Isovue 370 contrast agent was administered intravenously. Sagittal and coronal reconstructions are provided. Comparison: None Findings: There is severely decreased attenuation of the liver parenchyma, consistent with advanced steatosis. A 2 x 1 cm hyper attenuating focus is noted in the anterior hepatic lobe. The gallbladder is distended, but without appreciable wall thickening. The pancreas demonstrates normal volume and attenuation without edema. The spleen, adrenal glands, and kidneys are unremarkable. The portal vein, hepatic veins, IVC, and renal veins are patent. The abdominal aorta is normal in caliber. There is no abdominal or pelvic lymphadenopathy. The urinary bladder is unremarkable. The stomach and duodenum are unremarkable. There are a few mildly distended distal small bowel loops, measuring up to 3.5 cm diameter, without discrete transition point. Mild scattered small-bowel wall thickening is also noted involving distal small bowel. The appendix is noninflamed. There is no significant colonic wall thickening. The bones are demineralized. There is chronic wedge compression deformity of L2. Mild anterolisthesis is present at L5-S1, secondary to mass chronic L5 pars interarticularis defects. Impression: 1. A few mild distended small bowel loops without discrete transition point. Mild scattered small-bowel wall thickening suggesting nonspecific enteritis. Correlate clinically. 2. No CT findings of acute pancreatitis. Correlate with pancreatic enzyme levels. 3. Incidental 2 x 1 cm hyperattenuating focus in the right hepatic lobe. Nonemergent follow-up contrast enhanced MRI is recommended for characterization. 4. Advanced hepatic steatosis. Please note that all CT scans at this facility use dose modulation, iterative reconstruction, and/or weight-based dosing when appropriate to reduce radiation dose to as low as reasonably achievable. Dictated by Maged Nguyen MD @ 10/24/2020 4:13:[address] Maged Nguyen @ Oct 24 2020 4:13PM
--- NOTE | 2020-10-24 16:37 | PCM.HP.2 ---
H&P History of Present Illness - General Date of Service: 10/24/20 Admit Problem/Dx: Admission Diagnosis/Problem Admission Diagnosis/Problem Pancreatitis Source of Information: Patient, Old Records History Limitations: Reports: No Limitations - History of Present Illness Initial Comments - Free Text/Narative: This 40-year-old male with past medical history of alcohol abuse multiple admissions for alcohol withdrawal that is complicated by seizure activity presented to the ER today with all of her body shaking and reports he has not drank any alcohol since yesterday. He was previously in the ER yesterday intoxicated requesting placement for treatment but multiple facilities were called and were all at capacity. He was discharged and instructed to abstain from alcohol and return if he has any concerns. Today he returns reporting being significantly tremulous and nauseated with the inability to keep anything down. Reports he has not eaten or drank anything other than alcohol in the past week. He denies any fevers chills headache. He denies any chest pain back pain or shortness of breath. He reports mild lower abdominal pain with black diarrhea black denies any bloody emesis or viviane blood per rectum. No concerns with urination. Denies any recent falls or trauma. Denies any tobacco use and no recreational drug use. In the ER leukopenia noted 3.00 hemoglobin 14.3 hematocrit 39.0.a cytopenia noted at 77,000. Which is around baseline. Sodium 138 potassium low at 3.1 chloride 97. BUN and creatinine 10 and 0.8 respectively. Magnesium significant ly low at 1.0. Bilirubin 1.1 AST 64 ALT 52 alk phos 132. Lipase significantly elevated at 3192. Alcohol level [address] of the abdomen pelvis was obtained secondary to elevated lipase. This revealed few mild distended small bowel loops without discrete transition point. Mild scattered bowel small bowel wall thickening suggesting nonspecific enteritis, no CT findings of acute pancreatitis incidental 2 x 1 cm hyperattenuating focus in the right hepatic lobe patient is aware of this would recommend follow-up imaging with MRI as outpatient. Advanced hepatic steatosis noted. In ER patient treated with 2 L fluid IV bolus. Patient also treated with Ativan 3 mg total along with p.o. potassium. Patient also received 10 mg Valium. Patient will be admitted inpatient secondary to alcohol withdrawal syndrome, hypokalemia and hypomagnesemia. Bilateral Leg Pain Score (Numeric/FACES): 5 - Related Data Allergies/Adverse Reactions: Allergies Allergy/AdvReac Type Severity Reaction Status Date / Time No Known Allergies Allergy Verified 10/23/20 16:18 Home Medications: Home Meds Escitalopram [Lexapro] 20 mg PO DAILY 04/03/20 [History] Folic Acid 1 mg PO DAILY 04/03/20 [History] Labetalol [Normodyne] 200 mg PO BID 04/03/20 [History] Lacosamide [Vimpat] 150 mg PO BID 04/03/20 [History] Naltrexone 50 mg PO DAILY 04/03/20 [History] Venlafaxine [Effexor] 75 mg PO BID 04/03/20 [History] amLODIPine [Norvasc] 10 mg PO DAILY 04/03/20 [History] chlordiazePOXIDE [Librium] 100 mg PO BEDTIME 04/03/20 [History] hydrALAZINE [Apresoline] 50 mg PO BID 04/03/20 [History] Thiamine [Vitamin B-1] 100 mg PO BEDTIME #30 tab 04/09/20 [Rx] Ondansetron [Zofran ODT] 4 mg PO Q6H PRN #10 tab.dis 08/03/20 [Rx] Past Medical History - Past Health History Medical/Surgical History: Denies Medical/Surgical History HEENT History: Reports: None Cardiovascular History: Reports: Hypertension Respiratory History: Reports: None Gastrointestinal History: Reports: None Other Gastrointestinal History: Liver Problem Genitourinary History: Reports: None Musculoskeletal History: Reports: None Neurological History: Reports: None Psychiatric History: Reports: Addiction, Anxiety Other Psychiatric History: Alcohol Addiction Endocrine/Metabolic History: Reports: None Insulin Pump Model and Information Security Director: None Hematologic History: Reports: None Immunologic History: Reports: None Oncologic (Cancer) History: Reports: None Dermatologic History: Reports: None - Infectious Disease History Infectious Disease History: Reports: Chicken Pox - Past Surgical History Head Surgeries/Procedures: Reports: None Cardiovascular Surgical History: Reports: None Social & Family History - Family History Family Medical History: No Pertinent Family History - Caffeine Use Caffeine Use: Reports: None - Recreational Drug Use Recreational Drug Use: No H&P Review of Systems - Review of Systems: Review Of Systems: See Below General: Reports: Malaise, Fatigue, Decreased Appetite HEENT: Reports: No Symptoms. Denies: Headaches, Sore Throat Pulmonary: Reports: No Symptoms. Denies: Shortness of Breath Cardiovascular: Reports: No Symptoms. Denies: Chest Pain Gastrointestinal: Reports: Abdominal Pain (lower abdomen), Black Stool, Diarrhea, Decreased Appetite, Nausea, Vomiting Musculoskeletal: Reports: No Symptoms. Denies: Neck Pain Skin: Reports: No Symptoms Psychiatric: Denies: Hallucinations (Auditory) Neurological: Reports: Tremors, Other (withdrawal symptoms) Hematologic/Lymphatic: Reports: No Symptoms Immunologic: Reports: No Symptoms Exam - Exam Exam: See Below - Vital Signs Vital Signs: Last Vital Signs Temp 97.8 F 10/24/20 11:53 Pulse 102 H 10/24/20 15:39 Resp 18 10/24/20 15:39 BP 146/92 H 10/24/20 15:39 Pulse Ox 96 10/24/20 15:39 Weight: 81.647 kg - Exam Quality Assessment: DVT Prophylaxis (SCDs) General: Alert, Oriented, Cooperative HEENT: Conjunctiva Clear, Mucosa Moist & [place], Pupils Equal, Pupils Reactive Neck: Supple, Trachea Midline Lungs: Clear to Auscultation, Normal Respiratory Effort Cardiovascular: Regular Rhythm, Tachycardia. No: Systolic Murmur GI/Abdominal Exam: Normal Bowel Sounds, Soft, Tender (mild tenderness to lower abdomen), Hepatomegaly. No: No Mass, Rebound Back Exam: Normal Inspection, Full Range of Motion Extremities: Normal Inspection, Non-Tender, No Pedal Edema Skin: Warm, Dry Neurological: Cranial Nerves Intact Neuro Extensive - Motor, Sensory, Reflexes: Ataxia, Other (horizontal nystagmus bilaterally) Psychiatric: Alert, Normal Affect, Normal Mood - Patient Data Lab Results Last 24 hrs: Laboratory Results - last 24 hr 10/24/20 10/24/20 10/24/20 Range/Units 12:10 12:10 12:42 WBC 3.00 L (4.0-11.0) K/uL RBC 4.21 L (4.50-5.90) M/uL Hgb 14.3 (13.0-17.0) g/dL Hct 39.0 (38.0-50.0) % MCV 92.6 (80.0-98.0) fL MCH 34.0 H (27.0-32.0) pg MCHC 36.7 (31.0-37.0) g/dL RDW Std Deviation 48.0 (28.0-62.0) fl RDW Coeff of [place] 14 (11.0-15.0) % Plt Count 77 L (150-400) K/uL MPV 10.30 (7.40-12.00) fL Neut % (Auto) 66.4 (48.0-80.0) % Lymph % (Auto) 17.3 (16.0-40.0) % [place] % (Auto) 15.3 H (0.0-15.0) % Eos % (Auto) 0.3 (0.0-7.0) % Baso % (Auto) 0.7 (0.0-1.5) % Neut # (Auto) 2.0 (1.4-5.7) K/uL Lymph # (Auto) 0.5 L (0.6-2.4) K/uL [place] # (Auto) 0.5 (0.0-0.8) K/uL Eos # (Auto) 0.0 (0.0-0.7) K/uL Baso # (Auto) 0.0 (0.0-0.1) K/uL Nucleated RBC % 0.0 /100WBC Nucleated RBCs # 0 K/uL Sodium 138 (136-148) mmol/L Potassium 3.1 L (3.5-5.1) mmol/L Chloride 97 L (98-107) mmol/L Carbon Dioxide 23.4 (21.0-32.0) mmol/L BUN 10 (7.0-18.0) mg/dL Creatinine 0.8 (0.8-1.3) mg/dL Est Cr Clr Drug Dosing 124.20 mL/min Estimated GFR (MDRD) > 60.0 ml/min Glucose 100 (74-106) mg/dL Calcium 8.7 (8.5-10.1) mg/dL Magnesium 1.0 L (1.8-2.4) mg/dL Total Bilirubin 1.1 H (0.2-1.0) mg/dL AST 64 H (15-37) IU/L ALT 52 (14-63) IU/L Alkaline Phosphatase 132 H (46-116) U/L Total Protein 7.3 (6.4-8.2) g/dL Albumin 3.7 (3.4-5.0) g/dL Globulin 3.6 (2.6-4.0) g/dL Albumin/Globulin Ratio 1.0 (0.9-1.6) Lipase 3192 H (73-393) U/L Urine Color Urine Appearance Urine pH (5.0-8.0) Ur Specific [place] (1.001-1.035) Urine Protein (NEGATIVE) mg/dL Urine Glucose (UA) (NEGATIVE) mg/dL Urine Ketones (NEGATIVE) mg/dL Urine Occult Blood (NEGATIVE) Urine Nitrite (NEGATIVE) Urine Bilirubin (NEGATIVE) Urine Ictotest Urine Urobilinogen (<2.0) EU/dL Ur Leukocyte Esterase (NEGATIVE) Urine RBC (0-2/HPF) Urine WBC (0-5/HPF) Ur Epithelial Cells (NONE-FEW) Urine Bacteria (NEGATIVE) Urine Opiates Screen (NEGATIVE) Ur Oxycodone Screen (NEGATIVE) Urine Methadone Screen (NEGATIVE) Ur Barbiturates Screen (NEGATIVE) Ur Phencyclidine Scrn (NEGATIVE) Ur Amphetamine Screen (NEGATIVE) U Methamphetamines Scrn (NEGATIVE) U Benzodiazepines Scrn (NEGATIVE) U Cocaine Metab Screen (NEGATIVE) U Marijuana (THC) Screen (NEGATIVE) Ethyl Alcohol 19 mg/dL SARS-CoV-2 RNA (PEMA) NEGATIVE (NEGATIVE) 10/24/20 10/24/20 Range/Units 15:21 15:21 WBC (4.0-11.0) K/uL RBC (4.50-5.90) M/uL Hgb (13.0-17.0) g/dL Hct (38.0-50.0) % MCV (80.0-98.0) fL MCH (27.0-32.0) pg MCHC (31.0-37.0) g/dL RDW Std Deviation (28.0-62.0) fl RDW Coeff of [place] (11.0-15.0) % Plt Count (150-400) K/uL MPV (7.40-12.00) fL Neut % (Auto) (48.0-80.0) % Lymph % (Auto) (16.0-40.0) % [place] % (Auto) (0.0-15.0) % Eos % (Auto) (0.0-7.0) % Baso % (Auto) (0.0-1.5) % Neut # (Auto) (1.4-5.7) K/uL Lymph # (Auto) (0.6-2.4) K/uL [place] # (Auto) (0.0-0.8) K/uL Eos # (Auto) (0.0-0.7) K/uL Baso # (Auto) (0.0-0.1) K/uL Nucleated RBC % /100WBC Nucleated RBCs # K/uL Sodium (136-148) mmol/L Potassium (3.5-5.1) mmol/L Chloride (98-107) mmol/L Carbon Dioxide (21.0-32.0) mmol/L BUN (7.0-18.0) mg/dL Creatinine (0.8-1.3) mg/dL Est Cr Clr Drug Dosing mL/min Estimated GFR (MDRD) ml/min Glucose (74-106) mg/dL Calcium (8.5-10.1) mg/dL Magnesium (1.8-2.4) mg/dL Total Bilirubin (0.2-1.0) mg/dL AST (15-37) IU/L ALT (14-63) IU/L Alkaline Phosphatase (46-116) U/L Total Protein (6.4-8.2) g/dL Albumin (3.4-5.0) g/dL Globulin (2.6-4.0) g/dL Albumin/Globulin Ratio (0.9-1.6) Lipase (73-393) U/L Urine Color YELLOW Urine Appearance CLEAR Urine pH 7.5 (5.0-8.0) Ur Specific [place] 1.010 (1.001-1.035) Urine Protein 100 H (NEGATIVE) mg/dL Urine Glucose (UA) NEGATIVE (NEGATIVE) mg/dL Urine Ketones 15 H (NEGATIVE) mg/dL Urine Occult Blood NEGATIVE (NEGATIVE) Urine Nitrite NEGATIVE (NEGATIVE) Urine Bilirubin MODERATE H (NEGATIVE) Urine Ictotest NEGATIVE Urine Urobilinogen 1.0 (<2.0) EU/dL Ur Leukocyte Esterase NEGATIVE (NEGATIVE) Urine RBC 0-2 (0-2/HPF) Urine WBC 0-1 (0-5/HPF) Ur Epithelial Cells RARE (NONE-FEW) Urine Bacteria FEW (NEGATIVE) Urine Opiates Screen NEGATIVE (NEGATIVE) Ur Oxycodone Screen NEGATIVE (NEGATIVE) Urine Methadone Screen NEGATIVE (NEGATIVE) Ur Barbiturates Screen NEGATIVE (NEGATIVE) Ur Phencyclidine Scrn NEGATIVE (NEGATIVE) Ur Amphetamine Screen NEGATIVE (NEGATIVE) U Methamphetamines Scrn NEGATIVE (NEGATIVE) U Benzodiazepines Scrn NEGATIVE (NEGATIVE) U Cocaine Metab Screen NEGATIVE (NEGATIVE) U Marijuana (THC) Screen NEGATIVE (NEGATIVE) Ethyl Alcohol mg/dL SARS-CoV-2 RNA (PEMA) (NEGATIVE) Result Diagrams: 10/24/20 12:10 10/24/20 12:10 Sepsis Event Note - Focused Exam Vital Signs: Vital Signs Temp Pulse Resp BP Pulse Ox 10/24/20 15:39 102 H 18 146/92 H 96 10/24/20 14:58 116 H 19 157/114 H 98 10/24/20 13:57 93 18 145/87 H 95 10/24/20 12:28 97 18 143/99 H 91 L 10/24/20 11:57 120 H 19 152/120 H 99 10/24/20 11:53 97.8 F 126 H 19 152/120 H 99 - Problem List (1) Alcohol withdrawal syndrome SNOMED Code(s): 750328252 ICD Code: F10.239 - ALCOHOL DEPENDENCE WITH WITHDRAWAL, UNSPECIFIED Status: Acute Current Visit: Yes Qualifiers: Complication of substance-induced condition: with unspecified complication Qualified Code(s): F10.239 - Alcohol dependence with withdrawal, unspecified (2) Enteritis SNOMED Code(s): 37205901 ICD Code: K52.9 - NONINFECTIVE GASTROENTERITIS AND COLITIS, UNSPECIFIED Status: Acute Current Visit: Yes (3) Alcohol abuse SNOMED Code(s): 32816268 ICD Code: F10.10 - ALCOHOL ABUSE, UNCOMPLICATED Status: Chronic Current Visit: No (4) Thrombocytopenia SNOMED Code(s): 533236908 ICD Code: D69.6 - THROMBOCYTOPENIA, UNSPECIFIED Status: Chronic Current Visit: No (5) Abnormal LFTs SNOMED Code(s): 466866115 ICD Code: R94.5 - ABNORMAL RESULTS OF LIVER FUNCTION STUDIES Status: Chronic Current Visit: No (6) Uncontrolled hypertension SNOMED Code(s): 11540872, 00823810 ICD Code: I10 - ESSENTIAL (PRIMARY) HYPERTENSION Status: Chronic Current Visit: No (7) Hypomagnesemia SNOMED Code(s): 066347908 ICD Code: E83.42 - HYPOMAGNESEMIA Status: Acute Current Visit: No (8) Leukopenia SNOMED Code(s): 76107429, 131157632 ICD Code: D72.819 - DECREASED WHITE BLOOD CELL COUNT, UNSPECIFIED Status: Chronic Current Visit: Yes Qualifiers: Leukopenia type: unspecified Qualified Code(s): D72.819 - Decreased white blood cell count, unspecified (9) Pancreatitis SNOMED Code(s): 88200430 ICD Code: K85.90 - ACUTE PANCREATITIS WITHOUT NECROSIS OR INFECTION, UNSP Status: Acute Current Visit: Yes Qualifiers: Chronicity: acute Pancreatitis type: alcohol induced Acute pancreatitis complication: no infection or necrosis Qualified Code(s): K85.20 - Alcohol induced acute pancreatitis without necrosis or infection Problem List Initiated/Reviewed/Updated: Yes Orders Last 24hrs: Active Orders 24 hr Category Date Time Status Admission Status [Patient Status] [ADT] Stat ADT 10/24/20 16:14 Active EKG Documentation Completion [RC] STAT Care 10/24/20 11:50 Active Assessment/Plan Comment:: This 40-year-old male admitted with alcohol withdrawal syndrome along with hypokalemia and hypomagnesemia and enteritis 1. Alcohol withdrawal syndrome We will start Valium p.o. 10 mg 3 times daily due to history of severe alcohol withdrawal with seizure activity CIWA protocol with Ativan as needed Seizure precautions Supplement with thiamine and folic acid 2. Hypokalemia/hypomagnesemia We will give another 40 mEq via IV along with 4 g of magnesium IV Recheck in a.m. Monitor on telemetry 3. Pancreatitis/enteritis Start Cipro Flagyl -Obtain stool studies or diarrhea including Hemoccult Continue IV fluids Clear liquids for now 4. Hypertension -Monitor closely due to alcohol withdrawal -Continue home medications VTE prophylaxis: SCDs and ambulation for now due to high risk of GI bleeding and black stools GI prophylaxis: Protonix twice daily CODE STATUS: Full code Dispo 2 to 3 days pending improvement in withdrawal symptoms.
[2020-10-24] MEDS ORDERED: Sodium Chloride 0.9% 2.5 ML Syringe FLUSH PRN (16:41)
[2020-10-24] MEDS ORDERED: LORazepam 2 MG/ML SDV IVPUSH PRN (16:57)
[2020-10-24] MEDS ORDERED: WATER IV ONE (17:00)
[2020-10-24] MEDS ORDERED: SODIUM CHLORIDE 0.9% IV ONE (17:00)
[2020-10-24] MEDS ORDERED: Pantoprazole 40 MG Vial IV SCH (17:00)
[2020-10-24] MEDS ORDERED: POTASSIUM CHLORIDE IV ONE (17:00)
[2020-10-24] MEDS ORDERED: MAGNESIUM SULFATE IV ONE (17:00)
[2020-10-24] MEDS: metroNIDAZOLE/Normal Saline 500 MG in Premix Bag 1 BAG IV SCH (17:58)
[2020-10-24] MEDS: Ciprofloxacin in D5W 400 MG in Premix Bag 1 BAG IV SCH ×2 (17:58)
[2020-10-24] MEDS: Lactated Ringers 1,000 ML IV SCH (17:58)
[2020-10-24] MEDS: Pantoprazole 40 MG in Sodium Chloride 0.9% 10 ML IV SCH (17:59)
[2020-10-24] MEDS: Folic Acid 50 MG/10 ML MDV IV SCH (18:00)
[2020-10-24] MEDS ORDERED: Albuterol/Ipratropium 3.0-0.5 MG/3 ML Neb Soln NEB PRN (18:00)
[2020-10-24] MEDS: Thiamine 200 MG/2 ML MDV IVPUSH SCH (18:01)
[2020-10-24] MEDS: LORazepam 2 MG/ML SDV IV PRN ×2 (18:22→20:23)
[2020-10-24] MEDS: Diazepam 5 MG Tab PO SCH (22:33)
[2020-10-25] MEDS: LORazepam 2 MG/ML SDV IV PRN ×8 (00:38→21:53)
[2020-10-25] MEDS: metroNIDAZOLE/Normal Saline 500 MG in Premix Bag 1 BAG IV SCH ×5 (00:55→23:34)
[2020-10-25] MEDS: Lactated Ringers 1,000 ML IV SCH ×5 (01:56→21:50)
[2020-10-25] MEDS: Diazepam 5 MG Tab PO SCH ×3 (05:21→21:08)
[2020-10-25] MEDS: Ciprofloxacin in D5W 400 MG in Premix Bag 1 BAG IV SCH ×4 (05:23→17:24)
[2020-10-25 07:33] LABS: BLOOD UREA NITROGEN,BUN 4 mg/dL (7.0-18.0); CARBON DIOXIDE,CO2 29.8 mmol/L (21.0-32.0); CHLORIDE,CL 100 mmol/L (98-107); GLUCOSE RANDOM 87 mg/dL (74-106); SODIUM,NA 137 mmol/L (136-148)
[2020-10-25 08:05] LABS: LIPASE 2207 U/L (73-393)
[2020-10-25] MEDS: Pantoprazole 40 MG in Sodium Chloride 0.9% 10 ML IV SCH ×2 (08:39→20:05)
[2020-10-25] MEDS: Folic Acid 50 MG/10 ML MDV IV SCH (08:39)
[2020-10-25] MEDS: Ondansetron 4 MG/2 ML SDV IVPUSH PRN ×2 (08:40→15:25)
[2020-10-25] MEDS: Thiamine 200 MG/2 ML MDV IVPUSH SCH (08:40)
[2020-10-25] MEDS ORDERED: Potassium Chloride Riders 40 MEQ in Premix Bag 1 BAG IV ONE (09:19)
[2020-10-25] MEDS ORDERED: Magnesium Sulfate/Water 2 GM in Premix Bag 1 BAG IV ONE (09:19)
[2020-10-25] MEDS ORDERED: WATER IV ONE (09:45)
[2020-10-25] MEDS ORDERED: SODIUM CHLORIDE 0.9% IV ONE (09:45)
[2020-10-25] MEDS ORDERED: MAGNESIUM SULFATE IV ONE (09:45)
[2020-10-25] MEDS ORDERED: POTASSIUM CHLORIDE IV ONE (09:45)
--- NOTE | 2020-10-25 13:06 | PCM.PN ---
- General Info Date of Service: 10/25/20 Subjective Update: Patient sleeping comfortably when entering the room. When questioned patient denies fever, chills, chest pain, shortness of breath. Patient states he did have 2 episodes of watery diarrhea. Patient also states improved appetite and would like to eat solid foods. - Review of Systems General: Denies: Fever, Chills Pulmonary: Denies: Shortness of Breath Cardiovascular: Denies: Chest Pain Gastrointestinal: Denies: Abdominal Pain, Nausea, Vomiting Neurological: Denies: Confusion, Dizziness, Headache - Patient Data Vitals - Most Recent: Last Vital Signs Temp 97.3 F 10/25/20 08:36 Pulse 77 10/25/20 08:36 Resp 18 10/25/20 08:36 BP 159/101 H 10/25/20 08:36 Pulse Ox 94 L 10/25/20 08:36 Weight - Most Recent: 179 lb 12.8 oz I&O - Last 24 Hours: Intake & Output 10/24/20 10/25/20 10/25/20 22:59 06:59 14:59 Intake Total 3240 Output Total 850 Balance 2390 Lab Results Last 24 Hours: Laboratory Results - last 24 hr 10/24/20 10/24/20 10/24/20 Range/Units 12:10 12:42 15:21 WBC (4.0-11.0) K/uL RBC (4.50-5.90) M/uL Hgb (13.0-17.0) g/dL Hct (38.0-50.0) % MCV (80.0-98.0) fL MCH (27.0-32.0) pg MCHC (31.0-37.0) g/dL RDW Std Deviation (28.0-62.0) fl RDW Coeff of [place] (11.0-15.0) % Plt Count (150-400) K/uL MPV (7.40-12.00) fL Neut % (Auto) (48.0-80.0) % Lymph % (Auto) (16.0-40.0) % [place] % (Auto) (0.0-15.0) % Eos % (Auto) (0.0-7.0) % Baso % (Auto) (0.0-1.5) % Neut # (Auto) (1.4-5.7) K/uL Lymph # (Auto) (0.6-2.4) K/uL [place] # (Auto) (0.0-0.8) K/uL Eos # (Auto) (0.0-0.7) K/uL Baso # (Auto) (0.0-0.1) K/uL Nucleated RBC % /100WBC Nucleated RBCs # K/uL INR Sodium (136-148) mmol/L Potassium (3.5-5.1) mmol/L Chloride (98-107) mmol/L Carbon Dioxide (21.0-32.0) mmol/L BUN (7.0-18.0) mg/dL Creatinine (0.8-1.3) mg/dL Est Cr Clr Drug Dosing mL/min Estimated GFR (MDRD) ml/min Glucose (74-106) mg/dL Calcium (8.5-10.1) mg/dL Phosphorus (2.6-4.7) mg/dL Magnesium (1.8-2.4) mg/dL Total Bilirubin (0.2-1.0) mg/dL AST (15-37) IU/L ALT (14-63) IU/L Alkaline Phosphatase (46-116) U/L Total Protein (6.4-8.2) g/dL Albumin (3.4-5.0) g/dL Globulin (2.6-4.0) g/dL Albumin/Globulin Ratio (0.9-1.6) Lipase 3192 H (73-393) U/L Urine Color YELLOW Urine Appearance CLEAR Urine pH 7.5 (5.0-8.0) Ur Specific [place] 1.010 (1.001-1.035) Urine Protein 100 H (NEGATIVE) mg/dL Urine Glucose (UA) NEGATIVE (NEGATIVE) mg/dL Urine Ketones 15 H (NEGATIVE) mg/dL Urine Occult Blood NEGATIVE (NEGATIVE) Urine Nitrite NEGATIVE (NEGATIVE) Urine Bilirubin MODERATE H (NEGATIVE) Urine Ictotest NEGATIVE Urine Urobilinogen 1.0 (<2.0) EU/dL Ur Leukocyte Esterase NEGATIVE (NEGATIVE) Urine RBC 0-2 (0-2/HPF) Urine WBC 0-1 (0-5/HPF) Ur Epithelial Cells RARE (NONE-FEW) Urine Bacteria FEW (NEGATIVE) Urine Opiates Screen (NEGATIVE) Ur Oxycodone Screen (NEGATIVE) Urine Methadone Screen (NEGATIVE) Ur Barbiturates Screen (NEGATIVE) Ur Phencyclidine Scrn (NEGATIVE) Ur Amphetamine Screen (NEGATIVE) U Methamphetamines Scrn (NEGATIVE) U Benzodiazepines Scrn (NEGATIVE) U Cocaine Metab Screen (NEGATIVE) U Marijuana (THC) Screen (NEGATIVE) SARS-CoV-2 RNA (PEMA) NEGATIVE (NEGATIVE) 10/24/20 10/25/20 10/25/20 Range/Units 15:21 06:20 06:20 WBC 3.13 L (4.0-11.0) K/uL RBC 3.63 L (4.50-5.90) M/uL Hgb 12.3 L (13.0-17.0) g/dL Hct 33.9 L (38.0-50.0) % MCV 93.4 (80.0-98.0) fL MCH 33.9 H (27.0-32.0) pg MCHC 36.3 (31.0-37.0) g/dL RDW Std Deviation 47.7 (28.0-62.0) fl RDW Coeff of [place] 14 (11.0-15.0) % Plt Count 70 L (150-400) K/uL MPV 11.40 (7.40-12.00) fL Neut % (Auto) 62.0 (48.0-80.0) % Lymph % (Auto) 19.8 (16.0-40.0) % [place] % (Auto) 16.6 H (0.0-15.0) % Eos % (Auto) 1.0 (0.0-7.0) % Baso % (Auto) 0.6 (0.0-1.5) % Neut # (Auto) 1.9 (1.4-5.7) K/uL Lymph # (Auto) 0.6 (0.6-2.4) K/uL [place] # (Auto) 0.5 (0.0-0.8) K/uL Eos # (Auto) 0.0 (0.0-0.7) K/uL Baso # (Auto) 0.0 (0.0-0.1) K/uL Nucleated RBC % 0.0 /100WBC Nucleated RBCs # 0 K/uL INR 1.04 Sodium (136-148) mmol/L Potassium (3.5-5.1) mmol/L Chloride (98-107) mmol/L Carbon Dioxide (21.0-32.0) mmol/L BUN (7.0-18.0) mg/dL Creatinine (0.8-1.3) mg/dL Est Cr Clr Drug Dosing mL/min Estimated GFR (MDRD) ml/min Glucose (74-106) mg/dL Calcium (8.5-10.1) mg/dL Phosphorus (2.6-4.7) mg/dL Magnesium (1.8-2.4) mg/dL Total Bilirubin (0.2-1.0) mg/dL AST (15-37) IU/L ALT (14-63) IU/L Alkaline Phosphatase (46-116) U/L Total Protein (6.4-8.2) g/dL Albumin (3.4-5.0) g/dL Globulin (2.6-4.0) g/dL Albumin/Globulin Ratio (0.9-1.6) Lipase (73-393) U/L Urine Color Urine Appearance Urine pH (5.0-8.0) Ur Specific [place] (1.001-1.035) Urine Protein (NEGATIVE) mg/dL Urine Glucose (UA) (NEGATIVE) mg/dL Urine Ketones (NEGATIVE) mg/dL Urine Occult Blood (NEGATIVE) Urine Nitrite (NEGATIVE) Urine Bilirubin (NEGATIVE) Urine Ictotest Urine Urobilinogen (<2.0) EU/dL Ur Leukocyte Esterase (NEGATIVE) Urine RBC (0-2/HPF) Urine WBC (0-5/HPF) Ur Epithelial Cells (NONE-FEW) Urine Bacteria (NEGATIVE) Urine Opiates Screen NEGATIVE (NEGATIVE) Ur Oxycodone Screen NEGATIVE (NEGATIVE) Urine Methadone Screen NEGATIVE (NEGATIVE) Ur Barbiturates Screen NEGATIVE (NEGATIVE) Ur Phencyclidine Scrn NEGATIVE (NEGATIVE) Ur Amphetamine Screen NEGATIVE (NEGATIVE) U Methamphetamines Scrn NEGATIVE (NEGATIVE) U Benzodiazepines Scrn NEGATIVE (NEGATIVE) U Cocaine Metab Screen NEGATIVE (NEGATIVE) U Marijuana (THC) Screen NEGATIVE (NEGATIVE) SARS-CoV-2 RNA (PEMA) (NEGATIVE) 10/25/20 Range/Units 06:20 WBC (4.0-11.0) K/uL RBC (4.50-5.90) M/uL Hgb (13.0-17.0) g/dL Hct (38.0-50.0) % MCV (80.0-98.0) fL MCH (27.0-32.0) pg MCHC (31.0-37.0) g/dL RDW Std Deviation (28.0-62.0) fl RDW Coeff of [place] (11.0-15.0) % Plt Count (150-400) K/uL MPV (7.40-12.00) fL Neut % (Auto) (48.0-80.0) % Lymph % (Auto) (16.0-40.0) % [place] % (Auto) (0.0-15.0) % Eos % (Auto) (0.0-7.0) % Baso % (Auto) (0.0-1.5) % Neut # (Auto) (1.4-5.7) K/uL Lymph # (Auto) (0.6-2.4) K/uL [place] # (Auto) (0.0-0.8) K/uL Eos # (Auto) (0.0-0.7) K/uL Baso # (Auto) (0.0-0.1) K/uL Nucleated RBC % /100WBC Nucleated RBCs # K/uL INR Sodium 137 (136-148) mmol/L Potassium 3.0 L (3.5-5.1) mmol/L Chloride 100 (98-107) mmol/L Carbon Dioxide 29.8 (21.0-32.0) mmol/L BUN 4 L (7.0-18.0) mg/dL Creatinine 0.7 L (0.8-1.3) mg/dL Est Cr Clr Drug Dosing 141.94 mL/min Estimated GFR (MDRD) > 60.0 ml/min Glucose 87 (74-106) mg/dL Calcium 8.0 L (8.5-10.1) mg/dL Phosphorus 3.0 (2.6-4.7) mg/dL Magnesium 1.6 L (1.8-2.4) mg/dL Total Bilirubin 0.7 (0.2-1.0) mg/dL AST 34 (15-37) IU/L ALT 37 (14-63) IU/L Alkaline Phosphatase 105 (46-116) U/L Total Protein 5.9 L (6.4-8.2) g/dL Albumin 2.9 L (3.4-5.0) g/dL Globulin 3.0 (2.6-4.0) g/dL Albumin/Globulin Ratio 1.0 (0.9-1.6) Lipase 2207 H (73-393) U/L Urine Color Urine Appearance Urine pH (5.0-8.0) Ur Specific [place] (1.001-1.035) Urine Protein (NEGATIVE) mg/dL Urine Glucose (UA) (NEGATIVE) mg/dL Urine Ketones (NEGATIVE) mg/dL Urine Occult Blood (NEGATIVE) Urine Nitrite (NEGATIVE) Urine Bilirubin (NEGATIVE) Urine Ictotest Urine Urobilinogen (<2.0) EU/dL Ur Leukocyte Esterase (NEGATIVE) Urine RBC (0-2/HPF) Urine WBC (0-5/HPF) Ur Epithelial Cells (NONE-FEW) Urine Bacteria (NEGATIVE) Urine Opiates Screen (NEGATIVE) Ur Oxycodone Screen (NEGATIVE) Urine Methadone Screen (NEGATIVE) Ur Barbiturates Screen (NEGATIVE) Ur Phencyclidine Scrn (NEGATIVE) Ur Amphetamine Screen (NEGATIVE) U Methamphetamines Scrn (NEGATIVE) U Benzodiazepines Scrn (NEGATIVE) U Cocaine Metab Screen (NEGATIVE) U Marijuana (THC) Screen (NEGATIVE) SARS-CoV-2 RNA (PEMA) (NEGATIVE) Edward Results Last 24 Hours: Microbiology 10/24/20 20:30 C. difficile Antigen & Toxins A,B - Final Stool / Feces 10/24/20 20:30 Stool Occult Blood ([facility]) - Final Stool / Feces Med Orders - Current: Current Medications Albuterol/Ipratropium (Albuterol/Ipratropium 3.0-0.5 Mg/3 Ml Neb Soln) 3 ml NEB Q4HRRT PRN PRN Reason: Shortness Of Breath/wheezing Diazepam (Diazepam 5 Mg Tab) 10 mg PO TID [facility] Last Admin: 10/25/20 05:21 Dose: 10 mg Documented by: Folic Acid (Folic Acid 50 Mg/10 Ml Mdv) 1 mg IV DAILY [facility] Last Admin: 10/25/20 08:39 Dose: 1 mg Documented by: Lactated Ringer's (Ringers, Lactated) 1,000 mls @ 125 mls/hr IV Q8H [facility] Last Admin: 10/25/20 08:41 Dose: Not Given Documented by: Pantoprazole Sodium 40 mg/ (Sodium Chloride) 10 mls @ 200 mls/hr IV Q12HR [facility] Last Admin: 10/25/20 08:39 Dose: 200 mls/hr Documented by: Ciprofloxacin/Dextrose 400 mg/ (Premix) 200 mls @ 200 mls/hr IV Q12H [facility] Last Admin: 10/25/20 05:23 Dose: 200 mls/hr Documented by: Metronidazole 500 mg/ Premix 100 mls @ 100 mls/hr IV QID [facility] Last Admin: 10/25/20 12:33 Dose: 100 mls/hr Documented by: Potassium Chloride 40 meq/Magnesium Sulfate 2 gm/ Sodium Chloride 500 mls @ 125 mls/hr IV ONETIME ONE Stop: 10/25/20 13:44 Last Admin: 10/25/20 10:56 Dose: 125 mls/hr Documented by: Lorazepam (Lorazepam 2 Mg/Ml Sdv) 0 mg IV Q2H PRN; Protocol PRN Reason: CIWA Last Admin: 10/25/20 10:57 Dose: 1 mg Documented by: Lorazepam (Lorazepam 2 Mg/Ml Sdv) 2 mg IVPUSH ASDIRECTED PRN PRN Reason: Seizures Ondansetron HCl (Ondansetron 4 Mg/2 Ml Sdv) 4 mg IVPUSH Q4H PRN PRN Reason: Nausea Last Admin: 10/25/20 08:40 Dose: 4 mg Documented by: Sodium Chloride (Sodium Chloride 0.9% 2.5 Ml Syringe) 2.5 ml FLUSH ASDIRECTED PRN PRN Reason: Keep Vein Open Thiamine HCl (Thiamine 200 Mg/2 Ml Mdv) 100 mg IVPUSH DAILY [facility] Last Admin: 10/25/20 08:40 Dose: 100 mg Documented by: Discontinued Medications Diazepam (Diazepam 10 Mg/2 Ml Syringe) 10 mg IVPUSH ONETIME ONE Stop: 10/24/20 15:41 Last Admin: 10/24/20 15:55 Dose: 10 mg Documented by: Multivitamins/Minerals 10 ml/Thiamine HCl 100 mg/ Folic Acid 1 mg/ Sodium Chloride 1,011.2 mls @ 999 mls/hr IV ONETIME ONE Stop: 10/24/20 12:50 Last Admin: 10/24/20 12:05 Dose: Not Given Documented by: Sodium Chloride (Normal Saline) 1,000 mls @ 999 mls/hr IV STAT ONE Stop: 10/24/20 12:52 Last Admin: 10/24/20 12:29 Dose: 999 mls/hr Documented by: Sodium Chloride (Normal Saline) 1,000 mls @ 999 mls/hr IV STAT ONE Stop: 10/24/20 14:34 Last Admin: 10/24/20 13:50 Dose: 999 mls/hr Documented by: Magnesium Sulfate 4 gm/Potassium Chloride 40 meq/Sodium Chloride 1,000 mls @ 150 mls/hr IV ONETIME ONE Stop: 10/24/20 23:39 Last Admin: 10/24/20 17:34 Dose: 150 mls/hr Documented by: Iopamidol (Iopamidol 755 Mg/Ml 500 Ml Multipack Bottle) 100 ml IVPUSH ONETIME ONE Stop: 10/24/20 15:14 Last Admin: 10/24/20 15:13 Dose: 100 ml Documented by: Lorazepam (Lorazepam 2 Mg/Ml Sdv) 1 mg IVPUSH ONETIME ONE Stop: 10/24/20 12:13 Last Admin: 10/24/20 12:28 Dose: 1 mg Documented by: Lorazepam (Lorazepam 2 Mg/Ml Sdv) 1 mg IVPUSH ONETIME ONE Stop: 10/24/20 13:30 Last Admin: 10/24/20 13:58 Dose: 1 mg Documented by: Lorazepam (Lorazepam 2 Mg/Ml Sdv) 1 mg IVPUSH ONETIME ONE Stop: 10/24/20 15:30 Last Admin: 10/24/20 15:36 Dose: 1 mg Documented by: Ondansetron HCl (Ondansetron 4 Mg/2 Ml Sdv) 4 mg IVPUSH ONETIME ONE Stop: 10/24/20 15:42 Last Admin: 10/24/20 15:47 Dose: 4 mg Documented by: Potassium Chloride (Potassium Chloride 20 Meq Tab.Er) 40 meq PO ONETIME ONE Stop: 10/24/20 13:08 Last Admin: 10/24/20 13:50 Dose: 40 meq Documented by: - Exam General: Alert Lungs: Clear to Auscultation, Normal Respiratory Effort Cardiovascular: Regular Rhythm GI/Abdominal Exam: Soft, Non-Tender Extremities: No Pedal Edema - Patient Data Lab Results Last 24 hrs: Laboratory Results - last 24 hr 10/24/20 10/24/20 10/24/20 Range/Units 12:10 12:42 15:21 WBC (4.0-11.0) K/uL RBC (4.50-5.90) M/uL Hgb (13.0-17.0) g/dL Hct (38.0-50.0) % MCV (80.0-98.0) fL MCH (27.0-32.0) pg MCHC (31.0-37.0) g/dL RDW Std Deviation (28.0-62.0) fl RDW Coeff of [place] (11.0-15.0) % Plt Count (150-400) K/uL MPV (7.40-12.00) fL Neut % (Auto) (48.0-80.0) % Lymph % (Auto) (16.0-40.0) % [place] % (Auto) (0.0-15.0) % Eos % (Auto) (0.0-7.0) % Baso % (Auto) (0.0-1.5) % Neut # (Auto) (1.4-5.7) K/uL Lymph # (Auto) (0.6-2.4) K/uL [place] # (Auto) (0.0-0.8) K/uL Eos # (Auto) (0.0-0.7) K/uL Baso # (Auto) (0.0-0.1) K/uL Nucleated RBC % /100WBC Nucleated RBCs # K/uL INR Sodium (136-148) mmol/L Potassium (3.5-5.1) mmol/L Chloride (98-107) mmol/L Carbon Dioxide (21.0-32.0) mmol/L BUN (7.0-18.0) mg/dL Creatinine (0.8-1.3) mg/dL Est Cr Clr Drug Dosing mL/min Estimated GFR (MDRD) ml/min Glucose (74-106) mg/dL Calcium (8.5-10.1) mg/dL Phosphorus (2.6-4.7) mg/dL Magnesium (1.8-2.4) mg/dL Total Bilirubin (0.2-1.0) mg/dL AST (15-37) IU/L ALT (14-63) IU/L Alkaline Phosphatase (46-116) U/L Total Protein (6.4-8.2) g/dL Albumin (3.4-5.0) g/dL Globulin (2.6-4.0) g/dL Albumin/Globulin Ratio (0.9-1.6) Lipase 3192 H (73-393) U/L Urine Color YELLOW Urine Appearance CLEAR Urine pH 7.5 (5.0-8.0) Ur Specific [place] 1.010 (1.001-1.035) Urine Protein 100 H (NEGATIVE) mg/dL Urine Glucose (UA) NEGATIVE (NEGATIVE) mg/dL Urine Ketones 15 H (NEGATIVE) mg/dL Urine Occult Blood NEGATIVE (NEGATIVE) Urine Nitrite NEGATIVE (NEGATIVE) Urine Bilirubin MODERATE H (NEGATIVE) Urine Ictotest NEGATIVE Urine Urobilinogen 1.0 (<2.0) EU/dL Ur Leukocyte Esterase NEGATIVE (NEGATIVE) Urine RBC 0-2 (0-2/HPF) Urine WBC 0-1 (0-5/HPF) Ur Epithelial Cells RARE (NONE-FEW) Urine Bacteria FEW (NEGATIVE) Urine Opiates Screen (NEGATIVE) Ur Oxycodone Screen (NEGATIVE) Urine Methadone Screen (NEGATIVE) Ur Barbiturates Screen (NEGATIVE) Ur Phencyclidine Scrn (NEGATIVE) Ur Amphetamine Screen (NEGATIVE) U Methamphetamines Scrn (NEGATIVE) U Benzodiazepines Scrn (NEGATIVE) U Cocaine Metab Screen (NEGATIVE) U Marijuana (THC) Screen (NEGATIVE) SARS-CoV-2 RNA (PEMA) NEGATIVE (NEGATIVE) 10/24/20 10/25/20 10/25/20 Range/Units 15:21 06:20 06:20 WBC 3.13 L (4.0-11.0) K/uL RBC 3.63 L (4.50-5.90) M/uL Hgb 12.3 L (13.0-17.0) g/dL Hct 33.9 L (38.0-50.0) % MCV 93.4 (80.0-98.0) fL MCH 33.9 H (27.0-32.0) pg MCHC 36.3 (31.0-37.0) g/dL RDW Std Deviation 47.7 (28.0-62.0) fl RDW Coeff of [place] 14 (11.0-15.0) % Plt Count 70 L (150-400) K/uL MPV 11.40 (7.40-12.00) fL Neut % (Auto) 62.0 (48.0-80.0) % Lymph % (Auto) 19.8 (16.0-40.0) % [place] % (Auto) 16.6 H (0.0-15.0) % Eos % (Auto) 1.0 (0.0-7.0) % Baso % (Auto) 0.6 (0.0-1.5) % Neut # (Auto) 1.9 (1.4-5.7) K/uL Lymph # (Auto) 0.6 (0.6-2.4) K/uL [place] # (Auto) 0.5 (0.0-0.8) K/uL Eos # (Auto) 0.0 (0.0-0.7) K/uL Baso # (Auto) 0.0 (0.0-0.1) K/uL Nucleated RBC % 0.0 /100WBC Nucleated RBCs # 0 K/uL INR 1.04 Sodium (136-148) mmol/L Potassium (3.5-5.1) mmol/L Chloride (98-107) mmol/L Carbon Dioxide (21.0-32.0) mmol/L BUN (7.0-18.0) mg/dL Creatinine (0.8-1.3) mg/dL Est Cr Clr Drug Dosing mL/min Estimated GFR (MDRD) ml/min Glucose (74-106) mg/dL Calcium (8.5-10.1) mg/dL Phosphorus (2.6-4.7) mg/dL Magnesium (1.8-2.4) mg/dL Total Bilirubin (0.2-1.0) mg/dL AST (15-37) IU/L ALT (14-63) IU/L Alkaline Phosphatase (46-116) U/L Total Protein (6.4-8.2) g/dL Albumin (3.4-5.0) g/dL Globulin (2.6-4.0) g/dL Albumin/Globulin Ratio (0.9-1.6) Lipase (73-393) U/L Urine Color Urine Appearance Urine pH (5.0-8.0) Ur Specific [place] (1.001-1.035) Urine Protein (NEGATIVE) mg/dL Urine Glucose (UA) (NEGATIVE) mg/dL Urine Ketones (NEGATIVE) mg/dL Urine Occult Blood (NEGATIVE) Urine Nitrite (NEGATIVE) Urine Bilirubin (NEGATIVE) Urine Ictotest Urine Urobilinogen (<2.0) EU/dL Ur Leukocyte Esterase (NEGATIVE) Urine RBC (0-2/HPF) Urine WBC (0-5/HPF) Ur Epithelial Cells (NONE-FEW) Urine Bacteria (NEGATIVE) Urine Opiates Screen NEGATIVE (NEGATIVE) Ur Oxycodone Screen NEGATIVE (NEGATIVE) Urine Methadone Screen NEGATIVE (NEGATIVE) Ur Barbiturates Screen NEGATIVE (NEGATIVE) Ur Phencyclidine Scrn NEGATIVE (NEGATIVE) Ur Amphetamine Screen NEGATIVE (NEGATIVE) U Methamphetamines Scrn NEGATIVE (NEGATIVE) U Benzodiazepines Scrn NEGATIVE (NEGATIVE) U Cocaine Metab Screen NEGATIVE (NEGATIVE) U Marijuana (THC) Screen NEGATIVE (NEGATIVE) SARS-CoV-2 RNA (PEMA) (NEGATIVE) 10/25/20 Range/Units 06:20 WBC (4.0-11.0) K/uL RBC (4.50-5.90) M/uL Hgb (13.0-17.0) g/dL Hct (38.0-50.0) % MCV (80.0-98.0) fL MCH (27.0-32.0) pg MCHC (31.0-37.0) g/dL RDW Std Deviation (28.0-62.0) fl RDW Coeff of [place] (11.0-15.0) % Plt Count (150-400) K/uL MPV (7.40-12.00) fL Neut % (Auto) (48.0-80.0) % Lymph % (Auto) (16.0-40.0) % [place] % (Auto) (0.0-15.0) % Eos % (Auto) (0.0-7.0) % Baso % (Auto) (0.0-1.5) % Neut # (Auto) (1.4-5.7) K/uL Lymph # (Auto) (0.6-2.4) K/uL [place] # (Auto) (0.0-0.8) K/uL Eos # (Auto) (0.0-0.7) K/uL Baso # (Auto) (0.0-0.1) K/uL Nucleated RBC % /100WBC Nucleated RBCs # K/uL INR Sodium 137 (136-148) mmol/L Potassium 3.0 L (3.5-5.1) mmol/L Chloride 100 (98-107) mmol/L Carbon Dioxide 29.8 (21.0-32.0) mmol/L BUN 4 L (7.0-18.0) mg/dL Creatinine 0.7 L (0.8-1.3) mg/dL Est Cr Clr Drug Dosing 141.94 mL/min Estimated GFR (MDRD) > 60.0 ml/min Glucose 87 (74-106) mg/dL Calcium 8.0 L (8.5-10.1) mg/dL Phosphorus 3.0 (2.6-4.7) mg/dL Magnesium 1.6 L (1.8-2.4) mg/dL Total Bilirubin 0.7 (0.2-1.0) mg/dL AST 34 (15-37) IU/L ALT 37 (14-63) IU/L Alkaline Phosphatase 105 (46-116) U/L Total Protein 5.9 L (6.4-8.2) g/dL Albumin 2.9 L (3.4-5.0) g/dL Globulin 3.0 (2.6-4.0) g/dL Albumin/Globulin Ratio 1.0 (0.9-1.6) Lipase 2207 H (73-393) U/L Urine Color Urine Appearance Urine pH (5.0-8.0) Ur Specific [place] (1.001-1.035) Urine Protein (NEGATIVE) mg/dL Urine Glucose (UA) (NEGATIVE) mg/dL Urine Ketones (NEGATIVE) mg/dL Urine Occult Blood (NEGATIVE) Urine Nitrite (NEGATIVE) Urine Bilirubin (NEGATIVE) Urine Ictotest Urine Urobilinogen (<2.0) EU/dL Ur Leukocyte Esterase (NEGATIVE) Urine RBC (0-2/HPF) Urine WBC (0-5/HPF) Ur Epithelial Cells (NONE-FEW) Urine Bacteria (NEGATIVE) Urine Opiates Screen (NEGATIVE) Ur Oxycodone Screen (NEGATIVE) Urine Methadone Screen (NEGATIVE) Ur Barbiturates Screen (NEGATIVE) Ur Phencyclidine Scrn (NEGATIVE) Ur Amphetamine Screen (NEGATIVE) U Methamphetamines Scrn (NEGATIVE) U Benzodiazepines Scrn (NEGATIVE) U Cocaine Metab Screen (NEGATIVE) U Marijuana (THC) Screen (NEGATIVE) SARS-CoV-2 RNA (PEMA) (NEGATIVE) Result Diagrams: 10/25/20 06:20 10/25/20 06:20 Edward Results Last 24 hrs: Microbiology 10/24/20 20:30 C. difficile Antigen & Toxins A,B - Final Stool / Feces 10/24/20 20:30 Stool Occult Blood (EDWARD) - Final Stool / Feces Sepsis Event Note - Evaluation Sepsis Screening Result: Possible Sepsis Risk - Focused Exam Vital Signs: Vital Signs Temp Pulse Resp BP Pulse Ox 10/25/20 08:36 97.3 F 77 18 159/101 H 94 L 10/25/20 05:19 97.9 F 83 16 160/105 H 97 - Problem List & Annotations (1) Alcohol withdrawal syndrome SNOMED Code(s): 188081469 Code(s): F10.239 - ALCOHOL DEPENDENCE WITH WITHDRAWAL, UNSPECIFIED Status: Acute Current Visit: Yes Qualifiers: Complication of substance-induced condition: with unspecified complication Qualified Code(s): F10.239 - Alcohol dependence with withdrawal, unspecified (2) Enteritis SNOMED Code(s): 10426780 Code(s): K52.9 - NONINFECTIVE GASTROENTERITIS AND COLITIS, UNSPECIFIED Status: Acute Current Visit: Yes (3) Hypokalemia SNOMED Code(s): 10755923 Code(s): E87.6 - HYPOKALEMIA Status: Acute Current Visit: Yes (4) Pancreatitis SNOMED Code(s): 91915142 Code(s): K85.90 - ACUTE PANCREATITIS WITHOUT NECROSIS OR INFECTION, UNSP Status: Acute Current Visit: Yes Qualifiers: Chronicity: acute Pancreatitis type: alcohol induced Acute pancreatitis complication: no infection or necrosis Qualified Code(s): K85.20 - Alcohol induced acute pancreatitis without necrosis or infection (5) Acute alcohol intoxication SNOMED Code(s): 07839157, 98433975 Code(s): F10.929 - ALCOHOL USE, UNSPECIFIED WITH INTOXICATION, UNSPECIFIED Status: Acute Current Visit: No Qualifiers: Complication of substance-induced condition: uncomplicated Qualified Code(s): F10.920 - Alcohol use, unspecified with intoxication, uncomplicated (6) Hypomagnesemia SNOMED Code(s): 394389633 Code(s): E83.42 - HYPOMAGNESEMIA Status: Acute Current Visit: No - Problem List Review Problem List Initiated/Reviewed/Updated: Yes - My Orders Last 24 Hours: My Active Orders 10/25/20 09:45 Potassium Chloride 40 meq Magnesium Sulfate/Water [Magnesium Sulfate in Water 2 GM/50 ML] 2 gm Sodium Chloride 0.9% [Normal Saline] 430 ml IV ONETIME - Plan Plan:: Alcohol withdrawal- Valium p.o. 10 mg 3 times daily CIWA protocol with Ativan as needed Thiamine and folic acid Enteritis- Continue Cipro and Flagyl IV fluids Diet advanced to soft as patient states increased appetite and no nausea. Hypokalemia/hypomagnesemia- 40 M EQ potassium, 2 g magnesium sulfate
[2020-10-25] MEDS ORDERED: Acetaminophen 325 MG Tab PO ONE (18:58)
[2020-10-25 20:15] VITALS: BP 145/102; PULSE 98
[2020-10-25] MEDS ORDERED: Acetaminophen 325 MG Tab PO PRN (20:35)
[2020-10-26] MEDS ORDERED: propofoL 100 ML IV SCH (02:15)
[2020-10-26] MEDS ORDERED: fentaNYL 100 MCG/2 ML SDV ONE (02:16)
[2020-10-26] MEDS ORDERED: Magnesium Sulfate/Water 100 ML ONE (02:24)
[2020-10-26] MEDS ORDERED: propofoL 100 ML ONE ×2 (02:38→03:44)
[2020-10-26] MEDS ORDERED: LORazepam 2 MG/ML SDV ONE (02:42)
[2020-10-26] MEDS ORDERED: EPINEPHrine 1:10,000 1 MG/10 ML Syringe ONE (03:00)
[2020-10-26] MEDS ORDERED: Norepinephrine 4 MG/4 ML SDV ONE (03:00)
[2020-10-26] MEDS ORDERED: Sodium Bicarbonate 8.4% 50 MEQ/50 ML SDV ONE (03:00)
--- NOTE | 2020-10-26 03:05 | CR ---
INDICATION: Post intubation TECHNIQUE: Chest 1 view COMPARISON: August 18, 2020 FINDINGS: Endotracheal tube in the midtrachea at the level of the clavicular heads. Mild areas of atelectasis. Cardiac silhouette enlargement. No pneumothorax or pleural effusion. IMPRESSION: Endotracheal tube located in the mid trachea 4.5 cm above the staci. Dictated by Bob Lopez MD @ 10/26/2020 3:03:[address] Bob Lopez @ Oct 26 2020 3:03AM
[2020-10-26 03:11] LABS: BLOOD UREA NITROGEN,BUN 4 mg/dL (7.0-18.0); CARBON DIOXIDE,CO2 22.5 mmol/L (21.0-32.0); CHLORIDE,CL 97 mmol/L (98-107); GLUCOSE RANDOM 260 mg/dL (74-106); POTASSIUM,K 3.1 mmol/L (3.5-5.1); SODIUM,NA 138 mmol/L (136-148)
--- NOTE | 2020-10-26 03:25 | PCM.SN.2 ---
- Free Text/Narrative Note: Received a call from ICU at 1:47 am, patient was found to be in Vfib as well as having tonic clonic seizures witnessed by the nurse, patient had no pulse so CPR was initiated. Paul gould was called, ER physician Dr Bustos came in to run the code, by the time in arrived to Hospital at around 2.00am ROSC had been achiev ed after 2 rounds of Defib, 3 rounds of epi, amiodarone bolus, Bicarb IV push, and patient was being intubated, patient was awake post ROSC and was trying to sit up and bite the tube, propofol was started for sedation, repeat EKG showed sinus tachycardia, no STEMI. I ordered 4mg of IV magnesium, and amiodarone gtt and IV fluid bolus of LR. patient was having breakthrough seizures post intubation so was loaded with Keppra, IV Ativan gtt was started along with ketamine. central line was also established, CXR was done to confirm placement of all lines and tubes. state labs were hernandez which showed: Laboratory Tests 10/26/20 10/26/20 10/26/20 02:00 02:00 02:00 Sodium 138 Potassium 3.1 L Chloride 97 L BUN 4 L Creatinine 1.2 Glucose 260 H Lactic Acid 9.5 H* Calcium 7.8 L AST 461 H ALT 171 H Troponin I < 0.050 Total Protein 6.0 L Albumin 2.8 L Potassium was repleted, another IV fluid bolus was started, Patient was graciously accepted by Dr Zelaya at ICU [facility] and [facility]
[2020-10-26] MEDS ORDERED: Lactated Ringers 1,000 ML IV ONE (03:27)
[2020-10-26] MEDS ORDERED: Potassium Chloride Riders 40 MEQ in Premix Bag 1 BAG IV ONE (03:29)
--- NOTE | 2020-10-26 03:30 | PCM.DCSUM1 ---
Discharge Summary - Hospital Course Free Text/Narrative:: This 40-year-old male with past medical history of alcohol abuse multiple admissions for alcohol withdrawal that is complicated by seizure activity presented to the ER today with all of her body shaking and reports he has not drank any alcohol since yesterday. He was previously in the ER yesterday intoxicated requesting placement for treatment but multiple facilities were called and were all at capacity. He was discharged and instructed to abstain from alcohol and return if he has any concerns. Today he returns reporting being significantly tremulous and nauseated with the inability to keep anything down. Reports he has not eaten or drank anything other than alcohol in the past week. He denies any fevers chills headache. He denies any chest pain back pain or shortness of breath. He reports mild lower abdominal pain with black diarrhea black denies any bloody emesis or viviane blood per rectum. No concerns with urination. Denies any recent falls or trauma. Denies any tobacco use and no recreational drug use. In the ER leukopenia noted 3.00 hemoglobin 14.3 hematocrit 39.0.a cytopenia noted at 77,000. Which is around baseline. Sodium 138 potassium low at 3.1 chloride 97. BUN and creatinine 10 and 0.8 respectively. Magnesium signi ficantly low at 1.0. Bilirubin 1.1 AST 64 ALT 52 alk phos 132. Lipase significantly elevated at 3192. Alcohol level [address] of the abdomen pelvis was obtained secondary to elevated lipase. This revealed few mild distended small bowel loops without discrete transition point. Mild scattered bowel small bowel wall thickening suggesting nonspecific enteritis, no CT findings of acute pancreatitis incidental 2 x 1 cm hyperattenuating focus in the right hepatic lobe patient is aware of this would recommend follow-up imaging with MRI as outpatient. Advanced hepatic steatosis noted. In ER patient treated with 2 L fluid IV bolus. Patient also treated with Ativan 3 mg total along with p.o. potassium. Patient also received 10 mg Valium. Patient will be admitted inpatient secondary to alcohol withdrawal syndrome, hypokalemia and hypomagnesemia. Patient was started on CIWAA protocol, reached IV Ativan, oral Valium 10mg TID scheduled, IV thiamine and folic acid, patient was started on IV Cipro and Flagyl for enteritis. His diarrhea did improve and next morning he felt more hungry and requested soft diet, patient was doing well but continued to need round the clock IV Ativan, cdiff and stool occult was negative, rest of the stool studies were sent which are still pending. Patients electrolytes were repleted as needed, including Mg and K. Around 139 am patient was found to be in Vfib on telemetry, upon checking on bedside patient was found to have tonic clonic seizures witnessed by the nurse, patient had no pulse so CPR was initiated. Paul blue was called, Patient received 2 rounds of Defib, 3 rounds of epi, amiodarone bolus, Bicarb IV push, ROSC had been achieved at 152 am and patient intubated, patient was awake post ROSC and was trying to sit up and bite the tube, propofol was started for sedation, repeat EKG showed sinus tachycardia, no STEMI. 4mg of IV magnesium, and amiodarone gtt and IV fluid bolus of LR was started. Patient was having breakthrough seizures post intubation so was loaded with Keppra, IV Ativan gtt was started along with ketamine after he continued to have seizures. Central line was also established in Right IJ, CXR was done to confirm placement of all lines and tubes. state labs were done which showed: Laboratory Tests 10/26/20 10/26/20 10/26/20 02:00 02:00 02:00 Sodium 138 Potassium 3.1 L Chloride 97 L BUN 4 L Creatinine 1.2 Glucose 260 H Lactic Acid 9.5 H* Calcium 7.8 L AST 461 H ALT 171 H Troponin I < 0.050 Total Protein 6.0 L Albumin 2.8 L Potassium was repleted, another IV fluid bolus was started, Patient was graciously accepted by Dr Zelaya at ICU [facility] and patient was hemodynamically stable for transfer via [facility]. - Discharge Data Discharge Date: 10/26/20 Discharge Disposition: DC/Tfer to Acute Hospital 02 Condition: Critical - Referral to Home Health Primary Care Physician: Stanton Shultz MD - Discharge Plan Home Medications: Home Meds Escitalopram [Lexapro] 20 mg PO DAILY 04/03/20 [History] Folic Acid 1 mg PO DAILY 04/03/20 [History] Labetalol [Normodyne] 200 mg PO BID 04/03/20 [History] Lacosamide [Vimpat] 150 mg PO BID 04/03/20 [History] Naltrexone 50 mg PO DAILY 04/03/20 [History] Venlafaxine [Effexor] 75 mg PO BID 04/03/20 [History] amLODIPine [Norvasc] 10 mg PO DAILY 04/03/20 [History] chlordiazePOXIDE [Librium] 100 mg PO BEDTIME 04/03/20 [History] hydrALAZINE [Apresoline] 50 mg PO BID 04/03/20 [History] Thiamine [Vitamin B-1] 100 mg PO BEDTIME #30 tab 04/09/20 [Rx] Ondansetron [Zofran ODT] 4 mg PO Q6H PRN #10 tab.dis 08/03/20 [Rx] Patient Handouts: Alcohol Use Disorder, Alcohol Intoxication, [id number] Referrals: Stanton Shultz MD [Primary Care Provider] - - Patient Data Vitals - Most Recent: Last Vital Signs Temp 36.6 C 10/25/20 20:14 Pulse 98 10/25/20 20:14 Resp 18 10/25/20 20:14 BP 145/102 H 10/25/20 20:14 Pulse Ox 94 L 10/25/20 20:14 Weight - Most Recent: 81.556 kg I&O - Last 24 hours: Intake & Output 10/25/20 10/25/20 10/26/20 14:59 22:59 06:59 Intake Total 1978 100 Output Total 4050 Balance -2072 100 Lab Results - Last 24 hrs: Laboratory Results - last 24 hr 10/25/20 10/25/20 10/25/20 Range/Units 06:20 06:20 06:20 WBC 3.13 L (4.0-11.0) K/uL RBC 3.63 L (4.50-5.90) M/uL Hgb 12.3 L (13.0-17.0) g/dL Hct 33.9 L (38.0-50.0) % MCV 93.4 (80.0-98.0) fL MCH 33.9 H (27.0-32.0) pg MCHC 36.3 (31.0-37.0) g/dL RDW Std Deviation 47.7 (28.0-62.0) fl RDW Coeff of [place] 14 (11.0-15.0) % Plt Count 70 L (150-400) K/uL MPV 11.40 (7.40-12.00) fL Neut % (Auto) 62.0 (48.0-80.0) % Lymph % (Auto) 19.8 (16.0-40.0) % [place] % (Auto) 16.6 H (0.0-15.0) % Eos % (Auto) 1.0 (0.0-7.0) % Baso % (Auto) 0.6 (0.0-1.5) % Neut # (Auto) 1.9 (1.4-5.7) K/uL Lymph # (Auto) 0.6 (0.6-2.4) K/uL [place] # (Auto) 0.5 (0.0-0.8) K/uL Eos # (Auto) 0.0 (0.0-0.7) K/uL Baso # (Auto) 0.0 (0.0-0.1) K/uL Nucleated RBC % 0.0 /100WBC Nucleated RBCs # 0 K/uL INR 1.04 Sodium 137 (136-148) mmol/L Potassium 3.0 L (3.5-5.1) mmol/L Chloride 100 (98-107) mmol/L Carbon Dioxide 29.8 (21.0-32.0) mmol/L BUN 4 L (7.0-18.0) mg/dL Creatinine 0.7 L (0.8-1.3) mg/dL Est Cr Clr Drug Dosing 141.94 mL/min Estimated GFR (MDRD) > 60.0 ml/min Glucose 87 (74-106) mg/dL POC Glucose (70-99) mg/dL Lactic Acid (0.4-2.0) mmol/L Calcium 8.0 L (8.5-10.1) mg/dL Phosphorus 3.0 (2.6-4.7) mg/dL Magnesium 1.6 L (1.8-2.4) mg/dL Total Bilirubin 0.7 (0.2-1.0) mg/dL AST 34 (15-37) IU/L ALT 37 (14-63) IU/L Alkaline Phosphatase 105 (46-116) U/L Troponin I (0.000-0.056) ng/mL Total Protein 5.9 L (6.4-8.2) g/dL Albumin 2.9 L (3.4-5.0) g/dL Globulin 3.0 (2.6-4.0) g/dL Albumin/Globulin Ratio 1.0 (0.9-1.6) Lipase 2207 H (73-393) U/L 10/26/20 10/26/20 10/26/20 Range/Units 02:00 02:00 02:00 WBC 5.26 (4.0-11.0) K/uL RBC 3.93 L (4.50-5.90) M/uL Hgb 13.4 (13.0-17.0) g/dL Hct 37.2 L (38.0-50.0) % MCV 94.7 (80.0-98.0) fL MCH 34.1 H (27.0-32.0) pg MCHC 36.0 (31.0-37.0) g/dL RDW Std Deviation 48.1 (28.0-62.0) fl RDW Coeff of [place] 14 (11.0-15.0) % Plt Count 88 L (150-400) K/uL MPV 11.10 (7.40-12.00) fL Neut % (Auto) 16.6 L (48.0-80.0) % Lymph % (Auto) 73.8 H (16.0-40.0) % [place] % (Auto) 8.2 (0.0-15.0) % Eos % (Auto) 1.0 (0.0-7.0) % Baso % (Auto) 0.4 (0.0-1.5) % Neut # (Auto) 0.9 L (1.4-5.7) K/uL Lymph # (Auto) 3.9 H (0.6-2.4) K/uL [place] # (Auto) 0.4 (0.0-0.8) K/uL Eos # (Auto) 0.1 (0.0-0.7) K/uL Baso # (Auto) 0.0 (0.0-0.1) K/uL Nucleated RBC % 0.0 /100WBC Nucleated RBCs # 0 K/uL INR Sodium 138 (136-148) mmol/L Potassium 3.1 L (3.5-5.1) mmol/L Chloride 97 L (98-107) mmol/L Carbon Dioxide 22.5 (21.0-32.0) mmol/L BUN 4 L (7.0-18.0) mg/dL Creatinine 1.2 (0.8-1.3) mg/dL Est Cr Clr Drug Dosing 82.80 mL/min Estimated GFR (MDRD) > 60.0 ml/min Glucose 260 H (74-106) mg/dL POC Glucose (70-99) mg/dL Lactic Acid (0.4-2.0) mmol/L Calcium 7.8 L (8.5-10.1) mg/dL Phosphorus (2.6-4.7) mg/dL Magnesium (1.8-2.4) mg/dL Total Bilirubin 0.6 (0.2-1.0) mg/dL AST 461 H (15-37) IU/L ALT 171 H (14-63) IU/L Alkaline Phosphatase 115 (46-116) U/L Troponin I < 0.050 (0.000-0.056) ng/mL Total Protein 6.0 L (6.4-8.2) g/dL Albumin 2.8 L (3.4-5.0) g/dL Globulin 3.2 (2.6-4.0) g/dL Albumin/Globulin Ratio 0.9 (0.9-1.6) Lipase (73-393) U/L 10/26/20 10/26/20 10/26/20 Range/Units 02:00 02:00 02:38 WBC (4.0-11.0) K/uL RBC (4.50-5.90) M/uL Hgb (13.0-17.0) g/dL Hct (38.0-50.0) % MCV (80.0-98.0) fL MCH (27.0-32.0) pg MCHC (31.0-37.0) g/dL RDW Std Deviation (28.0-62.0) fl RDW Coeff of [place] (11.0-15.0) % Plt Count (150-400) K/uL MPV (7.40-12.00) fL Neut % (Auto) (48.0-80.0) % Lymph % (Auto) (16.0-40.0) % [place] % (Auto) (0.0-15.0) % Eos % (Auto) (0.0-7.0) % Baso % (Auto) (0.0-1.5) % Neut # (Auto) (1.4-5.7) K/uL Lymph # (Auto) (0.6-2.4) K/uL [place] # (Auto) (0.0-0.8) K/uL Eos # (Auto) (0.0-0.7) K/uL Baso # (Auto) (0.0-0.1) K/uL Nucleated RBC % /100WBC Nucleated RBCs # K/uL INR 1.13 Sodium (136-148) mmol/L Potassium (3.5-5.1) mmol/L Chloride (98-107) mmol/L Carbon Dioxide (21.0-32.0) mmol/L BUN (7.0-18.0) mg/dL Creatinine (0.8-1.3) mg/dL Est Cr Clr Drug Dosing mL/min Estimated GFR (MDRD) ml/min Glucose (74-106) mg/dL POC Glucose 288 H (70-99) mg/dL Lactic Acid 9.5 H* (0.4-2.0) mmol/L Calcium (8.5-10.1) mg/dL Phosphorus (2.6-4.7) mg/dL Magnesium (1.8-2.4) mg/dL Total Bilirubin (0.2-1.0) mg/dL AST (15-37) IU/L ALT (14-63) IU/L Alkaline Phosphatase (46-116) U/L Troponin I (0.000-0.056) ng/mL Total Protein (6.4-8.2) g/dL Albumin (3.4-5.0) g/dL Globulin (2.6-4.0) g/dL Albumin/Globulin Ratio (0.9-1.6) Lipase (73-393) U/L Med Orders - Current: Current Medications Acetaminophen (Acetaminophen 325 Mg Tab) 650 mg PO Q8H PRN PRN Reason: Pain Albuterol/Ipratropium (Albuterol/Ipratropium 3.0-0.5 Mg/3 Ml Neb Soln) 3 ml NEB Q4HRRT PRN PRN Reason: Shortness Of Breath/wheezing Diazepam (Diazepam 5 Mg Tab) 10 mg PO TID [facility] Last Admin: 10/25/20 21:08 Dose: 10 mg Documented by: Folic Acid (Folic Acid 50 Mg/10 Ml Mdv) 1 mg IV DAILY [facility] Last Admin: 10/25/20 08:39 Dose: 1 mg Documented by: Lactated Ringer's (Ringers, Lactated) 1,000 mls @ 125 mls/hr IV Q8H [facility] Last Admin: 10/25/20 21:50 Dose: 125 mls/hr Documented by: Pantoprazole Sodium 40 mg/ (Sodium Chloride) 10 mls @ 200 mls/hr IV Q12HR [facility] Last Admin: 10/25/20 20:05 Dose: 200 mls/hr Documented by: Ciprofloxacin/Dextrose 400 mg/ (Premix) 200 mls @ 200 mls/hr IV Q12H [facility] Last Admin: 10/25/20 17:24 Dose: 200 mls/hr Documented by: Metronidazole 500 mg/ Premix 100 mls @ 100 mls/hr IV QID [facility] Last Admin: 10/25/20 23:34 Dose: 100 mls/hr Documented by: Propofol (Diprivan 100 Ml) 100 mls @ 2.447 mls/hr IV TITRATE ML; Protocol Levetiracetam 500 mg/ Dextrose (/Water) 105 mls @ 420 mls/hr IV Q12H [facility] Lorazepam 20 mg/ Sodium (Chloride) 100 mls @ 5 mls/hr IV TITRATE ML; Protocol Lactated Ringer's (Ringers, Lactated) 1,000 mls @ 999 mls/hr IV .BOLUS ONE Stop: 10/26/20 04:27 Potassium Chloride 40 meq/ (Premix) 100 mls @ 25 mls/hr IV ONETIME ONE Stop: 10/26/20 07:28 Lorazepam (Lorazepam 2 Mg/Ml Sdv) 0 mg IV Q2H PRN; Protocol PRN Reason: CIWA Last Admin: 10/25/20 21:53 Dose: 2 mg Documented by: Lorazepam (Lorazepam 2 Mg/Ml Sdv) 2 mg IVPUSH ASDIRECTED PRN PRN Reason: Seizures Ondansetron HCl (Ondansetron 4 Mg/2 Ml Sdv) 4 mg IVPUSH Q4H PRN PRN Reason: Nausea Last Admin: 10/25/20 15:25 Dose: 4 mg Documented by: Sodium Chloride (Sodium Chloride 0.9% 2.5 Ml Syringe) 2.5 ml FLUSH ASDIRECTED PRN PRN Reason: Keep Vein Open Thiamine HCl (Thiamine 200 Mg/2 Ml Mdv) 100 mg IVPUSH DAILY [facility] Last Admin: 10/25/20 08:40 Dose: 100 mg Documented by: Discontinued Medications Acetaminophen (Acetaminophen 325 Mg Tab) 650 mg PO NOW ONE Stop: 10/25/20 18:59 Last Admin: 10/25/20 20:03 Dose: 650 mg Documented by: Diazepam (Diazepam 10 Mg/2 Ml Syringe) 10 mg IVPUSH ONETIME ONE Stop: 10/24/20 15:41 Last Admin: 10/24/20 15:55 Dose: 10 mg Documented by: Fentanyl (Fentanyl 100 Mcg/2 Ml Sdv) Confirm Administered Dose 100 mcg .ROUTE .STK-MED ONE Stop: 10/26/20 02:17 Multivitamins/Minerals 10 ml/Thiamine HCl 100 mg/ Folic Acid 1 mg/ Sodium Chloride 1,011.2 mls @ 999 mls/hr IV ONETIME ONE Stop: 10/24/20 12:50 Last Admin: 10/24/20 12:05 Dose: Not Given Documented by: Sodium Chloride (Normal Saline) 1,000 mls @ 999 mls/hr IV STAT ONE Stop: 10/24/20 12:52 Last Admin: 10/24/20 12:29 Dose: 999 mls/hr Documented by: Sodium Chloride (Normal Saline) 1,000 mls @ 999 mls/hr IV STAT ONE Stop: 10/24/20 14:34 Last Admin: 10/24/20 13:50 Dose: 999 mls/hr Documented by: Magnesium Sulfate 4 gm/Potassium Chloride 40 meq/Sodium Chloride 1,000 mls @ 150 mls/hr IV ONETIME ONE Stop: 10/24/20 23:39 Last Admin: 10/24/20 17:34 Dose: 150 mls/hr Documented by: Potassium Chloride 40 meq/Magnesium Sulfate 2 gm/ Sodium Chloride 500 mls @ 125 mls/hr IV ONETIME ONE Stop: 10/25/20 13:44 Last Admin: 10/25/20 10:56 Dose: 125 mls/hr Documented by: Magnesium Sulfate (Magnesium Sulfate In Water 4 Gm/100 Ml) Confirm Administered Dose 100 mls @ as directed .ROUTE .STK-MED ONE Stop: 10/26/20 02:25 Propofol (Diprivan 100 Ml) Confirm Administered Dose 100 mls @ as directed .ROUTE .STK-MED ONE Stop: 10/26/20 02:39 Levetiracetam 500 mg/ Dextrose (/Water) 105 mls @ 420 mls/hr IV NOW STA Stop: 10/26/20 03:24 Iopamidol (Iopamidol 755 Mg/Ml 500 Ml Multipack Bottle) 100 ml IVPUSH ONETIME ONE Stop: 10/24/20 15:14 Last Admin: 10/24/20 15:13 Dose: 100 ml Documented by: Lorazepam (Lorazepam 2 Mg/Ml Sdv) 1 mg IVPUSH ONETIME ONE Stop: 10/24/20 12:13 Last Admin: 10/24/20 12:28 Dose: 1 mg Documented by: Lorazepam (Lorazepam 2 Mg/Ml Sdv) 1 mg IVPUSH ONETIME ONE Stop: 10/24/20 13:30 Last Admin: 10/24/20 13:58 Dose: 1 mg Documented by: Lorazepam (Lorazepam 2 Mg/Ml Sdv) 1 mg IVPUSH ONETIME ONE Stop: 10/24/20 15:30 Last Admin: 10/24/20 15:36 Dose: 1 mg Documented by: Lorazepam (Lorazepam 2 Mg/Ml Sdv) Confirm Administered Dose 4 mg .ROUTE .STK-MED ONE Stop: 10/26/20 02:43 Ondansetron HCl (Ondansetron 4 Mg/2 Ml Sdv) 4 mg IVPUSH ONETIME ONE Stop: 10/24/20 15:42 Last Admin: 10/24/20 15:47 Dose: 4 mg Documented by: Potassium Chloride (Potassium Chloride 20 Meq Tab.Er) 40 meq PO ONETIME ONE Stop: 10/24/20 13:08 Last Admin: 10/24/20 13:50 Dose: 40 meq Documented by:
--- NOTE | 2020-10-26 03:50 | PCM.PR.CLI ---
Central Line Insertion - Central Line Insertion Site: internal jugular (R) Prep: CDC/MBT Guidelines, Sterile Drapes, Chlorhexidine Lumen: triple Gauge: 7Fr Local Anesthesia - Lidocaine (Xylocaine): 1% Plain Ultrasound guided: Yes CL Complications: No Secured with suture: Yes Post placement confirmation: CXR, all ports aspirated, all ports flushed CXR post-procedure: no pneumothorax, no hemothorax Dressing applied: by provider, chlorhexidine disc used, op-site dressing
[2020-10-26] MEDS: Lactated Ringers 1,000 ML IV SCH (08:40)
--- NOTE | 2020-10-27 15:30 | CR ---
Indication: Central line and orogastric tube placement Technique: AP view of the chest at 3:47 a.m. Comparison: AP chest radiograph 10/26/2020 at 2:11 a.m. Findings/Impression: 1. Endotracheal tube tip resides 5 cm above the staci. 2. Right IJ central venous catheter terminates in the SVC. 3. Distal end of gastric tube lies in the gastric fundus. 4. Stable cardiomediastinal silhouette. No significant pulmonary opacity. Dictated by Maged Nguyen MD @ 10/26/2020 5:18:40 AM Signed by: Maged Nguyen MD @10/26/2020 5:18:40 AM (Electronic Signature) [facility]
== END 2020-10-26 04:00 | DRG 896 ==
LOC: MW.ED 11:36 → MW.MS 16:14
PROVIDERS: ADMIT Student in an Organized Health Care Education/Training Program; ATTEND Student in an Organized Health Care Education/Training Program
PROC: 02HV33Z Insertion of Infusion Device into Superior Vena Cava, Percutaneous Approach (ICD-10-PCS; principal; 2020-10-26)
PROC: 0BH17EZ Insertion of Endotracheal Airway into Trachea, Via Natural or Artificial Opening (ICD-10-PCS; 2020-10-26)
DX: F10.239 Alcohol dependence with withdrawal, unspecified (principal); I49.01 Ventricular fibrillation; K85.20 Alcohol induced acute pancreatitis without necrosis or infection; Z20.822 Contact with and (suspected) exposure to COVID-19; E87.6 Hypokalemia; E83.42 Hypomagnesemia; R56.9 Unspecified convulsions; Z79.899 Other long term (current) drug therapy; I10 Essential (primary) hypertension; F41.9 Anxiety disorder, unspecified; K52.9 Noninfective gastroenteritis and colitis, unspecified; D69.6 Thrombocytopenia, unspecified; R94.5 Abnormal results of liver function studies
CPT/HCPCS: 36415; 36556; 51702; 71045; 71045-26; 74177; 74177-26; 80053; 80305-QW; 80307; 81001; 82272; 82947; 83605; 83690; 83735; 84100; 84484; 85025; 85610; 87045; 87046; 87324; 87449; 87899; 93005; 93010; 96374; 96375; 96376; 99285; 99285-25; A9270-GY; C9113; J0171; J0744; J1953; J2060; J2405; J2704; J3010; J3360; J3411; J3475; J3480; J3490; J7030; J7040; J7120; Q9967; U0002

== ENCOUNTER 2022-01-25 15:59 | Emergency (ER) | payer BC, MEDICAID ==
[2022-01-25] MEDS ORDERED: Sodium Chloride 0.9% 10 ML Syringe FLUSH PRN (16:52)
[2022-01-25] MEDS ORDERED: Sodium Chloride 0.9% 1,000 ML IV ONE (16:52)
[2022-01-25] MEDS ORDERED: Pantoprazole 40 MG in Sodium Chloride 0.9% 10 ML IVPUSH ONE (16:52)
[2022-01-25] MEDS ORDERED: Ondansetron 4 MG/2 ML SDV IVPUSH ONE (16:52)
[2022-01-25] MEDS ORDERED: Sodium Chloride 0.9% 2.5 ML Syringe FLUSH PRN (16:52)
[2022-01-25 17:45] LABS: CARBON DIOXIDE,CO2 24.8 mmol/L (21.0-32.0); POTASSIUM,K 3.3 mmol/L (3.5-5.1)
[2022-01-25 18:01] LABS: CORONAVIRUS COVID-19 NAA NEGATIVE (NEGATIVE); INFLUENZA A NAA NEGATIVE (NEGATIVE); INFLUENZA B NAA NEGATIVE (NEGATIVE)
[2022-01-25 19:01] VITALS: BP 132/78; PULSE 92
== END 2022-01-25 18:59 | disposition home or self-care (01) ==
LOC: MW.ED 15:59
DX: K29.70 Gastritis, unspecified, without bleeding (principal); K85.20 Alcohol induced acute pancreatitis without necrosis or infection; F10.10 Alcohol abuse, uncomplicated; R74.01 Elevation of levels of liver transaminase levels; I10 Essential (primary) hypertension; Z79.899 Other long term (current) drug therapy; Z20.822 Contact with and (suspected) exposure to COVID-19
CPT/HCPCS: 0240U; 36415; 80053; 80305; 81001; 83690; 85025; 93005; 96361; 96374; 96375; 99285; C9113; J2405; J3490; J7030

== ENCOUNTER 2022-02-07 03:02 | Emergency (ER) | payer BC ==
[2022-02-07 03:40] VITALS: BP 151/103; PULSE 86
== END 2022-02-07 03:40 ==
LOC: MW.ED 03:02
DX: F10.129 Alcohol abuse with intoxication, unspecified (principal); I10 Essential (primary) hypertension
CPT/HCPCS: 99282

== ENCOUNTER 2022-02-07 20:45 | Emergency (ER) | payer OTHER, BC ==
[2022-02-07] MEDS ORDERED: LORazepam 2 MG/ML SDV IVPUSH ONE (20:56)
[2022-02-07] MEDS ORDERED: Lactated Ringers 1,000 ML IV SCH ×2 (21:00→22:15)
[2022-02-07 22:13] LABS: CORONAVIRUS COVID-19 NAA NEGATIVE (NEGATIVE); INFLUENZA A NAA NEGATIVE (NEGATIVE); INFLUENZA B NAA NEGATIVE (NEGATIVE); RESPIRATORY SYNCYTIAL VIR NAA NEGATIVE (NEGATIVE)
[2022-02-07 22:21] LABS: BLOOD UREA NITROGEN,BUN 13 mg/dL (7.0-18.0); CARBON DIOXIDE,CO2 27.6 mmol/L (21.0-32.0); CHLORIDE,CL 99 mmol/L (98-107); ESTIMATED GFR 113 mL/min (>60); GLUCOSE RANDOM 110 mg/dL (74-106); LIPASE 411 U/L (73-393); POTASSIUM,K 4.3 mmol/L (3.5-5.1); SODIUM,NA 140 mmol/L (136-148)
[2022-02-07] MEDS ORDERED: Magnesium Sulfate (4.06 MEQ/ML) 5 GM/10 ML SDV IV STA (22:27)
[2022-02-07] MEDS ORDERED: Magnesium Sulfate/Water 50 ML ONE (23:01)
[2022-02-07] MEDS ORDERED: Magnesium Sulfate/Water 2 GM in Premix Bag 1 BAG IV ONE (23:02)
[2022-02-07 23:52] VITALS: BP 154/109; PULSE 75
== END 2022-02-08 00:02 ==
LOC: MW.ED 20:45
DX: F10.239 Alcohol dependence with withdrawal, unspecified (principal); I10 Essential (primary) hypertension; F17.210 Nicotine dependence, cigarettes, uncomplicated; Z20.822 Contact with and (suspected) exposure to COVID-19; Y90.0 Blood alcohol level of less than 20 mg/100 ml
CPT/HCPCS: 0241U; 36415; 80053; 80307; 82550; 83605; 83690; 83735; 84443; 85025; 85610; 96361; 96365; 96375; 99285; J2060; J3475; J7120

== ENCOUNTER 2022-02-08 02:49 | Inpatient (IN) | payer OTHER, BC ==
[2022-02-08] MEDS ORDERED: LORazepam 2 MG/ML SDV ONE (03:07)
[2022-02-08] MEDS ORDERED: LORazepam 2 MG/ML SDV IVPUSH ONE ×2 (03:09→03:49)
[2022-02-08 04:53] VITALS: PULSE 67
[2022-02-08] MEDS ORDERED: Pantoprazole 40 MG in Sodium Chloride 0.9% 10 ML IVPUSH SCH ×2 (06:00→17:00)
[2022-02-08] MEDS: LORazepam 2 MG/ML SDV IV SCH ×3 (06:08→11:28)
[2022-02-08] MEDS ORDERED: Acetaminophen 325 MG Tab PO PRN (07:30)
[2022-02-08] MEDS ORDERED: Ondansetron 4 MG/2 ML SDV IVPUSH PRN (07:30)
[2022-02-08] MEDS ORDERED: Albuterol/Ipratropium 3.0-0.5 MG/3 ML Neb Soln NEB PRN (07:31)
[2022-02-08] MEDS ORDERED: Polyethylene Glycol 3350 Powder 17 GM Packet PO PRN (07:31)
[2022-02-08] MEDS ORDERED: Sodium Chloride 0.9% 2.5 ML Syringe FLUSH PRN (07:50)
[2022-02-08] MEDS ORDERED: Sodium Chloride 0.9% 10 ML Syringe FLUSH PRN (07:50)
[2022-02-08] MEDS ORDERED: chlordiazePOXIDE 25 MG Cap PO SCH (08:00)
[2022-02-08 08:11] LABS: CARBON DIOXIDE,CO2 29.5 mmol/L (21.0-32.0)
[2022-02-08] MEDS ORDERED: Folic Acid 1 MG Tab PO SCH (09:00)
[2022-02-08] MEDS ORDERED: Multivitamin Tab PO SCH (09:00)
[2022-02-08] MEDS ORDERED: Thiamine 200 MG/2 ML MDV IV SCH (09:00)
[2022-02-08] MEDS ORDERED: Lisinopril 10 MG Tab PO SCH (11:15)
[2022-02-08 13:59] VITALS: BP 152/111
[2022-02-08] MEDS ORDERED: Gabapentin 300 MG Cap PO SCH (14:00)
== END 2022-02-08 14:10 | disposition left against medical advice (07) | DRG 894 ==
LOC: MW.ED 02:49 → MW.ICU 04:11
PROVIDERS: ADMIT Internal Medicine; ATTEND Internal Medicine
PROC: HZ2ZZZZ Detoxification Services for Substance Abuse Treatment (ICD-10-PCS; principal; 2022-02-08)
DX: F10.931 Alcohol use, unspecified with withdrawal delirium (principal); I10 Essential (primary) hypertension; F41.9 Anxiety disorder, unspecified; F17.210 Nicotine dependence, cigarettes, uncomplicated
CPT/HCPCS: 36415; 80053; 83735; 84100; 85025; 96374; 96376; 99285-25; A9270-GY; C9113; J2060; J3411; J3490

== ENCOUNTER 2022-02-08 15:24 | Inpatient (IN) | payer BC, MEDICAID ==
[2022-02-08] MEDS ORDERED: Sodium Chloride 0.9% 2.5 ML Syringe FLUSH PRN ×2 (15:45→16:53)
[2022-02-08] MEDS ORDERED: Sodium Chloride 0.9% 10 ML Syringe FLUSH PRN ×2 (15:45→16:53)
[2022-02-08] MEDS ORDERED: Sodium Chloride 0.9% 1,000 ML IV ONE (15:45)
[2022-02-08] MEDS ORDERED: LORazepam 2 MG/ML SDV IVPUSH ONE (16:12)
[2022-02-08] MEDS ORDERED: Ondansetron 4 MG/2 ML SDV IVPUSH ONE (16:12)
[2022-02-08] MEDS ORDERED: Acetaminophen 325 MG Tab PO PRN (16:53)
[2022-02-08] MEDS ORDERED: Ondansetron 4 MG/2 ML SDV IVPUSH PRN (16:53)
[2022-02-08 17:08] LABS: CARBON DIOXIDE,CO2 24.8 mmol/L (21.0-32.0); POTASSIUM,K 3.8 mmol/L (3.5-5.1)
[2022-02-08] MEDS: Pantoprazole 40 MG in Sodium Chloride 0.9% 10 ML IVPUSH SCH ×2 (18:11→20:10)
[2022-02-08] MEDS: LORazepam 2 MG/ML SDV IV PRN ×3 (18:12→22:15)
[2022-02-08] MEDS: chlordiazePOXIDE 25 MG Cap PO SCH (18:12)
[2022-02-08] MEDS: Thiamine 100 MG Tab PO SCH (20:09)
[2022-02-08] MEDS: Folic Acid 1 MG Tab PO SCH (20:09)
[2022-02-08] MEDS: Gabapentin 300 MG Cap PO SCH (22:06)
[2022-02-09] MEDS: chlordiazePOXIDE 25 MG Cap PO SCH ×3 (02:08→18:31)
[2022-02-09] MEDS: Gabapentin 300 MG Cap PO SCH ×3 (05:11→21:50)
[2022-02-09] MEDS: LORazepam 2 MG/ML SDV IV PRN ×8 (05:26→22:41)
[2022-02-09 07:04] LABS: CARBON DIOXIDE,CO2 27.4 mmol/L (21.0-32.0); POTASSIUM,K 3.7 mmol/L (3.5-5.1)
[2022-02-09] MEDS: Lisinopril 10 MG Tab PO SCH (09:03)
[2022-02-09] MEDS: Pantoprazole 40 MG in Sodium Chloride 0.9% 10 ML IVPUSH SCH ×2 (09:03→20:30)
[2022-02-09] MEDS: Thiamine 100 MG Tab PO SCH (20:29)
[2022-02-09] MEDS: Folic Acid 1 MG Tab PO SCH (20:29)
[2022-02-10] MEDS: chlordiazePOXIDE 25 MG Cap PO SCH (02:25)
[2022-02-10] MEDS: Gabapentin 300 MG Cap PO SCH (05:10)
[2022-02-10 08:23] LABS: CARBON DIOXIDE,CO2 26.2 mmol/L (21.0-32.0); POTASSIUM,K 3.8 mmol/L (3.5-5.1)
[2022-02-10] MEDS ORDERED: chlordiazePOXIDE 25 MG Cap PO SCH ×2 (09:15→10:09)
[2022-02-10] MEDS: Pantoprazole 40 MG in Sodium Chloride 0.9% 10 ML IVPUSH SCH (09:38)
[2022-02-10] MEDS: Lisinopril 10 MG Tab PO SCH (09:39)
[2022-02-10 12:35] VITALS: BP 138/88; PULSE 66
== END 2022-02-10 14:10 | disposition left against medical advice (07) | DRG 894 ==
LOC: MW.ED 15:24 → MW.ICU 16:13 → MW.MS 02-10 11:06
PROVIDERS: ADMIT Internal Medicine; ATTEND Internal Medicine
DX: F10.231 Alcohol dependence with withdrawal delirium (principal); F41.9 Anxiety disorder, unspecified; F17.210 Nicotine dependence, cigarettes, uncomplicated; K29.20 Alcoholic gastritis without bleeding; R74.01 Elevation of levels of liver transaminase levels; I10 Essential (primary) hypertension; Z86.59 Personal history of other mental and behavioral disorders; Z87.898 Personal history of other specified conditions; Z79.899 Other long term (current) drug therapy; Z86.19 Personal history of other infectious and parasitic diseases
CPT/HCPCS: 36415; 80048; 80053; 80307; 83735; 84100; 85025; 96374; 96375; 99284-25; A9270-GY; C9113; J2060; J2405; J3490; J7030

== ENCOUNTER 2022-03-27 14:15 | Inpatient (IN) | payer MEDICAID ==
[2022-03-27] MEDS ORDERED: Sodium Chloride 0.9% 2.5 ML Syringe FLUSH PRN (14:54)
[2022-03-27] MEDS ORDERED: Sodium Chloride 0.9% 10 ML Syringe FLUSH PRN (14:54)
[2022-03-27] MEDS ORDERED: Sodium Chloride 0.9% 20 ML SDV IV PRN (14:54)
[2022-03-27] MEDS ORDERED: Thiamine 100 MG in Sodium Chloride 0.9% 100 ML IV ONE (14:58)
[2022-03-27] MEDS ORDERED: Sodium Chloride 0.9% 2,000 ML IV SCH (15:00)
[2022-03-27] MEDS ORDERED: Thiamine 200 MG/2 ML MDV IVPUSH ONE (15:15)
[2022-03-27 16:08] LABS: CARBON DIOXIDE,CO2 28.4 mmol/L (21.0-32.0); POTASSIUM,K 3.3 mmol/L (3.5-5.1)
[2022-03-27] MEDS ORDERED: Ondansetron 4 MG/2 ML SDV IVPUSH PRN (20:29)
[2022-03-27] MEDS ORDERED: Morphine 2 MG/ML SYRINGE IVPUSH PRN (20:29)
[2022-03-27] MEDS: Sodium Chloride 0.9% 1,000 ML IV SCH (21:08)
[2022-03-27] MEDS: LORazepam 2 MG/ML SDV IVPUSH PRN ×2 (21:34→22:32)
[2022-03-27] MEDS ORDERED: Magnesium Sulfate/Water 2 GM/50 ML Premix Bag IV ONE (21:56)
[2022-03-27] MEDS ORDERED: NS with KCl 40mEq 1,000 ML IV SCH (22:00)
[2022-03-27] MEDS ORDERED: Sodium Chloride 0.9% 1,000 ML IV ONE (22:07)
[2022-03-27] MEDS ORDERED: Magnesium Sulfate/Water 2 GM in Premix Bag 1 BAG IV ONE (22:15)
[2022-03-28] MEDS: LORazepam 2 MG/ML SDV IVPUSH PRN ×7 (00:16→20:40)
[2022-03-28 07:13] LABS: CARBON DIOXIDE,CO2 26.1 mmol/L (21.0-32.0)
[2022-03-28] MEDS: Folic Acid 1 MG/0.2 ML UD Syringe SUBCUT SCH (08:55)
[2022-03-28] MEDS: Thiamine 200 MG/2 ML MDV IVPUSH SCH (08:56)
[2022-03-28] MEDS: Sodium Chloride 0.9% 1,000 ML IV SCH ×3 (11:27→21:05)
[2022-03-28] MEDS ORDERED: Gabapentin 300 MG Cap PO PRN (14:00)
[2022-03-28] MEDS: Lisinopril 10 MG Tab PO SCH (14:07)
[2022-03-29] MEDS: LORazepam 2 MG/ML SDV IVPUSH PRN ×4 (01:47→20:11)
[2022-03-29] MEDS: Sodium Chloride 0.9% 1,000 ML IV SCH ×4 (02:04→21:38)
[2022-03-29 06:35] LABS: CARBON DIOXIDE,CO2 22.8 mmol/L (21.0-32.0); POTASSIUM,K 3.7 mmol/L (3.5-5.1)
[2022-03-29] MEDS ORDERED: Sodium Chloride 0.9% 10 ML Syringe FLUSH PRN (07:56)
[2022-03-29] MEDS ORDERED: Sodium Chloride 0.9% 2.5 ML Syringe FLUSH PRN (07:56)
[2022-03-29] MEDS: Thiamine 200 MG/2 ML MDV IVPUSH SCH (08:01)
[2022-03-29] MEDS: Folic Acid 1 MG/0.2 ML UD Syringe SUBCUT SCH (08:01)
[2022-03-29] MEDS: Lisinopril 10 MG Tab PO SCH (08:01)
[2022-03-29] MEDS ORDERED: Magnesium Sulfate/Water 4 GM in Premix Bag 1 BAG IV ONE (08:15)
[2022-03-29] MEDS: Pantoprazole 40 MG in Sodium Chloride 0.9% 10 ML IVPUSH SCH (09:53)
[2022-03-30] MEDS: LORazepam 2 MG/ML SDV IVPUSH PRN ×6 (00:16→19:49)
[2022-03-30 06:12] LABS: POTASSIUM,K 3.5 mmol/L (3.5-5.1)
[2022-03-30] MEDS: Sodium Chloride 0.9% 1,000 ML IV SCH ×2 (06:37→20:56)
[2022-03-30] MEDS ORDERED: Magnesium Sulfate/Water 4 GM in Premix Bag 1 BAG IV ONE (08:09)
[2022-03-30] MEDS: Lisinopril 10 MG Tab PO SCH (09:44)
[2022-03-30] MEDS: Folic Acid 1 MG/0.2 ML UD Syringe SUBCUT SCH (09:44)
[2022-03-30] MEDS: Pantoprazole 40 MG in Sodium Chloride 0.9% 10 ML IVPUSH SCH (09:45)
[2022-03-30] MEDS: Thiamine 200 MG/2 ML MDV IVPUSH SCH (09:45)
[2022-03-30] MEDS: Gabapentin 300 MG Cap PO SCH ×2 (15:01→21:30)
[2022-03-31] MEDS: Acetaminophen 325 MG Tab PO PRN (01:34)
[2022-03-31] MEDS: Melatonin 3 MG Tab PO PRN ×2 (01:36→21:47)
[2022-03-31] MEDS: Sodium Chloride 0.9% 1,000 ML IV SCH (05:19)
[2022-03-31] MEDS: Gabapentin 300 MG Cap PO SCH ×3 (05:45→21:46)
[2022-03-31 06:46] LABS: CARBON DIOXIDE,CO2 23.5 mmol/L (21.0-32.0); POTASSIUM,K 4.2 mmol/L (3.5-5.1)
[2022-03-31] MEDS ORDERED: Magnesium Sulfate/Water 2 GM in Premix Bag 1 BAG IV ONE (07:57)
[2022-03-31] MEDS: Pantoprazole 40 MG Tab.CR PO SCH (08:32)
[2022-03-31] MEDS: Lisinopril 10 MG Tab PO SCH (08:32)
[2022-03-31] MEDS: Thiamine 200 MG/2 ML MDV IVPUSH SCH (08:33)
[2022-03-31] MEDS: Folic Acid 1 MG/0.2 ML UD Syringe SUBCUT SCH (08:33)
[2022-04-01] MEDS: Pantoprazole 40 MG Tab.CR PO SCH (06:40)
[2022-04-01] MEDS: Gabapentin 300 MG Cap PO SCH ×3 (06:40→21:29)
[2022-04-01] MEDS: Lisinopril 10 MG Tab PO SCH (09:05)
[2022-04-01] MEDS: LORazepam 2 MG/ML SDV IVPUSH PRN ×2 (09:07→11:15)
[2022-04-01] MEDS: Folic Acid 1 MG/0.2 ML UD Syringe SUBCUT SCH (09:16)
[2022-04-01] MEDS: Thiamine 200 MG/2 ML MDV IVPUSH SCH (09:19)
[2022-04-01] MEDS: Melatonin 3 MG Tab PO PRN (21:29)
[2022-04-02 05:59] LABS: CARBON DIOXIDE,CO2 27.2 mmol/L (21.0-32.0); POTASSIUM,K 3.9 mmol/L (3.5-5.1)
[2022-04-02] MEDS: Gabapentin 300 MG Cap PO SCH ×3 (06:33→21:24)
[2022-04-02] MEDS: Pantoprazole 40 MG Tab.CR PO SCH (06:33)
[2022-04-02] MEDS: LORazepam 2 MG/ML SDV IVPUSH PRN ×3 (08:44→12:10)
[2022-04-02] MEDS: Folic Acid 1 MG/0.2 ML UD Syringe SUBCUT SCH (08:52)
[2022-04-02] MEDS: Thiamine 200 MG/2 ML MDV IVPUSH SCH (08:55)
[2022-04-02] MEDS: Lisinopril 10 MG Tab PO SCH (08:58)
[2022-04-02] MEDS: Melatonin 3 MG Tab PO PRN (21:24)
[2022-04-03] MEDS: Gabapentin 300 MG Cap PO SCH ×3 (06:28→21:04)
[2022-04-03 06:29] LABS: CARBON DIOXIDE,CO2 27.2 mmol/L (21.0-32.0); POTASSIUM,K 4.2 mmol/L (3.5-5.1)
[2022-04-03] MEDS: Pantoprazole 40 MG Tab.CR PO SCH (06:29)
[2022-04-03] MEDS: LORazepam 2 MG/ML SDV IVPUSH PRN ×5 (07:59→23:27)
[2022-04-03] MEDS: Lisinopril 10 MG Tab PO SCH (08:56)
[2022-04-03] MEDS: Folic Acid 1 MG/0.2 ML UD Syringe SUBCUT SCH (08:57)
[2022-04-03] MEDS: Thiamine 200 MG/2 ML MDV IVPUSH SCH (08:58)
[2022-04-03] MEDS: Melatonin 3 MG Tab PO PRN (21:04)
[2022-04-04] MEDS: LORazepam 2 MG/ML SDV IVPUSH PRN ×5 (05:32→19:23)
[2022-04-04] MEDS: Pantoprazole 40 MG Tab.CR PO SCH ×2 (06:16→06:46)
[2022-04-04] MEDS: Gabapentin 300 MG Cap PO SCH ×3 (06:17→21:01)
[2022-04-04 06:44] LABS: CARBON DIOXIDE,CO2 28.7 mmol/L (21.0-32.0); POTASSIUM,K 4.1 mmol/L (3.5-5.1)
[2022-04-04] MEDS: Folic Acid 1 MG/0.2 ML UD Syringe SUBCUT SCH (08:49)
[2022-04-04] MEDS: Lisinopril 10 MG Tab PO SCH (08:50)
[2022-04-04] MEDS: Thiamine 200 MG/2 ML MDV IVPUSH SCH (08:50)
[2022-04-04] MEDS: Acetaminophen 325 MG Tab PO PRN (19:17)
[2022-04-04] MEDS: Melatonin 3 MG Tab PO PRN (21:56)
[2022-04-05] MEDS: Gabapentin 300 MG Cap PO SCH ×3 (05:18→21:29)
[2022-04-05 06:18] LABS: POTASSIUM,K 4.2 mmol/L (3.5-5.1)
[2022-04-05] MEDS: Pantoprazole 40 MG Tab.CR PO SCH (06:32)
[2022-04-05] MEDS: LORazepam 2 MG/ML SDV IVPUSH PRN ×2 (07:48→16:16)
[2022-04-05] MEDS ORDERED: Scopolamine 1.5 MG Transdermal Patch TOP ONE (08:00)
[2022-04-05] MEDS ORDERED: Metoclopramide 10 MG/2 ML SDV IVPUSH PRN (08:51)
[2022-04-05] MEDS ORDERED: fentaNYL 50 MCG/ML SDV IVPUSH PRN (08:51)
[2022-04-05] MEDS ORDERED: Naloxone 0.4 MG/ML SDV IVPUSH PRN (08:51)
[2022-04-05] MEDS ORDERED: HYDROmorphone 1 MG/ML Syringe IVPUSH PRN (08:51)
[2022-04-05] MEDS ORDERED: Morphine 2 MG/ML SYRINGE IVPUSH PRN (08:51)
[2022-04-05] MEDS ORDERED: Albuterol 0.083% 2.5 MG/3 ML Neb Soln NEB PRN (08:51)
[2022-04-05] MEDS ORDERED: Ondansetron 4 MG/2 ML SDV IVPUSH PRN (08:51)
[2022-04-05] MEDS ORDERED: Ropivacaine 0.5% 5 MG/ML 30 ML SDV ONE (08:59)
[2022-04-05] MEDS ORDERED: Bupivacaine 0.25% 30 ML SDV ONE (08:59)
[2022-04-05] MEDS: Thiamine 200 MG/2 ML MDV IVPUSH SCH (09:03)
[2022-04-05] MEDS: Folic Acid 1 MG/0.2 ML UD Syringe SUBCUT SCH (10:15)
[2022-04-05] MEDS ORDERED: Propofol 200 MG/20 ML SDV ONE (10:35)
[2022-04-05] MEDS ORDERED: fentaNYL 100 MCG/2 ML SDV ONE (10:35)
[2022-04-05] MEDS ORDERED: ceFAZolin 2 GM in Sodium Chloride 0.9% 100 ML IV ONE (11:00)
[2022-04-05] MEDS ORDERED: ceFAZolin 2 GM Vial ONE (11:09)
[2022-04-05] MEDS ORDERED: Water For Injection, Sterile 20 ML ONE (11:12)
[2022-04-05] MEDS ORDERED: Indocyanine Green 25 MG SDV ONE (11:12)
[2022-04-05] MEDS ORDERED: Lidocaine 2% 5 ML SDV ONE (11:19)
[2022-04-05] MEDS ORDERED: Rocuronium 100 MG/10 ML MDV ONE (11:19)
[2022-04-05] MEDS ORDERED: Ondansetron 4 MG/2 ML SDV ONE (11:19)
[2022-04-05] MEDS ORDERED: Ketorolac 30 MG/ML SDV ONE (11:19)
[2022-04-05] MEDS ORDERED: Sugammadex Sodium 200 MG/2 ML VIAL ONE ×2 (11:19→12:46)
[2022-04-05] MEDS ORDERED: Dexamethasone 4 MG/ML 5 ML MDV ONE (11:19)
[2022-04-05] MEDS ORDERED: Bupivacaine 0.5% 30 ML SDV ONE (11:20)
[2022-04-05] MEDS ORDERED: ePHEDrine 50 MG/ML SDV ONE (13:31)
[2022-04-05] MEDS: Lisinopril 10 MG Tab PO SCH (14:40)
[2022-04-05] MEDS ORDERED: oxyCODONE 5 MG Tab PO PRN (15:41)
[2022-04-05] MEDS: Acetaminophen 325 MG Tab PO PRN (16:14)
[2022-04-05] MEDS: Ketorolac 10 MG Tab PO PRN (21:32)
[2022-04-05] MEDS: Melatonin 3 MG Tab PO PRN (22:28)
[2022-04-06] MEDS: Ketorolac 10 MG Tab PO PRN (05:41)
[2022-04-06] MEDS: Gabapentin 300 MG Cap PO SCH (05:41)
[2022-04-06] MEDS: LORazepam 2 MG/ML SDV IVPUSH PRN ×2 (05:46→07:55)
[2022-04-06] MEDS: Pantoprazole 40 MG Tab.CR PO SCH ×2 (06:24→06:35)
[2022-04-06 06:27] LABS: POTASSIUM,K 3.8 mmol/L (3.5-5.1)
[2022-04-06] MEDS: Acetaminophen 325 MG Tab PO PRN (07:56)
[2022-04-06] MEDS: Lisinopril 10 MG Tab PO SCH (09:02)
[2022-04-06] MEDS: Thiamine 200 MG/2 ML MDV IVPUSH SCH (09:03)
[2022-04-06] MEDS: Folic Acid 1 MG/0.2 ML UD Syringe SUBCUT SCH (09:06)
[2022-04-06 11:27] VITALS: BP 130/64; PULSE 101
== END 2022-04-06 11:45 | disposition home or self-care (01) | DRG 418 ==
LOC: MW.ED 14:15 → MW.MS 19:10 → MW.ICU 23:49 → MW.MS 03-29 22:00
PROVIDERS: ADMIT Internal Medicine; ATTEND Internal Medicine
PROC: 0FT44ZZ Resection of Gallbladder, Percutaneous Endoscopic Approach (ICD-10-PCS; principal; 2022-04-05)
PROC: 0WQF4ZZ Repair Abdominal Wall, Percutaneous Endoscopic Approach (ICD-10-PCS; 2022-04-05)
PROC: 0HB1XZZ Excision of Face Skin, External Approach (ICD-10-PCS; 2022-04-05)
DX: K85.20 Alcohol induced acute pancreatitis without necrosis or infection (principal); F10.231 Alcohol dependence with withdrawal delirium; K85.10 Biliary acute pancreatitis without necrosis or infection; E83.42 Hypomagnesemia; R74.01 Elevation of levels of liver transaminase levels; F17.200 Nicotine dependence, unspecified, uncomplicated; I10 Essential (primary) hypertension; F41.9 Anxiety disorder, unspecified; L98.9 Disorder of the skin and subcutaneous tissue, unspecified; Z20.822 Contact with and (suspected) exposure to COVID-19; E87.6 Hypokalemia; D69.6 Thrombocytopenia, unspecified; Z79.899 Other long term (current) drug therapy
CPT/HCPCS: 36415; 74018; 74018-26; 74181; 74181-26; 76705; 76705-26; 80053; 80305-QW; 83690; 83735; 84100; 85025; 85610; 96361; 96374; 96375; 99285-25; A9270-GY; C9113; J0690; J1100; J1170; J1885; J2060; J2405; J2704; J2795; J3010; J3360; J3411; J3475; J3480; J3490; J7030; U0002

== ENCOUNTER 2022-05-29 11:37 | Emergency (ER) | payer MEDICAID ==
[2022-05-29] MEDS ORDERED: Sodium Chloride 0.9% 1,000 ML IV ONE ×4 (11:38→12:48)
[2022-05-29] MEDS ORDERED: LORazepam 2 MG/ML SDV IVPUSH ONE ×3 (11:38→15:05)
[2022-05-29] MEDS ORDERED: LORazepam 2 MG/ML SDV ONE (11:49)
[2022-05-29] MEDS ORDERED: Diphtheria,Pertussis(Acell),Tetanus Vaccine 0.5 ML Syringe IM ONE (11:51)
[2022-05-29] MEDS ORDERED: Folic Acid 1 MG/0.2 ML UD Syringe IV STA (11:52)
[2022-05-29] MEDS ORDERED: Thiamine 100 MG in Sodium Chloride 0.9% 100 ML IV ONE (11:52)
[2022-05-29] MEDS ORDERED: Magnesium Sulfate (4.06 MEQ/ML) 5 GM/10 ML SDV IV STA (11:52)
[2022-05-29] MEDS ORDERED: Ketamine 500 mg/10 ML MDV IV ONE ×2 (11:56→12:07)
[2022-05-29] MEDS ORDERED: PHENobarbitaL sodium 260 MG in Sodium Chloride 0.9% 100 ML IV ONE (12:14)
[2022-05-29] MEDS ORDERED: Thiamine 200 MG/2 ML MDV IVPUSH ONE (12:15)
[2022-05-29] MEDS ORDERED: Magnesium Sulfate/Water 2 GM in Premix Bag 1 BAG IV ONE (12:15)
[2022-05-29] MEDS ORDERED: PHENOBARBITAL SODIUM IV ONE (12:19)
[2022-05-29] MEDS ORDERED: SODIUM CHLORIDE 0.9% IV ONE (12:19)
[2022-05-29 12:27] LABS: BLOOD UREA NITROGEN,BUN 3 mg/dL (7.0-18.0); CARBON DIOXIDE,CO2 21.2 mmol/L (21.0-32.0); CHLORIDE,CL 98 mmol/L (98-107); GLUCOSE RANDOM 142 mg/dL (74-106); POTASSIUM,K 3.2 mmol/L (3.5-5.1); SODIUM,NA 138 mmol/L (136-148)
[2022-05-29 12:28] LABS: ESTIMATED GFR 85 mL/min (>60)
[2022-05-29] MEDS ORDERED: Propofol 200 MG/20 ML SDV IVPUSH ONE (12:28)
[2022-05-29] MEDS ORDERED: Midazolam HCl In 0.9 % NaCl/Pf 100 ML IV SCH (12:30)
[2022-05-29] MEDS ORDERED: Rocuronium 50 MG/5 ML Vial IV ONE ×2 (12:30→13:57)
[2022-05-29] MEDS ORDERED: propofoL 100 ML IV SCH (12:30)
[2022-05-29] MEDS ORDERED: propofoL 100 ML ONE (12:34)
[2022-05-29] MEDS ORDERED: Potassium Chloride 20 MEQ in Premix Bag 1 BAG IV ONE (12:51)
[2022-05-29] MEDS ORDERED: PHENobarbital Sodium 130 MG/ML SDV IV ONE (13:15)
[2022-05-29] MEDS ORDERED: Piperacillin/Tazobactam 4.5 GM in Sodium Chloride 0.9% 100 ML IV ONE (13:50)
[2022-05-29 14:01] VITALS: BP 167/116; PULSE 147
[2022-05-29] MEDS ORDERED: Magnesium Sulfate/Water 50 ML ONE (14:03)
[2022-05-29] MEDS ORDERED: Folic Acid 1 MG/0.2 ML UD Syringe ONE (14:27)
[2022-05-29] MEDS ORDERED: propofoL 100 ML IV STA (15:05)
== END 2022-05-29 16:53 ==
LOC: MW.ED 11:37
DX: R56.9 Unspecified convulsions (principal); F10.230 Alcohol dependence with withdrawal, uncomplicated; S01.81XA Laceration without foreign body of other part of head, initial encounter; S80.11XA Contusion of right lower leg, initial encounter; S80.12XA Contusion of left lower leg, initial encounter; I10 Essential (primary) hypertension; Z23 Encounter for immunization; Z79.899 Other long term (current) drug therapy; Z20.822 Contact with and (suspected) exposure to COVID-19
CPT/HCPCS: 12013; 31500; 36415; 36600; 43752; 51702; 70450; 71045; 72125; 73020; 80053; 80305; 80307; 81001; 82550; 82803; 83605; 83735; 84484; 85025; 85610; 85730; 87040; 87635; 90471; 90715; 93005; 96361; 96365; 96366; 96368; 96375; 96376; 99285; J2060; J2251; J2543; J2560; J2704; J3411; J3475; J3480; J3490; J7030; J7050; 93010; 99291; 99292; U0002